=== PATIENT | female | born 1990 | race Caucasian/White ===

== ENCOUNTER 2020-08-21 16:15 | Outpatient (REF) | payer OTHER, SELFPAY ==
[2020-08-21 16:42] LABS: COVID-19 Test Negative (Negative)
== END 2020-08-21 16:16 | disposition home or self-care (01) ==
LOC: HO.LAB 16:15
PROVIDERS: Visit Provider Internal Medicine
DX: Z20.828 Contact with and (suspected) exposure to other viral communicable diseases (principal)
CPT/HCPCS: 87635

== ENCOUNTER 2020-08-24 12:31 | Outpatient (REF) | payer OTHER, SELFPAY ==
[2020-08-24 12:49] LABS: COVID-19 Test Negative (Negative)
== END 2020-08-24 12:32 | disposition home or self-care (01) ==
LOC: HO.LAB 12:31
PROVIDERS: Visit Provider Internal Medicine
DX: Z20.828 Contact with and (suspected) exposure to other viral communicable diseases (principal)
CPT/HCPCS: 87635

== ENCOUNTER 2020-10-02 08:53 | Outpatient (REF) | payer OTHER, SELFPAY ==
[2020-10-02 10:03] LABS: COVID-19 Test Negative (Negative); IDNOW Serial# 55D5AD1C
== END 2020-10-02 08:54 | disposition home or self-care (01) ==
LOC: HO.LAB 08:53
PROVIDERS: Visit Provider Internal Medicine
DX: Z20.828 Contact with and (suspected) exposure to other viral communicable diseases (principal)
CPT/HCPCS: 87635; C9803

== ENCOUNTER 2020-10-17 12:26 | Outpatient (REF) | payer SELFPAY ==
[2020-10-17 13:02] LABS: Cholesterol 224 mg/dL
== END 2020-10-17 12:27 | disposition home or self-care (01) ==
LOC: HO.LNC 12:26
PROVIDERS: Visit Provider Pathology Anatomic Pathology & Clinical Pathology
DX: E78.00 Pure hypercholesterolemia, unspecified (principal)
CPT/HCPCS: 82465

== ENCOUNTER 2020-11-14 09:57 | Outpatient (REF) | payer OTHER, SELFPAY ==
[2020-11-14 10:28] LABS: COVID-19 Test Negative (Negative); IDNOW Serial# 55D5AD1C
== END 2020-11-14 09:58 | disposition home or self-care (01) ==
LOC: HO.EMPCOV 09:57
PROVIDERS: Visit Provider Internal Medicine
DX: Z20.822 Contact with and (suspected) exposure to COVID-19 (principal)
CPT/HCPCS: 36415; 87635; C9803

== ENCOUNTER 2021-06-27 16:33 | Outpatient (REF) | payer OTHER, SELFPAY ==
--- NOTE | ~2021-06-27 | US_ITS ---
EXAMINATION: US THYROID CLINICAL INFORMATION: Goiter. COMPARISON: None TECHNIQUE: Linear transducer grayscale and color Doppler examination with attention to the region of the thyroid. FINDINGS: SIZE: Measurements of the thyroid lobes and nodules are given in sagittal, anteroposterior and transverse dimensions respectively. Right Thyroid Lobe: 6.0 x 1.6 x 2.1 cm, volume 10.5 mL. Parenchyma: The gland echotexture is homogeneous. Thyroid vascularity is normal. Left Thyroid Lobe: 5.4 x 1.3 x 1.6 cm, volume 5.4 mL. Parenchyma: The gland echotexture is homogeneous. Thyroid vascularity is normal. Isthmus: 0.3 cm in maximum AP dimension. Estimated total number of nodules greater than or equal to 1 cm: 0. Machine I Cutter nodules are described as follows: 1. Location: Left inferior. Size: 0.3 x 0.3 x 0.4 cm, volume 0.02 mL. Nodule characteristics: Colloid cyst NODES: No lymphadenopathy is seen in the tissue surrounding the thyroid gland. US/US thyroid IMPRESSION: Normal-appearing thyroid with a single tiny 4 mm colloid cyst. No further follow up is needed. ACR TI-RADS RECOMMENDATION REFERENCE: Ultrasound-guided fine-needle aspiration, followup ultrasound, no further follow up. * TR1 (0 point) and TR 2 (2 points): No FNA or follow up. * TR3 (3 points): FNA if more than or equal to 2.5 cm in maximum dimension, followup ultrasound in 1, 3 and 5 years if 1.5 to 2.4 cm in maximum dimension. * TR4 (4-6 points): FNA if more than or equal to 1.5 cm in maximum dimension, followup ultrasound in 1, 2, 3 and 5 years if 1 to 1.4 cm in maximum dimension. * TR5 (more than or equal to 7 points): FNA if more than or equal to 1 cm in maximum dimension, followup ultrasound every year for 5 years if 0.5 to 0.9 cm in maximum dimension. * TR3, TR4 or TR5 nodules that are below the size threshold for follow up receive no follow up.
== END 2021-06-27 16:34 | disposition home or self-care (01) ==
LOC: HO.US 16:33
PROVIDERS: PCP Internal Medicine; Visit Provider Internal Medicine
DX: E04.9 Nontoxic goiter, unspecified (principal)
CPT/HCPCS: 76536

== ENCOUNTER 2022-12-03 15:26 | Emergency (ER) | payer OTHER, SELFPAY ==
--- NOTE | ~2022-12-03 | CT_ITS ---
EXAMINATION: CT ABDOMEN AND PELVIS WITH CONTRAST CLINICAL INFORMATION: Right side pain. COMPARISON: 12/03/22 TECHNIQUE: Multidetector volumetric images were obtained from the superior aspect of the liver through the pubic symphysis following administration 85 mL of Omnipaque 350 intravenous contrast. Sagittal and coronal reformatted images were obtained on the technologist's workstation. Oral contrast: No This CT examination was performed using dose optimization techniques as appropriate, variously including the following: *Automated exposure control *Adjustment of mA and/or kV according to patient size (this includes techniques or standardized protocols for targeted exams where dose is matched to indication/reason for exam; i.e. extremities or head) *Use of iterative reconstruction technique DLP: 509 mGy-cm FINDINGS: LUNG BASES: The visualized lung bases are unremarkable. LIVER, GALLBLADDER, AND BILIARY TREE: The liver is normal in size, shape, and attenuation. No focal hepatic lesion or biliary ductal dilatation is present. The gallbladder is unremarkable with no evidence of radiopaque gallstones, gallbladder wall thickening, or obvious pericholecystic inflammatory changes. PANCREAS: Unremarkable. SPLEEN: Unremarkable. ADRENAL GLANDS: Unremarkable. KIDNEYS AND URETERS: There is a 6 mm left renal stone. No hydronephrosis. Right inferior pole nonobstructing punctate stone. BLADDER: Unremarkable. GASTROINTESTINAL TRACT: The small and large bowel are unremarkable. The appendix is unremarkable. ABDOMINAL WALL: No significant hernia is appreciated. LYMPH NODES: Normal. VASCULAR: Unremarkable. PELVIC VISCERA: Left corpus luteal cyst is noted. OSSEOUS STRUCTURES: Unremarkable. CT/CT abdomen pelvis w IV con IMPRESSION: 1. No acute intra-abdominal abnormality. 2. Bilateral nonobstructing nephrolithiasis. No hydronephrosis. 3. Left corpus luteal cyst.
--- NOTE | ~2022-12-03 | US_ITS ---
EXAMINATION: US ABDOMEN LIMITED CLINICAL INFORMATION: Right upper quadrant tenderness. COMPARISON: None TECHNIQUE: Real-time imaging of the right upper quadrant abdominal viscera. FINDINGS: PANCREAS: Normal. LIVER: Normal. The liver is normal in size. The liver contour is normal. Parenchymal echogenicity is normal. No focal hepatic lesion. There is no intrahepatic biliary duct dilatation seen. GALLBLADDER: Normal. The gallbladder is physiologically distended without evidence of stones, sludge, polyps, wall thickening or pericholecystic fluid. COMMON BILE DUCT: Normal in caliber measuring 0.4 cm in diameter. RIGHT KIDNEY: Normal. No hydronephrosis. No renal calculi or focal parenchymal lesions. The kidney measures 10.9 cm in maximum dimension. FREE FLUID: None. US/US abdomen limited IMPRESSION: No acute sonographic abnormalities to explain the patient's symptoms.
--- NOTE | 2022-12-03 15:29 | ED_ITS ---
HPI - Abdominal Pain General Chief Complaint: Abdominal Pain <NY Goncalves Last Filed: 12/03/22 15:32> Stated Complaint: abdominal pain <NY Goncalves Last Filed: 12/03/22 15:32> Time Seen by Provider: 12/03/22 15:43 <NY Goncalves Last Filed: 12/03/22 15:32> History of Present Illness HPI narrative: patient complains of right-sided abdominal pain which began yesterday night with nausea but no vomiting, it is a burning pain that is mostly in the middle and right upper side, no diarrhea no dysuria no frequency no changes in urination, no fever no chills no runny nose no cough no sore throat no rash no blood in stool no dizziness no weakness Is she woke up this morning and the pain was worse and she tried to go to work but pain was too much and came to the ER <NY Guaman Last Filed: 12/03/22 19:14> Related Data Home Medications: Previous Rx's Medication Instructions Recorded ibuprofen 600 mg tablet 600 mg PO TID PRN fever or pain 12/03/22 #20 tabs nitrofurantoin 100 mg PO Q12H 7 days #14 caps 12/03/22 monohydrate/macrocrystals 100 mg capsule (Macrobid) <NY Goncalves Last Filed: 12/03/22 15:32> Allergies/Adverse Reactions: Allergies Allergy/AdvReac Type Severity Reaction Status Date / Time cephalexin [From Keflex] Allergy Hives Verified 12/03/22 15:30 <NY Goncalves Last Filed: 12/03/22 15:32> [facility] Past Medical History [facility] Narrative: n <NY Guaman Last Filed: 12/03/22 19:14> Source: nursing notes reviewed <NY Guaman Last Filed: 12/03/22 19:14> Social History Social History: Social History Advance Directives: No Advance Directives Information Provided: No <NY Goncalves Last Filed: 12/03/22 15:32> Physical Exam ED Vital Signs: Vital Signs - 24 hr 12/03/22 15:30 12/03/22 17:40 Temperature 98.3 F 98.3 F Pulse Rate 108 H 90 Respiratory Rate 16 16 Blood Pressure 189/139 H 184/83 H Pulse Oximetry 98 100 Oxygen Delivery Method Room Air Room Air BMI result Body Mass Index 26.6 <NY Goncalves - Last Filed: 12/03/22 15:32> Vital Signs - 24 hr 12/03/22 15:30 12/03/22 17:40 Temperature 98.3 F 98.3 F Pulse Rate 108 H 90 Respiratory Rate 16 16 Blood Pressure 189/139 H 184/83 H Pulse Oximetry 98 100 Oxygen Delivery Method Room Air Room Air BMI result Body Mass Index 26.6 <NY Guaman - Last Filed: 12/03/22 19:14> Vital Signs - 24 hr 12/03/22 15:30 12/03/22 17:40 Temperature 98.3 F 98.3 F Pulse Rate 108 H 90 Respiratory Rate 16 16 Blood Pressure 189/139 H 184/83 H Pulse Oximetry 98 100 Oxygen Delivery Method Room Air Room Air BMI result Body Mass Index 26.6 <Diana Leos MD - Last Filed: 12/03/22 21:39> general appearance no acute distress Eyes anicteric no pallor The pharynx is mildly dry no redness no exudate no swelling, voice is normal Neck is supple The chest is clear to auscultation bilateral Heart no murmur The abdomen had both epigastric and right upper quadrant tenderness, no lower abdominal or any other tenderness no rebound no guarding The back no CVA tenderness Extremities no edema Skin no rashes Neuro no focal deficits <NY Guaman - Last Filed: 12/03/22 19:14> Course Course Course Narrative: RME - 32 yo female with history of UTI presents to the ER with nausea, chills and body aches that started last night. Today developed periumbilical abd pain that radiates to her back. Went to PCP today who told her to come to the ER for labs and imaging. BP 180/140s. HR 110s. RUQ tenderness on exam. Labs and RUQ U/S ordered. <NY Goncalves - Last Filed: 12/03/22 15:32> RME - 32 yo female with history of UTI presents to the ER with nausea, chills and body aches that started last night. Today developed periumbilical abd pain that radiates to her back. Went to PCP today who told her to come to the ER for labs and imaging. BP 180/140s. HR 110s. RUQ tenderness on exam. Labs and RUQ U/S ordered. Patient's pain was help mildly with Toradol, but later she did request more pain medication and was given morphine, as well as Pepcid labs CBC was normal with a normal white count bili Ritter was very mildly elevated at 1.1, otherwise chemistry was normal, lipase was normal, other LFTs were all normal Urine did show some white cells, but it also showed 3-5 squamous epithelial, as patient has no urinary tract symptoms no CVA tenderness no dysuria no frequency no burning I did not treat this as an infection COVID testing was negative Ultrasound of the abdomen was normal with no gallstones no sludge no wall thickening no pericholecystic fluid Liver was normal, no biliary duct dilatation seen At 19:00 I repeated an abdominal exam and now there is just mild epigastric tenderness the right upper quadrant tenderness is gone but the patient is still uncomfortable CT results are pending and case was signed out to Dr. Leos to follow CT results, follow influenza rapid results and re-evaluate and dispo patient <NY Guaman - Last Filed: 12/03/22 19:14> Medical Decision Making Medical Decision Making [facility] Narrative: -patient has borderline UTI. However, patient states that whenever she has mild UTI symptoms, they are intermittent, and eventually become worse. I discussed with the patient given her history might as well treated. Patient given the 1st dose of Macrobid in the emergency room. <Diana Leos MD - Last Filed: 12/03/22 21:39> Differential Diagnosis Differential Diagnoses: The differential diagnosis associated with the presentation includes (UTI, ovarian cyst, appendicitis) <Diana Leos MD - Last Filed: 12/03/22 21:39> Lab Data [facility] Lab Attestation statement: I reviewed the patient's lab results. <Diana Leos MD - Last Filed: 12/03/22 21:39> Result Diagrams: 12/03/22 15:55 12/03/22 15:55 <NY Goncalves - Last Filed: 12/03/22 15:32> Labs: Lab Results 12/03/22 12/03/22 12/03/22 Range/Units 15:41 15:41 15:55 WBC 6.6 (4.8-10.8) X10*3/uL RBC 5.03 (4.20-5.50) X10*6/uL Hgb 14.8 (12.0-16.0) g/dl Hct 42.3 (37.0-47.0) % MCV 84.1 (80.0-98.0) fL MCH 29.4 (27.0-33.0) pg MCHC 35.0 (31.0-35.0) g/dl RDW 12.2 (11.0-16.0) % Plt Count 289 (160-400) X10*3/uL MPV 9.5 (9.4-12.3) fL Immature Gran % (Auto) 0.3 (0.0-0.4) % Neut % (Auto) 58.5 (45-73) % Lymph % (Auto) 30.9 (20-40) % [place] % (Auto) 9.1 (2-11) % Eos % (Auto) 0.9 (0-4) % Baso % (Auto) 0.3 (0-2) % Lymph # (Auto) 2.0 (1.2-4.9) X10*3/uL [place] # (Auto) 0.6 (0.1-1.2) X10*3/uL Eos # (Auto) 0.1 (0.0-0.4) X10*3/uL Baso # (Auto) 0.0 (0.0-0.2) X10*3/uL Abs Immat Gran (auto) 0.02 (0.00-0.03) X10*3/uL Absolute Neuts (auto) 3.8 (2.0-8.3) x10*3/uL Absolute Nucleated RBC 0.000 (0.0-0.012) X10*3/uL Nucleated RBC % (auto) 0.0 (0.0-0.2) /100WBC Sodium (135-145) mmol/L Potassium (3.3-5.1) mmol/L Chloride (96-108) mmol/L Carbon Dioxide (22-29) mmol/L Anion Gap (12-20) BUN (9-16) mg/dL Creatinine (0.5-1.4) mg/dL Estim Creat Clear Calc Estimated GFR Random Glucose (60-115) mg/dL Calcium (8.4-10.2) mg/dL Magnesium (1.6-2.6) mg/dL Total Bilirubin (0.0-1.0) mg/dL Direct Bilirubin (0.0-0.5) mg/dL AST (5-31) U/L ALT (0-31) U/L Alkaline Phosphatase (39-117) U/L Total Protein (6.5-8.0) g/dL Albumin (3.5-5.0) g/dL Lipase (8-78) U/L Beta HCG, Quant mIU/mL Urine Color Yellow Urine Appearance Clear Urine pH 5.5 (5.0-9.0) Ur Specific Antoine 1.015 (1.005-1.025) Urine Protein Negative (Neg-Trace) mg/dL Urine Glucose (UA) Negative (Negative) mg/dL Urine Ketones Negative (Negative) mg/dL Urine Blood Small (1+) H (Negative) Urine Nitrite Negative (Negative) Ur Leukocyte Esterase Small (1+) H (Negative) Urine RBC 3-5 H (0-2) /HPF Urine WBC 11-20 H (0-5) /HPF Ur Squamous Epith Cells 3-5 (0-2) /HPF Urine Bacteria 2+ (None Seen) Hyaline Casts 0-2 (0-2) /LPF Urine Test NEGATIVE (NEGATIVE) COVID-19 (KATHY) (Negative) COVID-19 Clin Com Influenza Type A (ALEC) (Negative) Influenza Type B (ALEC) (Negative) Influenza A & B Note 12/03/22 12/03/22 12/03/22 Range/Units 15:55 15:55 15:55 WBC (4.8-10.8) X10*3/uL RBC (4.20-5.50) X10*6/uL Hgb (12.0-16.0) g/dl Hct (37.0-47.0) % MCV (80.0-98.0) fL MCH (27.0-33.0) pg MCHC (31.0-35.0) g/dl RDW (11.0-16.0) % Plt Count (160-400) X10*3/uL MPV (9.4-12.3) fL Immature Gran % (Auto) (0.0-0.4) % Neut % (Auto) (45-73) % Lymph % (Auto) (20-40) % [place] % (Auto) (2-11) % Eos % (Auto) (0-4) % Baso % (Auto) (0-2) % Lymph # (Auto) (1.2-4.9) X10*3/uL [place] # (Auto) (0.1-1.2) X10*3/uL Eos # (Auto) (0.0-0.4) X10*3/uL Baso # (Auto) (0.0-0.2) X10*3/uL Abs Immat Gran (auto) (0.00-0.03) X10*3/uL Absolute Neuts (auto) (2.0-8.3) x10*3/uL Absolute Nucleated RBC (0.0-0.012) X10*3/uL Nucleated RBC % (auto) (0.0-0.2) /100WBC Sodium 136 (135-145) mmol/L Potassium 3.9 (3.3-5.1) mmol/L Chloride 107 (96-108) mmol/L Carbon Dioxide 23 (22-29) mmol/L Anion Gap 10 L (12-20) BUN 12 (9-16) mg/dL Creatinine 0.75 (0.5-1.4) mg/dL Estim Creat Clear Calc 113.1 Estimated GFR > 60 Random Glucose 103 (60-115) mg/dL Calcium 9.0 (8.4-10.2) mg/dL Magnesium 2.2 (1.6-2.6) mg/dL Total Bilirubin 1.1 H (0.0-1.0) mg/dL Direct Bilirubin 0.2 (0.0-0.5) mg/dL AST 25 (5-31) U/L ALT 31 (0-31) U/L Alkaline Phosphatase 70 (39-117) U/L Total Protein 7.2 (6.5-8.0) g/dL Albumin 4.5 (3.5-5.0) g/dL Lipase 26 (8-78) U/L Beta HCG, Quant < 2 mIU/mL Urine Color Urine Appearance Urine pH (5.0-9.0) Ur Specific Antoine (1.005-1.025) Urine Protein (Neg-Trace) mg/dL Urine Glucose (UA) (Negative) mg/dL Urine Ketones (Negative) mg/dL Urine Blood (Negative) Urine Nitrite (Negative) Ur Leukocyte Esterase (Negative) Urine RBC (0-2) /HPF Urine WBC (0-5) /HPF Ur Squamous Epith Cells (0-2) /HPF Urine Bacteria (None Seen) Hyaline Casts (0-2) /LPF Urine Test (NEGATIVE) COVID-19 (KATHY) Negative (Negative) COVID-19 Clin Com See Note Influenza Type A (ALEC) (Negative) Influenza Type B (ALEC) (Negative) Influenza A & B Note 12/03/22 Range/Units 19:13 WBC (4.8-10.8) X10*3/uL RBC (4.20-5.50) X10*6/uL Hgb (12.0-16.0) g/dl Hct (37.0-47.0) % MCV (80.0-98.0) fL MCH (27.0-33.0) pg MCHC (31.0-35.0) g/dl RDW (11.0-16.0) % Plt Count (160-400) X10*3/uL MPV (9.4-12.3) fL Immature Gran % (Auto) (0.0-0.4) % Neut % (Auto) (45-73) % Lymph % (Auto) (20-40) % [place] % (Auto) (2-11) % Eos % (Auto) (0-4) % Baso % (Auto) (0-2) % Lymph # (Auto) (1.2-4.9) X10*3/uL [place] # (Auto) (0.1-1.2) X10*3/uL Eos # (Auto) (0.0-0.4) X10*3/uL Baso # (Auto) (0.0-0.2) X10*3/uL Abs Immat Gran (auto) (0.00-0.03) X10*3/uL Absolute Neuts (auto) (2.0-8.3) x10*3/uL Absolute Nucleated RBC (0.0-0.012) X10*3/uL Nucleated RBC % (auto) (0.0-0.2) /100WBC Sodium (135-145) mmol/L Potassium (3.3-5.1) mmol/L Chloride (96-108) mmol/L Carbon Dioxide (22-29) mmol/L Anion Gap (12-20) BUN (9-16) mg/dL Creatinine (0.5-1.4) mg/dL Estim Creat Clear Calc Estimated GFR Random Glucose (60-115) mg/dL Calcium (8.4-10.2) mg/dL Magnesium (1.6-2.6) mg/dL Total Bilirubin (0.0-1.0) mg/dL Direct Bilirubin (0.0-0.5) mg/dL AST (5-31) U/L ALT (0-31) U/L Alkaline Phosphatase (39-117) U/L Total Protein (6.5-8.0) g/dL Albumin (3.5-5.0) g/dL Lipase (8-78) U/L Beta HCG, Quant mIU/mL Urine Color Urine Appearance Urine pH (5.0-9.0) Ur Specific Antoine (1.005-1.025) Urine Protein (Neg-Trace) mg/dL Urine Glucose (UA) (Negative) mg/dL Urine Ketones (Negative) mg/dL Urine Blood (Negative) Urine Nitrite (Negative) Ur Leukocyte Esterase (Negative) Urine RBC (0-2) /HPF Urine WBC (0-5) /HPF Ur Squamous Epith Cells (0-2) /HPF Urine Bacteria (None Seen) Hyaline Casts (0-2) /LPF Urine Test (NEGATIVE) COVID-19 (KATHY) (Negative) COVID-19 Clin Com Influenza Type A (ALEC) Negative (Negative) Influenza Type B (ALEC) Negative (Negative) Influenza A & B Note See Note <NY Goncalves - Last Filed: 12/03/22 15:32> Lab Results 12/03/22 12/03/22 12/03/22 Range/Units 15:41 15:41 15:55 WBC 6.6 (4.8-10.8) X10*3/uL RBC 5.03 (4.20-5.50) X10*6/uL Hgb 14.8 (12.0-16.0) g/dl Hct 42.3 (37.0-47.0) % MCV 84.1 (80.0-98.0) fL MCH 29.4 (27.0-33.0) pg MCHC 35.0 (31.0-35.0) g/dl RDW 12.2 (11.0-16.0) % Plt Count 289 (160-400) X10*3/uL MPV 9.5 (9.4-12.3) fL Immature Gran % (Auto) 0.3 (0.0-0.4) % Neut % (Auto) 58.5 (45-73) % Lymph % (Auto) 30.9 (20-40) % [place] % (Auto) 9.1 (2-11) % Eos % (Auto) 0.9 (0-4) % Baso % (Auto) 0.3 (0-2) % Lymph # (Auto) 2.0 (1.2-4.9) X10*3/uL [place] # (Auto) 0.6 (0.1-1.2) X10*3/uL Eos # (Auto) 0.1 (0.0-0.4) X10*3/uL Baso # (Auto) 0.0 (0.0-0.2) X10*3/uL Abs Immat Gran (auto) 0.02 (0.00-0.03) X10*3/uL Absolute Neuts (auto) 3.8 (2.0-8.3) x10*3/uL Absolute Nucleated RBC 0.000 (0.0-0.012) X10*3/uL Nucleated RBC % (auto) 0.0 (0.0-0.2) /100WBC Sodium (135-145) mmol/L Potassium (3.3-5.1) mmol/L Chloride (96-108) mmol/L Carbon Dioxide (22-29) mmol/L Anion Gap (12-20) BUN (9-16) mg/dL Creatinine (0.5-1.4) mg/dL Estim Creat Clear Calc Estimated GFR Random Glucose (60-115) mg/dL Calcium (8.4-10.2) mg/dL Magnesium (1.6-2.6) mg/dL Total Bilirubin (0.0-1.0) mg/dL Direct Bilirubin (0.0-0.5) mg/dL AST (5-31) U/L ALT (0-31) U/L Alkaline Phosphatase (39-117) U/L Total Protein (6.5-8.0) g/dL Albumin (3.5-5.0) g/dL Lipase (8-78) U/L Beta HCG, Quant mIU/mL Urine Color Yellow Urine Appearance Clear Urine pH 5.5 (5.0-9.0) Ur Specific Antoine 1.015 (1.005-1.025) Urine Protein Negative (Neg-Trace) mg/dL Urine Glucose (UA) Negative (Negative) mg/dL Urine Ketones Negative (Negative) mg/dL Urine Blood Small (1+) H (Negative) Urine Nitrite Negative (Negative) Ur Leukocyte Esterase Small (1+) H (Negative) Urine RBC 3-5 H (0-2) /HPF Urine WBC 11-20 H (0-5) /HPF Ur Squamous Epith Cells 3-5 (0-2) /HPF Urine Bacteria 2+ (None Seen) Hyaline Casts 0-2 (0-2) /LPF Urine Test NEGATIVE (NEGATIVE) COVID-19 (KATHY) (Negative) COVID-19 Clin Com Influenza Type A (ALEC) (Negative) Influenza Type B (ALEC) (Negative) Influenza A & B Note 12/03/22 12/03/22 12/03/22 Range/Units 15:55 15:55 15:55 WBC (4.8-10.8) X10*3/uL RBC (4.20-5.50) X10*6/uL Hgb (12.0-16.0) g/dl Hct (37.0-47.0) % MCV (80.0-98.0) fL MCH (27.0-33.0) pg MCHC (31.0-35.0) g/dl RDW (11.0-16.0) % Plt Count (160-400) X10*3/uL MPV (9.4-12.3) fL Immature Gran % (Auto) (0.0-0.4) % Neut % (Auto) (45-73) % Lymph % (Auto) (20-40) % [place] % (Auto) (2-11) % Eos % (Auto) (0-4) % Baso % (Auto) (0-2) % Lymph # (Auto) (1.2-4.9) X10*3/uL [place] # (Auto) (0.1-1.2) X10*3/uL Eos # (Auto) (0.0-0.4) X10*3/uL Baso # (Auto) (0.0-0.2) X10*3/uL Abs Immat Gran (auto) (0.00-0.03) X10*3/uL Absolute Neuts (auto) (2.0-8.3) x10*3/uL Absolute Nucleated RBC (0.0-0.012) X10*3/uL Nucleated RBC % (auto) (0.0-0.2) /100WBC Sodium 136 (135-145) mmol/L Potassium 3.9 (3.3-5.1) mmol/L Chloride 107 (96-108) mmol/L Carbon Dioxide 23 (22-29) mmol/L Anion Gap 10 L (12-20) BUN 12 (9-16) mg/dL Creatinine 0.75 (0.5-1.4) mg/dL Estim Creat Clear Calc 113.1 Estimated GFR > 60 Random Glucose 103 (60-115) mg/dL Calcium 9.0 (8.4-10.2) mg/dL Magnesium 2.2 (1.6-2.6) mg/dL Total Bilirubin 1.1 H (0.0-1.0) mg/dL Direct Bilirubin 0.2 (0.0-0.5) mg/dL AST 25 (5-31) U/L ALT 31 (0-31) U/L Alkaline Phosphatase 70 (39-117) U/L Total Protein 7.2 (6.5-8.0) g/dL Albumin 4.5 (3.5-5.0) g/dL Lipase 26 (8-78) U/L Beta HCG, Quant < 2 mIU/mL Urine Color Urine Appearance Urine pH (5.0-9.0) Ur Specific Antoine (1.005-1.025) Urine Protein (Neg-Trace) mg/dL Urine Glucose (UA) (Negative) mg/dL Urine Ketones (Negative) mg/dL Urine Blood (Negative) Urine Nitrite (Negative) Ur Leukocyte Esterase (Negative) Urine RBC (0-2) /HPF Urine WBC (0-5) /HPF Ur Squamous Epith Cells (0-2) /HPF Urine Bacteria (None Seen) Hyaline Casts (0-2) /LPF Urine Test (NEGATIVE) COVID-19 (KATHY) Negative (Negative) COVID-19 Clin Com See Note Influenza Type A (AL[facility]) (Negative) Influenza Type B (ALEC) (Negative) Influenza A & B Note 12/03/22 Range/Units 19:13 WBC (4.8-10.8) X10*3/uL RBC (4.20-5.50) X10*6/uL Hgb (12.0-16.0) g/dl Hct (37.0-47.0) % MCV (80.0-98.0) fL MCH (27.0-33.0) pg MCHC (31.0-35.0) g/dl RDW (11.0-16.0) % Plt Count (160-400) X10*3/uL MPV (9.4-12.3) fL Immature Gran % (Auto) (0.0-0.4) % Neut % (Auto) (45-73) % Lymph % (Auto) (20-40) % [place] % (Auto) (2-11) % Eos % (Auto) (0-4) % Baso % (Auto) (0-2) % Lymph # (Auto) (1.2-4.9) X10*3/uL [place] # (Auto) (0.1-1.2) X10*3/uL Eos # (Auto) (0.0-0.4) X10*3/uL Baso # (Auto) (0.0-0.2) X10*3/uL Abs Immat Gran (auto) (0.00-0.03) X10*3/uL Absolute Neuts (auto) (2.0-8.3) x10*3/uL Absolute Nucleated RBC (0.0-0.012) X10*3/uL Nucleated RBC % (auto) (0.0-0.2) /100WBC Sodium (135-145) mmol/L Potassium (3.3-5.1) mmol/L Chloride (96-108) mmol/L Carbon Dioxide (22-29) mmol/L Anion Gap (12-20) BUN (9-16) mg/dL Creatinine (0.5-1.4) mg/dL Estim Creat Clear Calc Estimated GFR Random Glucose (60-115) mg/dL Calcium (8.4-10.2) mg/dL Magnesium (1.6-2.6) mg/dL Total Bilirubin (0.0-1.0) mg/dL Direct Bilirubin (0.0-0.5) mg/dL AST (5-31) U/L ALT (0-31) U/L Alkaline Phosphatase (39-117) U/L Total Protein (6.5-8.0) g/dL Albumin (3.5-5.0) g/dL Lipase (8-78) U/L Beta HCG, Quant mIU/mL Urine Color Urine Appearance Urine pH (5.0-9.0) Ur Specific Antoine (1.005-1.025) Urine Protein (Neg-Trace) mg/dL Urine Glucose (UA) (Negative) mg/dL Urine Ketones (Negative) mg/dL Urine Blood (Negative) Urine Nitrite (Negative) Ur Leukocyte Esterase (Negative) Urine RBC (0-2) /HPF Urine WBC (0-5) /HPF Ur Squamous Epith Cells (0-2) /HPF Urine Bacteria (None Seen) Hyaline Casts (0-2) /LPF Urine Test (NEGATIVE) COVID-19 (KATHY) (Negative) COVID-19 Clin Com Influenza Type A (ALEC) Negative (Negative) Influenza Type B (ALEC) Negative (Negative) Influenza A & B Note See Note <NY Guaman - Last Filed: 12/03/22 19:14> Lab Results 12/03/22 12/03/22 12/03/22 Range/Units 15:41 15:41 15:55 WBC 6.6 (4.8-10.8) X10*3/uL RBC 5.03 (4.20-5.50) X10*6/uL Hgb 14.8 (12.0-16.0) g/dl Hct 42.3 (37.0-47.0) % MCV 84.1 (80.0-98.0) fL MCH 29.4 (27.0-33.0) pg MCHC 35.0 (31.0-35.0) g/dl RDW 12.2 (11.0-16.0) % Plt Count 289 (160-400) X10*3/uL MPV 9.5 (9.4-12.3) fL Immature Gran % (Auto) 0.3 (0.0-0.4) % Neut % (Auto) 58.5 (45-73) % Lymph % (Auto) 30.9 (20-40) % [place] % (Auto) 9.1 (2-11) % Eos % (Auto) 0.9 (0-4) % Baso % (Auto) 0.3 (0-2) % Lymph # (Auto) 2.0 (1.2-4.9) X10*3/uL [place] # (Auto) 0.6 (0.1-1.2) X10*3/uL Eos # (Auto) 0.1 (0.0-0.4) X10*3/uL Baso # (Auto) 0.0 (0.0-0.2) X10*3/uL Abs Immat Gran (auto) 0.02 (0.00-0.03) X10*3/uL Absolute Neuts (auto) 3.8 (2.0-8.3) x10*3/uL Absolute Nucleated RBC 0.000 (0.0-0.012) X10*3/uL Nucleated RBC % (auto) 0.0 (0.0-0.2) /100WBC Sodium (135-145) mmol/L Potassium (3.3-5.1) mmol/L Chloride (96-108) mmol/L Carbon Dioxide (22-29) mmol/L Anion Gap (12-20) BUN (9-16) mg/dL Creatinine (0.5-1.4) mg/dL Estim Creat Clear Calc Estimated GFR Random Glucose (60-115) mg/dL Calcium (8.4-10.2) mg/dL Magnesium (1.6-2.6) mg/dL Total Bilirubin (0.0-1.0) mg/dL Direct Bilirubin (0.0-0.5) mg/dL AST (5-31) U/L ALT (0-31) U/L Alkaline Phosphatase (39-117) U/L Total Protein (6.5-8.0) g/dL Albumin (3.5-5.0) g/dL Lipase (8-78) U/L Beta HCG, Quant mIU/mL Urine Color Yellow Urine Appearance Clear Urine pH 5.5 (5.0-9.0) Ur Specific Antoine 1.015 (1.005-1.025) Urine Protein Negative (Neg-Trace) mg/dL Urine Glucose (UA) Negative (Negative) mg/dL Urine Ketones Negative (Negative) mg/dL Urine Blood Small (1+) H (Negative) Urine Nitrite Negative (Negative) Ur Leukocyte Esterase Small (1+) H (Negative) Urine RBC 3-5 H (0-2) /HPF Urine WBC 11-20 H (0-5) /HPF Ur Squamous Epith Cells 3-5 (0-2) /HPF Urine Bacteria 2+ (None Seen) Hyaline Casts 0-2 (0-2) /LPF Urine Test NEGATIVE (NEGATIVE) COVID-19 (KATHY) (Negative) COVID-19 Clin Com Influenza Type A (ALEC) (Negative) Influenza Type B (ALEC) (Negative) Influenza A & B Note 12/03/22 12/03/22 12/03/22 Range/Units 15:55 15:55 15:55 WBC (4.8-10.8) X10*3/uL RBC (4.20-5.50) X10*6/uL Hgb (12.0-16.0) g/dl Hct (37.0-47.0) % MCV (80.0-98.0) fL MCH (27.0-33.0) pg MCHC (31.0-35.0) g/dl RDW (11.0-16.0) % Plt Count (160-400) X10*3/uL MPV (9.4-12.3) fL Immature Gran % (Auto) (0.0-0.4) % Neut % (Auto) (45-73) % Lymph % (Auto) (20-40) % [place] % (Auto) (2-11) % Eos % (Auto) (0-4) % Baso % (Auto) (0-2) % Lymph # (Auto) (1.2-4.9) X10*3/uL [place] # (Auto) (0.1-1.2) X10*3/uL Eos # (Auto) (0.0-0.4) X10*3/uL Baso # (Auto) (0.0-0.2) X10*3/uL Abs Immat Gran (auto) (0.00-0.03) X10*3/uL Absolute Neuts (auto) (2.0-8.3) x10*3/uL Absolute Nucleated RBC (0.0-0.012) X10*3/uL Nucleated RBC % (auto) (0.0-0.2) /100WBC Sodium 136 (135-145) mmol/L Potassium 3.9 (3.3-5.1) mmol/L Chloride 107 (96-108) mmol/L Carbon Dioxide 23 (22-29) mmol/L Anion Gap 10 L (12-20) BUN 12 (9-16) mg/dL Creatinine 0.75 (0.5-1.4) mg/dL Estim Creat Clear Calc 113.1 Estimated GFR > 60 Random Glucose 103 (60-115) mg/dL Calcium 9.0 (8.4-10.2) mg/dL Magnesium 2.2 (1.6-2.6) mg/dL Total Bilirubin 1.1 H (0.0-1.0) mg/dL Direct Bilirubin 0.2 (0.0-0.5) mg/dL AST 25 (5-31) U/L ALT 31 (0-31) U/L Alkaline Phosphatase 70 (39-117) U/L Total Protein 7.2 (6.5-8.0) g/dL Albumin 4.5 (3.5-5.0) g/dL Lipase 26 (8-78) U/L Beta HCG, Quant < 2 mIU/mL Urine Color Urine Appearance Urine pH (5.0-9.0) Ur Specific Antoine (1.005-1.025) Urine Protein (Neg-Trace) mg/dL Urine Glucose (UA) (Negative) mg/dL Urine Ketones (Negative) mg/dL Urine Blood (Negative) Urine Nitrite (Negative) Ur Leukocyte Esterase (Negative) Urine RBC (0-2) /HPF Urine WBC (0-5) /HPF Ur Squamous Epith Cells (0-2) /HPF Urine Bacteria (None Seen) Hyaline Casts (0-2) /LPF Urine Test (NEGATIVE) COVID-19 ([facility]) Negative (Negative) COVID-19 Clin Com See Note Influenza Type A ([facility]) (Negative) Influenza Type B ([facility]) (Negative) Influenza A & B Note 12/03/22 Range/Units 19:13 WBC (4.8-10.8) X10*3/uL RBC (4.20-5.50) X10*6/uL Hgb (12.0-16.0) g/dl Hct (37.0-47.0) % MCV (80.0-98.0) fL MCH (27.0-33.0) pg MCHC (31.0-35.0) g/dl RDW (11.0-16.0) % Plt Count (160-400) X10*3/uL MPV (9.4-12.3) fL Immature Gran % (Auto) (0.0-0.4) % Neut % (Auto) (45-73) % Lymph % (Auto) (20-40) % [place] % (Auto) (2-11) % Eos % (Auto) (0-4) % Baso % (Auto) (0-2) % Lymph # (Auto) (1.2-4.9) X10*3/uL [place] # (Auto) (0.1-1.2) X10*3/uL Eos # (Auto) (0.0-0.4) X10*3/uL Baso # (Auto) (0.0-0.2) X10*3/uL Abs Immat Gran (auto) (0.00-0.03) X10*3/uL Absolute Neuts (auto) (2.0-8.3) x10*3/uL Absolute Nucleated RBC (0.0-0.012) X10*3/uL Nucleated RBC % (auto) (0.0-0.2) /100WBC Sodium (135-145) mmol/L Potassium (3.3-5.1) mmol/L Chloride (96-108) mmol/L Carbon Dioxide (22-29) mmol/L Anion Gap (12-20) BUN (9-16) mg/dL Creatinine (0.5-1.4) mg/dL Estim Creat Clear Calc Estimated GFR Random Glucose (60-115) mg/dL Calcium (8.4-10.2) mg/dL Magnesium (1.6-2.6) mg/dL Total Bilirubin (0.0-1.0) mg/dL Direct Bilirubin (0.0-0.5) mg/dL AST (5-31) U/L ALT (0-31) U/L Alkaline Phosphatase (39-117) U/L Total Protein (6.5-8.0) g/dL Albumin (3.5-5.0) g/dL Lipase (8-78) U/L Beta HCG, Quant mIU/mL Urine Color Urine Appearance Urine pH (5.0-9.0) Ur Specific Antoine (1.005-1.025) Urine Protein (Neg-Trace) mg/dL Urine Glucose (UA) (Negative) mg/dL Urine Ketones (Negative) mg/dL Urine Blood (Negative) Urine Nitrite (Negative) Ur Leukocyte Esterase (Negative) Urine RBC (0-2) /HPF Urine WBC (0-5) /HPF Ur Squamous Epith Cells (0-2) /HPF Urine Bacteria (None Seen) Hyaline Casts (0-2) /LPF Urine Test (NEGATIVE) COVID-19 ([facility]) (Negative) COVID-19 Clin Com Influenza Type A ([facility]) Negative (Negative) Influenza Type B ([facility]) Negative (Negative) Influenza A & B Note See Note <Diana Leos MD - Last Filed: 12/03/22 21:39> Radiology Impression Discussion of test interpretation with radiology: I have reviewed the radiologist's reading. <Diana Leos MD - Last Filed: 12/03/22 21:39> Radiologist Impression: FINDINGS: LUNG BASES: The visualized lung bases are unremarkable.? LIVER, GALLBLADDER, AND BILIARY TREE: The liver is normal in size, shape, and attenuation. No focal hepatic lesion or biliary ductal dilatation is present. The gallbladder is unremarkable with no evidence of radiopaque gallstones, gallbladder wall thickening, or obvious pericholecystic inflammatory changes.? PANCREAS: Unremarkable.? SPLEEN: Unremarkable.? ADRENAL GLANDS: Unremarkable.? KIDNEYS AND URETERS: There is a 6 mm left renal stone. No hydronephrosis. Right inferior pole nonobstructing punctate stone.? BLADDER: Unremarkable.? GASTROINTESTINAL TRACT: The small and large bowel are unremarkable. The appendix is unremarkable.? ABDOMINAL WALL: No significant hernia is appreciated.? LYMPH NODES: Normal. VASCULAR: Unremarkable. PELVIC VISCERA: Left corpus luteal cyst is noted.? OSSEOUS STRUCTURES: Unremarkable.? CT/CT abdomen pelvis w IV con IMPRESSION: 1.? No acute intra-abdominal abnormality. 2.? Bilateral nonobstructing nephrolithiasis. No hydronephrosis. 3.? Left corpus luteal cyst. ? ? <Diana Leos MD - Last Filed: 12/03/22 21:39> Medications Administered Discontinued Medications Generic Name Dose Route Start Last Admin Trade Name Freq PRN Reason Stop Dose Admin Famotidine 20 mg 12/03/22 18:52 12/03/22 19:16 Famotidine 20 Mg Tablet PO 12/03/22 18:53 20 mg ONCE ONE Administration Sodium Chloride 1,000 mls @ 999 mls/hr 12/03/22 16:00 12/03/22 19:07 Ns IVCONT 12/03/22 17:00 Infused .Q1H1M NICKOLAS Infusion Iohexol 100 ml 12/03/22 18:47 12/03/22 18:47 Iohexol 350 Mg/Ml 100 Ml Infus..Btl IV 12/03/22 18:48 85 ml ONCE ONE Administration Ketorolac Tromethamine 15 mg 12/03/22 16:01 12/03/22 16:12 Ketorolac Tromethamine 15 Mg/Ml Vial IVPUSH 12/03/22 16:02 15 mg ONCE ONE Administration Morphine Sulfate 4 mg 12/03/22 15:41 12/03/22 19:06 Morphine Sulfate 4 Mg/Ml Cartridge IVPUSH 12/03/22 15:42 Not Given ONCE ONE Protocol Ondansetron HCl 4 mg 12/03/22 15:41 12/03/22 16:17 Ondansetron Hcl 4 Mg/2 Ml Vial IVPUSH 12/03/22 15:42 4 mg ONCE ONE Administration <NY Goncalves - Last Filed: 12/03/22 15:32> Medications Administered Discontinued Medications Generic Name Dose Route Start Last Admin Trade Name Freq PRN Reason Stop Dose Admin Famotidine 20 mg 12/03/22 18:52 12/03/22 19:16 Famotidine 20 Mg Tablet PO 12/03/22 18:53 20 mg ONCE ONE Administration Sodium Chloride 1,000 mls @ 999 mls/hr 12/03/22 16:00 12/03/22 19:07 Ns IVCONT 12/03/22 17:00 Infused .Q1H1M NICKOLAS Infusion Iohexol 100 ml 12/03/22 18:47 12/03/22 18:47 Iohexol 350 Mg/Ml 100 Ml Infus..Btl IV 12/03/22 18:48 85 ml ONCE ONE Administration Ketorolac Tromethamine 15 mg 12/03/22 16:01 12/03/22 16:12 Ketorolac Tromethamine 15 Mg/Ml Vial IVPUSH 12/03/22 16:02 15 mg ONCE ONE Administration Morphine Sulfate 4 mg 12/03/22 15:41 12/03/22 19:06 Morphine Sulfate 4 Mg/Ml Cartridge IVPUSH 12/03/22 15:42 Not Given ONCE ONE Protocol Ondansetron HCl 4 mg 12/03/22 15:41 12/03/22 16:17 Ondansetron Hcl 4 Mg/2 Ml Vial IVPUSH 12/03/22 15:42 4 mg ONCE ONE Administration <NY Guaman - Last Filed: 12/03/22 19:14> Medications Administered Discontinued Medications Generic Name Dose Route Start Last Admin Trade Name Freq PRN Reason Stop Dose Admin Famotidine 20 mg 12/03/22 18:52 12/03/22 19:16 Famotidine 20 Mg Tablet PO 12/03/22 18:53 20 mg ONCE ONE Administration Sodium Chloride 1,000 mls @ 999 mls/hr 12/03/22 16:00 12/03/22 19:07 Ns IVCONT 12/03/22 17:00 Infused .Q1H1M NICKOLAS Infusion Iohexol 100 ml 12/03/22 18:47 12/03/22 18:47 Iohexol 350 Mg/Ml 100 Ml Infus..Btl IV 12/03/22 18:48 85 ml ONCE ONE Administration Ketorolac Tromethamine 15 mg 12/03/22 16:01 12/03/22 16:12 Ketorolac Tromethamine 15 Mg/Ml Vial IVPUSH 12/03/22 16:02 15 mg ONCE ONE Administration Morphine Sulfate 4 mg 12/03/22 15:41 12/03/22 19:06 Morphine Sulfate 4 Mg/Ml Cartridge IVPUSH 12/03/22 15:42 Not Given ONCE ONE Protocol Ondansetron HCl 4 mg 12/03/22 15:41 12/03/22 16:17 Ondansetron Hcl 4 Mg/2 Ml Vial IVPUSH 12/03/22 15:42 4 mg ONCE ONE Administration <Diana Leos MD - Last Filed: 12/03/22 21:39> Discharge Plan Discharge Clinical Impression: Abdominal pain, UTI (urinary tract infection) <NY Goncalves - Last Filed: 12/03/22 15:32> Patient Disposition: Home, Self-Care <NY Goncalves - Last Filed: 12/03/22 15:32> Instructions: Urinary Tract Infection in Women (ED) <NY Goncalves - Last Filed: 12/03/22 15:32> Additional Instructions: Please follow-up with your primary care physician tomorrow. If you have any worsening or new symptoms, please return to the emergency room or call 911 <NY Goncalves - Last Filed: 12/03/22 15:32> Prescriptions: New nitrofurantoin monohyd/m-cryst [Macrobid] 100 mg capsule 100 mg PO Q12H 7 Days Qty: 14 0RF Rx Instructions: must administer with a meal/food ibuprofen 600 mg tablet 600 mg PO TID PRN (Reason: fever or pain) Qty: 20 0RF <NY Goncalves - Last Filed: 12/03/22 15:32>
[2022-12-03 15:30] VITALS: BP 189/139; PULSE 108; RESP 16; TEMP 36.8; O2SAT 98; BMI 26.6
[2022-12-03 15:59] LABS: MANUAL DIFF FLAG NO
[2022-12-03 16:01] LABS: Basophils Percent Auto 0.3 % (0-2); Eosinophils Absolute Auto 0.1 X10*3/uL (0.0-0.4); Eosinophils Percent Auto 0.9 % (0-4); Hematocrit 42.3 % (37.0-47.0); Hemoglobin 14.8 g/dl (12.0-16.0); Imm Gran Abs Auto 0.02 X10*3/uL (0.00-0.03); Imm Gran Pct Auto 0.3 % (0.0-0.4); Lymphocytes Percent Auto 30.9 % (20-40); Mean Corpuscular Hemoglobin 29.4 pg (27.0-33.0); Mean Corpuscular Volume 84.1 fL (80.0-98.0); Mean Platelet Volume 9.5 fL (9.4-12.3); Monocytes Absolute Auto 0.6 X10*3/uL (0.1-1.2); Monocytes Percent Auto 9.1 % (2-11); Neutrophils Absolute Auto 3.8 x10*3/uL (2.0-8.3); Neutrophils Percent Auto 58.5 % (45-73); Platelet Count 289 X10*3/uL (160-400); Red Blood Count 5.03 X10*6/uL (4.20-5.50); Red Cell Distribution Width 12.2 % (11.0-16.0); White Blood Count 6.6 X10*3/uL (4.8-10.8)
[2022-12-03 16:03] LABS: Appearance Urine Clear; Color Urine Yellow; Glucose Urine UA Negative (Negative); Leukocyte Esterase Urine Small (1+) (Negative); Nitrite Urine Negative (Negative); PH 5.5 (5.0-9.0); Specific Gravity - Urine 1.015 (1.005-1.025); UMIC TRIGGER UACC YES; Urine Blood Small (1+) (Negative); Urine Ketones Negative (Negative); Urine Protein Negative (Neg-Trace)
[2022-12-03 16:05] LABS: UPreg QC Valid YES; Urine Pregnancy NEGATIVE (NEGATIVE)
[2022-12-03] MEDS: Ketorolac Tromethamine 15 MG/ML VIAL IVPUSH (16:12)
[2022-12-03] MEDS: ondansetron HCL 4 MG/2 ML VIAL IVPUSH (16:17)
[2022-12-03 16:20] LABS: Alanine Aminotransferase 31 U/L (0-31); Albumin Level 4.5 g/dL (3.5-5.0); Alkaline Phosphatase 70 U/L (39-117); Anion Gap 10 (12-20); Aspartate Amino Transferase 25 U/L (5-31); Bilirubin Direct 0.2 mg/dL (0.0-0.5); Bilirubin Total 1.1 mg/dL (0.0-1.0); Blood Urea Nitrogen 12 mg/dL (9-16); Carbon Dioxide 23 mmol/L (22-29); Chloride 107 mmol/L (96-108); Creatinine Clr Calc Pharmacy 113.1; Estimated Glomerular Filt Rate > 60; Glucose Random 103 mg/dL (60-115); Lipase 26 U/L (8-78); Magnesium 2.2 mg/dL (1.6-2.6); Potassium 3.9 mmol/L (3.3-5.1); Sodium 136 mmol/L (135-145); Total Protein 7.2 g/dL (6.5-8.0)
[2022-12-03] MEDS: 0.9 % Sodium Chloride 1,000 ML 999 ML IVCONT (16:20)
[2022-12-03 16:23] LABS: Bacteria Urine 2+ (None Seen); Hyaline Casts Urine 0-2 /LPF (0-2); UACC Culture Trigger YES
[2022-12-03 16:27] LABS: HCG Quantitative < 2 mIU/mL
[2022-12-03 17:03] LABS: COVID-19 Test Negative (Negative); IDNOW Serial# 6674DD1D
[2022-12-03 17:40] VITALS: BP 184/83; PULSE 90; RESP 16; TEMP 36.8; O2SAT 100
[2022-12-03] MEDS: iohexoL 350 MG/ML 100 ML INFUS..BTL IV (18:47)
[2022-12-03] MEDS: Famotidine 20 MG TABLET PO (19:16)
--- NOTE | 2022-12-03 19:21 | PC.NURSE ---
pt requesting to hold off on morphine pending CT results.
[2022-12-03 19:36] LABS: IDNOW Serial# 6674DD1D; Influenza A Negative (Negative); Influenza B2 Negative (Negative)
[2022-12-03] MEDS: Nitrofurantoin Monohyd/M-Cryst 100 MG CAPSULE PO (21:44)
== END 2022-12-03 21:49 | disposition home or self-care (01) ==
PROVIDERS: Physician Assistant; Physician Assistant Medical; Emergency Provider Emergency Medicine; PCP Internal Medicine
DX: N39.0 Urinary tract infection, site not specified (principal); R10.9 Unspecified abdominal pain; R11.0 Nausea; Z87.440 Personal history of urinary (tract) infections
CPT/HCPCS: 36415; 74177; 76705; 80048; 80076; 81001; 81003; 81025; 83690; 83735; 84702; 85025; 87086; 87502; 87635; 96361; 96374; 96375; 99284; J1885; J2405; Q9967

== ENCOUNTER → 2023-01-08 15:24 | Outpatient (BNVA) | payer OTHER, SELFPAY | PROVIDERS: PCP Internal Medicine; Visit Provider Nurse Practitioner Family | DX: Z13.89 Encounter for screening for other disorder (principal) ==

== ENCOUNTER 2023-05-14 15:30 | Outpatient (REF) | payer OTHER, SELFPAY ==
--- NOTE | ~2023-05-14 | US_ITS ---
EXAMINATION: US VENOUS ULTRASOUND WITH DOPPLER LOWER EXTREMITY, RIGHT CLINICAL INFORMATION: Pain COMPARISON: None available. TECHNIQUE: Ultrasound of the deep veins is performed from the hip to the calf with compression sonography and color and pulse Doppler assessment. Spectral analysis with color-flow imaging is performed. FINDINGS: There is normal venous compression and respiratory variation and augmented flow. The visualized common femoral vein, superficial femoral vein, profunda femoral vein, popliteal vein, and the trifurcation region shows no evidence of deep venous thrombosis. Right popliteal vein appears duplicated. There is no significant popliteal fossa cyst. If the patient's symptoms persist, followup ultrasound in 5 days 7 days might be of value to exclude proximal propagation from a non-visualized calf vein. US/US venous duplex LE RT IMPRESSION: No DVT demonstrated in the right lower extremity.
== END 2023-05-14 15:31 | disposition home or self-care (01) ==
LOC: HO.US 15:30
PROVIDERS: PCP Internal Medicine; Visit Provider Obstetrics & Gynecology
DX: M79.661 Pain in right lower leg (principal)
CPT/HCPCS: 93971

== ENCOUNTER 2023-07-30 07:01 | Outpatient (REF) | payer OTHER, SELFPAY ==
[2023-07-30 07:47] LABS: Estimated Average Glucose 85 mg/dL; Hemoglobin A1c % 4.6 % (<6.0)
[2023-07-30 07:54] LABS: Glucose Random 88 mg/dL (60-115)
== END 2023-07-30 07:02 | disposition home or self-care (01) ==
LOC: HO.LAB 07:01
PROVIDERS: PCP Internal Medicine; Visit Provider Obstetrics & Gynecology
DX: Z34.83 Encounter for supervision of other normal pregnancy, third trimester (principal)
CPT/HCPCS: 36415; 82947; 83036

== ENCOUNTER 2023-09-15 10:21 | Outpatient (AMB) | payer OTHER, SELFPAY ==
--- NOTE | 2023-09-15 10:44 | MHC.OFFVIS ---
Intake Intake Visit Reasons: follow up Intake Note: Patient present for follow up nephrolithiasis Urology Medications: none Blood Thinner: none Audit Manager Required: No Accompanied by: Self / Same As Patient Allergies cephalexin [From Keflex] Allergy (Verified 09/15/23 11:22) Hives Medication List - Last Reconciled 09/15/23 by HEMANT Neff ibuprofen 600 mg PO TID PRN HPI HPI Comments History of Present Illness Details Leticia Medina is a pleasant 33 year old female patient of Dr. Lowry. She presents to the office today for follow-up of her nephrolithiasis. In discussion with the patient today she reports to be doing and feeling well. She reports having had a baby boy approximately 2 weeks ago. Patient was last approximately 9 months ago at which time recommendations were made for surgical intervention of nephrolithiasis however patient was and not experiencing any issues at that time. She reports having passed a stone early in her at [facility] [place]. She currently denies any bothersome urinary issues or concerns at this time. Previous renal ultrasound from 06/10/23 showing 1.4 cm stone in the lower pole of the right kidney. There is a 0.4 cm stone in the mid left kidney. No hydronephrosis noted bilaterally. She denies any bothersome urinary issues or concerns at this time. Discussed obtaining KUB for further assessment evaluation and risks and benefits of surgical intervention versus surveillance monitoring. This was discussed at length. She denies urinary urgency, urinary frequency, incontinence, nocturia, hematuria, dysuria, foul smelling urine, changes to urinary stream, flank pain, fever, and or chills. In office urinalysis with microscopic hematuria otherwise within normal limits. She otherwise offers no other issues or concerns at this time. Review of Systems Const All systems reviewed & are unremarkable except as noted in HPI and below Reports no additional complaints Eyes Reports no additional complaints ENT Reports no additional complaints Card Reports no additional complaints Resp Reports no additional complaints GI Reports no additional complaints Reports as per HPI Musc Reports no additional complaints Neuro Reports no additional complaints Psych Reports no additional complaints Endo Reports no additional complaints Meir/Lymph Reports no additional complaints Aller/Immun Reports no additional complaints Physical Exam Const General: cooperative, healthy appearing, comfortable, no acute distress, well developed, alert and awake Nutritional Appearance: average body habitus Orientation/consciousness: patient oriented x3 Limitations: no limitations HEENT Head: Yes normal to inspection, Yes normocephalic and Yes atraumatic Ears: hearing grossly normal bilaterally Eyes General: appearance normal, both eyes and all related structures Neck Neck: Yes normal visual inspection and Yes trachea midline Chest Chest palpation & inspection: normal inspection of the chest Resp Effort & Inspection: normal respiratory effort and able to speak in complete sentences Cardio Rate: regular rate GI Inspection: Yes normal to inspection General: Yes no CVA tenderness Back/Spine/Pelvis Back: no CVA tenderness Skin General skin exam: no rashes or lesions noted Neuro General: patient oriented x3 Extrem General: Yes normal to inspection Psych Appearance: grossly normal and well kempt Mental Status: mental status grossly normal Speech and movement: Normal speech and movement present and Clear speech present Affect: normal affect Attitude: cooperative Thought process: Normal thought process present Thought content: Normal thought content present Insight: Good insight present (Psych) Judgement: Good judgement present (Psych) Results AMB Urinalysis, Automated UA Leukoctes 0 Pamela/uL Last Edit by [employer] on 09/15/23 11:04 UA Nitrite Negative Last Edit by [employer] on 09/15/23 11:04 UA Urobilinogen 0.2 mg/dL Last Edit by [employer] on 09/15/23 11:04 UA Protein 0 mg/dL Last Edit by [employer] on 09/15/23 11:04 UA pH 6.0 Last Edit by [employer] on 09/15/23 11:04 UA Blood 10 Harshal/uL Last Edit by [employer] on 09/15/23 11:04 UA Specific [place] 1.025 Last Edit by [employer] on 09/15/23 11:04 UA Ketone Negative Last Edit by [employer] on 09/15/23 11:04 UA Bilirubin 0 mg/dL Last Edit by [employer] on 09/15/23 11:04 UA Glucose 0 mg/dL Last Edit by [employer] on 09/15/23 11:04 Results Reviewed Results Reviewed: Laboratory Last Values Urine pH (Auto) 6.0 09/15/23 10:57 Specific [place] (Auto) 1.025 09/15/23 10:57 Urine Protein (Auto) 0 mg/dL 09/15/23 10:57 Glucose (UA)(Auto) 0 mg/dL 09/15/23 10:57 Urine Ketones (Auto) Negative 09/15/23 10:57 Urine Blood (Auto) 10 Harshal/uL 09/15/23 10:57 Urine Nitrite (Auto) Negative 09/15/23 10:57 Urine Bilirubin (Auto) 0 mg/dL 09/15/23 10:57 Urine Urobilinogen (Auto) 0.2 mg/dL 09/15/23 10:57 Leukocyte Esterase (Auto) 0 Pamela/uL 09/15/23 10:57 Assessment & Plan Assessment & Plan (1) Nephrolithiasis: Code(s): N20.0 - Calculus of kidney Plan: Plan Extracorporeal Shock Wave Lithotripsy We discussed the nature of the decision and reasonable alternatives for performing the above surgery. Interventions include chemical dissolution, ESWL, ureteroscopy with laser lithotripsy and stent placement, PCNL. ? Options such as medical therapy were discussed. The relative uncertainties and benefits related to each alternate procedure were adequately discussed. General surgical risks including, but not limited to, pain, bleeding, infection, myocardial infarction, pulmonary embolus, deep vein thrombosis and cerebrovascular accident which may result in further hospitalization were discussed.? Full disclosure of the procedure as well as all major risks, benefits and complications were discussed including but not limited to risks of bleeding, injury to the kidney with hematoma or lisa-hematoma, failure to fragments stone, potential for ureteric obstruction from stone passage and need for secondary procedures.? There is a small long-term risk of hypertension and a question marcos of diabetes.? Success rate of fragmentation and passage is approximately 70- 75%.? This is compared to the risks and benefits for ureteroscopy which has a higher success rate but is a more invasive procedure. The success rate of the procedure was discussed. Success of the procedure in the short-term does not necessarily guarantee that long-term success will be maintained. Suitable follow up will need to be maintained. The patient showed understanding of the discussion as well as the typical recovery time, and the outpatient nature of this procedure. Opportunity was given for questions. Repeat-back protocol used to confirm understanding. They wish to proceed with Right ESWL Plan In office urinalysis results reviewed with the patient today. Recent renal imaging results reviewed with the patient today; as noted above. Will obtain KUB for further assessment evaluation. Discussed at length surveillance monitoring verses surgical intervention; this was discussed at length; discussed risks and benefits of surveillance monitoring versus surgical intervention. Discussed, educated, encouraged on the importance of drinking plenty of water daily. Will schedule for right-sided ESWL as discussed Discussed near future metabolic workup with labs and 24 hour urine Follow-up status post right-sided ESWL per Dr. Lopez's orders; or sooner with any issues, concerns, and or questions. Orders: Orders AMB Urinalysis Automated Today Z13.9 - Encounter for screening, unspecified XR KUB Today N20.0 - Calculus of kidney Patient Instructions: The patient had an opportunity to ask questions regarding the treatment plan. All questions were answered. Physical exam, labs, and imaging were discussed and reviewed in detail. As well as risks, benefits, and discussion of treatment choices. No major barriers to understanding were identified. The patient expressed understanding and agreement with the above treatment plan. The patient was made aware they should contact our office by phone for worsening of their current condition, the appearance of new symptoms, or with any questions or concerns. Compliance is encouraged with any medications and follow up testing that is ordered. It is a privilege to be allowed the opportunity to participate in? your urological care.? Again, if you have any questions or concerns If you have any questions or concerns please do not hesitate to contact me. The office is [phone]. This note is constructed using voice recognition software. While every effort has been made to ensure accuracy sports internship errors may have been included. Yours sincerely, HEMANT Neff Coding Level of Care Code Est Pt Level 4 (21707) Diagnoses Nephrolithiasis N20.0
== END 2023-09-15 11:19 | disposition home or self-care (01) ==
PROVIDERS: PCP Internal Medicine; Visit Provider Nurse Practitioner Family
DX: N20.0 Calculus of kidney (principal)
CPT/HCPCS: 99214

== ENCOUNTER → 2023-09-15 10:21 | Outpatient (BNVA) | payer OTHER, SELFPAY | PROVIDERS: PCP Internal Medicine; Visit Provider Nurse Practitioner Family | DX: N20.0 Calculus of kidney (principal) | CPT/HCPCS: 81003 ==

== ENCOUNTER 2023-09-16 10:12 | Outpatient (REF) | payer OTHER, SELFPAY ==
--- NOTE | ~2023-09-16 | XR_ITS ---
EXAMINATION: XR ABDOMEN KUB CLINICAL INDICATION: Renal calculus. COMPARISON: CT abdomen and pelvis and abdominal ultrasound dated 12/03/2022. TECHNIQUE: 2 AP views of the abdomen and pelvis are submitted. FINDINGS: The bowel gas pattern is normal with no evidence of ileus or obstruction. At the lower pole the right kidney, adjacent 4 mm and 4 mm calculi and a 7 mm ovoid calculus are seen. At the lower pole of the left kidney, a 7 mm calculus is seen. No ureteric or bladder calculus is seen. The bones are unremarkable. XR/XR KUB IMPRESSION: There are bilateral renal lower pole calculi again noted, as detailed.
== END 2023-09-16 10:13 | disposition home or self-care (01) ==
LOC: HO.XRAY 10:12
PROVIDERS: Visit Provider Nurse Practitioner Family
DX: N20.0 Calculus of kidney (principal)
CPT/HCPCS: 74018

== ENCOUNTER 2023-12-06 10:14 | Outpatient (REF) | payer OTHER, SELFPAY ==
--- NOTE | ~2023-12-06 | XR_ITS ---
EXAMINATION: XR ABDOMEN KUB CLINICAL INDICATION: Calculus of kidney COMPARISON: Abdominal x-ray on 09/16/2023 TECHNIQUE: AP view of the abdomen. FINDINGS: AP supine x-rays of the abdomen show nonspecific bowel gas pattern. No abnormal bowel dilatation is seen. Persistent 0.7 cm right lower pole renal calculus and adjacent smaller calculi are seen. Persistent 0.7 cm left lower pole renal calculus is seen. T-shaped intrauterine contraceptive device is seen in midline pelvis. XR/XR KUB IMPRESSION: 1. Unchanged Bilateral renal calculi, as described above. 2. Interval placement of T-shaped intrauterine contraceptive device.
== END 2023-12-06 10:15 | disposition home or self-care (01) ==
LOC: HO.XRAY 10:14
PROVIDERS: Visit Provider Nurse Practitioner Family
DX: N20.0 Calculus of kidney (principal)
CPT/HCPCS: 74018

== ENCOUNTER 2023-12-17 15:31 | Outpatient (AMB) | payer OTHER, SELFPAY ==
--- NOTE | 2023-12-17 15:36 | A.OFFVIS_ITS ---
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 Lowry she is accompanied with her son at todays office visit. She presents to the office today for follow-up of her nephrolithiasis. In discussion with the patient today she reports to be doing and feeling well. She reports since her last office visit she has been experiencing more bilateral flank pain. Recent KUB results reviewed with the patient today. Persistent 7 mm right lower pole renal calculus and adjacent smaller calculi are seen. Persistent 7 mm left lower pole renal calculus is seen. She otherwise denies any bothersome urinary issues or concerns. She denies urinary urgency, urinary frequency, incontinence, nocturia, hematuria, dysuria, foul smelling urine, changes to urinary stream, fever, and or chills. In office urinalysis results reviewed with the patient today. She otherwise offers no other issues or concerns at this time. Review of Systems Const All systems reviewed & are unremarkable except as noted in HPI and below Reports no additional complaints Eyes Reports no additional complaints ENT Reports no additional complaints Card Reports no additional complaints Resp Reports no additional complaints GI Reports no additional complaints Reports as per HPI Musc Reports no additional complaints Neuro Reports no additional complaints Psych Reports no additional complaints Endo Reports no additional complaints Meir/Lymph Reports no additional complaints Aller/Immun Reports no additional complaints Physical Exam Const General: cooperative, healthy appearing, comfortable, no acute distress, well developed, alert and awake Nutritional Appearance: average body habitus Orientation/consciousness: patient oriented x3 Limitations: no limitations HEENT Head: Yes normal to inspection, Yes normocephalic and Yes atraumatic Ears: hearing grossly normal bilaterally Eyes General: appearance normal, both eyes and all related structures Neck Neck: Yes normal visual inspection and Yes trachea midline Chest Chest palpation & inspection: normal inspection of the chest Resp Effort & Inspection: normal respiratory effort and able to speak in complete sen tences Cardio Rate: regular rate GI Inspection: Yes normal to inspection General: Yes no CVA tenderness Back/Spine/Pelvis Back: no CVA tenderness Skin General skin exam: no rashes or lesions noted Neuro General: patient oriented x3 Extrem General: Yes normal to inspection Psych Appearance: grossly normal and well kempt Mental Status: mental status grossly normal Speech and movement: Normal speech and movement present and Clear speech present Affect: normal affect Attitude: cooperative Thought process: Normal thought process present Thought content: Normal thought content present Insight: Good insight present (Psych) Judgement: Good judgement present (Psych) Results AMB Urinalysis, Automated UA Leukoctes 0 Pamela/uL [facility] on 12/17/23 15 :43 UA Nitrite Negative Last Edit by [facility] on 12/17/23 15: 43 UA Urobilinogen 0.2 mg/dL Last Edit [facility], [facility] on 4 15:43 UA Protein 15 mg/dL [facility] on 12/17/23 15:4 3 UA pH 6.0 Last Edit [facility] on 12/17/23 15:43 UA Blood 25 Harshal/uL [facility] on 12/17/23 15:43 UA Specific [place] 1.025 [facility] on 15:43 UA Ketone Negative Last Edit [facility] on 12/17/23 15:4 3 UA Bilirubin 0 mg/dL Last Edit [facility] on 12/17/23 15: 43 UA Glucose 0 mg/dL Last Edit [facility] on 12/17/23 15:43 Results Reviewed Results Reviewed: Laboratory Last Values Urine pH (Auto) 6.0 12/17/23 15:37 Specific [place] (Auto) 1.025 12/17/23 15:37 Urine Protein (Auto) 15 mg/dL 12/17/23 15:37 Glucose (UA)(Auto) 0 mg/dL 12/17/23 15:37 Urine Ketones (Auto) Negative 12/17/23 15:37 Urine Blood (Auto) 25 Harshal/uL 12/17/23 15:37 Urine Nitrite (Auto) Negative 12/17/23 15:37 Urine Bilirubin (Auto) 0 mg/dL 12/17/23 15:37 Urine Urobilinogen (Auto) 0.2 mg/dL 12/17/23 15:37 Leukocyte Esterase (Auto) 0 Pamela/uL 12/17/23 15:37 Date of Service: 12/06/23 EXAMINATION: XR ABDOMEN KUB FINDINGS: AP supine x-rays of the abdomen show nonspecific bowel gas pattern. No abnormal bowel dilatation is seen. Persistent 0.7 cm right lower pole renal calculus and adjacent smaller calculi are seen. Persistent 0.7 cm left lower pole renal calculus is seen. T-shaped intrauterine contraceptive device is seen in midline pelvis. IMPRESSION: 1. Unchanged Bilateral renal calculi, as described above. 2. Interval placement of T-shaped intrauterine contraceptive device. Assessment & Plan Assessment & Plan (1) Nephrolithiasis: Code(s): N20.0 - Calculus of kidney (2) Bilateral flank pain: Code(s): R10.9 - Unspecified abdominal pain Plan In office urinalysis results reviewed with the patient today; as noted above. Recent KUB results reviewed with the patient today; as noted above. Will obtain CT KUB for further assessment evaluation. Discussed at length potential causes of nephrolithiasis. Discussed further treatment options including surgical intervention Discussed, educated, and encouraged to continue drinking plenty of water daily. Continue adding 1 oz of lemon juice to water daily. Continue OTC Motrin as needed for pain. Follow-up in 2-4 weeks with imaging to be completed prior; or sooner with any issues, concerns, and or questions. Orders: Orders CT kidney stone Today N20.0 - Calculus of kidney, R10.9 - Unspecified abdominal pain AMB Urinalysis Automated Today R33.9 - Retention of urine, unspecified Patient Instructions: The patient had an opportunity to ask questions regarding the treatment plan. All questions were answered. Physical exam, labs, and imaging were discussed and reviewed in detail. As well as risks, benefits, and discussion of treatment choices. No major barriers to understanding were identified. The patient expressed understanding and agreement with the above treatment plan. The patient was made aware they should contact our office by phone for worsening of their current condition, the appearance of new symptoms, or with any questions or concerns. Compliance is encouraged with any medications and follow up testing that is ordered. It is a privilege to be allowed the opportunity to participate in? your urological care.? Again, if you have any questions or concerns If you have any questions or concerns please do not hesitate to contact me. The office is [phone]. This note is constructed using voice recognition software. While every effort has been made to ensure accuracy generator rebuilder errors may have been included. Yours sincerely, HEMANT Neff Coding Level of Care Code Est Pt Level 3 (59074) Diagnoses Nephrolithiasis N20.0 Bilateral flank pain R10.9
== END 2023-12-17 16:47 | disposition home or self-care (01) ==
PROVIDERS: PCP Internal Medicine; Visit Provider Nurse Practitioner Family
DX: N20.0 Calculus of kidney (principal); R10.9 Unspecified abdominal pain; R33.9 Retention of urine, unspecified
CPT/HCPCS: 99213

== ENCOUNTER → 2023-12-17 15:31 | Outpatient (BNVA) | payer OTHER, SELFPAY | PROVIDERS: PCP Internal Medicine; Visit Provider Nurse Practitioner Family | DX: N20.0 Calculus of kidney (principal); R10.9 Unspecified abdominal pain; R33.9 Retention of urine, unspecified | CPT/HCPCS: 81003 ==

== ENCOUNTER 2024-01-13 07:38 | Outpatient (REF) | payer OTHER, SELFPAY ==
--- NOTE | ~2024-01-13 | CT_ITS ---
STUDY PERFORMED: CT ABDOMEN AND PELVIS WITHOUT CONTRAST HISTORY: Kidney stone. DESCRIPTION: Routine abdomen and pelvis CT protocol without contrast was performed. Coronal and sagittal reformatted images. DOSE LOWERING TECHNIQUES: This CT examination was performed using dose optimization techniques as appropriate, variously including the following: - Automated exposure control - Adjustment of mA and/or kV according to patient size (this includes techniques or standardized protocols for targeted exams where dose is matched to indication/reason for exam; i.e. extremities or head) - Use of iterative reconstruction technique DOSE LENGTH PRODUCT: 379 mGycm COMPARISON: CT abdomen and pelvis to. FINDINGS: Lung Bases: The visualized lung bases are unremarkable. Liver, Gallbladder and Biliary Tree: The liver is normal in size, shape, and attenuation. No focal hepatic lesion or biliary ductal dilatation is present. The gallbladder is unremarkable with no evidence of radiopaque gallstones, gallbladder wall thickening, or obvious pericholecystic inflammatory changes. Pancreas: No discrete mass or ductal dilatation. Spleen: Normal size. No discrete lesion. Adrenal Glands: No adrenal mass. Kidneys and Ureters: 7 mm nonobstructing calculus in the lower pole of the left kidney measuring 11.7 cm from the posterolateral skin surface. 8 mm 1200 HU nonobstructing calculus in the lower pole of the right kidney measuring 11.8 cm from the posterolateral skin surface. Two additional 4 mm and 2 mm nonobstructing calculi lower pole right kidney. No hydroureteronephrosis. No visible renal mass. The previous CT scan was performed with intravenous contrast. The stone burden in the right lower pole appears mildly increased in size compared to prior and the stone burden in the left lower pole appears stable in size compared to prior. Bladder: Unremarkable. Gastrointestinal Tract: The small and large bowel are unremarkable. The appendix is unremarkable. Abdominal Wall: Diastases recti without discrete hernia. Lymph Nodes: Normal. Vascular: No aortic aneurysm Pelvic Viscera: IUD appears appropriately positioned. Osseous Structures: Mild degenerative disc disease at L5-S1. CT/CT kidney stone IMPRESSION: Nonobstructing bilateral renal stones with slight increase on the right compared to prior CT from 12/03/2022.
== END 2024-01-13 07:39 | disposition home or self-care (01) ==
LOC: HO.CT 07:38
PROVIDERS: PCP Internal Medicine; Visit Provider Nurse Practitioner Family
DX: N20.0 Calculus of kidney (principal); R10.9 Unspecified abdominal pain
CPT/HCPCS: 74176

== ENCOUNTER 2024-01-25 12:04 | Outpatient (AMB) | payer OTHER, SELFPAY ==
--- NOTE | 2024-01-25 12:05 | MHC.OFFVIS ---
Intake Intake Visit Reasons: 5 weeks follow up/CT(set) Intake Note: Patient presents today for a telehealth follow up on CT scan. 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 Lowry. She is being follow-up on today via telehealth for her ongoing nephrolithiasis. Of note, patient was seen approximately 6 weeks ago at which time a CT KUB was ordered for further assessment evaluation as patient had been reporting bilateral flank pain right-sided greater than left. These results were reviewed with the patient today. 7 mm nonobstructing calculus in the lower pole of the left kidney. 8 mm, 4 mm, and 2 mm nonobstructing calculi in the lower pole of the right kidney. No hydroureteronephrosis noted. Bladder is unremarkable. She continues to report bilateral flank pain right-sided greater than left. Discussed at length surveillance monitoring verses further surgical intervention. She otherwise denies any bothersome urinary issues or concerns. She denies urinary urgency, urinary frequency, incontinence, nocturia, hematuria, dysuria, foul smelling urine, changes to urinary stream, fever, and or chills. She otherwise offers no other issues or concerns at this time. Review of Systems Const All systems reviewed & are unremarkable except as noted in HPI and below Reports no additional complaints Eyes Reports no additional complaints ENT Reports no additional complaints Card Reports no additional complaints Resp Reports no additional complaints GI Reports no additional complaints Reports as per HPI Musc Reports no additional complaints Neuro Reports no additional complaints Psych Reports no additional complaints Endo Reports no additional complaints Meir/Lymph Reports no additional complaints Aller/Immun Reports no additional complaints Physical Exam Const General: cooperative Orientation/consciousness: patient oriented x3 Resp Effort & Inspection: able to speak in complete sentences Neuro General: patient oriented x3 Psych Speech and movement: Clear speech present Attitude: cooperative Thought process: Normal thought process present Thought content: Normal thought content present Insight: Fair insight present (Psych) Judgement: Fair judgement present (Psych) Results Reviewed Results Reviewed: Date of Service: 01/13/24 STUDY PERFORMED: CT ABDOMEN AND PELVIS WITHOUT CONTRAST FINDINGS: Lung Bases: The visualized lung bases are unremarkable. Liver, Gallbladder and Biliary Tree: The liver is normal in size, shape, and attenuation. No focal hepatic lesion or biliary ductal dilatation is present. The gallbladder is unremarkable with no evidence of radiopaque gallstones, gallbladder wall thickening, or obvious pericholecystic inflammatory changes. Pancreas: No discrete mass or ductal dilatation. Spleen: Normal size. No discrete lesion. Adrenal Glands: No adrenal mass. Kidneys and Ureters: 7 mm nonobstructing calculus in the lower pole of the left kidney measuring 11.7 cm from the posterolateral skin surface. 8 mm 1200 HU nonobstructing calculus in the lower pole of the right kidney measuring 11.8 cm from the posterolateral skin surface. Two additional 4 mm and 2 mm nonobstructing calculi lower pole right kidney. No hydroureteronephrosis. No visible renal mass. The previous CT scan was performed with intravenous contrast. The stone burden in the right lower pole appears mildly increased in size compared to prior and the stone burden in the left lower pole appears stable in size compared to prior. Bladder: Unremarkable. Gastrointestinal Tract: The small and large bowel are unremarkable. The appendix is unremarkable. Abdominal Wall: Diastases recti without discrete hernia. Lymph Nodes: Normal. Vascular: No aortic aneurysm Pelvic Viscera: IUD appears appropriately positioned. Osseous Structures: Mild degenerative disc disease at L5-S1. IMPRESSION: Nonobstructing bilateral renal stones with slight increase on the right compared to prior CT from 12/03/2022. Assessment & Plan Assessment & Plan (1) Bilateral flank pain: Code(s): R10.9 - Unspecified abdominal pain (2) Nephrolithiasis: Code(s): N20.0 - Calculus of kidney Plan: Ureteroscopy We discussed the nature of the decision and reasonable alternatives for performing ureteroscopy. Options such as medical therapy were discussed. Interventions include chemical dissolution, ESWL, ureteroscopy with laser lithotripsy and stent placement, PCNL. The relative uncertainties and benefits related to each alternate procedure were adequately discussed. General surgical risks including, but not limited to - pain, bleeding, infection, myocardial infarction, pulmonary embolus, deep vein thrombosis and cerebrovascular accident which may result in further hospitalization were discussed.? Full disclosure of the procedure as well as all major risks, benefits and complications were discussed including but not limited to damage to the urethra, bladder and kidney infection, damage to the ureter, stent migration or malposition, scarring to the renal pelvis, remnant stone fragments, subsequent stone passage with need for secondary procedures. The overall secondary procedure rate is approximately 10-15%.? The overall clearance rate is approximately 90-95%. Success of the procedure in the short-term does not necessarily guarantee that long-term success will be maintained. Suitable follow up will need to be maintained. The patient showed understanding of discussion and wishes to proceed with - cystoscopy, retrograde, ureteroscopy, possible lithotripsy/stone basketing and stent on the right side Plan Recent CT KUB results reviewed with the patient today; as noted above. Discussed surveillance monitoring versus surgical intervention; discussed risks and benefits of this intervention at length. Discussed stone burden bilaterally. Discussed, educated, and stressed the importance of drinking plenty of water daily. Discussed near future metabolic workup with 24 hour urine collection and labs. Will schedule for right-sided ureteroscopy as discussed followed by potential left-sided ESWL. Follow-up postprocedure per doctor's orders; or sooner with any issues, concerns, and or questions. Patient Instructions: The patient had an opportunity to ask questions regarding the treatment plan. All questions were answered. Physical exam, labs, and imaging were discussed and reviewed in detail. As well as risks, benefits, and discussion of treatment choices. No major barriers to understanding were identified. The patient expressed understanding and agreement with the above treatment plan. The patient was made aware they should contact our office by phone for worsening of their current condition, the appearance of new symptoms, or with any questions or concerns. Compliance is encouraged with any medications and follow up testing that is ordered. It is a privilege to be allowed the opportunity to participate in? your urological care.? Again, if you have any questions or concerns If you have any questions or concerns please do not hesitate to contact me. The office is [phone]. This note is constructed using voice recognition software. While every effort has been made to ensure accuracy hospital medicine director errors may have been included. Yours sincerely, HEMANT Neff Telehealth Telehealth Location of provider rendering services: practice address Location of patient: address on file Patient Identification confirmed using: Name, : Yes Telehealth method: video Patient verbally consented to treatment: Yes Patient verbally consented to billing insurance company: Yes Patient informed of any privacy concerns related to visit: Yes Minutes spent on Phone/Video with Pt.: 20 Coding Level of Care Code Tele Est Pt Level 4 (55583) Diagnoses Bilateral flank pain R10.9 Nephrolithiasis N20.0
== END 2024-01-25 12:55 | disposition home or self-care (01) ==
LOC: HO.HUSH 12:04
PROVIDERS: PCP Internal Medicine; Visit Provider Nurse Practitioner Family
DX: R10.9 Unspecified abdominal pain (principal); N20.0 Calculus of kidney
CPT/HCPCS: 99214

== ENCOUNTER → 2024-01-25 12:04 | Outpatient (BNVA) | payer OTHER, SELFPAY | PROVIDERS: PCP Internal Medicine; Visit Provider Nurse Practitioner Family ==

== ENCOUNTER 2024-02-08 09:48 | Day surgery (SDC) | payer OTHER, SELFPAY ==
[2024-02-08] VITALS (10 sets, daily range): BP systolic 138–172; BP diastolic 91–112; PULSE 71–97; RESP 15–16; TEMP 36.1–36.4; O2SAT 98–100; BMI 27.2
--- NOTE | ~2024-02-08 | FL_ITS ---
EXAMINATION: XR FLUOROSCOPY WITH IMAGES CLINICAL INFORMATION: Cystoscopy, ureteroscopy and retrograde urography. COMPARISON: CT kidney stone dated 01/13/2024. TECHNIQUE: Fluoroscopy Supervised By: Dr. Ballard. Fluoroscopy Time: 38.4 seconds. Cumulative Dose: 6.67 mGy. Images: 6. FINDINGS: The submitted images show contrast opacification of the distal right ureter, without filling defect or stricture noted. A balloon catheter is noted within the distal right ureter. A double pigtail right ureteric stent is noted. There is an intrauterine device. FL/FL guidance in OR IMPRESSION: Intraoperative fluoroscopy is provided during right urologic procedure. Please see the patient's Operative Report for full procedural details.
--- NOTE | ~2024-02-08 | XR_ITS ---
EXAMINATION: XR ABDOMEN KUB CLINICAL INDICATION: Prelithotripsy COMPARISON: Previous KUB December [address] of the abdomen and pelvis December 2023 TECHNIQUE: AP view of the abdomen. FINDINGS: There are bilateral renal stones. There are a cluster of stones projecting over the lower pole of the right kidney. Largest right renal stone measures approximately 3 x 8 mm in the lower pole. There is a single left renal stone that measures approximately 5 x 8 mm in the left lobe lower pole. No calcifications along the expected course of the ureters or bladder. IUD in the pelvis. Normal bowel gas pattern. Normal bony structures.. XR/XR KUB IMPRESSION: Bilateral renal stones.
[2024-02-08 10:21] LABS: UPreg QC Valid YES; Urine Pregnancy NEGATIVE (NEGATIVE)
[2024-02-08] MEDS: Lactated Ringers 1,000 ML 100 ML IVCONT (11:08)
--- NOTE | 2024-02-08 12:50 | HO.ANESPROP2 ---
Documented by User: Marylou London NP 02/07/24 09:53 HPI - Anesthesia Eval Consult details Narrative: 34yo F for Right Cystoscopy, Ureteroroscopy, Retro, Laser,with possible stent placement PMFSH Active Problems Active Problems: All Active Problems Bilateral flank pain (Acute) Left flank pain (Acute) Nephrolithiasis (Acute) Past Medical History Medical History (Updated 02/08/24 @ 10:09 by Sandhya Jiménez RN) History of kidney stones Elevated cholesterol HTN (hypertension) Surgical History Surgical History (Updated 02/08/24 @ 10:10 by Sandhya Jiménez RN) Hx of eye surgery Social History Social History Patient Tobacco Use Status: Never used Tobacco Use of substances other than those prescribed or required for medical reasons: No Are you DNR?: No Advance Directives: No Advance Directives Information Provided: Yes Meds Allergies Allergy/AdvReac Type Severity Reaction Status Date / Time cephalexin [From Keflex] Allergy Hives Verified 02/08/24 10:10 Assessment and Plan Assessment Anesthesia Assessment: Chart Reviewed Documented by User: Sandhya Hagen DO 02/08/24 12:54 PMFSH Past Medical History Medical History (Updated 02/08/24 @ 10:09 by Sandhya Jiménez RN) History of kidney stones Elevated cholesterol HTN (hypertension) Family History Family history of problems with anesthesia: No Surgical History Surgical History (Updated 02/08/24 @ 10:10 by Sandhya Jiménez RN) Hx of eye surgery History of Problems with Anesthesia: No Social History Social History Patient Tobacco Use Status: Never used Tobacco Use of substances other than those prescribed or required for medical reasons: No Are you DNR?: No Advance Directives: No Advance Directives Information Provided: Yes Meds Allergies Allergy/AdvReac Type Severity Reaction Status Date / Time cephalexin [From Keflex] Allergy Hives Verified 02/08/24 10:10 Exam Exam Date and Time: February 08, 2024 1252 Height,Weight and Vital Signs: Height 5 ft 3 in Weight 69.763 kg Vital Signs Temperature 97.5 F 02/08/24 11:01 Pulse Rate 76 02/08/24 11:01 Respiratory Rate 15 02/08/24 11:01 Blood Pressure 142/91 H 02/08/24 11:01 Pulse Oximetry 99 02/08/24 11:01 Oxygen Delivery Method Room Air 02/08/24 11:01 Temperature 97.5 F 02/08/24 11:01 Pulse Rate 76 02/08/24 11:01 Respiratory Rate 15 02/08/24 11:01 Blood Pressure 142/91 H 02/08/24 11:01 Pulse Oximetry 99 02/08/24 11:01 Oxygen Delivery Method Room Air 02/08/24 11:01 Airway Mallampati Class: I TM Dist: >3cm Neck ROM: Full Loose/Missing/Broken Teeth: No (patient denies any loose or broken teeth) Heart: S1S2 Lungs: CTAB Assessment and Plan Assessment Anesthesia Assessment: Anesthesia Plan Discussed and Chart Reviewed Final Anesthetic Review Family History of Problems with Anesthesia: No History of Problems with Anesthesia: No NPO: Yes ASA Class: II Final Preanesthetic Review: No Changes in Pt Med Stat, Meds/Allgs Chart Reviewed, Consent Obtained/Reviewed and Anes Risks/Benef Reviewed Patient Risk: Low Procedure Risk: Low Anesthetic Plan Anesthetic Plan: GA and Agree w/ Assess. and Plan Disposition: Standard PACU
--- NOTE | 2024-02-08 13:21 | MHC.SHP ---
Pre-Procedural Eval Section A - 24 Hr Update-Section A only Date of Service: 02/08/24 The patient is an INPATIENT: No The patient has been examined within 24 hours of the surgical procedure. The History & Physical has been completed within 30 days and I have reviewed it.: Yes Section B - Complete if H&P > 30 days Chief Complaint: Calculus of kidney Allergies: Allergies Allergy/AdvReac Type Severity Reaction Status Date / Time cephalexin [From Keflex] Allergy Hives Verified 02/08/24 10:10 Plan Diagnosis/Plan: Unchanged I have reviewed the history and physical and performed a pertinent physical examination on my patient. No changes have occurred unless specified. Plan for Cystoscopy, Right ureteroscopy, possible laser lithotripsy, possible ureteral stent. Risks discussed included but not limited to, possible need to repeat procedure if stone is not completely fragmented, Irritative voiding symptoms, bladder spasms, urgency, blood in urine. Time Spent With Patient Time: Total time managing care of this patient today ____ minutes.
--- NOTE | 2024-02-08 15:22 | P.OP_ITS ---
Operative Note Operative Note Date of Service: 02/08/24 Narrative: PreOperative Diagnosis:?? Right renal stones x3 Post Operative Diagnosis:?? Right renal stones x3 Modifier for multiple stones Procedure: - cystoscopy, right retrograde, right ureteroscopy laser lithotripsy stent insertion, 7 [place] by 24 cm Surgeon:?Dr Shannan Ballard Anesthesia:? General Indications for procedure: Leticia is a 34-year-old female with bilateral renal stones. CT imaging noted 3 stones in the right kidney lower pole 7 mm, 4 mm and 2 mm and left lower pole kidney stone 8 mm. KUB x-ray today noted stones still present. Procedure: After informed consent was verified the patient was brought to the operating placed on the OR table in supine position.? General Anesthesia was administered per protocol.? The patient was placed in lithotomy position, prepped and draped in the usual sterile fashion.? Safety pause time-out and side of surgery confirmed.? Antibiotics confirmed. 2% lidocaine jelly 10 mL was passed transurethrally. A 22 [place] cystoscope was inserted transurethrally, the bladder was visualized.? Both ureteric orifices were in normal position. An open-ended ureteral catheter was passed into the right ureteral orifice and a retrograde examination was performed. Contrast filled the kidney. A guidewire was passed through the ureteral catheter into the kidney. The balloon dilator size 12 fr by 4 cm was passed over the guide -wire the balloon was inflated to 10 mmHg and the intramural ureter was dilated for 45 seconds. The balloon was deflated and removed. After removing the balloon dilator the semi-rigid ureteroscope was passed over the guidewire into the ureter there were no strictured areas in the ureter up to the renal pelvis. The 12 [place] by 36 cm access sheath was then passed over the guidewire. The disposable flexible ureteroscope was then passed over the guidewire through the access sheath, once in the kidney the guidewire was removed. The stones were visualized in the lower pole of the right kidney. Laser lithotripsy of the stone was done using the 272 fiber on the dusting settings of 0.5 joules by 20 hertz. There was good fragmentation of the stones. The 0 degree basket was passed through the ureteroscope, 2 fragments were removed to send for analysis. The guidewire was replaced and the access sheath was removed. The cystoscope was passed over the safety guidewire. A? 7 [place] by 24 cm stent was placed into the ureter and renal pelvis under a combination of fluoroscopy and direct visualization. The bladder was emptied.? The rigid cystoscope was removed. ? The patient tolerated the procedure well and was brought to the recovery room in stable condition. Complications: None Drains: Ureteral stent as dictated above
[2024-02-08] MEDS: Phenazopyridine HCL 200 MG TABLET PO (15:47)
[2024-02-08] MEDS: hydrOXYzine HCL 10 MG TABLET PO (15:54)
[2024-02-08] MEDS: oxyCODONE HCl Immed Release 5 MG TABLET PO (16:07)
[2024-02-20 23:35] LABS: Stone Source RIGHT RENAL STONE
== END 2024-02-08 17:15 | disposition home or self-care (01) ==
PROVIDERS: Nurse Practitioner; PCP Internal Medicine; Visit Provider Urology
PROC: (CPT 52356; principal; 2024-02-08 11:40)
DX: N20.0 Calculus of kidney (principal); M62.08 Separation of muscle (nontraumatic), other site; I10 Essential (primary) hypertension; E78.00 Pure hypercholesterolemia, unspecified; Z79.1 Long term (current) use of non-steroidal anti-inflammatories (NSAID); Z88.1 Allergy status to other antibiotic agents; Z87.442 Personal history of urinary calculi
CPT/HCPCS: 52356; 74018; 81025; 82365; 88300; C1726; C1758; C1769; C2617; J0131; J0690; J1100; J1885; J1956; J2405; J2704; J3010; Q9967

== ENCOUNTER → 2024-02-08 09:48 | Outpatient (BNV) | payer OTHER, SELFPAY | PROVIDERS: PCP Internal Medicine; Visit Provider Urology | DX: N20.0 Calculus of kidney (principal) | CPT/HCPCS: 52356; 74420 ==

== ENCOUNTER 2024-02-22 08:33 | Outpatient (REF) | payer OTHER, SELFPAY ==
--- NOTE | ~2024-02-22 | XR_ITS ---
EXAMINATION: XR ABDOMEN KUB CLINICAL INDICATION: Calculus of kidney. COMPARISON: 02/08/2024 x-ray abdomen, 01/13/2024 CT kidneys. TECHNIQUE: 2 AP views of the abdomen. FINDINGS: Moderate amount of stool in the right colon. Nonobstructive bowel gas pattern. IUD in the pelvis. Slight leftward curvature of the lumbar spine. Right ureteral stent in place with the proximal end overlying right renal pelvis and distal portion overlying bladder. Previously noted right renal lower pole calculi measuring up to 8 mm or possibly still present; however, evaluation is limited due to overlying bowel and this is difficult to confirm. Redemonstration of 8 mm left renal dti-xt-[id number] pole calculus. XR/XR KUB IMPRESSION: Right ureteral stent in place. Previously identified right renal calculi measuring up to 8 mm are difficult to confirm as visualization is limited due to overlying bowel. Redemonstration of 8 mm left renal wvv-bl-gjqcc pole calculus.
== END 2024-02-22 08:34 | disposition home or self-care (01) ==
LOC: HO.XRAY 08:33
PROVIDERS: PCP Internal Medicine; Visit Provider Nurse Practitioner Family
DX: N20.0 Calculus of kidney (principal); Z96.0 Presence of urogenital implants
CPT/HCPCS: 74018

== ENCOUNTER 2024-03-02 07:50 | Outpatient (AMB) | payer OTHER, SELFPAY ==
--- NOTE | 2024-03-02 07:06 | MHC.OFFVIS ---
Intake Visit Reasons: Stent Removal/KUB Results Intake Note: Patient presents today for a CYSTOSCOPY Procedure: Meds: Pyridium Allergies to Antibiotic: Keflex Blood Thinner: None Urinalysis test clear for Cysto? YES Disposable Uro-G HD Cystoscope Cannula: Lot: [id number] Exp: 09/23/2026 Meat Processor Required: No Accompanied by: Self / Same As Patient Allergies cephalexin [From Keflex] Allergy (Verified 03/02/24 08:15) Hives HPI Comments Details: 03/01/2024--Charisma is here for cystoscopy stent removal. The patient had CT imaging which noted noted 3 stones in the right kidney lower pole 7 mm, 4 mm and 2 mm and left lower pole kidney stone 8 mm. The patient had procedure -right ureteroscopy laser lithotripsy of right renal stones. Follow-up KUB 02/22/2024 right ureteral stent present no renal calculi visualized in the right renal fossa however there is bowel gas that may obscure small fragments. Left lower pole kidney stone 8 mm redemonstrated. Cystoscopy right ureteral stent removed without difficulty. I have reviewed stone analysis Carbonate Apatite (Dahllite) 90%Calcium Oxalate Dihydrate (Weddellite) 10%. Plan left ESWL. Will mail diet sheet regarding recommendations to decrease kidney stones. Review of chart: 01/25/2024-- Leticia Medina is a pleasant 33 year old female patient of Dr. Lowry. She is being follow-up on today via telehealth for her ongoing nephrolithiasis. Of note, patient was seen approximately 6 weeks ago at which time a CT KUB was ordered for further assessment evaluation as patient had been reporting bilateral flank pain right-sided greater than left. These results were reviewed with the patient today. 7 mm nonobstructing calculus in the lower pole of the left kidney. 8 mm, 4 mm, and 2 mm nonobstructing calculi in the lower pole of the right kidney. No hydroureteronephrosis noted. Bladder is unremarkable. She continues to report bilateral flank pain right-sided greater than left. Discussed at length surveillance monitoring verses further surgical intervention. She otherwise denies any bothersome urinary issues or concerns. She denies urinary urgency, urinary frequency, incontinence, nocturia, hematuria, dysuria, foul smelling urine, changes to urinary stream, fever, and or chills. She otherwise offers no other issues or concerns at this time. 03/02/2024--plan left ESWL, metabolic workup 24 hr urine. [facility] Medical History History of kidney stones Elevated cholesterol HTN (hypertension) Surgical History Hx of eye surgery Social History Patient Tobacco Use Status: Never used Tobacco Review of Systems Const All systems reviewed & are unremarkable except as noted in HPI and below Reports no additional complaints Eyes Reports no additional complaints ENT Reports no additional complaints Card Reports no additional complaints Resp Reports no additional complaints GI Reports no additional complaints Reports as per HPI Musc Reports no additional complaints Skin/Breast Reports system reviewed and no additional complaints, except as documented Neuro Reports no additional complaints Psych Reports no additional complaints Endo Reports no additional complaints Meir/Lymph Reports no additional complaints Aller/Immun Reports no additional complaints Office Procedures Cystoscopy Consent Discussed risk and benefit or proposed procedure with the patient. Information consent for procedure given to the patient. Discussed technical aspects, risks, benefits and alternatives in full. Addressed all of the patient's questions and concerns regarding the procedure. The patient demonstrated knowledge and understanding. They wish to proceed with this procedure. Preparation The patient was prepped in the usual manner. A electrician station assistant was present and in the room. Genitalia was prepped with betadine solution in a sterile manner. Lidocaine Jelly 2% was placed into the urethra and 16Fr flexible Olympus cystoscope was inserted into the meatus after adequate lubrication. Procedure Time out per protocol performed. Bladder Inspection Cystoscopy findings: mild edema ureteral orifice which is expected, distal end of ureteral stent visualized. The grasping forceps were used and the stent was removed without difficulty. [id number] with stent removal DISPOSABLE SCOPE URO-G FLEXIBLE SCOPE Procedure code (CPT) selection complete Office Meds lidocaine HCl 2 % mucosal jelly in applicator Performing Provider: Shannan Ballard MD Performing Location[facility] Administered by: Matt Padilla LPN on 03/02/24 08:09 Dose Route Admin Location Dispensed Lot Number Expiration Date NDC Mexican Food Machine Tender 10 mL intra-urethral 20 mL naproxen 500 mg tablet Performing Provider: Shannan Ballard MD Performing Location: [facility] Urology [facility] Administered by: Matt Padilla LPN on 03/02/24 08:09 Dose Route Admin Location Dispensed Lot Number Expiration Date NDC Mexican [employer] Machine Tender 500 mg PO 1 tab ciprofloxacin HCl 500 mg tablet Performing Provider: Shannan Ballard MD Performing Location: [facility] Urology [facility] Administered by: Matt Padilla LPN on 03/02/24 08:09 Dose Route Admin Location Dispensed Lot Number Expiration Date NDC Mexican Food Machine Tender 500 mg PO 1 tab Results AMB Urinalysis, Automated UA Leukoctes 15 Pamela/uL Last Edit by NOELLE Christensen on 03/02/24 08:13 UA Nitrite Negative Last Edit by NOELLE Christensen on 03/02/24 08:13 UA Urobilinogen 0.2 mg/dL Last Edit by NOELLE Christensen on 03/02/24 08:13 UA Protein 30 mg/dL Last Edit by NOELLE Christensen on 03/02/24 08:13 1+ Madison Nicole 03/02/24 08:13 UA pH 6.0 Last Edit by NOELLE Christensen on 03/02/24 08:13 UA Blood 200 Harshal/uL Last Edit by NOELLE Christensen on 03/02/24 08:13 3+ Madison Nicole 03/02/24 08:13 UA Specific [place] 1.020 Last Edit by NOELLE Christensen on 03/02/24 08:13 UA Ketone Negative Last Edit by NOELLE Christensen on 03/02/24 08:13 UA Bilirubin 0 mg/dL Last Edit by NOELLE Christensen on 03/02/24 08:13 UA Glucose 0 mg/dL Last Edit by NOELLE Christensen on 03/02/24 08:13 Results Reviewed Results Reviewed: Laboratory Last Values Urine pH (Auto) 6.0 03/02/24 08:05 Specific [place] (Auto) 1.020 03/02/24 08:05 Urine Protein (Auto) 30 mg/dL 03/02/24 08:05 Glucose (UA)(Auto) 0 mg/dL 03/02/24 08:05 Urine Ketones (Auto) Negative 03/02/24 08:05 Urine Blood (Auto) 200 Harshal/uL 03/02/24 08:05 Urine Nitrite (Auto) Negative 03/02/24 08:05 Urine Bilirubin (Auto) 0 mg/dL 03/02/24 08:05 Urine Urobilinogen (Auto) 0.2 mg/dL 03/02/24 08:05 Leukocyte Esterase (Auto) 15 Pamela/uL 03/02/24 08:05 Date of Service: 02/22/24 XR ABDOMEN KUB CLINICAL INDICATION: Calculus of kidney. COMPARISON: 02/08/2024 x-ray abdomen, 01/13/2024 CT kidneys. TECHNIQUE: 2 AP views of the abdomen. FINDINGS: Moderate amount of stool in the right colon. Nonobstructive bowel gas pattern. IUD in the pelvis. Slight leftward curvature of the lumbar spine. Right ureteral stent in place with the proximal end overlying right renal pelvis and distal portion overlying bladder. Previously noted right renal lower pole calculi measuring up to 8 mm or possibly still present; however, evaluation is limited due to overlying bowel and this is difficult to confirm. Redemonstration of 8 mm left renal ivz-gw-pzjcn pole calculus. IMPRESSION: Right ureteral stent in place. Previously identified right renal calculi measuring up to 8 mm are difficult to confirm as visualization is limited due to overlying bowel. Redemonstration of 8 mm left renal otw-fk-rgbsn pole calculus. Date of Service: 01/13/24 STUDY PERFORMED: CT ABDOMEN AND PELVIS WITHOUT CONTRAST FINDINGS: Lung Bases: The visualized lung bases are unremarkable. Liver, Gallbladder and Biliary Tree: The liver is normal in size, shape, and attenuation. No focal hepatic lesion or biliary ductal dilatation is present. The gallbladder is unremarkable with no evidence of radiopaque gallstones, gallbladder wall thickening, or obvious pericholecystic inflammatory changes. Pancreas: No discrete mass or ductal dilatation. Spleen: Normal size. No discrete lesion. Adrenal Glands: No adrenal mass. Kidneys and Ureters: 7 mm nonobstructing calculus in the lower pole of the left kidney measuring 11.7 cm from the posterolateral skin surface. 8 mm 1200 HU nonobstructing calculus in the lower pole of the right kidney measuring 11.8 cm from the posterolateral skin surface. Two additional 4 mm and 2 mm nonobstructing calculi lower pole right kidney. No hydroureteronephrosis. No visible renal mass. The previous CT scan was performed with intravenous contrast. The stone burden in the right lower pole appears mildly increased in size compared to prior and the stone burden in the left lower pole appears stable in size compared to prior. Bladder: Unremarkable. Gastrointestinal Tract: The small and large bowel are unremarkable. The appendix is unremarkable. Abdominal Wall: Diastases recti without discrete hernia. Lymph Nodes: Normal. Vascular: No aortic aneurysm Pelvic Viscera: IUD appears appropriately positioned. Osseous Structures: Mild degenerative disc disease at L5-S1. IMPRESSION: Nonobstructing bilateral renal stones with slight increase on the right compared to prior CT from 12/03/2022. Assessment & Plan Assessment & Plan (1) Bilateral flank pain: Code(s): R10.9 - Unspecified abdominal pain Category: Medical (2) Nephrolithiasis: Code(s): N20.0 - Calculus of kidney Category: Medical Plan Plan left ESWL. Metabolic workup -24 hr urine. Orders: Orders AMB Cystoscopy Today Z96.0 - Presence of urogenital implants AMB Urinalysis Automated Today Z13.9 - Encounter for screening, unspecified Patient Instructions: The patient had an opportunity to ask questions regarding treatment plan. The patient expressed understanding and agreement with the above treatment plan. The patient is aware they should contact our office by phone for worsening of their current condition or the appearance of new symptoms. Compliance is encouraged with any medications and followup testing that is ordered. It is a privilege to be allowed the opportunity to participate in the urologic care of your patient. If you have any questions or concerns regarding treatment for the above conditions please do not hesitate to contact me. The office telephone contact is [phone]. This note is constructed in part using voice recognition software. While every effort has been made to ensure accuracy mayonnaise mixer errors may have been included. Yours sincerely, Shannan Ballard MD Coding Level of Care Code Est Pt Level 3 (42296) Diagnoses Bilateral flank pain R10.9 Nephrolithiasis N20.0 CPT Codes Cystoscopy - CPT: 08009-Arhhiozjdq with stent removal ([id number])
== END 2024-03-02 08:43 | disposition home or self-care (01) ==
PROVIDERS: PCP Internal Medicine; Visit Provider Urology
DX: R10.9 Unspecified abdominal pain (principal); N20.0 Calculus of kidney; Z13.9 Encounter for screening, unspecified; Z96.0 Presence of urogenital implants
CPT/HCPCS: 52310; 99213

== ENCOUNTER → 2024-03-02 07:50 | Outpatient (BNVA) | payer OTHER, SELFPAY | PROVIDERS: PCP Internal Medicine; Visit Provider Urology | DX: Z48.816 Encounter for surgical aftercare following surgery on the genitourinary system (principal) | CPT/HCPCS: 52310; 81003 ==

== ENCOUNTER 2024-04-19 06:06 | Day surgery (SDC) | payer OTHER, SELFPAY ==
--- NOTE | 2024-04-17 13:26 | HO.ANESPROP2 ---
HPI - Anesthesia Eval Consult details Narrative: 34yo F for Left ESWL s/p cysto, etc 01/2024 with GETA 7 PMFSH Active Problems Active Problems: All Active Problems (Updated 02/08/24 @ 15:44 by Shannan Ballard MD) Ureteral stent present (Acute) Bilateral flank pain (Acute) Left flank pain (Acute) Nephrolithiasis (Acute) Past Medical History Medical History History of kidney stones Elevated cholesterol HTN (hypertension) Family History Family history of problems with anesthesia: No Surgical History Surgical History Hx of eye surgery History of Problems with Anesthesia: No Social History Social History Patient Tobacco Use Status: Never used Tobacco Meds Allergies Allergy/AdvReac Type Severity Reaction Status Date / Time cephalexin [From Keflex] Allergy Hives Verified 03/02/24 08:15 Assessment and Plan Assessment Anesthesia Assessment: Chart Reviewed Final Anesthetic Review Family History of Problems with Anesthesia: No History of Problems with Anesthesia: No
--- NOTE | ~2024-04-19 | XR_ITS ---
EXAMINATION: XR ABDOMEN KUB CLINICAL INDICATION: Left extracorporal shockwave lithotripsy COMPARISON: KUB on 02/22/2024 TECHNIQUE: AP view of the abdomen. FINDINGS: AP supine x-rays of the abdomen show nonspecific bowel gas pattern. There is diffuse fecal retention in the colon without abnormal dilatation. There is normal visualization of rectosigmoid bowel gas. A 6.7 mm calcification is seen in lower left kidney. No abnormal calcification could be seen in the right kidney. T-shaped intrauterine contraceptive device is seen in central pelvis. XR/XR KUB IMPRESSION: 1. Unchanged 6.7 mm calcification in lower left kidney. 2. Interval increase in fecal retention in the colon. 3. Interval removal of the right double pigtail ureteric stent. 4. No interval change in position of T-shaped intrauterine contraceptive device.
[2024-04-19 06:45] VITALS: BMI 27.3
[2024-04-19 06:53] LABS: UPreg QC Valid YES; Urine Pregnancy NEGATIVE (NEGATIVE)
[2024-04-19 06:56] VITALS: BP 134/89; PULSE 77; RESP 16; TEMP 37.1; O2SAT 97
[2024-04-19] MEDS: Lactated Ringers 1,000 ML 100 ML IVCONT (07:12)
--- NOTE | 2024-04-19 07:25 | MHC.SHP ---
Pre-Procedural Eval Section A - 24 Hr Update-Section A only Date of Service: 04/19/24 The patient is an INPATIENT: No Changes since office visit: No Cold of Flu in the past 2 weeks, No New Medical Problems, No Changes in Medication and No Patient answered all questions The patient has been examined within 24 hours of the surgical procedure. The History & Physical has been completed within 30 days and I have reviewed it.: Yes Section B - Complete if H&P > 30 days Chief Complaint: Calculus of kidney Details of Present Illness: left renal stone 8mm Allergies: Allergies Allergy/AdvReac Type Severity Reaction Status Date / Time cephalexin [From Keflex] Allergy Hives Verified 03/02/24 08:15 Review of Systems Sugical H&P ROS: Negative: Constitution, Cardiovascular, Respiratory, Neurological, Psychiatric, Hem-Onc, Allergic/Immunologic, Gastrointestinal, Genitourinary, Musculoskeletal, Integumentary, Endocrine and Eyes/Ears/Nose/Throat Exam Surgical H&P Exam: Normal: HEENT, Normal: Heart, Normal: Lungs, Normal: Extremities, Normal: Abdomen, Normal: Skin and Normal: Neurological Plan Diagnosis/Plan: Unchanged I have reviewed the history and physical and performed a pertinent physical examination on my patient. No changes have occurred unless specified. Time Spent With Patient Time: Total time managing care of this patient today ____ minutes.
--- NOTE | 2024-04-19 08:22 | HO.ANESPROP2 ---
PENDING SALE TO [facility] Active Problems Active Problems: All Active Problems Ureteral stent present (Acute) Bilateral flank pain (Acute) Left flank pain (Acute) Nephrolithiasis (Acute) Past Medical History Medical History History of kidney stones Elevated cholesterol HTN (hypertension) Family History Family history of problems with anesthesia: No Surgical History Surgical History Hx of eye surgery History of Problems with Anesthesia: No Social History Social History Patient Tobacco Use Status: Never used Tobacco Use of substances other than those prescribed or required for medical reasons: No Are you DNR?: No Advance Directives: No Advance Directives Information Provided: Yes Meds Allergies Allergy/AdvReac Type Severity Reaction Status Date / Time cephalexin [From Keflex] Allergy Hives Verified 03/02/24 08:15 Active Medications: Current Medications Lactated Ringer's (Lr) 1,000 mls @ 100 mls/hr IVCONT .Q10H [facility] Last Admin: 04/19/24 07:12 Dose: 100 mls/hr Lactated Ringer's (Lr) 1,000 mls @ 999 mls/hr IV .Q1H1M NICKOLAS Stop: 04/19/24 08:30 Exam Height,Weight and Vital Signs: Height 5 ft 3 in Weight 69.853 kg Last Vital Signs Temp 98.7 F 04/19/24 06:56 Pulse 77 04/19/24 06:56 Resp 16 04/19/24 06:56 BP 134/89 04/19/24 06:56 Pulse Ox 97 04/19/24 06:56 O2 Del Method Room Air 04/19/24 06:56 Pertinent Lab Results Pertinent Lab Results: Laboratory Tests 04/19/24 06:36 Urine Test NEGATIVE Airway Mallampati Class: II TM Dist: >3cm Neck ROM: Full Heart: RRR Lungs: CTA Assessment and Plan Assessment Anesthesia Assessment: Anesthesia Plan Discussed Final Anesthetic Review Family History of Problems with Anesthesia: No History of Problems with Anesthesia: No NPO: Yes ASA Class: II Final Preanesthetic Review: Meds/Allgs Chart Reviewed, Consent Obtained/Reviewed and Anes Risks/Benef Reviewed Patient Risk: Low Procedure Risk: Low Anesthetic Plan Anesthetic Plan: MAC: Disposition: Standard PACU
--- NOTE | 2024-04-19 08:34 | W.PM.OPN ---
Operative Note Operative Note Date of Service: 04/19/24 Narrative: PreOperative Diagnosis: Left Renal stones Post Operative Diagnosis: Left Renal stones Procedure: Left ESWL Surgeon: Dr Elmer Lopez Anesthesia: mac/sedation Indications for procedure: The patient understands ESWL may be a staged procedure and subsequent intervention may be required based on imaging after ESWL. Quoted stone clearance rates for a solitary procedure are in the 70-80% range based primarily on stone location. They also understand there is a risk of bleeding to the kidney, infection, damage to adjacent organs, and stone migration following the procedure. - Imaging CT scan left lower pole 7 mm stone Procedure optimization has been performed with IV acetaminophen given in the holding area and 1 L of lactated Ringer's to be given in order to optimize the fluid-stone interface. 20 mg of IV Lasix will be given in the last 5 minutes of the procedure to optimize stone clearance. Procedure: After informed consent was verified the patient was brought to the operating room and placed in a supine position. Anesthesia was performed per protocol. Safety pause time-out was performed. Imaging was displayed in the room and laterality confirmed. ESWL was performed. The 1st 500 shocks were performed at 60 hertz. These were performed with increasing power. Once maximum power was reached the rate was increased to 180 hertz. A total of 2500 shocks were given. Targeted imaging with ultrasound/fluoroscopy showed stone smudging suggestive of disintegration. The patient tolerated the procedure well and was transferred to the recovery area upon completion. Post procedure imaging will be organized. There was no evidence for flank discoloration.
[2024-04-19 09:10] VITALS: BP 117/84; PULSE 83; RESP 16; TEMP 36.2; O2SAT 99
[2024-04-19 09:15] VITALS: BP 131/79; PULSE 78; RESP 16; O2SAT 99
[2024-04-19 09:20] VITALS: BP 131/83; PULSE 68; RESP 16; O2SAT 100
[2024-04-19 09:25] VITALS: BP 141/89; PULSE 74; RESP 16; O2SAT 100
[2024-04-19] MEDS: Phenazopyridine HCL 100 MG TABLET PO (09:36)
[2024-04-19] MEDS: Ketorolac Tromethamine 15 MG/ML VIAL IVPUSH (09:37)
[2024-04-19 09:40] VITALS: BP 146/92; PULSE 69; RESP 16; TEMP 36.1; O2SAT 99
--- NOTE | 2024-04-19 12:13 | HO.POSTANES ---
Post Anesthesia Evaluation Post Anesthesia Evaluation Date of Service: 04/19/24 Vital Signs: Vital Signs Temp Pulse Resp BP Pulse Ox O2 Del Method 04/19/24 09:40 97 F 69 16 146/92 H 99 Room Air 04/19/24 09:25 74 16 141/89 H 100 Room Air 04/19/24 09:20 68 16 131/83 100 Room Air 04/19/24 09:15 78 16 131/79 99 Room Air 04/19/24 09:10 97.1 F 83 16 117/84 99 Room Air 04/19/24 06:56 98.7 F 77 16 134/89 97 Room Air Anesthesia: Monitored Mental Status: Awake Pain Control: Satisfactory Nausea/Vomiting: None Hydration: Adequate Anesthesia-Related Issues: No Anes. Related Issues
== END 2024-04-19 10:13 | disposition home or self-care (01) ==
PROVIDERS: Nurse Practitioner; PCP Internal Medicine; Visit Provider Urology
PROC: (CPT 50590; principal; 2024-04-19 08:10)
DX: N20.0 Calculus of kidney (principal); Z87.442 Personal history of urinary calculi; R10.9 Unspecified abdominal pain; I10 Essential (primary) hypertension; E78.00 Pure hypercholesterolemia, unspecified; Z79.899 Other long term (current) drug therapy; Z88.1 Allergy status to other antibiotic agents
CPT/HCPCS: 50590; 74018; 81025; J0131; J1100; J1885; J1940; J2250; J2405; J2704; J3010

== ENCOUNTER → 2024-04-19 06:06 | Outpatient (BNV) | payer OTHER, SELFPAY | PROVIDERS: PCP Internal Medicine; Visit Provider Urology | DX: N20.0 Calculus of kidney (principal) | CPT/HCPCS: 50590 ==

== ENCOUNTER 2024-05-01 08:29 | Outpatient (REF) | payer OTHER, SELFPAY ==
--- NOTE | ~2024-05-01 | US_ITS ---
EXAMINATION: US RETROPERITONEAL LIMITED (RENAL ONLY) CLINICAL INFORMATION: Presence of urogenital implants. COMPARISON: X-ray KUB 04/19/2024 and 02/22/2024. CT kidney stone 01/13/2024. Ultrasound abdomen 12/03/2022. TECHNIQUE: Real-time imaging of the kidneys. FINDINGS: RIGHT KIDNEY: 12.5 x 4.4 x 6.6 cm (SAG x AP x TRV). The kidney is normal in size, contour, and echogenicity. Renal cortical thickness is normal. No calculi or focal parenchymal lesions. No hydronephrosis. LEFT KIDNEY: 10.8 x 5.1 x 4.4 cm (SAG x AP x TRV). The kidney is normal in size, contour, and echogenicity. Renal cortical thickness is normal. No focal parenchymal lesions. 0.3 x 0.3 cm and 0.2 x 0.2 cm calculi are seen in the lower pole calyx. There is mild hydronephrosis. US/US renal BI IMPRESSION: 1. Normal appearance of the right kidney. 2. 2 small calculi in the lower pole calyx of the left kidney. 3. Mild left hydronephrosis.
== END 2024-05-01 08:30 | disposition home or self-care (01) ==
LOC: HO.US 08:29
PROVIDERS: PCP Internal Medicine; Visit Provider Urology
DX: N20.0 Calculus of kidney (principal); Z96.0 Presence of urogenital implants
CPT/HCPCS: 76775

== ENCOUNTER 2024-05-15 15:31 | Outpatient (AMB) | payer OTHER, SELFPAY ==
--- NOTE | 2024-05-15 15:51 | A.OFFVIS_ITS ---
Intake Visit Reasons: ESWL- follow up/US Intake Note: Patient presents today for follow up visit on: Nephrolithiasis and Ultrasound Results Imaging Completed: 05/01/24 Urology Medications: None Allergies to Antibiotic: Cephalexin Inspector Filters Required: No Allergies cephalexin [From Keflex] Allergy (Verified 05/15/24 16:15) Hives Medication List - Last Reconciled 05/15/24 by HEMANT Neff ibuprofen 600 mg PO TID PRN naproxen 500 mg PO BID PRN 7 days tamsulosin 0.4 mg PO BEDTIME 14 days HPI Comments Details: Leticia is a very pleasant 34-year-old female patient of Dr. Lowry. She has a past medical history of hyperlipidemia and hypertension. She presents to the office today for follow-up of her nephrolithiasis. Of note, during last office visit 03/24 patient underwent an office cystoscopy with left-sided stent removal with Dr. Abelino Bridges. She is status post left-sided ESWL with Dr. Lopez 04/24 and presents today for follow-up of her recent renal imaging. These results were reviewed with the patient today. He right kidney with no calculi, lesions, and or hydronephrosis. Left kidney with 0.3 and 0.2 cm calculi in the lower pole calyx. There is mild hydronephrosis. She currently denies any bothersome urinary issues or concerns. She reports to be drinking plenty of water daily. Recent 24 urine collection results reviewed with the patient today hypercalcemia noted. She does report increased consumption in Tums as she had been experiencing GERD. Discussed correlation of hypercalciuria and Tums. Stone analysis Carbonate Apatite (Dahllite) 90%Calcium Oxalate Dihydrate (Weddellite) 10%. She otherwise denies any bothersome urinary issues or concerns. She denies urinary urgency, urinary frequency, incontinence, nocturia, hematuria, dysuria, foul smelling urine, changes to urinary stream, fever, and or chills. She otherwise offers no other issues or concerns at this time. [facility] Medical History History of kidney stones Elevated cholesterol HTN (hypertension) Surgical History Hx of eye surgery Social History Patient Tobacco Use Status: Never used Tobacco Review of Systems Const All systems reviewed & are unremarkable except as noted in HPI and below Reports no additional complaints Eyes Reports no additional complaints ENT Reports no additional complaints Card Reports no additional complaints Resp Reports no additional complaints GI Reports no additional complaints Reports as per HPI Musc Reports no additional complaints Neuro Reports no additional complaints Psych Reports no additional complaints Endo Reports no additional complaints Meir/Lymph Reports no additional complaints Aller/Immun Reports no additional complaints Physical Exam Const General: cooperative, healthy appearing, comfortable, no acute distress, well developed, alert and awake Nutritional Appearance: average body habitus Orientation/consciousness: patient oriented x3 Limitations: no limitations HEENT Head: Yes normal to inspection, Yes normocephalic and Yes atraumatic Ears: hearing grossly normal bilaterally Eyes General: appearance normal, both eyes and all related structures Neck Neck: Yes normal visual inspection and Yes trachea midline Chest Chest palpation & inspection: normal inspection of the chest Resp Effort & Inspection: normal respiratory effort and able to speak in complete sentences Cardio Rate: regular rate GI Inspection: Yes normal to inspection General: Yes no CVA tenderness Back/Spine/Pelvis Back: no CVA tenderness Skin General skin exam: no rashes or lesions noted Neuro General: patient oriented x3 Extrem General: Yes normal to inspection Psych Appearance: grossly normal and well kempt Mental Status: mental status grossly normal Speech and movement: Normal speech and movement present and Clear speech present Affect: normal affect Attitude: cooperative Thought process: Normal thought process present Thought content: Normal thought content present Insight: Fair insight present (Psych) Judgement: Fair judgement present (Psych) Results AMB Urinalysis, Automated UA Leukoctes 0 Pamela/uL Last Edit by Fotoshkola on 05/15/24 16:26 UA Nitrite Negative Last Edit by Fotoshkola on 05/15/24 16:26 UA Urobilinogen 0.2 mg/dL Last Edit by Fotoshkola on 05/15/24 16:26 UA Protein 0 mg/dL Last Edit by Fotoshkola on 05/15/24 16:26 UA pH 6.0 Last Edit by Fotoshkola on 05/15/24 16:26 UA Blood 25 Harshal/uL Last Edit by River Saha on 05/15/24 16:26 UA Specific [place] 1.015 Last Edit by River Saha on 05/15/24 16:26 UA Ketone Negative Last Edit by River Saha on 05/15/24 16:26 UA Bilirubin 0 mg/dL Last Edit by River Saha on 05/15/24 16:26 UA Glucose 0 mg/dL Last Edit by River Saha on 05/15/24 16:26 Results Reviewed Results Reviewed: Laboratory Last Values Urine pH (Auto) 6.0 05/15/24 16:23 Specific [place] (Auto) 1.015 05/15/24 16:23 Urine Protein (Auto) 0 mg/dL 05/15/24 16:23 Glucose (UA)(Auto) 0 mg/dL 05/15/24 16:23 Urine Ketones (Auto) Negative 05/15/24 16:23 Urine Blood (Auto) 25 Harshal/uL 05/15/24 16:23 Urine Nitrite (Auto) Negative 05/15/24 16:23 Urine Bilirubin (Auto) 0 mg/dL 05/15/24 16:23 Urine Urobilinogen (Auto) 0.2 mg/dL 05/15/24 16:23 Leukocyte Esterase (Auto) 0 Pamela/uL 05/15/24 16:23 Date of Service: 05/01/24 EXAMINATION: US RETROPERITONEAL LIMITED (RENAL ONLY) FINDINGS: RIGHT KIDNEY: 12.5 x 4.4 x 6.6 cm (SAG x AP x TRV). The kidney is normal in size, contour, and echogenicity. Renal cortical thickness is normal. No calculi or focal parenchymal lesions. No hydronephrosis. LEFT KIDNEY: 10.8 x 5.1 x 4.4 cm (SAG x AP x TRV). The kidney is normal in size, contour, and echogenicity. Renal cortical thickness is normal. No focal parenchymal lesions. 0.3 x 0.3 cm and 0.2 x 0.2 cm calculi are seen in the lower pole calyx. There is mild hydronephrosis. IMPRESSION: 1. Normal appearance of the right kidney. 2. 2 small calculi in the lower pole calyx of the left kidney. 3. Mild left hydronephrosis. Assessment & Plan Assessment & Plan (1) Nephrolithiasis: Code(s): N20.0 - Calculus of kidney Category: Medical Plan In office urinalysis results reviewed with the patient today; as noted above. Recent renal imaging results reviewed with the patient today; as noted above. Continue drinking plenty of water daily as discussed. Recent 24 hour urine collection results reviewed with the patient today; as noted above. Discussed lifestyle modifications to assist with hypercalciuria as well as nephrolithiasis. All questions were answered. Will obtain BUN and creatinine. Will obtain renal ultrasound in 6 months. Will obtain 24 urine collection with lifestyle modifications as discussed. Follow-up in 6 months with imaging and 24 hour urine collection; or sooner with any issues, concerns, and or questions. Orders: Orders US renal BI 6 Months N20.0 - Calculus of kidney URORISK 05/15/24 N20.0 - Calculus of kidney AMB Urinalysis Automated 05/15/24 Z13.9 - Encounter for screening, unspecified Medications: Refilled tamsulosin 0.4 mg PO BEDTIME 14 caps 0RF 14 days Patient Instructions: The patient had an opportunity to ask questions regarding the treatment plan. All questions were answered. Physical exam, labs, and imaging were discussed and reviewed in detail. As well as risks, benefits, and discussion of treatment choices. No major barriers to understanding were identified. The patient expressed understanding and agreement with the above treatment plan. The patient was made aware they should contact our office by phone for worsening of their current condition, the appearance of new symptoms, or with any questions or concerns. Compliance is encouraged with any medications and follow up testing that is ordered. It is a privilege to be allowed the opportunity to participate in? your urological care.? Again, if you have any questions or concerns If you have any questions or concerns please do not hesitate to contact me. The office is [phone]. This note is constructed using voice recognition software. While every effort has been made to ensure accuracy transitional care liaison errors may have been included. Yours sincerely, HEMANT Neff Coding Level of Care Code Est Pt Level 3 (54588) Diagnoses Nephrolithiasis N20.0
== END 2024-05-15 16:18 | disposition home or self-care (01) ==
PROVIDERS: PCP Internal Medicine; Visit Provider Nurse Practitioner Family
DX: N20.0 Calculus of kidney (principal)
CPT/HCPCS: 99024

== ENCOUNTER → 2024-05-15 15:31 | Outpatient (BNVA) | payer OTHER, SELFPAY | PROVIDERS: PCP Internal Medicine; Visit Provider Nurse Practitioner Family | DX: N20.0 Calculus of kidney (principal) | CPT/HCPCS: 81003 ==

== ENCOUNTER 2024-11-02 08:27 | Outpatient (REF) | payer OTHER, SELFPAY ==
--- NOTE | ~2024-11-02 | US_ITS ---
CLINICAL HISTORY: N20.0 - Calculus of kidney US Renal Comparison: None Findings: Right kidney normal size and echotexture, 12.0 cm length. Left kidney normal size and echotexture, 11.2 cm length. There are bilateral renal parenchymal calculi, 0.3 x 0.2 x 0.2 cm on the right and 0.6 x 0.4 x 0.3 cm on the left. No hydronephrosis of either kidney. Normal color Doppler IMPRESSION: 1. Bilateral renal parenchymal calculi. No acute findings. This document has been electronically signed by: Dago Cole MD on 11/03/2024 21:36:33
--- OUTSIDE RECORDS SUMMARY | 2024-11-02 08:30 | XMS_ITS ---
Author Name [facility] Organization Unknown Results Test Name/Text Value Interpretation Date Range Source RBC NO. BLD AUTO 3.86M/uL Below low normal [id number] 4.2 - 5.4 [facility] RBC QN AUTO 30.5pg Normal [id number] 25 - 33 C [facility] RBC AUTO MCNC 33.6g/dL Normal [id number] 32 - 36 [facility] HGB BLD [facility] 11.8g/dL Below low normal [id number] 12.5 - 16 [facility] WBC NO. BLD AUTO 11K/uL Above high normal [id number] 4 - 10.5 [facility] HCT VFR BLD AUTO 35% Below low normal [id number] 37 - 47 [facility] RBC AUTO 90.6fL Normal [id number] 78 - 100 [facility] RDW RBC AUTO RTO 13.9% Normal [id number] 12.1 - 16. 2 [facility] PLATELET NO. BLD AUTO 218K/uL Normal [id number] 150 - 450 [facility] PMV BLD AUTO 8.5fL Normal [id number] 7.4 - 11.4 CTT [facility] BLOOD BANK CMNT PATIENT-IMP Normal [id number] [facility] CELL SCN BLD QL MARKOS Normal [id number] [facility] CALCIUM SERPL MCNC 6.2mg/dL Below low normal [id number] 8 .4 - 10.2 [facility] CREAT SERPL MCNC 0.6mg/dL Normal [id number] 0.5 - 1 [facility] BILIRUB SERPL MCNC 0.8mg/dL Normal [id number] 0.3 - 1 [facility] AST SERPL [facility]NC 13U/L Normal [id number] 5 - 40 [facility] Glomerular filtration rate/1.73 sq M. predicted 120 Normal [id number] 60 - [facility] HCO3 SER SCNC 21mmol/L Below low normal [id number] 24 - 3 2 [facility] POTASSIUM SERPL SCNC 3.8mmol/L Normal [id number] 3.5 - 5.1 [facility] ANION GAP SERPL SCNC 9mmol/L Normal [id number] 5 - 14 [facility] PROT SERPL [facility] 5.4g/dL Below low normal [id number] 6.4 - 8.5 [facility] ALP SERPL-CCNC 77U/L Normal [id number] 34 - 104 [facility] SODIUM SERPL SCNC 131mmol/L Below low normal [id number] 5 - 145 [facility] GLUCOSE P FAST SERPL MCNC 117mg/dL Above high normal [id number] 70 - 99 [facility] ALBUMIN SERPL BCG MCNC 2.9g/dL Below low normal [id number] 3.5 - 5 [facility] CHLORIDE SERPL SCNC 101mmol/L Normal [id number] 98 - 10 7 [facility] ALT SERPL [facility] 11U/L Normal [id number] 7 - 52 [facility] BUN SERPL [facility]NC 6mg/dL Below low normal [id number] 7 - 1 7 [facility] RBC NO. BLD AUTO 4.1M/uL Below low normal [id number] 4.2 - 5.4 [facility] RBC QN AUTO 30.6pg Normal [id number] 25 - 33 C [facility] MCHC RBC AUTO MCNC 34.5g/dL Normal [id number] 32 - 36 [facility] HGB BLD MCNC 12.5g/dL Normal [id number] 12.5 - 16 [facility] WBC NO. BLD AUTO 13.4K/uL Above high normal [id number] 4 - 10.5 [facility] HCT VFR BLD AUTO 36.3% Below low normal [id number] 37 - 47 [facility] MCV RBC AUTO 88.5fL Normal [id number] 78 - 100 [facility] RDW RBC AUTO RTO 13.9% Normal [id number] 12.1 - 16. 2 [facility] PLATELET NO. BLD AUTO 242K/uL Normal [id number] 150 - 450 [facility] PMV BLD AUTO 8.7fL Normal [id number] 7.4 - 11.4 [facility] DU AG RBC QL Normal [id number] [facility] BLOOD BANK CMNT PATIENT-IMP Normal [facility] ABO+RH GP BLD Normal [facility]TT [facility] BLD GP AB SCN SERPL QL Normal [facility] Prot/Creat Ur 0.17 Normal [id number] [facility] PROT UR MCNC 6.4mg/dL Normal [id number] - 14 [facility] CREAT UR MCNC 37.3mg/dL Normal [id number] [facility] ALP SERPL-CCNC 96U/L Normal 34 - 104 [facility] AST SERPL [facility] 17U/L Normal 5 - 40 [facility] LDH SERPL L TO P CCNC 145U/L Normal 125 - 220 [facility] ALT SERPL CC[facility] 12U/L Normal 7 - 52 [facility] URATE SERPL MCNC 4.7mg/dL Normal 2.5 - 7 [facility] CREAT SERPL MCNC 0.6mg/dL Normal 0.5 - 1 [facility] SODIUM SERPL SCNC 137mmol/L Normal [id number] 135 - 145 [facility] GLUCOSE SERPL MCNC 75mg/dL Normal [id number] 70 - 199 [facility] Glomerular filtration rate/1.73 sq M. predicted 120 Normal [id number] 60 - [facility] CHLORIDE SERPL SCNC 103mmol/L Normal [id number] 98 - 10 7 [facility] HCO3 SER SCNC 22mmol/L Below low normal [id number] 24 - 3 2 [facility] POTASSIUM SERPL SCNC 3.8mmol/L Normal [id number] 3.5 - 5.1 [facility] ANION GAP SERPL SCNC 12mmol/L Normal [id number] 5 - 14 [facility] BUN SERPL MCNC 8mg/dL Normal [id number] 7 - 17 [facility] CALCIUM SERPL MCNC 9.3mg/dL Normal [id number] 8.4 - 10 .2 [facility] RBC NO. BLD AUTO 4.36M/uL Normal [id number] 4.2 - 5.4 [facility] RBC QN AUTO 31pg Normal [id number] 25 - 33 C [facility] M[facility]C RBC AUTO MCNC 35.1g/dL Normal [id number] 32 - 36 [facility] HGB BLD MCNC 13.5g/dL Normal [id number] 12.5 - 16 [facility] WBC NO. BLD AUTO 10.8K/uL Above high normal [id number] 4 - 10.5 [facility] HCT VFR BLD AUTO 38.5% Normal [id number] 37 - 47 [facility] MCV RBC AUTO 88.3fL Normal [id number] 78 - 100 [facility] RDW RBC AUTO RTO 13.6% Normal [id number] 12.1 - 16. 2 [facility] PLATELET NO. BLD AUTO 232K/uL Normal [id number] 150 - 450 [facility] PMV BLD AUTO 9fL Normal [id number] 7.4 - 11.4 [facility] History of Medication Use Medication Directions Dispensed Refills Start Date End Date Stat aspirin 81 mg chewable tablet Chew 1 tablet every day by oral route. 07/20/2024 completed Liletta 20.4 mcg/24 hrs (8 yrs) 52 mg intrauterine device 07/20/2024 active azithromycin 250 mg tablet TAKE 2 TABLETS (500 MG) BY ORAL ROUTE ONCE DAILY FOR 1 DAY THEN 1 TABLET (250 MG) BY ORAL ROUTE ONCE DAILY FOR 4 DAYS 07/20/2024 completed labetalol 200 mg tablet TAKE 1 TABLET BY MOUTH TWICE A DAY 07/20/2024 active methyldopa 250 mg tablet TAKE 1 TABLET BY MOUTH TWICE A DAY 07/20/2024 completed Kyleena 17.5 mcg/24 hrs (5yrs) 19.5mg intrauterine device Take by intrauterine route. 07/20/2024 completed butalbital-acetamino phen-caffeine 50 mg-300 mg-40 mg capsule 07/20/2024 completed Rhophylac 1,500 unit (300 mcg)/2 mL injection syringe Take 2 mL by injection route. 07/20/2024 completed aspirin 81 mg tablet,delayed release TAKE 1 TABLET BY MOUTH EVERY DAY 07/20/2024 active Liletta 20.4 mcg/24 hrs (8 yrs) 52 mg intrauterine device Take 1 device by intrauterine route. 07/20/2024 active cephalexin 250 mg capsule 07/20/2024 completed nifedipine ER 60 mg tablet,extended release TAKE 1 TABLET BY MOUTH EVERY DAY 07/20/2024 completed tamsulosin 0.4 mg capsule 07/20/2024 completed RhoGAM Ultra-Filtered PLUS 1,500 unit (300 mcg) intramuscular syringe Inject 300 micrograms by intramuscular route. 07/20/2024 active ibuprofen 600 mg tablet TAKE 1 TABLET BY MOUTH EVERY 6 HOURS NEEDED 07/20/2024 active docusate sodium 100 mg capsule TAKE 1 CAPSULE BY MOUTH TWICE A DAY NEEDED 07/20/2024 active labetalol 100 mg tablet TAKE 1 TABLET BY MOUTH TWICE A DAY 07/20/2024 completed fluticasone propionate 50 mcg/actuation nasal spray,suspension USE ONE SPRAY IN EACH NOSTRIL TWO TIMES A DAY 07/20/2024 completed Mirena 21 mcg/24 hours (8 yrs) 52 mg intrauterine device Take by intrauterine route. 07/20/2024 completed oxycodone-acetaminop hen 5 mg-325 mg tablet Take 1 tablet every 3-4 hours by oral route as needed. 07/20/2024 completed OneTouch Delica Lancets 33 gauge 07/20/2024 complete d nitrofurantoin monohydrate/macrocry stals 100 mg capsule TAKE 1 CAPSULE BY MOUTH EVERY 12 HOURS FOR 7 DAYS WITH FOOD 07/20/2024 completed None recorded. (No additional sig information) 02/11/2023 completed fluticasone propionate 50 mcg/actuation nasal spray,suspension USE ONE SPRAY IN EACH NOSTRIL TWO TIMES A DAY USE ONE SPRAY IN EACH NOSTRIL TWO TIMES A DAY 02/11/2023 completed nitrofurantoin monohydrate/macrocry stals 100 mg capsule TAKE 1 CAPSULE BY MOUTH EVERY 12 HOURS FOR 7 DAYS WITH FOOD TAKE 1 CAPSULE BY MOUTH EVERY 12 HOURS FOR 7 DAYS WITH FOOD 02/11/2023 completed methyldopa 250 mg tablet TAKE 1 TABLET BY MOUTH BID TAKE 1 TABLET BY MOUTH BID 03/05/2023 completed aspirin EC 81 MG tablet Take 1 tablet (81 mg total) by mouth daily. 08/23/2023 active labetalol (NORMODYNE) 100 MG tablet Take 1 tablet (100 mg total) by mouth 2 (two) times a day. 08/23/2023 active Roberto Low Dose Aspirin 81 mg tablet,delayed release Take 1 tablet every day by oral route. Take 1 tablet every day by oral route. 02/25/2023 completed ibuprofen 600 mg tablet TAKE 1 TABLET BY MOUTH THREE TIMES A DAY NEEDED FOR PAIN OR FEVER TAKE 1 TABLET BY MOUTH THREE TIMES A DAY NEEDED FOR PAIN OR FEVER 02/11/2023 completed aspirin 81 mg tablet,delayed release TAKE 1 TABLET BY MOUTH EVERY DAY TAKE 1 TABLET BY MOUTH EVERY DAY 03/05/2023 completed labetalol 100 mg tablet TAKE 1 TABLET BY MOUTH TWICE A DAY TAKE 1 TABLET BY MOUTH TWICE A DAY 04/04/2023 completed azithromycin (ZITHROMAX) 250 MG tablet Take 2 tabs PO on day one and one tabs on days 2-5 #6 02/24/2023 active Vit-Fe Fumarate-FA ( PLUS) 27-1 MG TABS tablet Take 1 tablet by mouth every morning after breakfast. 08/23/2023 active Allergies Allergen Reaction Severity Comment Documented Date Source Statu s SUBSTANCE WITH SULFONAMIDE STRUCTURE AND ANTIBACTERIAL MECHANISM OF ACTION (SUBSTANCE) hives [facility] active KEFLEX Itching [facility] Problems Problem Status Onset Date Problem Type Date of Resolution Source Anxiety disorder active 2023-10-15 ProblemAct [facility] Supervision of elderly multigravida, second trimester active EncounterDiagnosisAct [facility] Back pain active 2020-01-09 ProblemAct [facility] Hyperlipidemia active 2017-08-04 ProblemAct [facility] Encounter for other screening follow-up active EncounterDiagnosisAct [facility] Nephrolithiasis active 2023-06-[address] [facility] Chronic hypertension complicating or reason for care during , third trimester active ProblemAct [facility] Pre-existing essential hypertension complicating , second trimester active EncounterDiagnosisAct [facility] Headache active 2023-07-15 ProblemAct [facility] 35 weeks gestation of active EncounterDiagnosisAct [facility] Chronic hypertension affecting active 2020-02-25 ProblemAct [facility] Gestational diabetes [facility] Immun[facility] Vaccine Date Source Lot Number Status Rho(D) -IG IM 09/01/2023 [facility] [id number] completed Tdap 08/30/2017 [facility] [id number] completed Tdap 07/22/2023 [facility] [id number] completed influenza, injectable, quadr ivalent, preservative free 08/12/2017 [facility] [id number] completed Tdap 01/19/2020 [facility] [id number] completed COVID-19, mRNA, LNP-S, PF, 3 0 mcg/0.3 mL dose 08/13/2021 [facility] [id number] completed influenza, injectable, quadr ivalent, preservative free 08/03/2019 [facility] [id number] completed RHO (D) Immune Globulin 02/26/2020 [facility] [id number] c ompleted RHO (D) Immune Globulin 10/04/2017 [facility] [id number] c ompleted
== END 2024-11-02 08:28 | disposition home or self-care (01) ==
LOC: HO.US 08:27
PROVIDERS: PCP Internal Medicine; Visit Provider Nurse Practitioner Family
DX: N20.0 Calculus of kidney (principal)
CPT/HCPCS: 76775

== ENCOUNTER → 2024-11-02 08:28 | Outpatient (BNV) | payer OTHER, SELFPAY | PROVIDERS: PCP Internal Medicine; Visit Provider Specialist | DX: N20.0 Calculus of kidney (principal) | CPT/HCPCS: 76775 ==

== ENCOUNTER 2024-11-13 15:39 | Outpatient (AMB) | payer OTHER, SELFPAY ==
--- NOTE | 2024-11-13 15:46 | A.OFFVIS_ITS ---
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 Lowry. She has a past medical history of hyperlipidemia and hypertension. She presents to the office today for follow-up of her nephrolithiasis. Recent renal imaging results reviewed with the patient today 11/25 bilateral kidneys with no hydronephrosis or renal masses. Right kidney with 3mm, 2mm, 2mm nonobstructing renal calculi. Left kidney with 3 mm, 4 mm, in 6 mm nonobstructing renal calculi. When asked she does report intermittent infrequent episodes of bilateral flank pain. She does have a previous history of ESWL with Dr. Lopez 04/24. Patient with previous stone analysis that noted Carbonate Apatite (Dahlli te) 90%Calcium Oxalate Dihydrate (Weddellite) 10%. Previous Litholink 03/24 noted hypercalcemia however patient had reported increased consumption and Tums as she had been experiencing GERD at which time discussion regarding correlation of hypercalciuria and Tums was discussed. Plan was to limit Tums and reassess Litholink in 3 months however this was never completed. In discussion with the patient today she reports she knows she is not drinking enough water. In office urinalysis results reviewed with the patient today. We discussed at length increase in stone burden. We discussed importance of adequate hydration. Discussed obtaining Litholink as planned. She denies urinary urgency, urinary frequency, incontinence, nocturia, hematuria, dysuria, foul smelling urine, changes to urinary stream, fever, and or chills. She otherwise offers no other issues or concerns at this time. [facility] Medical History History of kidney stones Elevated cholesterol HTN (hypertension) Surgical History Hx of eye surgery Social History Patient Tobacco Use Status: Never used Tobacco Review of Systems Const All systems reviewed & are unremarkable except as noted in HPI and below Reports no additional complaints Eyes Reports no additional complaints ENT Reports no additional complaints Card Reports no additional complaints Resp Reports no additional complaints GI Reports no additional complaints Reports as per HPI Musc Reports no additional complaints Neuro Reports no additional complaints Psych Reports no additional complaints Endo Reports no additional complaints Meir/Lymph Reports no additional complaints Aller/Immun Reports no additional complaints Physical Exam Const General: cooperative, healthy appearing, comfortable, no acute distress, well developed, alert and awake Nutritional Appearance: average body habitus Orientation/consciousness: patient oriented x3 Limitations: no limitations HEENT Head: Yes normal to inspection, Yes normocephalic and Yes atraumatic Ears: hearing grossly normal bilaterally Eyes General: appearance normal, both eyes and all related structures Neck Neck: Yes normal visual inspection and Yes trachea midline Chest Chest palpation & inspection: normal inspection of the chest Resp Effort & Inspection: normal respiratory effort and able to speak in complete sentences Cardio Rate: regular rate GI Inspection: Yes normal to inspection General: Yes no CVA tenderness Back/Spine/Pelvis Back: no CVA tenderness Skin General skin exam: no rashes or lesions noted Neuro General: patient oriented x3 Extrem General: Yes normal to inspection Psych Appearance: grossly normal and well kempt Mental Status: mental status grossly normal Speech and movement: Normal speech and movement present and Clear speech present Affect: normal affect Attitude: cooperative Thought process: Normal thought process present Thought content: Normal thought content present Insight: Fair insight present (Psych) Judgement: Fair judgement present (Psych) Results AMB Urinalysis, Automated UA Leukoctes 15 Pamela/uL Last Edit by SHERMAN Welsh on 11/13/24 15:55 UA Nitrite Negative Last Edit by SHERMAN Welsh on 11/13/24 15:55 UA Urobilinogen 0.2 mg/dL Last Edit by SHERMAN Welsh on 11/13/24 15:5 5 UA Protein 15 mg/dL Last Edit by SHERMAN Welsh on 11/13/24 15:55 UA pH 6.0 Last Edit by SHERMAN Welsh on 11/13/24 15:55 UA Blood 80 Harshal/uL Last Edit by SHERMAN Welsh on 11/13/24 15:55 UA Specific [place] 1.025 Last Edit by SHERMAN Welsh on 11/13/24 15: 55 UA Ketone Negative Last Edit by SHERMAN Welsh on 11/13/24 15:55 UA Bilirubin 0 mg/dL Last Edit by SHERMAN Welsh on 11/13/24 15:55 UA Glucose 0 mg/dL Last Edit by SHERMAN Welsh on 11/13/24 15:55 Results Reviewed Results Reviewed: Laboratory Last Values Urine pH (Auto) 6.0 11/13/24 15:54 Specific [place] (Auto) 1.025 11/13/24 15:54 Urine Protein (Auto) 15 mg/dL 11/13/24 15:54 Glucose (UA)(Auto) 0 mg/dL 11/13/24 15:54 Urine Ketones (Auto) Negative 11/13/24 15:54 Urine Blood (Auto) 80 Harshal/uL 11/13/24 15:54 Urine Nitrite (Auto) Negative 11/13/24 15:54 Urine Bilirubin (Auto) 0 mg/dL 11/13/24 15:54 Urine Urobilinogen (Auto) 0.2 mg/dL 11/13/24 15:54 Leukocyte Esterase (Auto) 15 Pamela/uL 11/13/24 15:54 Date of Service: 11/02/24 Procedure(s): US renal BI US Renal Comparison: None Findings: Right kidney normal size and echotexture, 12.0 cm length. Left kidney normal size and echotexture, 11.2 cm length. There are bilateral renal parenchymal calculi, 0.3 x 0.2 x 0.2 cm on the right and 0.6 x 0.4 x 0.3 cm on the left. No hydronephrosis of either kidney. Normal color Doppler IMPRESSION: 1. Bilateral renal parenchymal calculi. No acute findings. Assessment & Plan Assessment & Plan (1) Bilateral flank pain: Code(s): R10.9 - Unspecified abdominal pain Category: Medical (2) Nephrolithiasis: Code(s): N20.0 - Calculus of kidney Category: Medical Plan In office urinalysis results reviewed the patient today; as noted above. Recent renal imaging results reviewed with the patient today; as noted above. We discussed increase in stone burden over the last 6 months. Discussed obtaining Litholink for further assessment evaluation. Discussed, educated, and stressed the importance of adequate hydration relation to nephrolithiasis as well as overall health and well-being. Start vitamin B6. Discussed adding 1 oz of lemon juice to water daily. Will obtain renal ultrasound in 3 months Follow-up in 3 months with imaging and Litholink to be completed prior; or sooner with any issues, concerns, and or questions. Orders: Orders US renal BI 3 Months N20.0 - Calculus of kidney URORISK Today N20.0 - Calculus of kidney AMB Urinalysis Automated Today Z13.9 - Encounter for screening, unspecified Medications: New pyridoxine (vitamin B6) 100 mg PO DAILY 90 days 90 tabs 1RF Patient Instructions: The patient had an opportunity to ask questions regarding the treatment plan. All questions were answered. Physical exam, labs, and imaging were discussed and reviewed in detail. As well as risks, benefits, and discussion of treatment choices. No major barriers to understanding were identified. The patient expressed understanding and agreement with the above treatment plan. The patient was made aware they should contact our office by phone for worsening of their current condition, the appearance of new symptoms, or with any questions or concerns. Compliance is encouraged with any medications and follow up testing that is ordered. It is a privilege to be allowed the opportunity to participate in? your urological care.? Again, if you have any questions or concerns If you have any questions or concerns please do not hesitate to contact me. The office is [phone]. This note is constructed using voice recognition software. While every effort has been made to ensure accuracy oil deliverer errors may have been included. Yours sincerely, HEMANT Neff Coding Level of Care Code Est Pt Level 4 (75837) Diagnoses Bilateral flank pain R10.9 Nephrolithiasis N20.0
--- OUTSIDE RECORDS SUMMARY | 2024-11-13 19:38 | XMS_ITS ---
Author Organization Unknown Problems Problem Status Start date Recorded date Supervision of high-risk 02-15 Other specified status 2023-03-04 H/O: previous delivery by vacuum extraction 2023-08-26 Pain in calf 2023-05-14 Supervision of high-risk 02-15 Calculus of urinary tract 2023-02-15 Personal/family history of disease 2022-11 0-12 Other specified and unspecif ied hematologic conditions 2023-02-15 Patient Care team information Name Category Status Period Participants - - Proposed period not known -
--- OUTSIDE RECORDS SUMMARY | 2024-11-13 19:38 | XMS_ITS | Data Portability ---
Author Organization [place] - [facility], [facility] Address [id number] [place] [address] Care Team Providers Care Housing Case Manager Name Role Phone [place] Primary Care Provider Assessment No assessment recorded. Plan of Treatment Reminders Order Date Submit Date Provider Last Modified By Organization Details Last Modified Time Details Appointments None recorded. Lab bacterial vaginosis + vaginitis panel, vaginal 2022 023 [facility], [address] [place] [address], [id number] 3 12:27:26 streptococc us group B DNA 2022 023 [facility], [address] [place] [address], [id number] 3 12:27:21 CT + NG DNA, PCR, unspecified specimen 2022 023 [facility], [address] [place] [address], [id number] 3 22:19:51 test, urine 2023 024 [email or web address] In-Office Order, Internal Use Only DO Not Attach Compendium DO Not Attach Compendium, Do Not Delete/merge, [id number] 4 15:21:15 Referral None recorded. Procedures None recorded. Surgeries None recorded. Imaging None recorded. Medication Orders Liletta 20.4 mcg/24 hr (up to 8 years) 52 mg intrauterin e device 2023 024 [email or web address] Not available 4 16:45:20 Patient TargetsNo targets recorded. Patient Instructions Encounter Date Encounter Id Patient Instructions Last Modified By Organization Details Last Modified Time 08/19/2023 [id number] Behavioral healt h screening completed and reviewed with patient. Negative findings. [email or web address] Not available 08/19/2023 18:08:51 10/15/2023 [id number] anxiety disorder : care instructions Not available 10/15/2023 12:15:27 learning about anxiety disorders Not available 10/15/2023 12:15:27 Behavioral healt h screening completed and reviewed with patient. Negative findings. Has known Anxiety. Not available 10/15/2023 12:19:34 11/10/2023 [id number] intrauterine device (IUD) insertion: care instructions [email or web address] Not available 11/10/2023 15:21:15 Reason for Referral None Reported. Results Created Date Observation Date Name Description Value Unit Range Abnormal Flag Note LastModifiedBy Organization Detail LastModifiedTime 07/22/2007/23/2023 URINA LYSIS , COMPL ETE color YELLOW yellow normal Not Available [facility] [address], [address], 07/23/2023 05:47:06 07/22/20 23 07/23/2023 URINA LYSIS , COMPL ETE appearance CLOUDY clear abnormal Not Available [facility] [address], [address], 07/23/2023 05:47:06 07/22/20 23 07/23/2023 URINA LYSIS , COMPL ETE specific gravity 1.020 1.001- 1.035 normal Not Available [facility] [address], [address], 07/23/2023 05:47:06 07/22/20 23 07/23/2023 URINA LYSIS , COMPL ETE pH 6.5 5.0-8. 0 normal Not Available [facility] [address], [address], 07/23/2023 05:47:06 07/22/20 23 07/23/2023 URINA LYSIS , COMPL ETE glucose NEGATI VE negati ve normal Not Available [facility] [place] [facility] [address], [place], [address], 07/23/2023 05:47:06 07/22/20 23 07/23/2023 URINA LYSIS , COMPL ETE bilirubin NEGATI VE negati ve normal Not Available [facility] [place] [facility] [address], [place], [address], 07/23/2023 05:47:06 07/22/20 23 07/23/2023 URINA LYSIS , COMPL ETE ketones 1+ negati ve abnormal Not Available [facility] [place] [facility] [address], [place], [address], 07/23/2023 05:47:06 07/22/20 23 07/23/2023 URINA LYSIS , COMPL ETE occult blood 3+ negati ve abnormal Not Available [facility] [place] [facility] [address], [place], [address], 07/23/2023 05:47:06 07/22/20 23 07/23/2023 URINA LYSIS , COMPL ETE protein 1+ negati ve abnormal Not Available [facility] [place] [facility] [address], [place], [address], 07/23/2023 05:47:06 07/22/20 23 07/23/2023 URINA LYSIS , COMPL ETE nitrite NEGATI VE negati ve normal Not Available [facility] [place] [facility] [address], [place], [address], 07/23/2023 05:47:06 07/22/20 23 07/23/2023 URINA LYSIS , COMPL ETE leukocyte esterase 2+ negati ve abnormal Not Available [facility] [place] [facility] [address], [place], [address], 07/23/2023 05:47:06 07/22/20 23 07/23/2023 URINA LYSIS , COMPL ETE WBC 20-40 /hpf < or = 5 abnormal Not Available [facility] [place] [facility] [address], [place], [address], 07/23/2023 05:47:06 07/22/20 23 07/23/2023 URINA LYSIS , COMPL ETE RBC 0-2 /hpf < or = 2 normal Not Available [facility] [place] [facility] [address], [place], [address], 07/23/2023 05:47:06 07/22/20 23 07/23/2023 URINA LYSIS , COMPL ETE squamous epithelial cells 10-20 /hpf < or = 5 abnormal Not Available [facility] [place] [facility] [address], [place], [address], 07/23/2023 05:47:06 07/22/20 23 07/23/2023 URINA LYSIS , COMPL ETE bacteria MANY /hpf none seen abnormal Not Available [facility] [place] [facility] [address], [place], [address], 07/23/2023 05:47:06 07/22/20 23 07/23/2023 URINA LYSIS , COMPL ETE hyaline cast 0-1 /lpf none seen abnormal Not Available [facility] [place] [facility] [address], [place], [address], 07/23/2023 05:47:06 07/22/20 23 07/22/2023 URINE CULTU RE urine source URINE, RANDOM Not Available [facility] [address] [place], [address] 07/24/2023 08:31:21 07/22/20 07/22/2023 URINE CULTU RE micro culture result Steril e or <1,000 col/mL . NOTE: For urine cultu re speci mens not submi tted in rios top tubes , due to suppl y chain limit s, the labor atory is tempo raril y perfo rming urine cultu res from FDA appro allyssa prese rvati ve tubes that have not been valid ated, as well as from refri gerat ed steri le urine colle ction cups that do not conta in a prese rvati ve. Cultu re of unpre serve d urine may produ ce false ly eleva sonja bacte rial count s. Not Available [facility] [address] [facility], [place], [address] 07/24/2023 08:31:21 07/29/2007/30/2023 URINA LYSIS , COMPL ETE color YELLOW yellow normal Not Available [facility] [address], [address], 07/30/2023 01:52:31 07/29/2007/30/2023 URINA LYSIS , COMPL ETE appearance CLEAR clear normal Not Available [facility] [address], [place], [address], 07/30/2023 01:52:31 07/29/2007/30/2023 URINA LYSIS , COMPL ETE specific gravity 1.016 1.001- 1.035 normal Not Available [facility] [address], [place], [address], 07/30/2023 01:52:31 07/29/2007/30/2023 URINA LYSIS , COMPL ETE pH 7.0 5.0-8. 0 normal Not Available [facility] [address], [address], 07/30/2023 01:52:31 07/29/2007/30/2023 URINA LYSIS , COMPL ETE glucose 2+ negati ve abnormal Not Available [facility] [place] [facility] [address], [place], [address], 07/30/2023 01:52:31 07/29/20 23 07/30/2023 URINA LYSIS , COMPL ETE bilirubin NEGATI VE negati ve normal Not Available [facility] [place] [facility] [address], [place], [address], 07/30/2023 01:52:31 07/29/20 23 07/30/2023 URINA LYSIS , COMPL ETE ketones NEGATI VE negati ve normal Not Available [facility] [place] [facility] [address], [place], [address], 07/30/2023 01:52:31 07/29/20 23 07/30/2023 URINA LYSIS , COMPL ETE occult blood 2+ negati ve abnormal Not Available [facility] [place] [facility] [address], [place], [address], 07/30/2023 01:52:31 07/29/20 23 07/30/2023 URINA LYSIS , COMPL ETE protein NEGATI VE negati ve normal Not Available [facility] [place] [facility] [address], [place], [address], 07/30/2023 01:52:31 07/29/20 23 07/30/2023 URINA LYSIS , COMPL ETE nitrite NEGATI VE negati ve normal Not Available [facility] [place] [facility] [address], [place], [address], 07/30/2023 01:52:31 07/29/2007/30/2023 URINA LYSIS , COMPL ETE leukocyte esterase 1+ negati ve abnormal Not Available [facility] [place] [facility] [address], [place], [address], 07/30/2023 01:52:31 07/29/20 23 07/30/2023 URINA LYSIS , COMPL ETE WBC 0-5 /hpf < or = 5 normal Not Available [facility] [place] [facility] [address], [place], [address], 07/30/2023 01:52:31 07/29/20 23 07/30/2023 URINA LYSIS , COMPL ETE RBC 3-10 /hpf < or = 2 abnormal Not Available [facility] [place] [facility] [address], [place], [address], 07/30/2023 01:52:31 07/29/20 23 07/30/2023 URINA LYSIS , COMPL ETE squamous epithelial cells 0-5 /hpf < or = 5 Not Available [facility] [place] [facility] [address], [place], [address], 07/30/2023 01:52:31 07/29/20 23 07/30/2023 URINA LYSIS , COMPL ETE bacteria NONE SEEN /hpf none seen normal Not Available [facility] [place] [facility] [address], [place], [address], 07/30/2023 01:52:31 07/29/20 23 07/30/2023 URINA LYSIS , COMPL ETE hyaline cast NONE SEEN /lpf none seen normal Not Available [facility] [place] [facility] [address], [place], [address], 07/30/2023 01:52:31 07/29/20 23 07/29/2023 URINE CULTU RE urine source URINE, CLEAN CATCH Not Available [facility] [address] [place], [address] 07/31/2023 11:23:35 07/29/20 23 07/29/2023 URINE CULTU RE micro culture result Steril e or <1,000 col/mL . NOTE: For urine cultu re speci mens not submi tted in rios top tubes , due to suppl y chain limit s, the labor atory is tempo raril y perfo rming urine cultu res from FDA appro allyssa prese rvati ve tubes that have not been valid ated, as well as from refri gerat ed steri le urine colle ction cups that do not conta in a prese rvati ve. Cultu re of unpre serve d urine may produ ce false ly eleva sonja bacte rial count s. Not Available [facility] [address] [place] [address], [address] 07/31/2023 11:23:35 08/19/2008/19/2023 GROUP B STREP DNA PCR group B strep DNA PCR Positi ve negati ve abnormal Not Available [facility] [address] [place] [address], [address] 08/23/2023 12:27:21 08/19/2008/19/2023 GROUP B STREP DNA PCR group B strep source Vagina l/Rect al Not Available [facility] [address] [place] [address], [address] 08/23/2023 12:27:21 08/19/2008/19/2023 ADVAN HÉCTOR BACTE RIAL VAGIN OSIS (BV), TMA adv bacterial vaginosis (bv), tma Negati ve negati ve Not Available [facility] [address] [place] [address], [address] 08/23/2023 12:27:25 08/19/2008/19/2023 ADVAN HÉCTOR MARIO DA VAGIN ITIS (CV)/ TRICH OMONA S VAGIN JUSTIN (TV), TMA ramakrishna species Negati ve negati ve Not Available [facility] [address] [place] [address], [address] 08/23/2023 12:27:26 08/19/2008/19/2023 ADVAN HÉCTOR MARIO DA VAGIN ITIS (CV)/ TRICH OMONA S VAGIN JUSTIN (TV), TMA ramakrishna glabrata Negati ve negati ve Not Available [facility] [address] [place] [address], [address] 08/23/2023 12:27:26 08/19/2008/19/2023 ADVAN HÉCTOR MARIO DA VAGIN ITIS (CV)/ TRICH OMONA S VAGIN JUSTIN (TV), TMA trichomonas vaginalis (TV), tma Negati ve negati ve Not Available [facility] [address] [place], [address] 08/23/2023 12:27:26 08/20/20 23 08/20/2023 [facility] GLUCO SE GESTA ANNETTE L SCREE N, 135 CUTOF F [facility] glucose gestational screen 135 134 mg/dL <136 Not Available [facility] [address] [place], [address] 08/23/2023 12:00:33 10/15/20 23 10/15/2023 CHLAM YDIA/ GONOR RHOEA E RNA, TMA neisseria gonorrhoeae RNA, tma Negati ve negati ve The perfo rmanc e of endoc ervic al, vagin al, and male ureth ral swab speci mens, male and femal e urine speci mens, and Prese rvCyt Solut ion liqui d Pap speci mens has not been evalu ated in adole scent s less than 16 years of age. Not Available [facility] [address] [place] [address], [address] 10/18/2023 22:19:51 10/15/20 23 10/15/2023 CHLAM YDIA/ GONOR RHOEA E RNA, TMA chlamydia trachomatis RNA, tma Negati ve negati ve The perfo rmanc e of endoc ervic al, vagin al, and male ureth ral swab speci mens, male and femal e urine speci mens, and Prese rvCyt Solut ion liqui d Pap speci mens has not been evalu ated in adole scent s less than 16 years of age. Not Available [facility] [address] [place], [address] 10/18/2023 22:19:51 11/10/19 24 11/10/2023 pregn roland test, urine Result negati ve Not Available In-Office Order Internal Use Only DO Not Attach Compendium DO Not Attach Compendium, Do Not Delete/merge, [id number] 11/09/2023 12:58:11 07/22/20 23 07/22/2023 non-s tress test No observ ation record ed. Not Available 2022 15:33:57 07/26/2007/26/2023 non-s tress test No observ ation record ed. [email or web address] Not Available 07/26 12:57:00 07/29/20 non-s tress test No observ ation record ed. Not Available 2022 11:07:02 08/02/2008/02/2023 non-s tress test No observ ation record ed. [email or web address] [address], [address], 08/02/2023 22:44:16 08/09/2008/09/2023 non-s tress test No observ ation record ed. [address], [address], 08/09/2023 23:36:57 08/16/2008/16/2023 US, obste tric, mater nal evalu ation + anato my No observ ation record ed. [email or web address] Not Available 08/16 17:27:01 08/16/2008/16/2023 non-s tress test No observ ation record ed. [email or web address], [address], 08/16/2023 17:28:08 08/23/2008/23/2023 US, obste tric, bioph ysica l profi le + non-s tress test No observ ation record ed. [email or web address], [address], 08/25/2023 14:04:40 08/30/2008/30/2023 non-s tress test No observ ation record ed. [email or web address] [address], [address], 08/30/2023 12:54:52 12/21/19 24 12/21/2023 US, trans vagin al RAD [facility] [address], [place], [address], 12/28/2023 12:19:39 Result Notes None recorded. Problems Name Problem SNOMED Code Status Onset Date Resolution Date Notes Provider Name and Address Organization Details Recorded Time Pregnanc y 29761099 Completed 201610/13/2017 Tiara Monaco [facility], [facility] 0 08:56:57 Blood group A Rh(D) negative 568329581 Completed 03/22/20 17: Rh Negative - RhoGAM candidat e. PAU Pastora hercules, [facility] 7 12:01:24 Hyperten sive disorder [id number] Completed 2016 History of cHTN for the last 2-3 years, original ly on lisinopr il but switched to methyldo pa 250mg BID. BP currentl y well controll ed. plan for baseline PIH labs, 24 hour urine with next labs (16 weeks), level II USN, serial growth USNs. SCP 05/06/17 24 hr urine for protein 117 CH 05/23/17 Level 2 US: post placenta , no previa/E FW 12 oz, S=D/CL 4.4cm/AF I WNL/vani everton WNL/resc an 6 weeks for growth 07/06/17 MFM US for growth: post placenta , grade 1/EFW 1-15 (48% ile)/BRANDEE 4.5 (WNL)/f- up 4 weeks Pastora Yanez diomedes, [facility] 7 12:01:24 Impaired glucose toleranc e 1170050 Completed 201607/08/2017 : Elevated 1Hr Glucose (172) - NEEDS 3HR Test. PIA TREVIZO , [address] [facility], [address], [place], [address], [place] - [facility] 7 08:25:44 Gestatio nal diabetes mellitus 51059642 Completed 201607/08/2017 : Elevated 1Hr Glucose (172) - NEEDS 3HR Test. KTB 7: 3 out of 4 levels were elevated on her 3Hr Test. NEEDS OEF. KTB 7: OB USN @ 30.4wks: VTX, Posterio r Placenta - Grade II, EFW 51%tile, BRANDEE: 13.8 (wnl). REPEAT USN in 4 weeks. ktb 08/17/20 17: OEF: GDMA1 ktb 08/31/20 17: OB USN @ 34.3wks: VTX, Posterio r Placenta - Grade I, EFW 2322gms (5lbs 2oz)(35% tile), BRANDEE: 18.4cm. Rpt USN in 4 weeks. Continue Methyldo pa 250mg PO BID. NSTs q/week. Follow FS with Layla Alvarado. ktb 7: OB USN @ 38.3wks: VTX, Posterio r Placenta - Grade II, EFW: 6lbs 12oz (30%tile ), BRANDEE: 12.6. On Methyldo pa 250mg PO BID. Getting weekly NSTs. ktb Pastora hercules, [place] - [facility] 7 12:01:24 Hyperten sive disorder [id number] Active Pt w/ h/o idiopath ic HTN, tx'd w/ meds from 18's through pregnanc y. Pt's 1st pregnanc y complica sonja by GHTN/pre -E, no tx w/ MgSO4 but tx'd w/ antihype rtensive s pp. Pt was off meds thereaft er & through 2nd pregnanc y; pt had sig elevatio n of BP requirin g tx w/ Aldomet & Nifedipi ne pp after 2nd pregnanc y. Pt w/ mildly elevated BP at IOB visit; pt to keep diary of BP's taken at work, RTO ~ 2 wks for re-eval. Will check baseline pre-E labs & P:C ratio at IOB visit. Pt advised regardin g use of low dose ASA to prevent onset of pre-E, agreeabl e to begin tx. Plan NST's in 3rd tri, ?possibl e IOL for chronic HTN in 3rd tri. CSD Nl baseline pre-E labs (Cr=0.68 , uric acid=4.1 , nl transami nasmike). P:C ratio too small to calculat e. CSD 03/04/23: Patient has a Hx of CHTN - was on Methyldo pa in the past but has not been on any meds this pregnanc y. BPs 138/90 at first visit and 140/80 today. Reviewed that her Baseline H labs were normal. Reviewed her elevated BPS and discusse d restarti ng her on antihype rtensive s. The patient states that she would like to restart. Reviewed options. Patient states that she has used Methyldo pa and did well with it and would prefer to start that agent. Risks/be nefits reviewdd . Script for 250mg PO BID sent. She has a BP Cuff at home and she will mo nitor her BPs and call with any issues. ktb 03/19/23: Methyldo pa NOT availabl e - disconti nued. Will switch to Labetalo l 100mg PO BID and titrate as needed. SEE PATIENT CASE 03/19/23. ktb 04/28: 24 hr urine 130. edl 07/16/23 : patient left AMA from [facility] after admitted for persiste nt RANKIN and severe range in office. Plan for twice weekly NSTs- one in office, one at [facility] with fluid check. reviewed with Dr. Lambert. edl 07/19/23 : 24 hr urine 210 08/20/23 : patient discusse d with MFM, given well controll ed CHTN will schedule IOL at 39 weeks. Can change to earlier date if issues with uncontro lled BPs or other concerns . scp Tiara hercules, [place] - [facility] 3 13:05:02 Pregnanc y [id number] Completed 201803/27/2020 Tiara hercules, [place] - [facility] 0 08:56:57 Past pregnanc y history of gestatio nal diabetes mellitus [id number] Completed Pt w/ Class A1 GDM in 1st pregnanc y--will check fasting BS & HbA1C w/ IOB labs, as pt never complete d pp F/U testing for residual DM. If WNL, plan screenin g later in pregnanc y per routine. Fasting BS=75, DtO1L=5. 4 CSD Normal glucola this preg Tiara hercules, [place] - [facility] 0 08:56:46 RhD negative [id number] Completed Rhogam candidat e. Rhogam given at 28 wga. TBF Tiara hercules, [place] - [facility] 0 08:56:46 History of hyperten patricio 124089383 Completed Tiara hercules, [place] - [facility] 0 08:56:46 Chronic hyperten patricio in obstetri c context 4790921 Completed Pt reports h/o idiopath ic HTN prior to pregnanc ies, tx'd in past w/ lisinopr il & w/ aldomet. Pt's 1st pregnanc y complica sonja by ?GHTN/pr e-E, tx'd w/ antihype rtensive s pp per pt. Pt did not require tx w/ MgSO4. Pt states since 1st pregnanc y, she has not required use of antihype rtensive meds. Advised pt to have baseline pre-E labs & urine Pr:Cr ratio w/ IOB labs. Pt also counsele d regardin g use of qd baby ASA beginnin g at <16 wks thru 36 wks, pt agreeabl e to do. Baseline 24-hr urine t-prot=1 20, WNL. Nl Baseline pre-E labs. 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 States pain comes and goes but remains a 7/10. No fevers, no n/v, no OB complain ts (ctx, lof, vb). Good FM. Patient advised to proceed to L&D for evaluati on and r/o possible pyelo vs kidney stone vs other. L&D evaluati on with VSS, afebrile , WBC 12 (was 11 with labs 3 weeks prior). Patient underwen t negative renal USN other than R hydronep hrosis. Was given one dose IV ceftriax one and discharg ed home with Keflex 500mg QID x 10 days. Will need to follow up urine culture. [facility] Tiara Monaco null, [place] - [facility] 0 08:56:46 Kidney stone [id number] Completed 1st pregnanc y complica sonja by renal calculi. Pt w/ known 6 mm nonobstr ucting L renal stone at IOB visit, followed w/ Urology in [place]; pt was to have tx w/ lithotri psy, but had + pregnanc y dx'd. CSD 06/11/23: [facility] (left sided) due to renal stone. Found to have bilatera l non-obst ructing stones with renal USN. Thought to have passed stone on left overnigh t, discharg ed home with dilaudid prn as well as flomax. [facility] Tiara Dumont null, [place] - [facility] 3 13:05:02 High risk pregnanc y 92294914 Completed Tiara hercules, [facility] 3 13:05:02 Hyperten sive disorder 06040630 Completed Pt w/ h/o idiopath ic HTN, tx'd w/ meds from 18's through pregnanc y. Pt's 1st pregnanc y complica sonja by GHTN/pre -E, no tx w/ MgSO4 but tx'd w/ antihype rtensive s pp. Pt was off meds thereaft er & through 2nd pregnanc y; pt had sig elevatio n of BP requirin g tx w/ Aldomet & Nifedipi ne pp after 2nd pregnanc y. Pt w/ mildly elevated BP at IOB visit; pt to keep diary of BP's taken at work, RTO ~ 2 wks for re-eval. Will check baseline pre-E labs & P:C ratio at IOB visit. Pt advised regardin g use of low dose ASA to prevent onset of pre-E, agreeabl e to begin tx. Plan NST's in 3rd tri, ?possibl e IOL for chronic HTN in 3rd tri. CSD Nl baseline pre-E labs (Cr=0.68 , uric acid=4.1 , nl transami nases). P:C ratio too small to calculat e. CSD 03/04/23: Patient has a Hx of CHTN - was on Methyldo pa in the past but has not been on any meds this pregnanc y. BPs 138/90 at first visit and 140/80 today. Reviewed that her Baseline PIH labs were normal. Reviewed her elevated BPS and discusse d restarti ng her on antihype rtensive s. The patient states that she would like to restart. Reviewed options. Patient states that she has used Methyldo pa and did well with it and would prefer to start that agent. Risks/be nefits reviewdd . Script for 250mg PO BID sent. She has a BP Cuff at home and she will mo nitor her BPs and call with any issues. ktb 03/19/23: Methyldo pa NOT availabl e - disconti nued. Will switch to Labetalo l 100mg PO BID and titrate as needed. SEE PATIENT CASE 03/19/23. ktb 04/28: 24 hr urine 130. edl 07/16/23 : patient left AMA from [facility] after admitted for persiste nt RANKIN and severe range in office. Plan for twice weekly NSTs- one in office, one at [facility] with fluid check. reviewed with Dr. Lambert. edl 07/19/23 : 24 hr urine 210 08/20/23 : patient discusse d with MFM, given well controll ed CHTN will schedule IOL at 39 weeks. Can change to earlier date if issues with uncontro lled BPs or other concerns . scp Tiara Dumont null, [place] - [facility] 3 13:05:02 Advanced maternal age [id number] Completed Pt wishes to have cfDNA testing, NT & Level II USN's--w ill arrange. CSD 03/23, 12 + wk NT USN. REport describe s nl findings : viable IUP w/ S=D; nl-appea ring anterior placenta w/ nl PCI; nl AFV; nl-appea ring R ovary; L ovary not visualiz ed, no L adenxal masses; nl limited early anatomy, includin g visualiz ation of nasal bone; NT<95th% . CSD Tiara hercules, [place] - [facility] 3 13:05:02 RhD negative [id number] Completed 03/04/23: Bld Type: A NEGATIVE - RhoGAM Candidat e. paub 07/09/23: RhoGAM given. ktb Tiara hercules, [place] - [facility] 3 13:05:02 Pain in calf [id number] Completed 05/14/23 : pt with right calf pain x 1 day. BLE 1+. Right calf does appear larger than left and tender to touch. No erythema . RLE dopplers ordered to be complete d today. No SOB/CP. edl Tiara hercules, [facility] 3 13:05:02 Past pregnanc y history of previous delivery by vacuum extracti on [id number] Completed 6 lb 8 oz. 38w3d. for NRFHT Tiara hercules, [facility] 3 13:05:02 Past pregnanc y history of gestatio nal diabetes mellitus [id number] Completed previous ly pregnanc y. 08/12/23 : UA + glucose at 32 and 34 weeks. Will repeat 1 hr GTT. 08/23/23 : repeat 1 hr GTT 134, WNL. edl Tiara hercules, [facility] 3 13:05:02 Group B Streptoc occus carrier [id number] 03 Completed GBS+ Tiara hercules, [facility] 3 13:05:02 Anxiety disorder 009338272 Active 2022 YEYO TREVIZO DO [address] [facility], 3rd Floor, [place], [address] , [facility] - [facility] 3 12:24:21 Problem Notes None recorded. Procedures Surgical History Date Name Laterality Status Provider Name and Address Organization Details Recorded Time 11/10/19 24 IUD Insert completed YEYO TREVIZO DO [address], [address] [place] [address], [phone], [facility] 11/10/2023 16:50:26 08/19/20 23 Non-Stress Test completed MATTHEW CELIS DO [address] [facility], [address] [place] [address], [phone], [facility] 08/19/2023 18:09:20 08/05/20 23 Non-Stress Test completed LALA PATRICK MD [address], [address] [place] [address], [phone], [facility] 08/05/2023 08:54:34 07/29/20 23 Non-Stress Test completed LALA PATRICK MD [address] [facility], [address] [place] [address], [phone], [facility] 07/29/2023 09:16:59 07/22/20 23 Non-Stress Test completed MATTHEW CELIS DO [address] [facility], [address] [place] [address], [phone], [facility] 07/22/2023 13:04:28 11/18/19 22 IUD Removal completed SONYA MENDEZ DO [address] [facility], [address] [place] [address], [phone], [facility] 11/18/2021 13:55:40 11/18/19 22 O7C-FYP completed Mary Castillo [facility] 11/18/2021 13:42:37 04/30/20 20 IUD Insert completed WILLIAM LAGUNAS APRN [address], [address] [place] [address], [phone], [facility] 04/30/2020 13:25:20 04/15/20 20 C7A-FKXJ (0503F) completed WILLIAM LAGUNAS APRN [address], [address] [place] [address], [phone], [facility] - [facility] 04/14/2020 12:49:46 04/15/20 20 V6P-DLIMAUDO completed WILLIAM LAGUNAS APRN [address] [facility], [address] [place] [address], [phone], [facility] 04/14/2020 12:49:54 04/15/20 20 L9P-HTMIU completed WILLIAM LAGUNAS APRN [address] [facility], [address] [place] [address], [phone], [facility] - [facility] 04/14/2020 12:49:50 04/15/20 20 Telemedicine Visit completed WILLIAM LAGUNAS APRN [address] [facility], [address] [place] [address], [phone], [facility] 04/15/2020 13:07:45 03/13/20 20 Telemedicine Visit completed MOISES TERRELL MD [address] [facility], [address] [place] [address], [phone], [facility] 03/13/2020 09:11:03 03/06/20 20 Telemedicine Visit completed YEYO TREVIZO DO [address] [facility], [address] [place] [address], [phone], [facility] 03/06/2020 10:13:08 02/19/20 20 K4H-WNG completed Mary Castillo [facility] 02/19/2020 09:30:28 02/12/20 20 E7J-OFV completed Mary Castillo [facility] 02/12/2020 09:32:00 11/08/19 18 G1P-NJMI (0503F) completed Mary Castillo [facility] 11/08/2017 09:47:55 11/08/19 18 D6U-IRAXXKHO completed Mary Castillo [facility] 11/08/2017 09:47:56 11/08/19 18 X9Q-CKYPYBBU (0503F,LATE (57 - 90 days)) completed Mary Castillo [facility] 11/08/2017 09:47:56 09/29/20 17 Non-Stress Test completed WILLIAM LAGUNAS APRN [address], [address] [place] [address], [facility] 09/29/2017 09:50:56 09/21/20 17 Non-Stress Test completed WILLIAM LAGUNAS APRN [address], [address] [place] [address], [facility] 09/21/2017 10:13:31 09/13/20 17 Non-Stress Test completed MOISES TERRELL MD [address], [address] [place] [address], [facility] 09/13/2017 16:06:00 08/30/20 17 Non-Stress Test completed YEYO TREVIZO DO [address], [address] [place] [address], [facility] 08/30/2017 13:47:55 08/23/20 17 Non-Stress Test completed MOISES TERRELL MD [address], [address] [place] [address], [facility] 08/23/2017 08:17:46 08/16/20 17 Non-Stress Test completed MOISES TERRELL MD [address], [address] [place] [address], [facility] 08/16/2017 13:41:10 01/12/20 17 Date of Last Pap Smear completed Mary Castillo [facility] 03/05/2017 10:19:26 Other completed Mary Castillo [facility] 03/05/2017 10:20:27 Imaging Results Imaging Date Name Status LastModified by Organization Details LastModified Time 07/22/2023 non-stress test completed Informati on not available 07/22/2023 15:33:57 07/26/2023 non-stress test completed Informati on not available 07/26/2023 12:57:00 07/29/2023 non-stress test completed Informati on not available 07/29/2023 11:07:02 08/02/2023 non-stress test completed [email or web address] [address], [address], 08/02/2023 22:44:16 08/09/2023 non-stress test completed [email or web address] [address], [address], 08/09/2023 23:36:57 08/16/2023 US, obstetric, maternal evaluation + anatomy completed Information not available 08/16/2023 17:27:01 08/16/2023 non-stress test completed [email or web address] [address], [address], 08/16/2023 17:28:08 08/23/2023 US, obstetric, biophysical profile + non-stress test completed [email or web address] [address], [address], 08/25/2023 14:04:40 08/30/2023 non-stress test completed [email or web address] [address], [address], 08/30/2023 12:54:52 12/21/2023 US, transvaginal completed [facility] [address], [place], [address], 12/28/2023 12:19:39 Procedure Notes None recorded. Medical Equipment None Reported. Allergies Allergen ID Allergen Name Allergen Category Reaction Reaction Severity Criticality Documentation Date Start Date Code Code System Note Provider Name and Address Organization Details Recorded Time [id number] Keflex medicatio n itching Not available Not available 02/19/2020 7 RxNorm Mary Castillo [facility] [place] - [facility] 0 09:29:21 [id number] Substance with sulfonami de structure and antibacte rial mechanism of action (substanc e) medicatio n hives Not available Not available 03/05/2017 00833 8003 SNOMED Mary Castillo [facility], [facility] 7 07:16:03 Medications Name Sig Start Date Stop Date Status Note LastModified by Organization Details LastModified Time Mirena 21 mcg/24 hr (up to 8 years) 52 mg intrauter ine device Take by intraute rine route. 04/30 completed inserted 04-30-20 20NDC: 70191-70 12-30LOT: [id number] XP: 04-01-20 22 Not Available Not Available Not Available labetalol 200 mg tablet TAKE 1 TABLET BY MOUTH TWICE A DAY 2022 active Not Available Not Available Not Avai lable azithromy tiffanie 250 mg tablet TAKE 2 TABLETS (500 MG) BY ORAL ROUTE ONCE DAILY FOR 1 DAY THEN 1 TABLET (250 MG) BY ORAL ROUTE ONCE DAILY FOR 4 DAYS 09/09 completed Not Available Not Available Not Available cephalexi n 250 mg capsule 02/11 completed Not Available Not Available Not Available methyldop a 250 mg tablet TAKE 1 TABLET BY MOUTH TWICE A DAY 03/19 completed Not Available Not Available Not Available aspirin 81 mg tablet,de layed release TAKE 1 TABLET BY MOUTH EVERY DAY active Not Available Not Available No t Available oxycodone -acetamin ophen 5 mg-325 mg tablet Take 1 tablet every 3-4 hours by oral route as needed. 02/11 completed Not Available Not Available Not Available tamsulosi n 0.4 mg capsule 09/09 completed Not Available Not Available Not Available docusate sodium 100 mg capsule TAKE 1 CAPSULE BY MOUTH TWICE A DAY NEEDED active Not Available Not Available No t Available aspirin 81 mg chewable tablet Chew 1 tablet every day by oral route. 04/30 completed Not Available Not Available Not Available ibuprofen 600 mg tablet TAKE 1 TABLET BY MOUTH EVERY 6 HOURS NEEDED active Not Available Not Available No t Available methylpre dnisolone 4 mg tablets in a dose pack TAKE 6 TABLETS ON DAY 1 DIRECTED ON PACKAGE AND DECREASE BY 1 TAB EACH DAY FOR A TOTAL OF 6 DAYS 04/12 completed Not Available Not Available Not Available labetalol 100 mg tablet TAKE 1 TABLET BY MOUTH TWICE A DAY 09/09 completed Not Available Not Available Not Available nifedipin e ER 60 mg tablet,ex tended release TAKE 1 TABLET BY MOUTH EVERY DAY 04/30 completed Not Available Not Available Not Available fluticaso ne propionat e 50 mcg/actua tion nasal spray,faby pension USE ONE SPRAY IN EACH NOSTRIL TWO TIMES A DAY 04/01 completed Not Available Not Available Not Available Rhophylac 1,500 unit (300 mcg)/2 mL injection syringe Take 2 mL by injectio n route. 04/30 completed Not Available Not Available Not Available nitrofura ntoin monohydra te/macroc rystals 100 mg capsule TAKE 1 CAPSULE BY MOUTH EVERY 12 HOURS FOR 7 DAYS WITH FOOD 04/12 completed Not Available Not Available Not Available B Complex 04/01 completed Not Available Not Available Not Available Vitamin D3 04/01 completed Not Available Not Available Not Available Vitamin active Not Available Not Available Not Available RhoGAM Ultra-Blade tered PLUS 1,500 unit (300 mcg) intramusc ular syringe Inject 300 microgra ms by intramus cular route. 2022 active Not Available Not Available Not Avai lable OneTouch Delica Lancets 33 gauge 11/08 completed Not Available Not Available Not Available butalbita l-acetami nophen-ca ffeine 50 mg-300 mg-40 mg capsule 04/30 completed Not Available Not Available Not Available OneTouch Verio test strips 11/08 completed Not Available Not Available Not Available Liletta 20.4 mcg/24 hr (up to 8 years) 52 mg intrauter ine device Take 1 device by intraute rine route. 2023 active placed 11/10/23; lot [id number] ; Exp 12/2025 Not Available Not Available Not Available Kyleena 17.5 mcg/24 hr (up to 5 years) 19.5 mg intrauter ine device Take by intraute rine route. 11/18 completed inserted 04-30-20 20ND: 93173-75 01-30LOT: [id number] XP: 12/02/19 22 Not Available Not Available Not Available Vitals Date Recorded Body weight Systolic blood pressure Diastolic blood pressure Provider Name and Address Organization Details Last Updated DateTime 08/19/2023 42283.2952 7 g 120 mm[Hg] 80 mm[Hg] Not Available [facility] Record 08/19/2023 07:41:06 Date Recorded Body weight Systolic blood pressure Diastolic blood pressure Provider Name and Address Organization Details Last Updated DateTime 08/26/2023 18216.5181 6 g 140 mm[Hg] 90 mm[Hg] Not Available [facility] Record 08/26/2023 07:40:26 Date Recorded Body height Body mass index (BMI) Body weight Systolic blood pressure Diastolic blood pressure Provider Name and Address Organization Details Last Updated DateTime 09/10/2023 161.29 cm 26.3 kg/m2 90476.45 g 130 mm[Hg] 90 mm[Hg] Pastora Brewer [facility] 3 11:53:15 Date Recorded Body height Body mass index (BMI) Body weight Systolic blood pressure Diastolic blood pressure Provider Name and Address Organization Details Last Updated DateTime 10/15/2023 161.29 cm 25.3 kg/m2 23893.89 g 120 mm[Hg] 80 mm[Hg] Pastora Brewer [facility] 3 11:49:46 Date Recorded Body height Body mass index (BMI) Body weight Systolic blood pressure Diastolic blood pressure Provider Name and Address Organization Details Last Updated DateTime 11/10/2023 161.29 cm 26 kg/m2 90509.26 g 138 mm[Hg] 82 mm[Hg] Claribel Guevara [facility] 4 14:28:41 Social History Question Answer Notes LastModified by Organizat ion Details LastModified Time Tobacco Smoking Status [facility] 11:49:59 What Is Your Level Of Alcohol Consumption? None Information not available 09/10/2023 Are You Currently Employed? Yes Information not available 09/10/2023 Do You Reside In Or Have You Traveled To An Area Where Ebola Virus Transmission Is Active? No Information not available 09/10/2023 Do You Or Have You Ever Used E-cigarettes Or Vape? Never Used Electronic Cigarettes Information not available 09/10/2023 Education 4 Year College Informatio n not available 09/10/2023 Do You Have Any Children? No Information not available 03/05/2017 Does Your Partner Physically Hurt You Or Threaten To Hurt You? No Information not available 03/05/2017 Has Your Partner Forced You To Have Sex Or Perform Sex Acts When You Did Not Want To? No Information not available 03/05/2017 Does Your Partner Insult, Scream At Or Talk Down To You? No Information not available 03/05/2017 Does Your Partner Control You Or Any Part Of Your Life? No Information not available 03/05/2017 Are You Afraid Of Your Partner? No Information not available 03/05/2017 Drug Use? No Information no t available 03/05/2017 Do You Feel Safe At Home? Yes Information not available 03/05/2017 What Was The Date Of Your Most Recent Tobacco Screening? 04/30/2020 Information not available 09/10/2023 How Many Children Do You Have? 2 Information not available 09/10/2023 Do You Use Protection During Sex? No Information not available 09/10/2023 Are You Sexually Active? Yes Information not available 09/10/2023 Do You Or Have You Ever Used Smokeless Tobacco? Never Used Smokeless Tobacco Information not available 09/10/2023 How Much Tobacco Do You Smoke? No Information not available 09/10/2023 General Stress Level Medium Information not available 09/10/2023 Have You Recently Traveled Abroad? No Information not available 02/19/2020 Do You Have Symptoms Associated With Zika Virus (fever, Rash, Joint Pain, Or Conjunctivitis)? No Information not available 09/10/2023 Have You Recently (within The Last 12 Weeks, Or During A Current ) Traveled To Or Lived In A Zika-affected Area? No Information not available 09/10/2023 Sex: Unknown Functional Status Question Answer Note LastModified by Organizat ion Details LastModified Time What is your exercise level? Occasional Information not available 09/10/2023 Mental Status None recorded. Family History Relationship Description Onset Age of this Age Resolved Age Notes LastModified by Organization Details LastModified Time Paternal Grandfather Malignant tumor of lung cbinette Not available 2016 07:16:18 Mother Family history of Mother alive and well cbinette Not available 2016 07:16:18 Father Malignant melanoma cbinette Not available 2016 07:16:18 Father Hyperlipidem ia cbinette Not available 2016 07:16:18 Father Gout cbinette Not available 0 03/05/2017 07:16:18 Father Malignant tumor of prostate 48 cbinette Not available 2016 07:16:18 Father Family history of Father alive and well cbinette Not available 2016 07:16:18 Maternal Grandfather Malignant neoplastic disease cbinette Not available 2016 07:16:18 Maternal Grandfather Malignant melanoma cbinette Not available 2016 07:16:18 Paternal Grandmother Heart disease 90 cbinette Not available 2016 07:16:18 Medical History Condition Response Other N *No Diseases or Conditions N Breast Cancer N Blood clots N Colon cancer N Benign breast disease N Depression N Lung Disease N Defects or Inherited Disease N Anesthesia Complications N Headaches/Migraines N Neurological Disorder N Have you ever been on isolation N Anxiety Disorder Y Arthritis N HSV N Infertility N Abnormal pap N Interstitial Cystitis N Acid Reflux (GERD) N Cancer N Stroke N Endometriosis N Fibromyalgia N Spina Bifida N HIV N Heart Problems N Sexual Dysfunction N Autoimmune disorder N Thyroid Problems N Kidney or Bladder Problems Y GI Problems N Eating Disorder N Anemia N Multiple Sclerosis N Psychiatric Illness N Ovarian Cancer N Diabetes N Blood Transfusions N Bladder disease N History of MRSA N Abnormal Uterine Bleeding N Hyperlipidemia Y BrCa positive N Diverticulitis N Abuse/Domestic Violence N Asthma N Hepatitis N Hypertension Y Osteoporosis N Thrombophilias N Gynecological History Statement/Question Response BrCa Positive N Infertility N Date of LMP IPV Screen Done 06/11/2023 Sexual Orientation heterosexual HPV Vaccine N Endometriosis N Current Control Method None Fibroids N Cervical Cancer N Uterine Cancer N Current Control Method IUD-Liletta Ovarian Cancer N Breast Cancer N Sexually Active? Y Sexual Problems? N Date of Last Pap Smear 01/11/2017 Obstetrics History GPAL:G 3 P 3 0 0 3 Type Value Full Term 3 Living 3 Total 3 Immunizations Vaccine Type Date Status Note Provider Nam e and Address Organization Details Recorded Time Rho(D) -IG IM 09/01/2023 completed Pastora Brewer null, [place] - [facility] 10/15/2023 11:50:16 Tdap 07/22/2023 completed Anabel Suh null, [place] - [facility] 07/22/2023 16:25:15 COVID-19, mRNA, LNP-S, PF, 30 mcg/0.3 mL dose 08/13/2021 completed Not Available [facility] 3 08:50:41 Influenza, split virus, quadrivalent, PF 08/12/2017 completed Not Available [facility] 0 02:19:05 Tdap 08/30/2017 completed Not Available [facility] 11/18/2019 02:19:06 Influenza, split virus, quadrivalent, PF 08/03/2019 completed Not Available [facility] 0 02:19:42 Tdap 01/19/2020 completed Zuleika Berger null, [place] - [facility] 01/19/2020 14:22:05 Past Encounters Encounter ID Performer Location Encounter Start Date Encounter Closed Date Diagnosis/Indication Diagnosis SNOMED-CT Code Diagnosis ICD10 Code Diagnosis Note [id number] YEYO TREVIZO DO [facility] [address] [place] [address] 03/05/2017 09:49:01 03/08/2017 10:37:17 Routine care 659932188 Z34.90 Z34.91 Z34.92 Z34.93 Z34.00 Z34.80 Z34.01 Z34.02 Z34.03 Z34.81 Z34.82 Z34.83 [id number] MATTHEW CELIS DO [facility] [address] [place] [address] 04/02/2017 11:08:49 04/05/2017 10:40:32 Routine care 085396941 Z34.01 Doing well, no complaints . Reviewed all testing to date including negative Zika Virus RNA and Zika IgM. Patient opted NOT to have carrier screening or NT USN. Unable to hear FH with doppler, + FH documented with USN. [id number] WILLIAM Neftali LAGUNAS, BANKING SPECIALIST [facility] [address] [place] [address] 04/29/2017 13:26:59 04/30/2017 11:19:55 Routine care 365312674 Z34.92 Headaches: Occ Nausea: Occ Vomiting: No movement: n/a Contractio ns: no Pt aware needs to go for AFP lab work due now also given PIH with 24 hour urine. Pt has anatomy scan here--will change to have level 2 at [facility] since pt w/chronic HTN & on methyldopa bid. Pt w/some round ligament pain/discu ssed. F/up 4weeks? No signs and symptoms of Zika virus disease onset of fever, rash, arthralgia , conjunctiv itis), travel history, and risk of sexual exposure from a partner with a travel history - induced hypertension 34992610 O13.9 [id number] MATTHEW CELIS, DO [facility] [place] [address] 05/25/2017 09:38:33 05/26/2017 08:19:58 High risk 38491232 O09.92 Doing well, no complaints . +FM. Reviewed normal baseline 24 hour urine, PIH labs as well as negative MSAFP results. s/p normal level II USN at [facility], patient has USN for growth scheduled in 6 weeks. 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 Given and cHTN it would be reasonable to limit her to 12 hour shifts. 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 Denies h/a, n/v. Rhogam given in right glut without incident Pt reports + GFM & infrequent tightenin g through day. Pt denies other c/o. REviewed PSOL, adequate hydration. Pt aware of upcoming USN eval, aware will likely follow w/ NST's & serial USN's. Pt is awaiting OEF appt, states she has already tried to alter diet to replace carbs w/ more whole grains, other changes? RTO 3 wks [id number] SONYA MENDEZ DO [facility] [address] [place] [address] 08/12/2017 16:22:22 08/17/2017 08:15:11 Administration of influenza vaccine 51302564 Z23 Essential hypertension 52632880 I10 No s/s of Pre-E. Pressures reviewed and within acceptable range. Continue with methyldopa 250 mg BID. 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 Fasting sugars ~ 70 and 2 hour PP 120-140. Reports to Layla Alvarado. No meds at this time. Has follow up USN in 4 weeks for growth. Routine an tenatal care 404293013 Z34.03 Routine visit today. Size consistent with dates. Reassuring FHR. No recent travel, sick contacts, or Zika exposures. PTL and movement precaution s reviewed. RhD negative 665286382 Z 01.83 S/p Rhogam. FS after delivery. [id number] MOISES TERRELL MD [facility] [place] [address] 08/16/2017 12:37:52 08/17/2017 09:39:51 Essential hypertension 32716728 I10 Gestationa l diabetes mellitus 06123742 O24.408 [id number] MOISES TERRELL MD [facility] [address] [place] [address] 08/23/2017 07:35:37 08/24/2017 08:41:00 [id number] YEYO TREVIZO, DO [facility] [address] [place] [address] 08/30/2017 12:37:58 09/01/2017 12:45:30 Routine care 493653461 Z34.93 Gestationa l diabetes mellitus 60575915 O24.727 [id number] LALA PATRICK MD [facility] [address] [place] [address] 09/02/2017 16:23:11 09/03/2017 12:59:49 Routine care 089036622 Z34.93 +fm, + quincy castellon. Denies h/a, n/v, edema, visual disturbanc es, ruq/epigas tric pain. BP elevated, she states that she has been a little stressed. Monitors b/p while at home and at work. Pt notes +GFM & denies c/o. Pt notes occas ctxns, infrequent . Pt denies pre-E sx's. Pt describes good BS control. RTO for NST's q wk. [id number] SONYA MENDEZ , [facility] [address] [place] [address] 09/06/2017 08:33:52 09/07/2017 09:15:47 Routine care 624786254 Z34.03 Routine visit today. Size consistent with dates. Reassuring FHR. No recent travel, sick contacts, or Zika exposures. PTL and movement precaution s reviewed. Essential hypertension 97994449 I10 No s/s of Pre-E. Pressures reviewed and within acceptable range. Continue with methyldopa 250 mg BID. RhD negative 943800496 Z 01.83 S/p Rhogam. FS after delivery. Gestationa l diabetes mellitus 68083658 O24.410 Diet controlled . [id number] MOISES TERRELL MD [facility] [place] [address] 09/13/2017 12:38:32 09/14/2017 13:59:41 Normal 82667655 Z34.93 [id number] WILLIAM LAGUNAS APRN [facility] [place] [address] 09/21/2017 08:35:28 09/22/2017 09:12:57 Routine care 162036566 Z34.93 Headaches: No Nausea: No Vomiting: No movement: Yes Contractio ns: Yes Pt feels well-meenakshi castellon ctx. Reviewed GBS positive. Initial BP elevated upon arriving (worked last night & was rushing around)--f /up BP WNL. Pt denies h/a, visual disturbanc es, epigastric pain. Doing well w/250mg Aldomet BID. BS WNL. NST reactive today. Cervix closed, posterior. F/up 1 week for NST No signs and symptoms of Zika virus disease onset of fever, rash, arthralgia , conjunctiv itis), travel history, and risk of sexual exposure from a partner with a travel history [id number] WILLIAM LAGUNAS APRN [facility] [address] [place] [address] 09/29/2017 08:37:23 09/30/2017 13:12:14 Routine care [id number] Z34.93 no n/v no h/a no edema no vb/fluids increased discharge pt has pos fm contractio ns off/on reports bs to layla alvarado trace of leuk in urine, pt denies any uti symptoms Pt feels well. US 09/28 reveals EFW 6-12 (30%ile)/n ormal BRANDEE. NST reactive today. Cervix 1+/80. Reviewed labor precaution s. F/up 1 week for NST/appt No signs and symptoms of Zika virus disease onset of fever, rash, arthralgia , conjunctiv itis), travel history, and risk of sexual exposure from a partner with a travel history [id number] WILLIAM LAGUNAS APRN [facility] [address] [place] [address] 10/13/2017 11:46:44 10/15/2017 13:48:46 Essential hypertension 37411120 I10 Pt w/hx elevated BP--has been on Aldomet 250 BID during BP elevated today Will increase Aldomet to TID Return 10/18 for BP check Reviewed s/s to report [id number] YEYO TREVIZO DO [facility]5 [address] [place] [address] 10/18/2017 13:04:42 10/19/2017 09:12:21 Increased blood pressure 73938283 R03.0 Here for Post-Partu m BP Check. Feels well. Denies RANKIN, RUQ Pain, Visual Changes, N/V. BP 126/90 on current meds. Will continue and recheck in a few days. [id number] YEYO TREVIZO DO [facility]5 [address] [address] 10/22/2017 12:13:06 10/27/2017 11:33:54 Increased blood pressure 37880774 R03.0 Here for rpt BP Check. BP 124/90. Asymptomat ic: denies RANKIN,VisualC hanges, RUQ Pain, N/V. Taking meds (Methyldop a250mg PO TID) as directed. Will continue present care and recheck at upcoming Post-Partu m Check on 11/08/2017. Precaution s reviewed. [id number] MOISES TERRELL MD [facility]5 [address] [place] [address] 11/08/2017 09:44:09 11/10/2017 08:29:04 care [id number] Z39.2 [id number] LALA PATRICK MD G5 [address] [place] [address] 08/03/2019 10:20:50 08/04/2019 10:22:45 Routine care 448325531 Z34.80 Z34.82 Has some nausea and vomiting, relieved with bland snack, no c/o VB or sxs, has had occasional HAs. Plans carrier screen/NIP S/NT/AFP. Pap wnl 01/15. Flu vaccine administer ed today.[employer]ENT 29 yo presents for IOB visit. Pt had 1st tri USN demonstrat ing S Pt having some sx's of N/V, but feels it has not decreased regular dietary intake. Reviewed sx relief measures, pt declines meds at present. Reviewed office policy. Reviewed routine antepartum testing. Reviewed antepartum screening w/ genetic carrier screen, cfDNA testing, NT USN--pt elects to do all. Pt denies any recent travel or plans for travel during for she & FOB. REviewed risks of Zika virus exposure & transmissi on in . RTO 4 wks Administra tion of influenza vaccine 39314433 Z23 Gestation period, 9 weeks 781280 Z3A.09 Depression screening 171 061992 Z13.31 Completed, results negative [id number] SONYA MENDEZ , [facility]5 [address] [place] [address] 08/31/2019 08:51:29 09/01/2019 12:55:59 Routine care 947300829 Z34.81 Routine OB visit. Size = date. FHR reassuring . Denies headache, fever, chills, cp, sob. No regular cramping or contractio ns. Sun, bug, Zika, travel precaution s all reviewed. Reviewed cHTN. BP well controlled today. Labs and urine protein collection WNL. Rh neg, no bleeding. 07/25 USN WNL. Has NT USN upcoming. NO travel plans. AFP at next visit. NO emotional concerns. Early precaution s reviewed. RTO in 4 weeks for OB visit. TBF Gestation period, 13 weeks 99539458 Z3A.13 [id number] WILLIAM LAGUNAS APRN G5 [address] [place] [address] 09/26/2019 13:28:22 10/06/2019 15:27:42 Routine care 808319479 Z34.93 Patient denies nausea, vomiting, headache, doing well at this time. Pt feels well, no c/o. Had normal NT & NIPT. Anatomy scan scheduled. Pt starting to feel flutters. AFP req given. F/up 4 weeks No signs and symptoms of Zika virus disease onset of fever, rash, arthralgia , conjunctiv itis), travel history, and risk of sexual exposure from a partner with a travel history Gestation period, 16 weeks 08068977 Z3A.16 Depression screening 171 142135 Z13.32 neg [id number] YEYO TREVIZO DO G[address] [place] [address] 10/19/2019 09:57:34 10/23/2019 10:18:48 Routine care 493804371 Z34.82 Gestation period, 20 weeks 89879741 Z3A.20 [id number] MOISES TERRELL MD [facility]5 [address] [place] [address] 11/15/2019 08:31:15 11/20/2019 10:35:46 Routine care 568141657 Z34.82 Gestation period, 23 weeks 21315242 Z3A.23 [id number] SONYA Marita ABEBEMENDEZ DO G5 [address] [place] [address] 12/13/2019 09:15:03 12/15/2019 14:45:28 Gestation period, 28 weeks 72197924 Z3A.28 Routine an tenatal care 632897307 Z34.81 Routine OB visit. Size = date. FHR reassuring . Denies headache, fever, chills, cp, sob. No regular cramping or contractio ns. Sun, bug, Zika, travel precaution s all reviewed. Rhogam given today. Rh negative. Normal labs and GCT discussed. 11/06 USN reviewed and normal. Growth USN ordered in office for 34-36 wga. Reviewed PTL and FM precaution s. Discsussed occasional RANKIN and close pre-E precaution s discussed. NO travel plans. BP well controlled . RTO in 3 weeks for OB visit. TBF Gestation period, 27 weeks 37826807 Z3A.27 Administra tion of RhD immune globulin 0255184 Z29.13 [id number] LALA PATRICK MD [facility] [place] [address] 01/01/2020 11:07:44 01/04/2020 11:09:55 Routine care 055861445 Z34.83 Nausea: No Vomiting: No Headaches: Yes almost everyday FM+ Pt notes + GFM & denies ctxns or other c/o. Pt has no urinary c/o, states R flank pain is improving. Pt is taking Keflex. Reviewed results to date. Reviewed signs/sx's of worsening pyelo, PTL, when to call for eval. RTO 2 wks Gestation period, 30 weeks 79067727 Z3A.30 [id number] WILLIAM LAGUNAS, [employer] G5 [address] [place] [address] 01/19/2020 13:42:28 01/24/2020 09:00:41 Routine care 517218854 Z34.83 Nausea: No Vomiting: No Headaches: Occasional FM+ Contractio ns/ Cramping: Patient states yes some contractio ns that come and go. Pt feels ok--still w/intermit tent back pain--? hydro v. nephrolith iasis. Accepts Tdap today. F/up 2 weeks No signs and symptoms of Zika virus disease onset of fever, rash, arthralgia , conjunctiv itis), travel history, and risk of sexual exposure from a partner with a travel history Gestation period, 33 weeks 34903685 Z3A.33 Active or passive immunization 149015806 Z23 [id number] SONYA MENDEZ DO G2 [address] [facility] [place] [address] 01/29/2020 11:38:49 02/02/2020 07:36:21 Routine care 493606073 Z34.83 Routine OB visit. Size = date. FHR reassuring . Denies headache, fever, chills, cp, sob. No regular cramping or contractio ns. Sun, bug, Zika, travel precaution s all reviewed. BP well controlled . No s/s or pre-eclamp emily as reviewed today. RH negative. Bleeding precaution s. Had growth USN today - normal growth and placentati on. Follow up USN PRN. GBS culture at next visit. Coronaviru s and close precaution s reviewed in detail. PTL and FM and BP precaution s reviewed. RTO in 2 weeks for OB visit. TBF Gestation period, 34 weeks 20094886 Z3A.34 [id number] MOISES TERRELL MD G5 [address] [place] [address] 02/12/2020 09:25:27 02/13/2020 12:00:23 Routine care 929312697 Z34.82 Gestation period, 36 weeks 24972194 Z3A.36 Depression screening 171 231657 Z13.32 Behavioral health screening completed and reviewed with patient. Negative findings. [id number] MATTHEW CELIS DO G5 [address] [place] [address] 02/19/2020 09:25:28 02/20/2020 13:01:47 Routine care 686998786 Z34.01 Doing well, no complaints . Good FM. Reviewed negative GBS results. Still taking daily baby aspirin, advised to stop at this time. Patient with hx of CHTN, no medication previously . 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 Denies preeclamps ia symptoms, notes mild intermitte nt HAs but these are normal for her. Will schedule IOL for CHTN at 39+ weeks, paperwork completed today in [place] office. Patient will continue to monitor BP at home and call if any severe range elevations or if any symptoms of preeclamps ia. Will begin weekly NSTs until delivery. Patient planning to stop work at this time. Advised to call if any concerns prior to next visit. [id number] YEYO TREVIZO DO TEL_02_ [facility] [address] [place] [address] 03/06/2020 08:41:53 03/07/2020 11:00:40 Increased blood pressure 15048844 R03.0 Patient has been informed about the treatment methods and limitation s of treating a person through telehealth . Patient gives verbal consent to telemedici ne visit via the [employer]. Patient is s/p with [facility] on 02/25/2020. She has CHTN. She is taking methyldopa 250 mg tablet BID and NIFEdipine ER 60 mg tablet,ext ended release QD. She states that her BPs range from 100s-130s/ 80s with occasional 90. She denies RANKIN, RUQ Pain, Visual Changes, N/V. She will continue current course and we will do a repeat Telemedici ne Visit in 1 week. All questions were answered to the patient's satisfacti on. Time spent with patient (Video Call via [employer]): 4 minutes 31 seconds Total visit time: 10 minutes [id number] MOISES TERRELL MD TEL__ [facility] [address] [place] [address] 03/13/2020 08:51:13 03/18/2020 10:34:16 Hypertensive disorder 79145376 I10 [id number] WILLIAM LAGUNAS APRN TEL_02_WH [facility] [address] [place] [address] 04/15/2020 08:41:03 04/22/2020 09:20:58 care 662339141 Z39.2 Reviewed limitation s of treatment with telemed visit/pt consents to [facility] video call today for pp f/up Normal pp visit BP WNL (120/80) w/Aldomet 250mg--vera ns to f/up with PCP for management Breastfeed ing Voiding/st ooling without difficulty No resumption of intercours e/menses Planning Kyleena IUD for contracept ion--will call office to schedule insertion Good support at home EPDS 4 Time: 8:02s Annual due 3 months Depression screening 171 598262 Z13.32 EPDS 4 [id number] WILLIAM LAGUNAS APRN G5 [address] [address] 04/30/2020 12:57:10 04/30/2020 15:06:34 Insertion of intrauterine contraceptive device 56074530 Z30.430 Pt would like Kyleena for contracept ionRev risk/benef its; consent signedPreg test negCulture s done todayKylee na placed without difficulty (see procedure note)Rev s/s to report: fever/rafael re pain/expul patricio F/up 6 weeks for IUD check [id number] SONYA MENDEZ DO WHG5 [address] [place] [address] 11/18/2021 13:35:07 11/24/2021 14:07:06 Removal of intrauterine device 78529174 Z30.432 Kyleena IUD removed without any difficulty or complicati on. Patient tolerated the procedure well. IUD was intact and shown to patient. Pain / cramping precaution s reviewed. María castro another - not interested in alternativ e contracept ion at this time. [id number] MOISES TERRELL MD G5 [address] [place] [address] 02/09/2023 13:18:41 02/09/2023 14:13:37 Amenorrhea 89757987 N91.2 [id number] LALA PATRICK MD WHG5 [address] [place] [address] 02/15/2023 14:49:48 02/16/2023 09:00:24 Routine care 186448330 Z34.83 Pre-eclampsia 979477463 O14.94 High risk 4720 0007 O09.91 nausea/vom iting: yes /a littlehead aches : occasional lycramping ; No33 yo presents for IOB visit. Pt had 1st tri USN w/ nl findings, confirming EDC based on LMP. Pt denies VB or pelvic pain, denies current /UTI sx's.Pt describes + nausea, occas vomiting, but sx's improving- -pt declines tx w/ meds.Revie wed office policy. 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 Gestation period, 9 weeks 321380 Z3A.09 Depression screening 171 608382 Z13.31 Completed, results negative [id number] YEYO TREVIZO DO [facility]5 [address] [place] [address] 03/04/2023 09:34:02 03/04/2023 11:02:28 Routine care 184511954 Z34.82 Gestation period, 11 weeks 31778080 Z3A.11 Repeat NIPT ordered at today's visit and given to patient to have drawn (03/04/2023) . Chronic hy pertension in obstetric context 7795495 O16.9 Patient has a Hx of CHTN - was on Methyldopa in the past but has not been on any meds this . BPs 138/90 at first visit and 140/80 today. Reviewed that her Baseline PIH labs were normal. Reviewed her elevated BPS and discussed restarting her on antihypert ensives. The patient states that she would like to restart. Reviewed options. Patient states that she has used Methyldopa and did well with it and would prefer to start that agent. Risks/bene fits reviewdd. Script for 250mg PO BID sent. She has a BP Cuff at home and she will mo nitor her BPs and call with any issues. High risk 4720 0007 O09.91 [id number] SAMMI NOBLE MD [facility] [place] [address] 03/15/2023 15:29:34 03/15/2023 16:19:28 Routine care 012943211 Z34.91 Gestation period, 13 weeks 46328079 Z3A.13 Hypertensive disorder 38 119747 I10 [id number] MOISES TERRELL MD [facility] [place] [address] 04/02/2023 09:33:38 04/02/2023 10:15:14 Past history of gestational hypertension 822160322 Z87.59 [id number] SONYA MENDEZ DO [facility] [place] [address] 04/12/2023 15:34:03 04/12/2023 16:01:59 Routine care 394580113 Z34.83 Routine OB visit. Size = date. FHR reassuring . Denies headache, fever, chills, cp, sob. No regular cramping or contractio ns. Sun, bug, Zika, travel precaution s all reviewed. COVID, PTL, and FM precaution s all discussed. No CVA ttp. No rankin or visual changes. BP mild range. Continues on labetalol 100 mg bid. Reviewed possible need to titrate up pending ongoing BPs. Reports mostly controlled BPs. Continue to monitor. Still needs to go for 24 hr urine protein and AFP. Level 2 anatomy USN scheduled. RTO in 4 weeks. TBF Gestation period, 17 weeks 43692708 Z3A.17 High risk 4720 0007 O09.92 [id number] [facility]5 [address] [place] [address] 05/14/2023 14:07:16 05/14/2023 14:52:05 Routine care 695588694 Z34.91 Gestation period, 22 weeks 08683020 Z3A.22 Pain of right calf 67873 11842 742778 M79.661 [id number] LALA PATRICK MD G5 [address] [place] [address] 06/11/2023 14:38:28 06/11/2023 16:43:09 Routine care 480551147 Z34.83 Nausea/Vom iting: No Headaches: No Contractio n/Cramping : No FM: + Edema: legs & calf pain Pt seen at [facility] overnight 06/09-08/23 for tx of renal calculus. Pt states sx's improved markedly once some sediment was noted to pass. Pt is using Flomax, has contacted her urologist to update them of her status. Reviewed upcoming 3rd tri labs. RTO 4 wks or prn Gestation period, 26 weeks 28047286 Z3A.26 Depression screening 171 472558 Z13.32 Completed, results negative [id number] YEYO TREVIZO DO G5 [address] [place] [address] 07/09/2023 15:14:47 07/09/2023 16:26:34 Routine care 082072512 Z34.82 Gestation period, 30 weeks 81427437 Z3A.30 RhD negative 032886457 Z 01.83 RhoGAM given today High risk 4720 0007 O09.93 [id number] G5 [address] [place] [address] 07/22/2023 12:36:39 07/22/2023 15:44:39 Routine care 547118215 Z34.01 Doing well, no complaints . + FM. Was seen at [facility] last week on 07/15 - 07/16/23 for evaluation of RANKIN and elevated BP. Patient left AMA from [facility] after admitted. No concerns today, no RANKIN, visual disturbanc es. BP today 122/82, reports that at home no higher than 140/90. Completed 24 hour urine collection 07/16/23 with normal results (210mg). USN completed last week (07/19/23) at [facility]: EFW 69%, normal BRANDEE, vertex. Next USN scheduled in 4 weeks for CHTN. Reactive NST today, will need to continue 2x weekly, next to be scheduled at [facility] on Wednesday. Urine dip today + blood and ketones. No UTI symptoms. Will send UAC&S. Would like both TDAP and flu vaccine, given at visit today. Gestation period, 32 weeks 5086335 Z3A.32 Administra tion of diphtheria, pertussis, and tetanus vaccine 429736443 Z23 Administra tion of influenza vaccine 41001191 Z23 [id number] LALA PATRICK MD [facility] [address] [place] [address] 07/29/2023 07:55:36 07/30/2023 11:10:19 Routine care 158953305 Z34.83 Nausea/Vom iting: No Headaches: Occ Contractio n/Cramping : BH FM: + Edema: legs Pt reports + GFM & occas ctxns. Pt denies VB. Pt is having some sx's of UTI, will check UA/UCx today. Pt reports she & children are ill, COVID testing negative. Pt c/o sx's of sinus infxn w/ green thick mucous drainage & extreme sinus pressure on R. Will ERx Z-pack, sx relief measures reviewed-- to see PCP if no relief of sx's. Pt noted to have 4+ glucosuria today--?ar tifact, but will check fasting BS & hbA1C. RTO weekly Gestation period, 32 weeks 7369723 Z3A.32 [id number] LALA PATRICK MD G5 [address] [place] [address] 08/05/2023 08:04:39 08/05/2023 10:30:26 Routine care 689206645 Z34.83 Nausea/Vom iting: yes/No Headaches: occ Contractio n/Cramping : BH; some cramping FM: + Edema: legs Pt notes frequent B-H ctxns which resolve w/ rest. Pt notes + GFM. Pt produces list of BP's at home, largely 130-140's/ 80-90's, seemingly well-contr olled on Labetalol 100 mg po tid. NST NR today, will have further monitoring on L&D. Pt produces results of fasting BS & HbA1C on her phone, done at her job, both WN--will attempt to get results in Jessica. RTO weekly Gestation period, 33 weeks 40576792 Z3A.33 [id number] SAMMI NOBLE MD [facility] [address] [place] [address] 08/12/2023 07:28:21 08/12/2023 14:22:49 Gestation period, 34 weeks 69645978 Z3A.34 Routine an tenatal care 442077056 Z34.91 Past pregn roland history of gestational diabetes mellitus 488683937 Z86.32 [id number] MATTHEW Shahnaz MASTERSON, DO [facility]5 [address] [place] [address] 08/19/2023 07:34:35 08/20/2023 14:49:16 Gestation period, 35 weeks 23901646 Z3A.35 Vaginal discharge 708821 006 N89.8 Routine an tenatal care 579679282 Z34.01 Doing well, no complaints . + FM. s/p TDAP and flu vaccine. Reactive NST, continue twice weekly. No glucose in urine today. Was advised to repeat one hour GCT due to persistent glucose in urine at previous visits, ordered today. BP 120/80. GBS collected today along with SureSwab. Patient notes increased discharge a couple of days ago with some blood mixed in, ? mucous plug, along with light spotting. None currently - this has since resolved. Urine dip today + blood and wbcs. No UTI symptoms. Will send UAC&S. Would like both TDAP and flu vaccine, given at visit today. No plan for delivery (no [facility] recommenda tions to date), will contact [facility] to discuss. Negative PHQ-2 today. Depression screening 171 881494 Z13.32 Negative PHQ-2 today. [id number] SAMMI NOBLE MD [facility] [address] [place] [address] 08/26/2023 07:31:49 08/26/2023 13:32:36 Routine care 548112838 Z34.91 Gestation period, 36 weeks 47930671 Z3A.36 [id number] SONYA MENDEZ , [facility] [address] [place] [address] 09/10/2023 11:49:49 09/10/2023 12:45:35 Increased blood pressure 25588831 R03.0 33 yo F in office for BP check in period.Med , surg, and OBGYN hx all reviewedPr e-E with SF reviewedDC home with labetalol 200 mg BID - has been using as RxdBP toady 130/90. No headaches, visual changes, LE edemaPt doing well and feeling well.Will continue to take BP at home, has cuff - parameters of when to call reviewedPP Pre-E and general precaution s reviewedNO CP or SOB.Baby in office and doing well. Pt is well appearingA ll questions answered.P t comfortabl e with this plan.RTO for final 6 week PPV, sooner as clinically indicated. Total Time on date of the encounter: 35 minutesObt ain a patient history and/or review a separately obtained history: 5 minutesRev iewing patient? s lab/radiol ogy/test results: 5 minutesExa mining the patient: 5 minutesDis cussing Treatment options with patient/fa remi/careg iver: 10 minutesCou nseling and education of the patient/fa remi/careg iver: 5 minutesUpd ating/docu menting clinical informatio n in the patient? s medical record: 5 minutes [id number] YEYO TREVIZO DO [facility]5 [address] [place] [address] 10/15/2023 11:44:59 10/15/2023 12:46:08 care 237794048 Z39.2 Check: Doing well after delivery. Reviewed , delivery and course to date. Post-Partu m Depression screen reviewed: no s/s of PPD (SEE FORM). Breastfeed ing reviewed. BC options reviewed. All questions were answered to the patient's satisfacti on. RTO in 2-3 months for Routine Annual Exam. Maternal p ostpartum depression screening 6108487200 82309 Z13.32 EPDS 8 of 30: borderline . Patient has known Anxiety. 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 Hypertensive disorder 38 754866 I10 Patient has known Chronic HTN. was complicate d by Severe Pre-Eclamp emily. Started on Labetalol 200mg BID at visit on 09/28/2023 . BP 120/80 today. Will follow with PCP. Anxiety disorder 4408829 06 F41.9 Patient has known Anxiety. 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 Contraception care 63887 5005 Z30.40 Patient interested in getting an IUD: reviewed all options at length. Patient is currently breastfeed ing. Patient opts for LILETTA - risks/bene fits/proce dure and bleeding profile reviewed at length. Patient informed that it should not affect milk supply but that in some individual s there can be a decrease. Patient states she understand s. All questions answered. Will schedule placement SALMA. GC/CH Cx sent (urine). She will abstain from intercours e until placement as we will not wait until menses since breastfeed ing may inhibit menstrual cycles. Will do a URINE TEST at the time of placement. [id number] YEYO TREVIZO, DO [facility]5 [address] [place] [address] 11/10/2023 14:15:34 11/10/2023 16:56:05 Insertion of intrauterine contraceptive device 74554519 Z30.430 Liletta placed after risk/benef its and procedure reviewed at length with patient which include but are not limited to pain/disco mfort, device failure, expulsion, migration, uterine perforatio n and possible need for laparoscop ic removal and/or other surgical procedures . Consent signed. No obvious issues with placement. String cut to 3cm. RTO for String Check in 5 weeks per protocol. Health Concerns Section Related Observation LastModified by Organization Detai ls LastModified Time None Recorded Concern Status LastModified by Organization Details LastModified Time None Recorded Advance Directives Directive None Recorded Payers Encounter Date Sequence Insurance Name Policy Number Policy Garcia Covered Member ID Garcia Member ID Guarantor Name 08/19/2023 1 [place] [id number] Kalianne T Motson [id number] Kalianne Motson 08/26/2023 1 [place] [id number] Kalianne T Motson [id number] Kalianne Motson 09/10/2023 1 [place] [id number] Kalianne T Motson [id number] Jrianne Motson 10/15/2023 1 [place] [id number] Amolne Kanu Motson [id number] Jrianne Motson 11/10/2023 1 [place] [id number] Amolne T Motson [id number] Amolne Shivason Notes Date Note Type Note Provider Name and Address Organization Details Recorded Time 09/10/2023 text/html [facility] Post-OpRepor sonja bypatient.Associate d Symptoms:incision healing well; no fatigue; normal appetite; normal bowel function; no constipation; no nausea; no emesis; pain improving; no pain; no fever; no bleeding; no lower extremity edema/pain; no dysuria/urinary symptoms SONYA MENDEZ DO [address] 09/10/2023 12:40:51 10/15/2023 text/html [facility] VisitReported bypatient.Onset/Дмитрий ing:date of delivery:; 08/31/2023 Delivery Type: Context:complicatio ns of : pre-eclampsia; complications: none; feeding choice: breast milk; good support from partner/family Associated Symptoms:no abnormal bleeding; no pelvic pain; no constipation; no fecal incontinence; no dysuria; no urinary incontinence; no fever; no problems; no mastitis DO Amanda RANDOLPH [address], [address] [place] [address] 10/15/2023 12:24:53 11/10/2023 text/html Pt here for Latisha tta IUD insertion. /CT 10/15/23: neg. YEYO TREVIZO DO [address] 11/10/2023 16:52:31 OBGyn Episode Ob Episode Information Episode Created Date Number of Fetuses Patient Bloodtype Patient rh Status Prepregnancy Weight lbs Domestic Partner Domestic Partner Phone Father Name Realtime Captioner Status 03/05/20 17 1 A Negative CLOSED Fetus Data First Name Last Name Admitted to NICU Weight (g) Sex Living Outcome Pediatric Complications Fetus ID Race Codes Race Delivery Type chuckie [id number] 63 [id number] Vaginal Delivery Problems Problem Notes Caffeine occ/No cats03/22/17 Zika testing neg MAMTASN 08/04: 51%ile, BRANDEE 13, Posterior dwgjolvv69/31: OB USN @ 34.3wks: VTX, Posterior Placenta - Grade I, EFW 2322gms (5lbs 2oz)(35%tile), BRANDEE: 18.4cm. Rpt USN in 4 weeks. Continue Methyldopa 250mg PO BID. NSTs q/week. Follow FS with Layla Alvarado. Problem Name Start Date End Date Resolution Snomed Code Not e Blood group A Rh(D) negative 845122925 03/22/2017: Rh Negative - RhoGAM candidate. KTB Gestational diabetes mellitus 07/19/2017 [id number] 07/08/2017: [place] sonja 1Hr Glucose (172) - NEEDS 3HR Test. KTB07/19/2017: 3 out of 4 levels were elevated on her 3Hr Test. NEEDS OEF. KTB1: OB USN @ 30.4wks: VTX, Posterior Placenta - Grade II, EFW 51%tile, BRANDEE: 13.8 (wnl). REPEAT USN in 4 weeks. ktb1: OEF: GDMA1 ktb1: OB USN @ 34.3wks: VTX, Posterior Placenta - Grade I, EFW 2322gms (5lbs 2oz)(35%tile), BRANDEE: 18.4cm. Rpt USN in 4 weeks. Continue Methyldopa 250mg PO BID. NSTs q/week. Follow FS with Layla Alvarado. ktb112/02/2016: OB USN @ 38.3wks: VTX, Posterior Placenta - Grade II, EFW: 6lbs 12oz (30%tile), BRANDEE: 12.6. On Methyldopa 250mg PO BID. Getting weekly NSTs. ktb Hypertensive disorder 04/02/2017 [id number] 3 History of cHTN for the last 2-3 years, originally on lisinopril but switched to methyldopa 250mg BID. BP currently well controlled. plan for baseline PIH labs, 24 hour urine with next labs (16 weeks), level II USN, serial growth USNs. SCP 05/06/17 24 hr urine for protein 117 CH05/23/17 Level 2 US: post placenta, no previa/EFW 12 oz, S=D/CL 4.4cm/BRANDEE WNL/anatomy WNL/rescan 6 weeks for growth CH 07/06/17 MFM US for growth: post placenta, grade 1/EFW 1-15 (48% ile)/BRANEDE 4.5 (WNL)/f-up 4 weeks CH Brock Calculation Initial Brock Date Initial Exam Date Initial Exam Provider Initial Ultrasound Date Last Menstrual Period Date Ultra Sound Weeks Gestation 10/09/2017 03/05/2017 KTB 02/25/2017 01/02/2017 7 Eighteen To Twenty Week Brock Update Ultra Sound Date Fundal Height At Umbil Quickening Date Ultra Sound Latest Weeks Gestation Final Brock Confirmed By Final Brock Confirmed Date Final Brock Date Ultra Sound Latest Days Gestation 0 cbinette 03/05/2017 10/09/20 17 0 Pre-stephanie Flowsheet Flowsheet Date 03/05/2017 Rodgers Score Blood Edema Fundus Height Fundus Units Glucose Ketones Leukocytes Nitrite Labor Signs Protein Cervic Dilation Cervic Effacement Cervic Station none 9 wks none negative neg Type Weight in lbs Pre/Post Dialysis Refused 137.054950389155 BP Diastolic BP Location Tested BP Systolic BP Type 76 116 Fetus Heart Rate Present A 130 Present Fetus Movement Comments Headaches: NoNausea: OccVomi ting: NoFetal movement: N/AContractions (cramping or bleeding): NoPt aware that she needs to go to [place] for initial bld work...she also has agreed to do CF/NPTI/Afp which will be done at [place]. Pt has done zika testing 03/02/2017 waiting results pt was in [place] she is aware needs to use condoms for intercourse.Pt has agreed to do the 1st trimester testing at [facility]. Flowsheet Date 04/02/2017 Rodgers Score Blood Edema Fundus Height Fundus Units Glucose Ketones Leukocytes Nitrite Labor Signs Protein Cervic Dilation Cervic Effacement Cervic Station none 12 wks none negative none neg Type Weight in lbs Pre/Post Dialysis Refused 139.339989399548 BP Diastolic BP Location Tested BP Systolic BP Type 72 118 Fetus Heart Rate Present A Present Fetus Movement Comments Headaches: NoNausea: NoVomit ing: NoFetal movement: N/APt will do AFP next visit.Doing well, no complaints. Reviewed all testing to date including negative Zika Virus RNA and Zika IgM. Patient opted NOT to have carrier screening or NT USN. Unable to hear FH with doppler, + FH documented with USN. Flowsheet Date 04/29/2017 Rodgers Score Blood Edema Fundus Height Fundus Units Glucose Ketones Leukocytes Nitrite Labor Signs Protein Cervic Dilation Cervic Effacement Cervic Station none Type Weight in lbs Pre/Post Dialysis Refused 140.241943479940 BP Diastolic BP Location Tested BP Systolic BP Type 70 110 Fetus Heart Rate Present A 144 Present Fetus Movement A No Comments Headaches: OccNausea: OccVom iting: NoFetal movement: n/aContractions: noPt aware needs to go for AFP lab work due now also given PIH with 24 hour urine. Pt has anatomy scan here--will change to have level 2 at [facility] since pt w/chronic HTN & on methyldopa bid. Pt w/some round ligament pain/discussed. F/up 4weeks Flowsheet Date 05/25/2017 Rodgers Score Blood Edema Fundus Height Fundus Units Glucose Ketones Leukocytes Nitrite Labor Signs Protein Cervic Dilation Cervic Effacement Cervic Station none 20 wks none negative none neg Type Weight in lbs Pre/Post Dialysis Refused 147.947605460824 BP Diastolic BP Location Tested BP Systolic BP Type 68 126 Fetus Heart Rate Present A 147 Present Fetus Movement A Yes Comments Headaches: 1x weekNausea: No Vomiting: NoFetal movement: N/AContractions: NoAnatomy scan doen at [facility] on 05/19/2017 due history hypertension.Doing well, no complaints. +FM. Reviewed normal baseline 24 hour urine, PIH labs as well as negative MSAFP results. s/p normal level II USN at [facility], patient has USN for growth scheduled in 6 weeks. 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 Given and cHTN it would be reasonable to limit her to 12 hour shifts. Flowsheet Date 06/23/2017 Rodgers Score Blood Edema Fundus Height Fundus Units Glucose Ketones Leukocytes Nitrite Labor Signs Protein Cervic Dilation Cervic Effacement Cervic Station none 24 cm none negative neg Type Weight in lbs Pre/Post Dialysis Refused 149.594622520593 BP Diastolic BP Location Tested BP Systolic BP Type 82 122 Fetus Heart Rate Present A 140 Present Fetus Movement A Yes Comments +fm, + edema in [place] area du e to work. Is wearing compression stockings. Occ nausea. Denies h/a, vomiting or cramping. Discussed 28 wk labs, Tdap and Cord Blood Banking. Pt verbalized understanding. Paperwork and requisition given.Work has been asking her to work [employer] which has put strain on her so we will limit her work to 12 hrs or less per day - note given. 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 Denies h/a, n/v. Rhogam given in right glut without incidentPt reports + GFM & infrequent tightening through day. Pt denies other c/o. REviewed PSOL, adequate hydration.Pt aware of upcoming USN eval, aware will likely follow w/ NST's & serial USN's. Pt is awaiting OEF appt, states she has already tried to alter diet to replace carbs w/ more whole grains, other changes?RTO 3 wks Flowsheet Date 08/12/2017 Rodgers Score Blood Edema Fundus Height Fundus Units Glucose Ketones Leukocytes Nitrite Labor Signs Protein Cervic Dilation Cervic Effacement Cervic Station none 31 none negative none 1+ Type Weight in lbs Pre/Post Dialysis Refused 149.303570503380 BP Diastolic BP Location Tested BP Systolic BP Type 80 130 Fetus Heart Rate Present A 140 Fetus Movement A Yes Comments +fm, c/o diarrhea x 2 days w ith nausea yesterday. Denies vomiting, h/a, edema or cramping. Flu vaccination given in left deltoid without incident. Reviewed BPs. No s/s of pre-E. No significant swelling, new headaches, or localized RUQ pain. Compliant with methyldopa 250 mg BID. Refill given today. Has follow up growth USN in the beginning of . Also, GDMA - sugars have been well controlled without medication. Rh neg, s/p Rhogam. RTO in 2 weeks for OB apt. TBF Flowsheet Date 08/16/2017 Rodgers Score Blood Edema Fundus Height Fundus Units Glucose Ketones Leukocytes Nitrite Labor Signs Protein Cervic Dilation Cervic Effacement Cervic Station none 33 cm none negative Other (see comments ) neg Type Weight in lbs Pre/Post Dialysis Refused 148.431624715638 BP Diastolic BP Location Tested BP Systolic BP Type 90 120 Fetus Heart Rate Present A 130 Present Fetus Movement A Yes Comments no ctxs, cramping, bleeding or ROMGood FMPML and FACs reviewedsun, bug, Zika, sex and travel precautions reviewedNo recent Viral illness, rash or arthralgiasLabs and U/S reviewed: EFW 50%, has repeat end OctNST for GDMA1 and HTN. +fm. Denies cramping, edema, h/a or n/v.NST reactive for gest ageHas BP cuff at home, BS and BP doing well: methyldopa sent via EMR Flowsheet Date 08/23/2017 Rodgers Score Blood Edema Fundus Height Fundus Units Glucose Ketones Leukocytes Nitrite Labor Signs Protein Cervic Dilation Cervic Effacement Cervic Station none 33 cm none negative Other (see comments ) neg Type Weight in lbs Pre/Post Dialysis Refused 150.271567130095 BP Diastolic BP Location Tested BP Systolic BP Type 82 118 Fetus Heart Rate Present A 132 Present Fetus Movement A Yes Comments Headaches: NoNausea: NoVomit ing: NoFetal movement: YesContractions: Nono ctxs, occ cramping, no bleeding or ROMGood FMPML and FACs reviewedsun, bug, Zika, sex and travel precautions reviewedNo recent Viral illness, rash or arthralgiasLabs and U/S reviewed: good BS control, BPs at home 110s/ 70sNST reactive Flowsheet Date 08/30/2017 Rodgers Score Blood Edema Fundus Height Fundus Units Glucose Ketones Leukocytes Nitrite Labor Signs Protein Cervic Dilation Cervic Effacement Cervic Station none 34 cm none negative neg Type Weight in lbs Pre/Post Dialysis Refused 152.611237843016 BP Diastolic BP Location Tested BP Systolic BP Type 76 110 Fetus Heart Rate Present A 140 Present Fetus Movement A Yes Comments no n/vno h/ano edemano vb/fl uidspt c/o quincy castellon pt given tdap todayNST reactive Flowsheet Date 09/02/2017 Rodgers Score Blood Edema Fundus Height Fundus Units Glucose Ketones Leukocytes Nitrite Labor Signs Protein Cervic Dilation Cervic Effacement Cervic Station none 34 cm none negative none trace Type Weight in lbs Pre/Post Dialysis Refused 151.312435604614 BP Diastolic BP Location Tested BP Systolic BP Type 90 120 84 118 Fetus Heart Rate Present A 135 Present Fetus Movement A Yes Comments +fm, + quincy castellon. Denies h/a, n/v, edema, visual disturbances, ruq/epigastric pain. BP elevated, she states that she has been a little stressed. Monitors b/p while at home and at work.Pt notes +GFM & denies c/o. Pt notes occas ctxns, infrequent. Pt denies pre-E sx's. Pt describes good BS control.RTO for NST's q wk. Flowsheet Date 09/06/2017 Rodgers Score Blood Edema Fundus Height Fundus Units Glucose Ketones Leukocytes Nitrite Labor Signs Protein Cervic Dilation Cervic Effacement Cervic Station trace 35 cm 1+ negative neg Type Weight in lbs Pre/Post Dialysis Refused 152.735207691490 BP Diastolic BP Location Tested BP Systolic BP Type 78 126 Fetus Heart Rate Present Fetus Movement A Yes Comments NST for GDMA 1 and Chronic H TN. +fm, occ quincy castellon ctxs and + trace edema in lower extremities. Denies h/a, n/v, ruq/epigastric pain, or visual disturbances. Continues with methyldopa 250 mg BID. Sugars have been well controlled. Still reporting to Layla Alvarado. Reactive NST in the [place] office today. No s/s of pre-E. Pressures controlled. Discussed IOL vs. expectant management pending on how glucose and sugars are controlled as patient would prefer natural labor. IOL not scheduled today. Pre-E and PTL symptoms reviewed. Continue with weekly NST. Growth USN upcoming. Review at next OB visit. No recent travel, viral arthralgias, or sick contacts. Rh negative. FS post . TBF Flowsheet Date 09/13/2017 Rodgers Score Blood Edema Fundus Height Fundus Units Glucose Ketones Leukocytes Nitrite Labor Signs Protein Cervic Dilation Cervic Effacement Cervic Station none 36 cm none negative Other (see comments ) neg 0cm 70% -1 Type Weight in lbs Pre/Post Dialysis Refused 153.042724871979 BP Diastolic BP Location Tested BP Systolic BP Type 84 112 Fetus Heart Rate Present A 135 Present Fetus Movement A Yes Comments Headaches: NoNausea: Yesterd ay/None todayVomiting: NoFetal movement: YesContractions: Occ [place] HicksBeta strep done today.no ctxs, cramping, bleeding or ROMGood FMSOL and FACs reviewedsun, bug, Zika, sex and travel precautions reviewedNo recent Viral illness, rash or arthralgiasLabs and U/S reviewed: EFW 35%: rescan 4 weeks Flowsheet Date 09/21/2017 Rodgers Score Blood Edema Fundus Height Fundus Units Glucose Ketones Leukocytes Nitrite Labor Signs Protein Cervic Dilation Cervic Effacement Cervic Station none none negative Quincy Castellon neg 0cm 70% -2 Type Weight in lbs Pre/Post Dialysis Refused 155.14445403585 BP Diastolic BP Location Tested BP Systolic BP Type 98 138 84 120 Fetus Heart Rate Present A 134 Present Fetus Movement A Yes Comments Headaches: NoNausea: NoVomit ing: NoFetal movement: YesContractions: YesPt feels well-having quincy castellon ctx. Reviewed GBS positive. Initial BP elevated upon arriving (worked last night & was rushing around)--f/up BP WNL. Pt denies h/a, visual disturbances, epigastric pain. Doing well w/250mg Aldomet BID. BS WNL. NST reactive today. Cervix closed, posterior. F/up 1 week for NST Flowsheet Date 09/29/2017 Rodgers Score Blood Edema Fundus Height Fundus Units Glucose Ketones Leukocytes Nitrite Labor Signs Protein Cervic Dilation Cervic Effacement Cervic Station none none negative [place] Castellon neg 1cm 80% -2 Type Weight in lbs Pre/Post Dialysis Refused 154.084188064662 BP Diastolic BP Location Tested BP Systolic BP Type 72 128 Fetus Heart Rate Present A 135 Present Fetus Movement A Yes Comments no n/vno h/ano edemano vb/fl uids increased dischargept has pos fmcontractions off/onreports bs to layla nelsontrace of leuk in urine, pt denies any uti symptomsPt feels well. US 09/28 reveals EFW 6-12 (30%ile)/normal BRANDEE. NST reactive today. Cervix 1+/80. Reviewed labor precautions. F/up 1 week for NST/appt Flowsheet Date 10/13/2017 Rodgers Score Blood Edema Fundus Height Fundus Units Glucose Ketones Leukocytes Nitrite Labor Signs Protein Cervic Dilation Cervic Effacement Cervic Station Type Weight in lbs Pre/Post Dialysis Refused 140.499948717896 BP Diastolic BP Location Tested BP Systolic BP Type 98 138 Fetus Heart Rate Present Fetus Movement Comments Menstrual History Last Menstrual Date Menses Monthly On Bcp Conception Prior Menses Frequency Hcg Plus Date Menarche Onset Age 0301/02/2017 Genetic Screening And Infection History Question Response Note Patient's Age Will Be 35 Yea rs Or Older At Estimated Date of Delivery false Thalassemia ([place] Islander, Israeli, Mediterranean, Or Background): MCV < 80 false Neural Tube Defect (Meningom yelocele, Spina Bifida, Or Anencephaly) false Congenital Heart Defect false Down Syndrome false Donald-Sachs (eg, Restorationist, Cajun, Uzbek-Armenian) f alse Troy Disease false Sickle Cell Disease Or Trait () false Hemophilia Or Other Blood Disorders false Muscular Dystrophy false Cystic Fibrosis false Lenapah's Chorea false Mental Retardation/Autism false If Yes, Was Person Tested For Fragile X? false Other Inherited Genetic Or Chromosomal Disorder false Maternal Metabolic Disorder (eg, Type 1 Diabetes, PKU) false Patient Or Baby's Father Had A Child With Defects Not Listed Above false Recurrent Loss, Or A Stillbirth false Medications (including Suppl ements, Vitamins, Herbs, OTC Drugs), Illicit/Recreational Drugs, Alcohol true Methylodpa/ vitamins If Yes, Agent(s) And Strength/Dosage false Any Other Genetic History false Live With Someone With TB Or Exposed To TB false Patient Or Partner Has Histo ry Of Genital Herpes false Rash Or Viral Illness Since Last Menstrual Period false History Of STD, Gonorrhea, C hlamydia, HPV, Syphilis false Other Infection History true Chicken pox Familial Dysautonomia (Ashkenazi Restorationist) false Spinal Muscular Atrophy false Parkinson Disease false History of HIV false History of Hepatitis false Prior GBS-infected child false Plans and Education First Trimester Discussed Date Discussion Item Discussion Note Discuss ed By 03/05/2017 Anticipated course of care kborkowski03/05/2017 Alcohol kborkowski03/05/2017 Intimate partner violence kb vinhwski03/05/2017 Environmental/work hazards sanya trevizo03/05/2017 Screening for aneuploidy kbo rkowski03/05/2017 Nutrition counseling ; special diet; dietary precautions (mercury, listeriosis) kborkowski03/05/2017 Childbirth classes/hospital facilities kborkowski03/05/2017 HIV and other routine tests kborkowski03/05/2017 Risk factors identif ied by history kborkowski03/05/2017 Weight gain counseling kbork [email or web address] 03/05/2017 Exercise kborkowski03/05/2017 Teratogens kborkowski03/05/2017 Use of any medicatio ns (including supplements, vitamins, herbs, or OTC drugs) kborkowski03/05/2017 kborkowski03/05/2017 Sexual activity kborkowski03/05/2017 Tobacco/smoking cess ation counseling (ask, advise, assess, assist, and arrange) kborkowski03/05/2017 Illicit/recreational drugs sanya trevizo03/05/2017 Dental care kborkowski03/05/2017 Travel kborkowski03/05/2017 Seat belt use kborkowski03/05/2017 Indications for ultrasonography kborkowski03/05/2017 Avoidance of saunas or hot tubs kborkowski03/05/2017 Toxoplasmosis precautions (cats/raw meat) Second Trimester Discussed Date Discussion Item Discussion Note Discuss ed By 06/23/2017 Selecting a care provider 06/23/2017 Abnormal lab values [email or web address] 06/23/2017 Signs and symptoms of labor [email or web address] 06/23/2017 Intimate partner violence karlee nunez 06/23/2017 Provided information about childbirth education classes Third Trimester Discussed Date Discussion Item Discussion Note Discuss ed By 08/30/2017 Intimate partner violence karlee [email or web address] 08/30/2017 Anesthesia plans 08/30/2017 movement monitoring karlee [email or web address] 08/30/2017 08/30/2017 Labor signs 08/30/2017 Family medical leave or disability forms 08/30/2017 Tobacco/smoking cess ation counseling (ask, advise, assess, assist, and arrange) [email or web address] 08/30/2017 Signs and symptoms of preeclampsia 08/30/2017 Discussed and offered TDAP sanya isaias Delivery Information Delivery Date Delivery Type Labor Anesthesia Weeks Gestation Incision Type Labor Labor Length Hrs Delivered By Post Complications Tubal Sterilization Discharge Date Comments 7 Regional- idural 39.2 joseline Discharge Information Feeding Method Contraceptive Method Maternal HG B and HCT Levels Breast Ob Episode Information Episode Created Date Number of Fetuses Patient Bloodtype Patient rh Status Prepregnancy Weight lbs Domestic Partner Domestic Partner Phone Father Name Realtime Captioner Status 07/25/20 19 1 A Negative 150 Paresh Motson Leslie CLOSED Fetus Data First Name Last Name Admitted to NICU Weight (g) Sex Living Outcome Pediatric Complications Fetus ID Race Codes Race Delivery Type 2939.86 [id number] F true Full Term [id number] Vaginal Delivery Vacuum Problems Problem Notes chicken pox age 1, 120mg caf feine/day, no cats in homepast hx 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 CSD10/19/19: Anatomy USN: VTX, Anterior Placenta, CL 4.42cm. EFW 50%tile. Normal anatomy in images seen, however, NOT ALL CARDIAC VIEWS COULD BE SEEN (SUBOPTIMAL) - will need repeat ANATOMY USN at [facility]. Reviewed at apt today. ktb Additional views normal; tj01/10/20: patient evaluated in L&D with severe right flank pain, + blood in urine. Admitted overnight for obs, pain control. Resolution of pain by AM with sediment noted after straining urine, c/w likely renal stone (although renal USN did not confirm). Patient discharged home with flomax. SCP Problem Name Start Date End Date Resolution Snomed Code Not e History of hypertension 272240061 RhD negative [id number] Rhogam candidate. Rhogam given at 26 wga. TBF Chronic hypertension in obstetric context [id number] Pt repo rts h/o idiopathic HTN prior to pregnancies, tx'd in past w/ lisinopril & w/ aldomet. Pt's 1st complicated by ?GHTN/pre-E, tx'd w/ antihypertensives pp per pt. Pt did not require tx w/ MgSO4. Pt states since 1st , she has not required use of antihypertensive meds. Advised pt to have baseline pre-E labs & urine Pr:Cr ratio w/ IOB labs. Pt also counseled regarding use of qd baby ASA beginning at <16 wks thru 36 wks, pt agreeable to do. Baseline 24-hr urine t-pmcd=865, WNL. Nl Baseline pre-E labs. CSD Past history of gestational diabetes mellitus [id number] Pt w/ Class A1 GDM in 1st --will check fasting BS & HbA1C w/ IOB labs, as pt never completed pp F/U testing for residual DM. 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 States pain comes and goes but remains a 7/10. No fevers, no n/v, no OB complaints (ctx, lof, vb). Good FM. Patient advised to proceed to L&D for evaluation and r/o possible pyelo vs kidney stone vs other. L&D evaluation with VSS, afebrile, WBC 12 (was 11 with labs 3 weeks prior). Patient underwent negative renal USN other than R hydronephrosis. Was given one dose IV ceftriaxone and discharged home with Keflex 500mg QID x 10 days. Will need to follow up urine culture. SCP Brock Calculation Initial Brock Date Initial Exam Date Initial Exam Provider Initial Ultrasound Date Last Menstrual Period Date Ultra Sound Weeks Gestation 03/07/2020 07/25/2019 07/25/2019 05/27/2019 7 Eighteen To Twenty Week Brock Update Ultra Sound Date Fundal Height At Umbil Quickening Date Ultra Sound Latest Weeks Gestation Final Brock Confirmed By Final Brock Confirmed Date Final Brock Date Ultra Sound Latest Days Gestation 0 [email or web address] 07/26/2019 03/07/20 20 0 Pre-stephanie Flowsheet Flowsheet Date 08/03/2019 Rodgers Score Blood Edema Fundus Height Fundus Units Glucose Ketones Leukocytes Nitrite Labor Signs Protein Cervic Dilation Cervic Effacement Cervic Station neg none negative none Negative neg Type Weight in lbs Pre/Post Dialysis Refused Weight 150.766791434682 BP Diastolic BP Location Tested BP Systolic BP Type 78 122 Fetus Heart Rate Present Fetus Movement Comments Has some nausea and vomiting , relieved with bland snack, no c/o VB or sxs, has had occasional HAs. Plans carrier screen/NIPS/NT/AFP. Pap wnl 01/15. Flu vaccine administered today.SM LPN29 yo presents for IOB visit. Pt had 1st tri USN demonstrating S<D by 5 d, establishing EDC=03/07/20.Pt having some sx's of N/V, but feels it has not decreased regular dietary intake. Reviewed sx relief measures, pt declines meds at present.Reviewed office policy. Reviewed routine antepartum testing. Reviewed antepartum screening w/ genetic carrier screen, cfDNA testing, NT USN--pt elects to do all.Pt denies any recent travel or plans for travel during for she & FOB. REviewed risks of Zika virus exposure & transmission in .RTO 4 wks Flowsheet Date 08/31/2019 Rodgers Score Blood Edema Fundus Height Fundus Units Glucose Ketones Leukocytes Nitrite Labor Signs Protein Cervic Dilation Cervic Effacement Cervic Station neg trace none negative none Other (see comments ) trace Type Weight in lbs Pre/Post Dialysis Refused Weight 148.053457989361 BP Diastolic BP Location Tested BP Systolic BP Type 78 104 Fetus Heart Rate Present A 145 Fetus Movement A No Comments occ n/vno vb/fluid leakingsl ight edema after prolonged standing+fmRoutine OB visit. Size = date. FHR reassuring. Denies headache, fever, chills, cp, sob. No regular cramping or contractions. Sun, bug, Zika, travel precautions all reviewed. Reviewed cHTN. BP well controlled today. Labs and urine protein collection WNL. Rh neg, no bleeding. 07/25 USN WNL. Has NT USN upcoming. NO travel plans. AFP at next visit. NO emotional concerns. Early precautions reviewed. RTO in 4 weeks for OB visit. TBF Flowsheet Date 09/26/2019 Rodgers Score Blood Edema Fundus Height Fundus Units Glucose Ketones Leukocytes Nitrite Labor Signs Protein Cervic Dilation Cervic Effacement Cervic Station neg none none negative 1+ Negative trace Type Weight in lbs Pre/Post Dialysis Refused Weight 152.745649754501 BP Diastolic BP Location Tested BP Systolic BP Type 76 120 sitting Fetus Heart Rate Present A 142 Fetus Movement A Yes Comments Patient denies nausea, vomit ing, headache, doing well at this time. Pt feels well, no c/o. Had normal NT & NIPT. Anatomy scan scheduled. Pt starting to feel flutters. AFP req given. F/up 4 weeks Flowsheet Date 10/19/2019 Rodgers Score Blood Edema Fundus Height Fundus Units Glucose Ketones Leukocytes Nitrite Labor Signs Protein Cervic Dilation Cervic Effacement Cervic Station neg none 20 wks none negative none Negative trace Type Weight in lbs Pre/Post Dialysis Refused Weight 151.386432992625 BP Diastolic BP Location Tested BP Systolic BP Type 78 118 sitting Fetus Heart Rate Present A 140 Present Fetus Movement A Yes Comments Patient denies nausea vomiti ng, headache, had USN today, doing well. Anatomy USN: VTX, Anterior Placenta, CL 4.42cm. EFW 50%tile. Normal anatomy in images seen, however, NOT ALL CARDIAC VIEWS COULD BE SEEN (SUBOPTIMAL) - will need repeat ANATOMY USN at [facility]. Reviewed at apt today. PLEASE GIVE 28wk Lab Slip AT NEXT OB APT. Flowsheet Date 11/15/2019 Rodgers Score Blood Edema Fundus Height Fundus Units Glucose Ketones Leukocytes Nitrite Labor Signs Protein Cervic Dilation Cervic Effacement Cervic Station trace 24 cm trace negative Other (see comments ) neg Type Weight in lbs Pre/Post Dialysis Refused Weight 155.10561894135 BP Diastolic BP Location Tested BP Systolic BP Type 82 122 sitting Fetus Heart Rate Present A 146 Present Fetus Movement A Yes Comments Pt has no c/o n/v/rankin, +fm/ed sigifredo, does wear compression socks. Gave 28 week blood work with tdap/cord blood info. CC CMAno ctxs, cramping, bleeding or ROMGood FMPML and FA reviewedsun, bug, Zika, sex and travel precautions reviewedNo recent Viral illness, rash or arthralgiasLabs and U/S reviewed: additional views normal, Preecl prec reviewed, diet reviewed: check glucola, Rhogam if indicatedTrace bilat LE edema, no clonus, DTR's + 2 Flowsheet Date 12/13/2019 Rodgers Score Blood Edema Fundus Height Fundus Units Glucose Ketones Leukocytes Nitrite Labor Signs Protein Cervic Dilation Cervic Effacement Cervic Station 1+ 28 Other (see comments ) Type Weight in lbs Pre/Post Dialysis Refused With clothes 157.974608120372 BP Diastolic BP Location Tested BP Systolic BP Type 74 108 sitting Fetus Heart Rate Present A 145 Fetus Movement A Yes Comments headaches: occasionally. res olved with tylenol 2x per week swelling: noting pitting edema in legs if compression stockings aren't worn. been present with entire nausea: yes - comes in waves . not using medication vomiting: x1 last week dizziness: no cramping: no bleeding: no movement: yesRoutine OB visit. Size = date. FHR reassuring. Denies headache, fever, chills, cp, sob. No regular cramping or contractions. Sun, bug, Zika, travel precautions all reviewed. Rhogam given today. Rh negative. Normal labs and GCT discussed. 11/06 USN reviewed and normal. Growth USN ordered in office for 34-36 wga. Reviewed PTL and FM precautions. Discsussed occasional RANKIN and close pre-E precautions discussed. NO travel plans. BP well controlled. RTO in 3 weeks for OB visit. TBF Flowsheet Date 01/01/2020 Rodgers Score Blood Edema Fundus Height Fundus Units Glucose Ketones Leukocytes Nitrite Labor Signs Protein Cervic Dilation Cervic Effacement Cervic Station 1+ none 31 cm none negative trace Negative trace Type Weight in lbs Pre/Post Dialysis Refused Weight 160.732049845233 BP Diastolic BP Location Tested BP Systolic BP Type 78 118 sitting Fetus Heart Rate Present A 150 Fetus Movement A Yes Comments Nausea: NoVomiting: NoHeadac hes: Yes almost everydayFM+Pt notes + GFM & denies ctxns or other c/o. Pt has no urinary c/o, states R flank pain is improving. Pt is taking Keflex.Reviewed results to date. Reviewed signs/sx's of worsening pyelo, PTL, when to call for eval.RTO 2 wks Flowsheet Date 01/19/2020 Rodgers Score Blood Edema Fundus Height Fundus Units Glucose Ketones Leukocytes Nitrite Labor Signs Protein Cervic Dilation Cervic Effacement Cervic Station neg none 33 cm none negative none Negative trace Type Weight in lbs Pre/Post Dialysis Refused Weight 159.021522555738 BP Diastolic BP Location Tested BP Systolic BP Type 72 116 sitting Fetus Heart Rate Present A 152 Fetus Movement A Yes Comments Nausea: NoVomiting: NoHeadac hes: OccasionalFM+Contractions/ Cramping: Patient states yes some contractions that come and go. Pt feels ok--still w/intermittent back pain--? hydro v. nephrolithiasis. Accepts Tdap today. F/up 2 weeks Flowsheet Date 01/29/2020 Rodgers Score Blood Edema Fundus Height Fundus Units Glucose Ketones Leukocytes Nitrite Labor Signs Protein Cervic Dilation Cervic Effacement Cervic Station none 35 none negative Other (see comments ) neg Type Weight in lbs Pre/Post Dialysis Refused Weight 160.122161435910 BP Diastolic BP Location Tested BP Systolic BP Type 82 130 sitting Fetus Heart Rate Present A 150 Fetus Movement A Yes Comments Pt has no c/o n/v/rankin/edema.R outine OB visit. Size = date. FHR reassuring. Denies headache, fever, chills, cp, sob. No regular cramping or contractions. Sun, bug, Zika, travel precautions all reviewed. BP well controlled. No s/s or pre- eclampsia as reviewed today. RH negative. Bleeding precautions. Had growth USN today - normal growth and placentation. Follow up USN PRN. GBS culture at next visit. Coronavirus and close precautions reviewed in detail. PTL and FM and BP precautions reviewed. RTO in 2 weeks for OB visit. TBF Flowsheet Date 02/12/2020 Rodgers Score Blood Edema Fundus Height Fundus Units Glucose Ketones Leukocytes Nitrite Labor Signs Protein Cervic Dilation Cervic Effacement Cervic Station neg none 36 cm none negative none Negative Other (see comments ) neg 0cm 60% -2 Type Weight in lbs Pre/Post Dialysis Refused Weight 162.727380062434 BP Diastolic BP Location Tested BP Systolic BP Type 86 130 Fetus Heart Rate Present A 144 Present Fetus Movement A Yes Comments Headaches: Yes Daily tylenol effectiveNausea: noVomiting: NoFetal movement: YesContractions: [place] HicksBeta strep done in office today.no ctxs, cramping, bleeding or ROMCovid-19 screen NegativeGood FMSOL and FACs reviewedsun, bug, Zika, Covid-19, sex and travel precautions reviewedNo recent Viral illness, rash or arthralgiasHospital, Office and visitor policy reviewedRecent Covid-19 information 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, taking all precautionsLabs and U/S reviewed: check GBS, no edema, DTR's + 2, no clonusDoes BP at home, PreEcl prec given Flowsheet Date 02/19/2020 Rodgers Score Blood Edema Fundus Height Fundus Units Glucose Ketones Leukocytes Nitrite Labor Signs Protein Cervic Dilation Cervic Effacement Cervic Station none 37 cm none 1cm 50% -3 Type Weight in lbs Pre/Post Dialysis Refused Weight 166.879051962988 BP Diastolic BP Location Tested BP Systolic BP Type 82 134 Fetus Heart Rate Present A 142 Present Fetus Movement A Yes Comments Headaches: Daily tylenol eff ectiveNausea: NoVomiting: NoFetal movement: YesContractions: [place] HicksDoing well, no complaints. Good FM. Reviewed negative GBS results. Still taking daily baby aspirin, advised to stop at this time. Patient with hx of CHTN, no medication previously. 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 Denies preeclampsia symptoms, notes mild intermittent HAs but these are normal for her. Will schedule IOL for CHTN at 39+ weeks, paperwork completed today in [place] office. Patient will continue to monitor BP at home and call if any severe range elevations or if any symptoms of preeclampsia. Will begin weekly NSTs until delivery. Patient planning to stop work at this time. Advised to call if any concerns prior to next visit. Flowsheet Date 03/06/2020 Rodgers Score Blood Edema Fundus Height Fundus Units Glucose Ketones Leukocytes Nitrite Labor Signs Protein Cervic Dilation Cervic Effacement Cervic Station Type Weight in lbs Pre/Post Dialysis Refused BP Diastolic BP Location Tested BP Systolic BP Type Fetus Heart Rate Present Fetus Movement Comments Flowsheet Date 03/13/2020 Rodgers Score Blood Edema Fundus Height Fundus Units Glucose Ketones Leukocytes Nitrite Labor Signs Protein Cervic Dilation Cervic Effacement Cervic Station Type Weight in lbs Pre/Post Dialysis Refused BP Diastolic BP Location Tested BP Systolic BP Type Fetus Heart Rate Present Fetus Movement Comments Menstrual History Last Menstrual Date Menses Monthly On Bcp Conception Prior Menses Frequency Hcg Plus Date Menarche Onset Age 0705/27/2019 true false 13 Genetic Screening And Infection History Question Response Note Patient's Age Will Be 35 Years Or Older At Estim ated Date of Delivery false Thalassemia ([place]er, Israeli, Mediterranean, Or Background): MCV < 80 false Neural Tube Defect (Meningomyelocele, Spina Bifi da, Or Anencephaly) false Congenital Heart Defect false Down Syndrome false Donald-Sachs (eg, Restorationist, Cajun, Uzbek-Armenian) f alse [place] Disease false Sickle Cell Disease Or Trait () false Hemophilia Or Other Blood Disorders false Muscular Dystrophy false Cystic Fibrosis false Mina's Chorea false Mental Retardation/Autism false If Yes, Was Person Tested For Fragile X? false Other Inherited Genetic Or Chromosomal Disorder false Maternal Metabolic Disorder (eg, Type 1 Diabetes , PKU) false Patient Or Baby's Father Had A Child With Defects Not Listed Above false Recurrent Loss, Or A Stillbirth false Medications (including Suppl ements, Vitamins, Herbs, OTC Drugs), Illicit/Recreational Drugs, Alcohol false If Yes, Agent(s) And Strength/Dosage false Any Other Genetic History false Live With Someone With TB Or Exposed To TB false Patient Or Partner Has History Of Genital Herpes false Rash Or Viral Illness Since Last Menstrual Perio d false History Of STD, Gonorrhea, Chlamydia, HPV, Syphi lis false Other Infection History false Familial Dysautonomia (Ashkenazi Restorationist) false Spinal Muscular Atrophy false Parkinson Disease false History of HIV false History of Hepatitis false Prior GBS-infected child false Plans and Education First Trimester Discussed Date Discussion Item Discussion Note Discuss ed By 08/03/2019 Anticipated course of care [email or web address] 08/03/2019 Alcohol [email or web address] 08/03/2019 Environmental/work hazards c [email or web address] 08/03/2019 Nutrition counseling ; special diet; dietary precautions (mercury, listeriosis) [email or web address] 08/03/2019 Childbirth classes/hospital facilities [email or web address] 08/03/2019 HIV and other routine tests [email or web address] 08/03/2019 Risk factors identif ied by history [email or web address] 08/03/2019 Exercise [email or web address] 08/03/2019 Teratogens [email or web address] 08/03/2019 Use of any medicatio ns (including supplements, vitamins, herbs, or OTC drugs) [email or web address] 08/03/2019 [email or web address] 08/03/2019 Sexual activity [email or web address] 08/03/2019 Tobacco/smoking cess ation counseling (ask, advise, assess, assist, and arrange) [email or web address] 08/03/2019 Illicit/recreational drugs c [email or web address] 08/03/2019 Travel [email or web address] 08/03/2019 Indications for ultrasonography [email or web address] Second Trimester Discussed Date Discussion Item Discussion Note Discuss ed By 08/31/2019 Selecting a care provider [email or web address] 08/31/[address] anning/tubal sterilization [email or web address] 08/31/2019 Depression screening (when indicated) 08/31/2019 Abnormal lab values [email or web address] 08/31/2019 Signs and symptoms of labor [email or web address] 08/31/2019 Intimate partner violence tf [email or web address] 08/31/2019 Tobacco/smoking cess ation counseling (ask, advise, assess, assist, and arrange) 08/31/2019 Provided information about childbirth education classes [email or web address] Third Trimester Discussed Date Discussion Item Discussion Note Discuss ed By 01/29/2020 Intimate partner violence tf 12/14/2019 Anesthesia plans [email or web address] 12/14/2019 education (n ewborn screening, jaundice, SIDS/safe sleeping position, car seat) [email or web address] 12/14/2019 Postterm counseling [email or web address] 12/14/2019 movement monitoring tf [email or web address] 01/29/2020 Labor signs [email or web address] 12/14/2019 Family medical leave or disability forms [email or web address] 12/14/2019 Signs and symptoms of preeclampsia [email or web address] 01/29/2020 Discussed and offered TDAP t [email or web address] Delivery Information Delivery Date Delivery Type Labor Anesthesia Weeks Gestation Incision Type Labor Labor Length Hrs Delivered By Post Complications Tubal Sterilization Discharge Date Comments 0 Induce d 38.3 9.5 Hypertension 02/27/2020 Discharge Information Feeding Method Contraceptive Method Maternal HG B and HCT Levels Ob Episode Information Episode Created Date Number of Fetuses Patient Bloodtype Patient rh Status Prepregnancy Weight lbs Domestic Partner Domestic Partner Phone Father Name Realtime Captioner Status 02/10/20 23 1 A Negative 155 Paresh Castro CLOSED Fetus Data First Name Last Name Admitted to NICU Weight (g) Sex Living Outcome Pediatric Complications Fetus ID Race Codes Race Delivery Type Juan Pemberton n [id number] 85 M true Full Term [id number] Vaginal Delivery Problems Problem Notes pt w/ hx of GDM with 1st pre gnancy (10/2017) & knot in cord with 2nd (01/2020)07/15/23: Pt admitted to [facility] (MFM consulted) for serial BP monitoring and 24 hr urine collection for severe range BP in office and persistent headache. BPs normal to mild range. Pre labs showed Cr 0.8 (baseline 0.6), normal LFTs and platelets. PC ratio 0.12. After several hours, patient signed out AMA to take care of sick daughter at home. Sent with 24 hr urine collected. edl Problem Name Start Date End Date Resolution Snomed Code Not e High risk [id number] Advanced maternal age [id number] Pt wishes to rankin ve cfDNA testing, NT & Level II USN's--will arrange. CSD03/23, 12 + wk NT USN. REport describes nl findings: viable IUP w/ S=D; nl-appearing anterior placenta w/ nl PCI; nl AFV; nl-appearing R ovary; L ovary not visualized, no L adenxal masses; nl limited early anatomy, including visualization of nasal bone; NT<95th%. CSD Past history of gestational diabetes mellitus [id number] previously .08/12/23: UA + glucose at 32 and 34 weeks. Will repeat 1 hr GTT.08/23/23: repeat 1 hr GTT 134, WNL. edl Kidney stone [id number] 1st pre gnancy complicated by renal calculi. Pt w/ known 6 mm nonobstructing L renal stone at IOB visit, followed w/ Urology in [place]; pt was to have tx w/ lithotripsy, but had + dx'd. CSD06/11/23: patient admitted overnight in L&D for pain control (left sided) due to renal stone. Found to have bilateral non-obstructing stones with renal USN. Thought to have passed stone on left overnight, discharged home with dilaudid prn as well as flomax. scp Group B Streptococcus carrier [id number] GBS+ Hypertensive disorder [id number] Pt w/ h/o idiop athic HTN, tx'd w/ meds from 20's through 1st . Pt's 1st complicated by GHTN/pre-E, no tx w/ MgSO4 but tx'd w/ antihypertensives pp. Pt was off meds thereafter & through 2nd ; pt had sig elevation of BP requiring tx w/ Aldomet & Nifedipine pp after 2nd .Pt w/ mildly elevated BP at IOB visit; pt to keep diary of BP's taken at work, RTO ~ 2 wks for re-eval. Will check baseline pre-E labs & P:C ratio at IOB visit.Pt advised regarding use of low dose ASA to prevent onset of pre-E, agreeable to begin tx.Plan NST's in 3rd tri, ?possible IOL for chronic HTN in 3rd tri. CSDNl baseline pre-E labs (Cr=0.68, uric acid=4.1, nl transaminases). P:C ratio too small to calculate. CSD03/04/23: Patient has a Hx of CHTN - was on Methyldopa in the past but has not been on any meds this . BPs 138/90 at first visit and 140/80 today. Reviewed that her Baseline PIH labs were normal. Reviewed her elevated BPS and discussed restarting her on antihypertensives. The patient states that she would like to restart. Reviewed options. Patient states that she has used Methyldopa and did well with it and would prefer to start that agent. Risks/benefits reviewdd. Script for 250mg PO BID sent. She has a BP Cuff at home and she will mo nitor her BPs and call with any issues. kt03/19/23: Methyldopa NOT available - discontinued. Will switch to Labetalol 100mg PO BID and titrate as needed. SEE PATIENT CASE 03/19/23. ktb04/28: 24 hr urine 130. edl07/16/23: patient left AMA from [facility] after admitted for persistent RANKIN and severe range in office. Plan for twice weekly NSTs- one in office, one at [facility] with fluid check. reviewed with Dr. Lambert. edl07/19/23: 24 hr urine : patient discussed with MFM, given well controlled CHTN will schedule IOL at 39 weeks. Can change to earlier date if issues with uncontrolled BPs or other concerns. scp Past history of previous delivery by vacuum extraction [id number] 6 lb 8 oz. 38w3 d. for NRFHT Pain in calf [id number] 3: pt with right calf pain x 1 day. BLE 1+. Right calf does appear larger than left and tender to touch. No erythema. RLE dopplers ordered to be completed today. No SOB/CP. edl RhD negative [id number] 03/04/23: Bld Type: A NEGATIVE - RhoGAM Candidate. ktb07/09/23: RhoGAM given. ktb Brock Calculation Initial Brock Date Initial Exam Date Initial Exam Provider Initial Ultrasound Date Last Menstrual Period Date Ultra Sound Weeks Gestation 09/17/2023 02/09/2023 02/09/2023 12/11/2022 8 Eighteen To Twenty Week Brock Update Ultra Sound Date Fundal Height At Umbil Quickening Date Ultra Sound Latest Weeks Gestation Final Brock Confirmed By Final Brock Confirmed Date Final Brock Date Ultra Sound Latest Days Gestation 0 09/17/20 23 0 Pre- Flowsheet Flowsheet Date 02/15/2023 Rodgers Score Blood Edema Fundus Height Fundus Units Glucose Ketones Leukocytes Nitrite Labor Signs Protein Cervic Dilation Cervic Effacement Cervic Station neg none none neg Type Weight in lbs Pre/Post Dialysis Refused Weight 161.626869471100 BP Diastolic BP Location Tested BP Systolic BP Type 90 138 Fetus Heart Rate Present Fetus Movement Comments nausea/vomiting: yes /a audi leheadaches : occasionallycramping; No33 yo presents for IOB visit. Pt had 1st tri USN w/ nl findings, confirming EDC based on LMP. Pt denies VB or pelvic pain, denies current /UTI sx's.Pt describes + nausea, occas vomiting, but sx's improving--pt declines tx w/ meds.Reviewed office policy. Reviewed antepartum screening w/ [employer] 14 (pt had nl genetic carrier screen x 4 in prior ), cfDNA, NT USN & Level II USN--pt elects to do all, will arrange. 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 RTO 2 wks for re-check of BP. Flowsheet Date 03/04/2023 Rodgers Score Blood Edema Fundus Height Fundus Units Glucose Ketones Leukocytes Nitrite Labor Signs Protein Cervic Dilation Cervic Effacement Cervic Station Type Weight in lbs Pre/Post Dialysis Refused BP Diastolic BP Location Tested BP Systolic BP Type 80 140 Fetus Heart Rate Present Fetus Movement Comments Patient has a Hx of CHTN - w as on Methyldopa in the past but has not been on any meds this . BPs 138/90 at first visit and 140/80 today. Reviewed that her Baseline PIH labs were normal. Reviewed her elevated BPS and discussed restarting her on antihypertensives. The patient states that she would like to restart. Reviewed options. Patient states that she has used Methyldopa and did well with it and would prefer to start that agent. Risks/benefits reviewdd. Script for 250mg PO BID sent. She has a BP Cuff at home and she will mo nitor her BPs and call with any issues. SEE LABS - Repeat NIPT ordered at today's visit and given to patient to have drawn (03/04/2023).Has NT USN scheduled for next week. Flowsheet Date 03/15/2023 Rodgers Score Blood Edema Fundus Height Fundus Units Glucose Ketones Leukocytes Nitrite Labor Signs Protein Cervic Dilation Cervic Effacement Cervic Station neg none none neg Type Weight in lbs Pre/Post Dialysis Refused Weight 155.50496315987 BP Diastolic BP Location Tested BP Systolic BP Type 80 120 Fetus Heart Rate Present A 155 Fetus Movement Comments Pt feeling well. Reviewed no rmal 1st TM labs. BP within normal limits. Given risk for pre-eclampsia and history of labile blood pressures will collect base ilne 24 hr urine. Lab slip for AFP given. Cell free DNA not back yet (first one drawn too early). Will call lab to ensure results are pending. Nausea/Vomiting: Yes/NoHeadaches: NoCramping: Occ - more like stretching then cramping Flowsheet Date 04/02/2023 Rodgers Score Blood Edema Fundus Height Fundus Units Glucose Ketones Leukocytes Nitrite Labor Signs Protein Cervic Dilation Cervic Effacement Cervic Station Type Weight in lbs Pre/Post Dialysis Refused BP Diastolic BP Location Tested BP Systolic BP Type 70 118 Fetus Heart Rate Present Fetus Movement Comments Flowsheet Date 04/12/2023 Rodgers Score Blood Edema Fundus Height Fundus Units Glucose Ketones Leukocytes Nitrite Labor Signs Protein Cervic Dilation Cervic Effacement Cervic Station none Type Weight in lbs Pre/Post Dialysis Refused Weight 158.455507314154 BP Diastolic BP Location Tested BP Systolic BP Type 90 140 Fetus Heart Rate Present A 145 Fetus Movement Comments Nausea/Vomiting: NoHeadaches : OccCramping: No - having a lot of flank painRoutine OB visit. Size = date. FHR reassuring. Denies headache, fever, chills, cp, sob. No regular cramping or contractions. Sun, bug, Zika, travel precautions all reviewed. COVID, PTL, and FM precautions all discussed. No CVA ttp. No rankin or visual changes. BP mild range. Continues on labetalol 100 mg bid. Reviewed possible need to titrate up pending ongoing BPs. Reports mostly controlled BPs. Continue to monitor. Still needs to go for 24 hr urine protein and AFP. Level 2 anatomy USN scheduled. RTO in 4 weeks. TBF Flowsheet Date 05/14/2023 Rodgers Score Blood Edema Fundus Height Fundus Units Glucose Ketones Leukocytes Nitrite Labor Signs Protein Cervic Dilation Cervic Effacement Cervic Station neg 1+ 22 cm none none neg Type Weight in lbs Pre/Post Dialysis Refused Weight 161.497692448689 BP Diastolic BP Location Tested BP Systolic BP Type 80 120 Fetus Heart Rate Present A 135 Fetus Movement Comments Nausea/Vomiting: NoHeadaches : NoContraction/Cramping: NoFM: +Edema: legs & calf pain Flowsheet Date 06/11/2023 Rodgers Score Blood Edema Fundus Height Fundus Units Glucose Ketones Leukocytes Nitrite Labor Signs Protein Cervic Dilation Cervic Effacement Cervic Station neg 26 cm none none neg Type Weight in lbs Pre/Post Dialysis Refused Weight [id number] BP Diastolic BP Location Tested BP Systolic BP Type 80 126 Fetus Heart Rate Present A 160 Fetus Movement A Increased Comments Nausea/Vomiting: NoHeadaches : NoContraction/Cramping: NoFM: +Edema: legs & calf painPt seen at [facility] 06/09-08/23 for tx of renal calculus. Pt states sx's improved markedly once some sediment was noted to pass. Pt is using Flomax, has contacted her urologist to update them of her status.Reviewed upcoming 3rd tri labs.RTO 4 wks or prn Flowsheet Date 07/09/2023 Rodgers Score Blood Edema Fundus Height Fundus Units Glucose Ketones Leukocytes Nitrite Labor Signs Protein Cervic Dilation Cervic Effacement Cervic Station none 30 cm Type Weight in lbs Pre/Post Dialysis Refused Weight 169.434025711690 BP Diastolic BP Location Tested BP Systolic BP Type 78 130 Fetus Heart Rate Present A 134 Fetus Movement A Yes Comments Nausea/Vomiting: NoHeadaches : yesContraction/Cramping: BH/noFM: +Edema: legsTaking Labetalol 100mg PO BID.Reviewed 28wk labs: WNL.RhoGAM given today.Next Growth USN 07/19/23. Flowsheet Date 07/22/2023 Rodgers Score Blood Edema Fundus Height Fundus Units Glucose Ketones Leukocytes Nitrite Labor Signs Protein Cervic Dilation Cervic Effacement Cervic Station 3+ none 32 cm none moderate 1+ neg Type Weight in lbs Pre/Post Dialysis Refused Weight 166.103366813564 BP Diastolic BP Location Tested BP Systolic BP Type 82 122 Fetus Heart Rate Present A 135 Fetus Movement A Yes Comments Nausea/Vomiting: Yes/NoHeada ches: Occ relieved w/ TylenolContraction/Cramping: BHFM: +Edema: legsDoing well, no complaints. + FM. Was seen at [facility] last week on 07/15 - 07/16/23 for evaluation of RANKIN and elevated BP. Patient left AMA from [facility] after admitted. No concerns today, no RANKIN, visual disturbances. BP today 122/82, reports that at home no higher than 140/90. Completed 24 hour urine collection 07/16/23 with normal results (210mg). USN completed last week (07/19/23) at [facility]: EFW 69%, normal BRANDEE, vertex. Next USN scheduled in 4 weeks for CHTN. Reactive NST today, will need to continue 2x weekly, next to be scheduled at [facility] on Wednesday. Urine dip today + blood and ketones. No UTI symptoms. Will send UAC&S. Would like both TDAP and flu vaccine, given at visit today. Flowsheet Date 07/29/2023 Rodgers Score Blood Edema Fundus Height Fundus Units Glucose Ketones Leukocytes Nitrite Labor Signs Protein Cervic Dilation Cervic Effacement Cervic Station 2+ 4+ none neg Type Weight in lbs Pre/Post Dialysis Refused Weight 168.171337814000 BP Diastolic BP Location Tested BP Systolic BP Type 80 120 Fetus Heart Rate Present A 145 Fetus Movement A Yes Comments Nausea/Vomiting: NoHeadaches : OccContraction/Cramping: BHFM: +Edema: legsPt reports + GFM & occas ctxns. Pt denies VB. Pt is having some sx's of UTI, will check UA/UCx today. Pt reports she & children are ill, COVID testing negative. Pt c/o sx's of sinus infxn w/ green thick mucous drainage & extreme sinus pressure on R. Will ERx Z-pack, sx relief measures reviewed--to see PCP if no relief of sx's.Pt noted to have 4+ glucosuria today--?artifact, but will check fasting BS & hbA1C.RTO weekly Flowsheet Date 08/05/2023 Rodgers Score Blood Edema Fundus Height Fundus Units Glucose Ketones Leukocytes Nitrite Labor Signs Protein Cervic Dilation Cervic Effacement Cervic Station neg none none neg Type Weight in lbs Pre/Post Dialysis Refused Weight 168.953255271320 BP Diastolic BP Location Tested BP Systolic BP Type 70 130 Fetus Heart Rate Present A 145 Fetus Movement A Yes Comments Nausea/Vomiting: yes/NoHeada ches: occContraction/Cramping: BH; some crampingFM: +Edema: legsPt notes frequent B-H ctxns which resolve w/ rest. Pt notes + GFM. Pt produces list of BP's at home, largely 130-140's/80-90's, seemingly well- controlled on Labetalol 100 mg po tid. NST NR today, will have further monitoring on L&D.Pt produces results of fasting BS & HbA1C on her phone, done at her job, both WNL--will attempt to get results in Jessica.RTO weekly Flowsheet Date 08/12/2023 Rodgers Score Blood Edema Fundus Height Fundus Units Glucose Ketones Leukocytes Nitrite Labor Signs Protein Cervic Dilation Cervic Effacement Cervic Station neg 35 cm 3+ negative none Negative neg Type Weight in lbs Pre/Post Dialysis Refused With clothes 169.941806762617 BP Diastolic BP Location Tested BP Systolic BP Type 68 112 sitting Fetus Heart Rate Present A 140 Fetus Movement A Yes Comments Pt feeling well. Good FM. Ta eileen her BP at home several times per day and all have been within normal limits. Intermittent RANKIN that is dull, relieved by Tylenol. Next USN on 08-16. Will f/u recommendations regarding timing of delivery. PreE precautions reviewed. UA with +3 glucose. Will order repeat 1 hr GTT given hx diabetes in and +glucose in UA at 32 and 34 weeks. Flowsheet Date 08/19/2023 Rodgers Score Blood Edema Fundus Height Fundus Units Glucose Ketones Leukocytes Nitrite Labor Signs Protein Cervic Dilation Cervic Effacement Cervic Station 3+ none 36 cm none 3+ neg 0cm 30% Type Weight in lbs Pre/Post Dialysis Refused Weight 171.801608053751 BP Diastolic BP Location Tested BP Systolic BP Type 80 120 Fetus Heart Rate Present A 145 Fetus Movement A Yes Comments Nausea/Vomiting: Yes/NoHeada ches: NoContraction/Cramping: BH/yesFM: +Edema: legsDoing well, no complaints. + FM. s/p TDAP and flu vaccine. Reactive NST, continue twice weekly. No glucose in urine today. Was advised to repeat one hour GCT due to persistent glucose in urine at previous visits, ordered today. BP 120/80. GBS collected today along with SureSwab. Patient notes increased discharge a couple of days ago with some blood mixed in, ? mucous plug, along with light spotting. None currently - this has since resolved. Urine dip today + blood and wbcs. No UTI symptoms. Will send UAC&S. Would like both TDAP and flu vaccine, given at visit today. No plan for delivery (no MFM recommendations to date), will contact [facility] to discuss. Negative PHQ-2 today. Flowsheet Date 08/26/2023 Rodgers Score Blood Edema Fundus Height Fundus Units Glucose Ketones Leukocytes Nitrite Labor Signs Protein Cervic Dilation Cervic Effacement Cervic Station neg none none neg 0cm 50% -3 Type Weight in lbs Pre/Post Dialysis Refused Weight 168.172781521538 BP Diastolic BP Location Tested BP Systolic BP Type 90 140 Fetus Heart Rate Present A 145 Fetus Movement Comments Pt feeling well. Good FM. Sh salvador has been monitoring BPs at home and have been mostly WNL. She reports onset of contractions last night that she was able to sleep through, not very painful. No LOF/VB. Cervix nonlaboring. Labor preacautions reviewed. She did have a slip on the stairs this morning and fell on her bottom, did not injure herself or have any impact to abdomen. Reactive NST in office today with no decelerations. [place] irritable. She has a headache this morning but not yesterday. Has not taken anything for it and attributes to rushing to appt. Patient counseled to call office if headache persists. Reviewed GBS positive. Nausea/Vomiting: Yes / NoHeadaches: YesContraction/Cramping: yes FM: +Edema: legs Menstrual History Last Menstrual Date Menses Monthly On Bcp Conception Prior Menses Frequency Hcg Plus Date Menarche Onset Age 0212/11/20[birth year] Plans and Education First Trimester Discussed Date Discussion Item Discussion Note Discuss ed By 02/15/2023 Anticipated course of care [email or web address] 02/15/2023 Alcohol [email or web address] 02/15/2023 Environmental/work hazards c [email or web address] 02/15/2023 Screening for aneuploidy [email or web address] 02/15/2023 Nutrition counseling ; special diet; dietary precautions (mercury, listeriosis) [email or web address] 02/15/2023 Childbirth classes/hospital facilities [email or web address] 02/15/2023 HIV and other routine tests [email or web address] 02/15/2023 Risk factors identif ied by history [email or web address] 02/15/2023 Exercise [email or web address] 02/15/2023 Teratogens [email or web address] 02/15/2023 Use of any medicatio ns (including supplements, vitamins, herbs, or OTC drugs) [email or web address] 02/15/2023 [email or web address] 02/15/2023 Tobacco/smoking cess ation counseling (ask, advise, assess, assist, and arrange) [email or web address] 02/15/2023 Illicit/recreational drugs c [email or web address] 02/15/2023 Travel [email or web address] 02/15/2023 Indications for ultrasonography [email or web address] 02/15/2023 Avoidance of saunas or hot tubs [email or web address] Second Trimester Discussed Date Discussion Item Discussion Note Discuss ed By 07/09/2023 Selecting a care provider 07/09/2023 Depression screening (when indicated) 07/09/2023 Abnormal lab values [email or web address] 07/09/2023 Signs and symptoms of labor kborkowski07/09/2023 Intimate partner violence karlee kristaki07/09/2023 Provided information about childbirth education classes Third Trimester Discussed Date Discussion Item Discussion Note Discuss ed By 07/09/2023 Intimate partner violence kb orluis manuel07/09/2023 Anesthesia plans [email or web address]/09/2023 Oden education (n ewborn screening, jaundice, SIDS/safe sleeping position, car seat) kborkowski07/09/2023 movement monitoring kb orluis manuel07/09/2023 Labor signs kborkowski07/09/2023 Signs and symptoms of preeclampsia Delivery Information Delivery Date Delivery Type Labor Anesthesia Weeks Gestation Incision Type Labor Labor Length Hrs Delivered By Post Complications Tubal Sterilization Discharge Date Comments 3 Induce d Regional-Ep idural 37.4 patricia Matthew Celis DO 09/02/2023 Discharge Information Feeding Method Contraceptive Method Maternal HG B and HCT Levels 11.8 / 35.0
== END 2024-11-13 16:18 | disposition home or self-care (01) ==
PROVIDERS: PCP Internal Medicine; Visit Provider Nurse Practitioner Family
DX: R10.9 Unspecified abdominal pain (principal); N20.0 Calculus of kidney; Z13.9 Encounter for screening, unspecified
CPT/HCPCS: 99214

== ENCOUNTER → 2024-11-13 15:39 | Outpatient (BNVA) | payer OTHER, SELFPAY | PROVIDERS: PCP Internal Medicine; Visit Provider Nurse Practitioner Family | DX: R10.9 Unspecified abdominal pain (principal); N20.0 Calculus of kidney | CPT/HCPCS: 81003 ==

== ENCOUNTER 2025-02-02 08:26 | Outpatient (REF) | payer OTHER, SELFPAY ==
--- NOTE | ~2025-02-02 | US_ITS ---
EXAMINATION: US KIDNEY BILATERAL HISTORY: N20.0 - Calculus of kidney TECHNIQUE: Real-time grayscale ultrasound imaging of the kidneys was performed and images were reviewed. COMPARISON: Comparison is made with the prior examination dated 11/02/2024. FINDINGS: Right kidney: The right kidney measures 11.4 x 4.6 x 4.9 cm. Renal parenchymal echotexture and thickness are normal. There are no masses. Multiple nonobstructing calculi are identified including a 3 x 3 x 5 mm calculus at the lower pole, a 4 x 3 x 4 mm calculus at the lower pole, and a 4 x 3 x 4 mm calculus in the interpolar region. There is no hydronephrosis. Left Kidney: The left kidney measures 12.0 x 5.0 x 6.7 cm. Renal parenchymal echotexture and thickness are normal. There are no masses. There is a 5 x 4 x 4 mm nonobstructing calculus at the lower pole. No hydronephrosis. US/US renal BI IMPRESSION: Bilateral nephrolithiasis as described. Electronically signed by: Chad Mcdowell MD 02/02/2025 09:21 AM EDT
--- OUTSIDE RECORDS SUMMARY | 2025-02-02 08:47 | XMS_ITS | Clinical Summary ---
Author Organization [facility] ity Address [address] [place] [address] Care Team Providers Care Replanting Machine Crewman Name Role Phone Harrison Lowry MD Primary Care Provider [phone] Immunizations Name Administration Dates Next Due Pfizer SARS-CoV-2 COVID-19, mRNA, LNP-S, preservative free 08/13/2021 Surgical History Surgery Date Site/Laterality Comments EYE SURGERY PROCEDURE:EYE SURGERY VACUUM ASSISTED VAGINAL DELIVERY 02/25/2020 PROCEDURE:VACUUM ASSISTED VAGINAL DELIVERY Medical History Medical History Date Comments Gestational diabetes 2017 DX:Gestatio nal diabetes Hypertension DX:Hypertension History of gestational diabetes DX:History of gestational diabetes Kidney stones DX:Kidney stones Family History Medical History Relation Name Comments No Known Problems Brother Cancer Father Hyperlipidemia Father Heart disease Mother Hypertension Mother No Known Problems Sister Relation Name Status Comments Brother Father Mother Sister Social History Tobacco Use Types Packs/Day Years Used Date Smoking Tobacco: Never Smokeless Tobacco: Never Alcohol Use Standard Drinks/Week Comments No 0 (1 standard drink = 0.6 oz pur e alcohol) Comments Unknown Sex and Gender Information Value Date Recorded Sex Assigned at Not on file Legal Sex Female 1:11 AM EST Gender Identity Not on file Sexual Orientation Not on file Obstetrics History Plan of Treatment Health Maintenance Due Date Last Done Comments DTaP,Tdap,and Td Vaccines (1 - Tdap) 02/02/2007 Hepatitis B Vaccines (1 of 3 - 19+ 3-dose series) 02/02/2007 Cervical Cancer Screening: Pap Smear 02/02/2009 Cholesterol Screening (Lipid Panel) 10/04/2022 Depression Screening 10/04/2022 HIV Screening 10/04/2022 Hepatitis C Screening 10/04/2022 Social Influencers of Health Screening 10/04/2022 COVID-19 Vaccine ( season) 2024 08/13/2021 Influenza Vaccine (#1) 2024 Hypertension/CHF/CAD Annual BMP Blood Test 08/31/2024 08/31/2023, 08/30/2023, 07/15/2023, Additional history exists HIB Vaccines Aged Out No longer eligi ble based on patient's age to complete this topic HPV Vaccines Aged Out No longer eligi ble based on patient's age to complete this topic Hepatitis A Vaccines Aged Out No long er eligible based on patient's age to complete this topic IPV Vaccines Aged Out No longer eligi ble based on patient's age to complete this topic MMR Vaccines Aged Out No longer eligi ble based on patient's age to complete this topic Meningococcal ACWY Vaccine Aged Out N o longer eligible based on patient's age to complete this topic Meningococcal B Vacine Aged Out No lo nger eligible based on patient's age to complete this topic Pneumococcal Vaccine: Pediatrics (0 to 5 Years) and At-Risk Patients (6 to 64 Years) Aged Out No longer eligible based on patient's age to complete this topic RSV Immunization Patients Under 20 months Aged Out No longer eligible based on patient's age to complete this topic Varicella Vaccines Aged Out No longer eligible based on patient's age to complete this topic Care Teams Replanting Machine Crewman Relationship Specialty Start Date End Date Harrison Lowry MD [address] [place] [address] [place] [id number] PCP - General Internal Medicine 10/14/21
--- OUTSIDE RECORDS SUMMARY | 2025-02-02 08:47 | XMS_ITS | Encounter Summary ---
Author Organization [facility] Address [address] [place] [address] Care Team Providers Care Mail Distributor Name Role Phone Harrison Lowry MD Primary Care Provider Unava ilable Encounter Details Date Type Department Care Team Description 12/02/2019 Records Encounter Delivery Room [address] [id number] Provider, Not In System Social History Tobacco Use Types Packs/Day Years Used Date Smoking Tobacco: Never Smokeless Tobacco: Never Alcohol Use Standard Drinks/Week Comments No 0 (1 standard drink = 0.6 oz pur e alcohol) Comments Yes Sex and Gender Information Value Date Recorded Sex Assigned at Female 03/21/2019 10:20 AM EDT Gender Identity Female 03/21/2019 10:20 AM EDT Sexual Orientation Not on file Job Start Date Occupation Industry Not on file Not on file Not on file documented as of this encounter Functional Status Functional Status Response Date of Assess ment Pt deaf or have serious difficulty hearing? No 10/03/2017 Pt blind or have difficulty seeing, even with gl asses? No 10/03/2017 Do you have serious difficul ty walking or climbing stairs? (Retired) No 10/03/2017 Pt have difficulty dressing or bathing? (Retired ) No 10/03/2017 Pt have difficulty doing errands alone? (Retired ) No 10/03/2017 Cognitive Status Response Date of Assessm ent Pt have difficulty concentra ting, remembering, making decisions? (Retired) No 10/03/2017 documented as of this encounter Plan of Treatment Not on file documented as of this encounter Visit Diagnoses Not on filedocumented in this encounter Care Teams Mail Distributor Relationship Specialty Start Date End Date Harrison Lowry MD PCP - General Internal Medicine 10/14/21 documented as of this encounter
--- OUTSIDE RECORDS SUMMARY | 2025-02-02 08:48 | XMS_ITS | Encounter Summary ---
Author Organization [facility] Address [address] [place] [address] Care Team Providers Care Continuous Still Operator Name Role Phone Pcp, No Primary Care Provider Unavailabl e Encounter Details Date Type Department Care Team (Late st Contact Info) Description 04/10/2019 Telephone [facility] [address] [place] [address] Kasia George, [address] [place] [address] Social History Tobacco Use Types Packs/Day Years Used Date Smoking Tobacco: Never Smokeless Tobacco: Never Alcohol Use Standard Drinks/Week Comments Yes 0 (1 standard drink = 0.6 oz pur e alcohol) AUDIT-C Answer Date Recorded Frequency of Alcohol Consumption 2-4 times a wed04/07/2019 Average Number of Drinks Not on file 019 Frequency of Binge Drinking Not on file 05/2019 Sex and Gender Information Value Date Recorded Sex Assigned at Not on file Gender Identity Not on file Sexual Orientation Not on file documented as of this encounter Miscellaneous Notes * Telephone Encounter - RT Mc - 04/10/2019 4:00 PM EDT Cc Left message dn documented in this encounter Plan of Treatment Not on file documented as of this encounter Visit Diagnoses Not on filedocumented in this encounter Care Teams Continuous Still Operator Relationship Specialty Start Date End Date Pcp, No PCP - General General Medicine 04/07/19 documented as of this encounter
--- OUTSIDE RECORDS SUMMARY | 2025-02-02 08:48 | XMS_ITS | Data Portability ---
Author Organization [place] - [facility]'s [facility], [facility] Address [id number] [place] [address] Care Team Providers Care Rental Car Porter Name Role Phone [place] Primary Care Provider Assessment No assessment recorded. Plan of Treatment Reminders Order Date Submit Date Provider Last Modified By Organization Details Last Modified Time Details Appointments None recorded. Lab test, urine 2023 024 [email or web address] In-Office Order, Internal Use Only DO Not Attach Compendium DO Not Attach Compendium, Do Not Delete/merge, [id number] 4 15:21:15 CT + NG DNA, PCR, unspecified specimen 2022 023 [facility], [address] [place] [address], [id number] 3 22:19:51 bacterial vaginosis + vaginitis panel, vaginal 2022 023 [facility], [address] [place] [address], [id number] 3 12:27:26 streptococc us group B DNA 2022 023 [facility], [address] [place] [address], [id number] 3 12:27:21 Referral None recorded. Procedures None recorded. Surgeries None recorded. Imaging None recorded. Medication Orders Liletta 20.4 mcg/24 hr (up to 8 years) 52 mg intrauterin e device 2023 024 [email or web address] Not available 4 16:45:20 Patient TargetsNo targets recorded. Patient Instructions Encounter Date Encounter Id Patient Instructions Last Modified By Organization Details Last Modified Time 08/19/2023 [id number] [facility]al [facility]alt [facility] screening completed and reviewed with patient. Negative findings. [email or web address] Not available 08/19/2023 18:08:51 10/15/2023 [id number] anxiety disorder : care instructions Not available 10/15/2023 12:15:27 learning about anxiety disorders Not available 10/15/2023 12:15:27 Behavioral healt h screening completed and reviewed with patient. Negative findings. Has known Anxiety. Not available 10/15/2023 12:19:34 11/10/2023 [id number] intrauterine device (IUD) insertion: care instructions [email or web address] Not available 11/10/2023 15:21:15 Reason for Referral None Reported. Results Created Date Observation Date Name Description Value Unit Range Abnormal Flag Note LastModifiedBy Organization Detail LastModifiedTime 07/22/2007/23/2023 URINA LYSIS , COMPL ETE color YELLOW yellow normal Not Available [facility] [address], [address], 07/23/2023 05:47:06 07/22/20 23 07/23/2023 URINA LYSIS , COMPL ETE appearance CLOUDY clear abnormal Not Available [facility] [address], [address], 07/23/2023 05:47:06 07/22/20 23 07/23/2023 URINA LYSIS , COMPL ETE specific gravity 1.020 1.001- 1.035 normal Not Available [facility] [address], [address], 07/23/2023 05:47:06 07/22/20 23 07/23/2023 URINA LYSIS , COMPL ETE pH 6.5 5.0-8. 0 normal Not Available [facility] [address], [address], 07/23/2023 05:47:06 07/22/20 23 07/23/2023 URINA LYSIS , COMPL ETE glucose NEGATI VE negati ve normal Not Available [facility] [place] [facility] [address], [place], [address], 07/23/2023 05:47:06 07/22/20 23 07/23/2023 URINA LYSIS , COMPL ETE bilirubin NEGATI VE negati ve normal Not Available [facility] [place] [facility] [address], [place], [address], 07/23/2023 05:47:06 07/22/20 23 07/23/2023 URINA LYSIS , COMPL ETE ketones 1+ negati ve abnormal Not Available [facility] [place] [facility] [address], [place], [address], 07/23/2023 05:47:06 07/22/20 23 07/23/2023 URINA LYSIS , COMPL ETE occult blood 3+ negati ve abnormal Not Available [facility] [place] [facility] [address], [place], [address], 07/23/2023 05:47:06 07/22/20 23 07/23/2023 URINA LYSIS , COMPL ETE protein 1+ negati ve abnormal Not Available [facility] [place] [facility] [address], [place], [address], 07/23/2023 05:47:06 07/22/20 23 07/23/2023 URINA LYSIS , COMPL ETE nitrite NEGATI VE negati ve normal Not Available [facility] [place] [facility] [address], [place], [address], 07/23/2023 05:47:06 07/22/20 23 07/23/2023 URINA LYSIS , COMPL ETE leukocyte esterase 2+ negati ve abnormal Not Available [facility] [place] [facility] [address], [place], [address], 07/23/2023 05:47:06 07/22/20 23 07/23/2023 URINA LYSIS , COMPL ETE WBC 20-40 /hpf < or = 5 abnormal Not Available [facility] [place] [facility] [address], [place], [address], 07/23/2023 05:47:06 07/22/20 23 07/23/2023 URINA LYSIS , COMPL ETE RBC 0-2 /hpf < or = 2 normal Not Available [facility] [place] [facility] [address], [place], [address], 07/23/2023 05:47:06 07/22/20 23 07/23/2023 URINA LYSIS , COMPL ETE squamous epithelial cells 10-20 /hpf < or = 5 abnormal Not Available [facility] [place] [facility] [address], [place], [address], 07/23/2023 05:47:06 07/22/20 23 07/23/2023 URINA LYSIS , COMPL ETE bacteria MANY /hpf none seen abnormal Not Available [facility] [place] [facility] [address], [place], [address], 07/23/2023 05:47:06 07/22/20 23 07/23/2023 URINA LYSIS , COMPL ETE hyaline cast 0-1 /lpf none seen abnormal Not Available [facility] [place] [facility] [address], [place], [address], 07/23/2023 05:47:06 07/22/20 23 07/22/2023 URINE CULTU RE urine source URINE, RANDOM Not Available [facility] [address] [place], [address] 07/24/2023 08:31:21 07/22/20 07/22/2023 URINE CULTU RE [...] sonja bacte rial count s. Not Available [facility] [address] [facility], [place], [address] 07/24/2023 08:31:21 07/29/2007/30/2023 URINA LYSIS , COMPL ETE color YELLOW yellow normal Not Available [facility] [address], [address], 07/30/2023 01:52:31 07/29/2007/30/2023 URINA LYSIS , COMPL ETE appearance CLEAR clear normal Not Available [facility] [address], [place], [address], 07/30/2023 01:52:31 07/29/2007/30/2023 URINA LYSIS , COMPL ETE specific gravity 1.016 1.001- 1.035 normal Not Available [facility] [address], [place], [address], 07/30/2023 01:52:31 07/29/2007/30/2023 URINA LYSIS , COMPL ETE pH 7.0 5.0-8. 0 normal Not Available [facility] [address], [address], 07/30/2023 01:52:31 07/29/2007/30/2023 URINA LYSIS , COMPL ETE glucose 2+ negati ve abnormal Not Available [facility] [place] [facility] [address], [place], [address], 07/30/2023 01:52:31 07/29/20 23 07/30/2023 URINA LYSIS , COMPL ETE bilirubin NEGATI VE negati ve normal Not Available [facility] [place] [facility] [address], [place], [address], 07/30/2023 01:52:31 07/29/20 23 07/30/2023 URINA LYSIS , COMPL ETE ketones NEGATI VE negati ve normal Not Available [facility] [place] [facility] [address], [place], [address], 07/30/2023 01:52:31 07/29/20 23 07/30/2023 URINA LYSIS , COMPL ETE occult blood 2+ negati ve abnormal Not Available [facility] [place] [facility] [address], [place], [address], 07/30/2023 01:52:31 07/29/20 23 07/30/2023 URINA LYSIS , COMPL ETE protein NEGATI VE negati ve normal Not Available [facility] [place] [facility] [address], [place], [address], 07/30/2023 01:52:31 07/29/20 23 07/30/2023 URINA LYSIS , COMPL ETE nitrite NEGATI VE negati ve normal Not Available [facility] [place] [facility] [address], [place], [address], 07/30/2023 01:52:31 07/29/2007/30/2023 URINA LYSIS , COMPL ETE leukocyte esterase 1+ negati ve abnormal Not Available [facility] [place] [facility] [address], [place], [address], 07/30/2023 01:52:31 07/29/20 23 07/30/2023 URINA LYSIS , COMPL ETE WBC 0-5 /hpf < or = 5 normal Not Available [facility] [place] [facility] [address], [place], [address], 07/30/2023 01:52:31 07/29/20 23 07/30/2023 URINA LYSIS , COMPL ETE RBC 3-10 /hpf < or = 2 abnormal Not Available [facility] [place] [facility] [address], [place], [address], 07/30/2023 01:52:31 07/29/20 23 07/30/2023 URINA LYSIS , COMPL ETE squamous epithelial cells 0-5 /hpf < or = [address] [facility] [place] [facility] [address], [place], [address], 07/30/2023 01:52:31 07/29/20 23 07/30/2023 URINA LYSIS , COMPL ETE bacteria NONE SEEN /hpf none seen normal Not Available [facility] [place] [facility] [address], [place], [address], 07/30/2023 01:52:31 07/29/20 23 07/30/2023 URINA LYSIS , COMPL ETE hyaline cast NONE SEEN /lpf none seen normal Not Available [facility] [place] [facility] [address], [place], [address], 07/30/2023 01:52:31 07/29/20 23 07/29/2023 URINE CULTU RE urine source URINE, CLEAN CATCH Not Available [facility] [address] [place], [address] 07/31/2023 11:23:35 07/29/20 23 07/29/2023 URINE CULTU [...] sonja bacte rial count s. Not Available [facility] [address] [place] [address], [address] 07/31/2023 11:23:35 08/19/2008/19/2023 GROUP B STREP DNA PCR group B strep DNA PCR Positi ve negati ve abnormal Not Available [facility] [address] [place] [address], [address] 08/23/2023 12:27:21 08/19/2008/19/2023 GROUP B STREP DNA PCR group B strep source Vagina l/Rect al Not Available [facility] [address] [place] [address], [address] 08/23/2023 12:27:21 08/19/2008/19/2023 ADVAN HÉCTOR BACTE RIAL VAGIN OSIS (BV), TMA adv bacterial vaginosis (bv), tma Negati ve negati ve Not Available [facility] [address] [place] [address], [address] 08/23/2023 12:27:25 08/19/2008/19/2023 ADVAN HÉCTOR MARIO DA VAGIN ITIS (CV)/ TRICH OMONA S VAGIN JUSTIN (TV), TMA ramakrishna species Negati ve negati ve Not Available [facility] [address] [place] [address], [address] 08/23/2023 12:27:26 08/19/2008/19/2023 ADVAN HÉCTOR MARIO DA VAGIN ITIS (CV)/ TRICH OMONA S VAGIN JUSTIN (TV), TMA ramakrishna glabrata Negati ve negati ve Not Available [facility] [address] [place] [address], [address] 08/23/2023 12:27:26 08/19/2008/19/2023 ADVAN HÉCTOR MARIO DA VAGIN ITIS (CV)/ TRICH OMONA S VAGIN JUSTIN (TV), TMA trichomonas vaginalis (TV), tma Negati ve negati ve Not Available [facility] [address] [place], [address] 08/23/2023 12:27:26 08/20/20 23 08/20/2023 [facility] GLUCO SE GESTA ANNETTE L SCREE N, 135 CUTOF F [facility] glucose gestational screen 135 134 mg/dL <136 Not Available [facility] [address] [place], [address] 08/23/2023 12:00:33 10/15/20 23 10/15/2023 CHLAM YDIA/ [...] than 16 years of age. Not Available [facility] [address] [place] [address], [address] 10/18/2023 22:19:51 10/15/20 23 10/15/2023 CHLAM YDIA/ [...] than 16 years of age. Not Available [facility] [address] [place], [address] 10/18/2023 22:19:51 11/10/19 24 11/10/2023 pregn roland test, urine Result negati ve Not Available In-Office Order Internal Use Only DO Not Attach Compendium DO Not Attach Compendium, Do Not Delete/merge, [id number] 11/09/2023 12:58:11 07/22/20 23 07/22/2023 non-s tress test No observ ation record ed. Not Available 2022 15:33:57 07/26/2007/26/2023 non-s tress test No observ ation record ed. [email or web address] Not Available 07/26 12:57:00 07/29/20 non-s tress test No observ ation record ed. Not Available 2022 11:07:02 08/02/2008/02/2023 non-s tress test No observ ation record ed. [email or web address] [address], [address], 08/02/2023 22:44:16 08/09/2008/09/2023 non-s tress test No observ ation record ed. [address], [address], 08/09/2023 23:36:57 08/16/2008/16/2023 US, obste tric, mater nal evalu ation + anato my No observ ation record ed. [email or web address] Not Available 08/16 17:27:01 08/16/2008/16/2023 non-s tress test No observ ation record ed. [email or web address], [address], 08/16/2023 17:28:08 08/23/2008/23/2023 US, obste tric, bioph ysica l profi le + non-s tress test No observ ation record ed. [email or web address], [address], 08/25/2023 14:04:40 08/30/2008/30/2023 non-s tress test No observ ation record ed. [email or web address] [address], [address], 08/30/2023 12:54:52 12/21/19 24 12/21/2023 US, trans vagin al RAD [facility] [address], [place], [address], 12/28/2023 12:19:39 Result Notes None recorded. Problems Name Problem SNOMED Code Status Onset Date Resolution Date Notes Provider Name and Address Organization Details Recorded Time Pregnanc y 68513061 Completed 201610/13/2017 Tiara Monaco [facility], [facility] 0 08:56:57 Blood group A Rh(D) negative 917311189 Completed 03/22/20 17: Rh Negative - RhoGAM candidat e. PAU Pastora hercules, [facility] 7 12:01:24 Hyperten sive disorder 21612792 Completed 2016 History of cHTN for the [...] (WNL)/f- up 4 weeks Pastora Yanez diomedes, [facility] 7 12:01:24 Impaired glucose toleranc e 9146402 Completed 201607/08/2017 : Elevated 1Hr Glucose (172) - NEEDS 3HR Test. PIA TREVIZO , [address] [facility], [address], [place], [address], [place] [facility] 7 08:25:44 Gestatio nal diabetes mellitus 29206531 Completed 201607/08/2017 : Elevated 1Hr Glucose (172) [...] ktb Pastora hercules, [place] - [facility] 7 12:01:24 Hyperten sive disorder 76063993 Active Pt w/ h/o idiopath ic HTN, [...] edl 07/16/23 : patient left AMA from [facility] after admitted for persiste nt RANKIN and severe range in office. Plan for twice weekly NSTs- one in office, one at [facility] with fluid check. reviewed with Dr. Lambert. edl 07/19/23 : 24 hr urine 210 08/20/23 : patient discusse d with MFM, given well controll ed CHTN will schedule IOL at 39 weeks. Can change to earlier date if issues with uncontro lled BPs or other concerns . scp Tiara hercules, [place] - [facility] 3 13:05:02 Pregnanc y 96216151 Completed 201803/27/2020 Tiara hercules, [place] - [facility] 0 08:56:57 Past pregnanc y history of gestatio nal diabetes mellitus 518696323 Completed Pt w/ Class A1 GDM in 1st pregnanc y--will check fasting BS & HbA1C w/ IOB labs, as pt never complete d pp F/U testing for residual DM. If WNL, plan screenin g later in pregnanc y per routine. Fasting BS=75, IsD4W=7. 4 CSD Normal glucola this preg Tiara hercules, [place] [facility] 0 08:56:46 RhD negative 427097352 Completed Rhogam candidat e. Rhogam given at 28 wga. TBF Tiara hercules, [place] [facility] 0 08:56:46 History of hyperten patricio 415863037 Completed Tiara hercules, [place] [facility] 0 08:56:46 Chronic hyperten patricio in obstetri c context 3623366 Completed Pt reports h/o idiopath ic HTN [...] Nl Baseline pre-E labs. 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 [facility] Tiara Monaco null, [place] [facility] 0 08:56:46 Kidney stone 20051475 Completed 1st pregnanc y complica sonja by renal calculi. Pt w/ known 6 mm nonobstr ucting L renal stone at IOB visit, followed w/ Urology in [place]; pt was to have tx w/ lithotri psy, but had + pregnanc y dx'd. CSD [facility] sided) due to renal stone. Found to have bilatera l non-obst ructing stones with renal USN. Thought to have passed stone on left overnigh t, discharg ed home with dilaudid prn as well as flomax. [facility] Tiara Dumont null, [place] [facility] 3 13:05:02 High risk pregnanc y 06440259 Completed Tiara hercules, [facility] 3 13:05:02 Hyperten sive disorder 70239881 Completed Pt w/ h/o idiopath ic HTN, [...] edl 07/16/23 : patient left AMA from [facility] after admitted for persiste nt RANKIN and severe range in office. Plan for twice weekly NSTs- one in office, one at [facility] with fluid check. reviewed with Dr. Lambert. edl 07/19/23 : 24 hr urine 210 08/20/23 : patient discusse d with MFM, given well controll ed CHTN will schedule IOL at 39 weeks. Can change to earlier date if issues with uncontro lled BPs or other concerns . scp Tiara Dumont null, [place] - [facility] 3 13:05:02 Advanced maternal age 172430483 Completed Pt wishes to have cfDNA testing, [...] nasal bone; NT<95th% . CSD Tiara hercules, [place] [facility] 3 13:05:02 RhD negative 059150873 Completed 03/04/23: Bld Type: A NEGATIVE - RhoGAM Candidat e. paub 07/09/23: RhoGAM given. ktb Tiara hercules, [place] [facility] 3 13:05:02 Pain in calf 327395100 Completed 05/14/23 : pt with right calf pain x 1 day. BLE 1+. Right calf does appear larger than left and tender to touch. No erythema . RLE dopplers ordered to be complete d today. No SOB/CP. edl Tiara hercules, [facility] 3 13:05:02 Past pregnanc y history of previous delivery by vacuum extracti on 642989661 Completed 6 lb 8 oz. 38w3d. for NRFHT Tiara hercules, [facility] 3 13:05:02 Past pregnanc y history of gestatio nal diabetes mellitus 147571825 Completed previous ly pregnanc y. 08/12/23 : UA + glucose at 32 and 34 weeks. Will repeat 1 hr GTT. 08/23/23 : repeat 1 hr GTT 134, WNL. edl Tiara hercules, [facility] 3 13:05:02 Group B Streptoc occus carrier [id number] 03 Completed GBS+ Tiara hercules, [facility] 3 13:05:02 Anxiety disorder 290448008 Active 2022 YEYO TREVIZO DO [address] [facility], [address], [place], [address] , [facility] - [facility] 3 12:24:21 Problem Notes None recorded. Procedures Surgical History Date Name Laterality Status Provider Name and Address Organization Details Recorded Time 11/10/19 24 IUD Insert completed YEYO TREVIZO DO [address], [address] [place] [address], [phone], [facility] 11/10/2023 16:50:26 08/19/20 23 Non-Stress Test completed MATTHEW CELIS DO [address] [facility], [address] [place] [address], [address], [facility] 08/19/2023 18:09:20 08/05/20 23 Non-Stress Test completed LALA PATRICK MD [address], [address] [place] [address], [address], [facility] 08/05/2023 08:54:34 07/29/20 23 Non-Stress Test completed LALA PATRICK MD [address] [facility], [address] [place] [address], [address], [facility] 07/29/2023 09:16:59 07/22/20 23 Non-Stress Test completed MATTHEW CELIS DO [address] [facility], [address] [place] [address], [phone], [facility] 07/22/2023 13:04:28 11/18/19 22 IUD Removal completed SONYA MENDEZ DO [address] [facility], [address] [place] [address], [phone], [facility] 11/18/2021 13:55:40 11/18/19 22 V2M-LCN completed Mary Castillo [facility] 11/18/2021 13:42:37 04/30/20 20 IUD Insert completed WILLIAM LAGUNAS APRN [address], [address] [place] [address], [phone], [facility] 04/30/2020 13:25:20 04/15/20 20 Z1S-MFHM (0503F) completed WILLIAM LAGUNAS APRN [address], [address] [place] [address], [phone], [facility] - [facility] 04/14/2020 12:49:46 04/15/20 20 [id number] completed WILLIAM LAGUNAS APRN [address] [facility], [address] [place] [address], [phone], [facility] 04/14/2020 12:49:54 04/15/20 20 [id number]-[id number] completed WILLIAM LAGUNAS APRN [address] [facility], [address] [place] [address], [phone], [facility] - [facility] 04/14/2020 12:49:50 04/15/20 20 Telemedicine Visit completed WILLIAM LAGUNAS APRN [address] [facility], [address] [place] [address], [phone], [facility] 04/15/2020 13:07:45 03/13/20 20 Telemedicine Visit completed MOISES TERRELL MD [address] [facility], [address] [place] [address], [phone], [facility] 03/13/2020 09:11:03 03/06/20 20 Telemedicine Visit completed YEYO TREVIZO DO [address] [facility], [address] [place] [address], [phone], [facility] 03/06/2020 10:13:08 02/19/20 20 Y5X-KDJ completed Mary Castillo [facility] 02/19/2020 09:30:28 02/12/20 20 W8P-DPZ completed Mary Castillo [facility] 02/12/2020 09:32:00 11/08/19 18 G9M-IFEK (0503F) completed Mary Castillo [facility] 11/08/2017 09:47:55 11/08/19 18 [id number] completed Mary Castillo [facility] 11/08/2017 09:47:56 11/08/19 18 [id number]-[id number] (0503F,LATE (57 - 90 days)) completed Mary Castillo [facility] 11/08/2017 09:47:56 09/29/20 17 Non-Stress Test completed WILLIAM LAGUNAS APRN [address], [address] [place] [address], [facility] 09/29/2017 09:50:56 09/21/20 17 Non-Stress Test completed WILLIAM LAGUNAS APRN [address], [address] [place] [address], [facility] 09/21/2017 10:13:31 09/13/20 17 Non-Stress Test completed MOISES TERRELL MD [address], [address] [place] [address], [facility] 09/13/2017 16:06:00 08/30/20 17 Non-Stress Test completed YEYO TREVIZO DO [address], [address] [place] [address], [facility] 08/30/2017 13:47:55 08/23/20 17 Non-Stress Test completed MOISES TERRELL MD [address], [address] [place] [address], [facility] 08/23/2017 08:17:46 08/16/20 17 Non-Stress Test completed MOISES TERRELL MD [address], [address] [place] [address], [facility] 08/16/2017 13:41:10 01/12/20 17 Date of Last Pap Smear completed Mary Castillo [facility] 03/05/2017 10:19:26 Other completed Mary Castillo [facility] 03/05/2017 10:20:27 Imaging Results Imaging Date Name Status LastModified by Organization Details LastModified Time 07/22/2023 non-stress test completed Informati on not available 07/22/2023 15:33:57 07/26/2023 non-stress test completed Informati on not available 07/26/2023 12:57:00 07/29/2023 non-stress test completed Informati on not available 07/29/2023 11:07:02 08/02/2023 non-stress test completed [email or web address] [address], [address], 08/02/2023 22:44:16 08/09/2023 non-stress test completed [email or web address] [address], [address], 08/09/2023 23:36:57 08/16/2023 US, obstetric, maternal evaluation + anatomy completed Information not available 08/16/2023 17:27:01 08/16/2023 non-stress test completed [email or web address] [address], [address], 08/16/2023 17:28:08 08/23/2023 US, obstetric, biophysical profile + non-stress test completed [email or web address] [address], [address], 08/25/2023 14:04:40 08/30/2023 non-stress test completed [email or web address] [address], [address], 08/30/2023 12:54:52 12/21/2023 US, transvaginal completed [facility] [address], [place], [address], 12/28/2023 12:19:39 Procedure Notes None recorded. Medical Equipment None Reported. Allergies Allergen ID Allergen Name Allergen Category Reaction Reaction Severity Criticality Documentation Date Start Date Code Code System Note Provider Name and Address Organization Details Recorded Time [id number] Keflex medicatio n itching Not available Not available 02/19/2020 7 RxNorm Mary Castillo [facility] [place] - [facility] 0 09:29:21 289431 Substance with sulfonami de structure and antibacte rial mechanism of action (substanc e) medicatio n hives Not available Not available 03/05/2017 [id number] SNOMED Mary Castillo [facility], [facility] 7 07:16:03 Medications Name Sig Start Date Stop Date Status Note LastModified by Organization Details LastModified Time Mirena 21 mcg/24 hr (up to 8 years) 52 mg intrauter ine device Take by intraute rine route. 04/30 completed inserted 04-30-20 20NDC: 27808-75 12-30LOT: [id number] XP: 04-01-20 22 Not Available Not Available [...] rine route. 2023 active placed 11/10/23; lot [id number] ; Exp 12/2025 Not Available Not Available Not Available Kyleena 17.5 mcg/24 hr (up to 5 years) 19.5 mg intrauter ine device Take by intraute rine route. 11/18 completed inserted 04-30-20 20ND: 68623-62 01-30LOT: [id number] XP: 12/02/19 22 Not Available Not Available Not Available Vitals Date Recorded Body weight Systolic blood pressure Diastolic blood pressure Provider Name and Address Organization Details Last Updated DateTime 08/19/2023 07631.2952 7 g 120 mm[Hg] 80 mm[Hg] Not Available [facility] Record 08/19/2023 07:41:06 Date Recorded Body weight Systolic blood pressure Diastolic blood pressure Provider Name and Address Organization Details Last Updated DateTime 08/26/2023 45563.5181 6 g 140 mm[Hg] 90 mm[Hg] Not Available [facility] Record 08/26/2023 07:40:26 Date Recorded Body height Body mass index (BMI) Body weight Systolic blood pressure Diastolic blood pressure Provider Name and Address Organization Details Last Updated DateTime 09/10/2023 161.29 cm 26.3 kg/m2 62898.45 g 130 mm[Hg] 90 mm[Hg] Pastora Brewer [facility] 3 11:53:15 Date Recorded Body height Body mass index (BMI) Body weight Systolic blood pressure Diastolic blood pressure Provider Name and Address Organization Details Last Updated DateTime 10/15/2023 161.29 cm 25.3 kg/m2 58908.89 g 120 mm[Hg] 80 mm[Hg] Pastora Brewer [facility] 3 11:49:46 Date Recorded Body height Body mass index (BMI) Body weight Systolic blood pressure Diastolic blood pressure Provider Name and Address Organization Details Last Updated DateTime 11/10/2023 161.29 cm 26 kg/m2 75076.26 g 138 mm[Hg] 82 mm[Hg] Claribel Guevara [facility] 4 14:28:41 Social History Question Answer Notes LastModified by Organizat ion Details LastModified Time Tobacco Smoking Status [facility]/10/2023 11:49:59 What Is Your Level Of [...] Other N *No Diseases or Conditions N Blood clots N Breast Cancer N Benign breast disease N Colon cancer N Lung Disease N Depression N Defects or Inherited Disease N Anesthesia Complications N Neurological Disorder N Headaches/Migraines N Have you ever been on isolation N Anxiety Disorder Y Arthritis N HSV N Infertility N Abnormal pap N Interstitial Cystitis N Acid Reflux (GERD) N Cancer N Stroke N Endometriosis N Fibromyalgia N Spina Bifida N HIV N Heart Problems N Sexual Dysfunction N Autoimmune disorder N Kidney or Bladder Problems Y Thyroid Problems N GI Problems N Eating Disorder N Anemia [...] -IG IM 09/01/2023 completed Pastora Brewer [place] - [facility] 10/15/2023 11:50:16 Tdap 07/22/2023 completed Anabel Suh null, [place] - [facility] 07/22/2023 16:25:15 COVID-19, mRNA, LNP-S, PF, 30 mcg/0.3 mL dose 08/13/2021 completed Not Available [facility] 3 08:50:41 Influenza, split virus, quadrivalent, PF 08/12/2017 completed Not Available [facility] 0 02:19:05 Tdap 08/30/2017 completed Not Available [facility] 11/18/2019 02:19:06 Influenza, split virus, quadrivalent, PF 08/03/2019 completed Not Available [facility] 0 02:19:42 Tdap 01/19/2020 completed Zuleika Berger [place] [facility] 01/19/2020 14:22:05 Past Encounters Encounter ID Performer Location Encounter Start Date Encounter Closed Date Diagnosis/Indication Diagnosis SNOMED-CT Code Diagnosis ICD10 Code Diagnosis Note [id number] YEYO TREVIZO DO [facility] [place] [address] 03/05/2017 09:49:01 03/08/2017 10:37:17 Routine care 414516818 Z34.90 Z34.91 Z34.92 Z34.93 Z34.00 Z34.80 Z34.01 Z34.02 Z34.03 Z34.81 Z34.82 Z34.83 [id number] MATTHEW CELIS DO [facility] [place] [address] 04/02/2017 11:08:49 04/05/2017 10:40:32 Routine care 459419750 Z34.01 Doing well, no complaints . Reviewed all testing to date including negative Zika Virus RNA and Zika IgM. Patient opted NOT to have carrier screening or NT USN. Unable to hear FH with doppler, + FH documented with USN. [id number] WILLIAM Neftali LAGUNAS, FISH RO[employer] PROCESSOR [address] [facility] [place] [address] 04/29/2017 13:26:59 04/30/2017 11:19:55 Routine care 501367351 Z34.92 Headaches: Occ Nausea: Occ Vomiting: No movement: n/a Contractio ns: no Pt aware needs to go for AFP lab work due now also given PIH with 24 hour urine. Pt has anatomy scan here--will change to have level [address] [facility] since pt w/chronic HTN & on methyldopa bid. Pt w/some round ligament pain/discu ssed. F/up 4weeks? No signs and symptoms of Zika virus disease onset of fever, rash, arthralgia , conjunctiv itis), travel history, and risk of sexual exposure from a partner with a travel history - induced hypertension 37346234 O13.9 [id number] MATTHEW CELIS, DO [facility] [place] [address] 05/25/2017 09:38:33 05/26/2017 08:19:58 High risk 93234338 O09.92 Doing well, no complaints . +FM. Reviewed normal baseline 24 hour urine, PIH labs as well as negative MSAFP results. s/p normal level II USN at [facility], patient has USN for growth scheduled in 6 weeks. 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 Advised to discuss with her resident care supervisor and let us know exactly what wording would be required for her note. Given and cHTN it would be reasonable to limit her to 12 hour shifts. 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 Denies h/a, n/v. Rhogam given in right [...] whole grains, other changes? RTO 3 wks [id number] SONYA MENDEZ DO G[address] [place] [address] 08/12/2017 16:22:22 08/17/2017 08:15:11 Administration of influenza vaccine 98144564 Z23 Essential hypertension 48382260 I10 No s/s of Pre-E. Pressures reviewed and within acceptable range. Continue with methyldopa 250 mg BID. Gestationa l diabetes mellitus 32425113 O24.410 Reviewed FS. Fasting sugars ~ 70 and 2 hour PP 120-140. Reports to Layla Alvarado. No meds at this time. Has follow up USN in 4 weeks for growth. Routine an tenatal care 326809377 Z34.03 Routine visit today. Size consistent with dates. Reassuring FHR. No recent travel, sick contacts, or Zika exposures. PTL and movement precaution s reviewed. RhD negative 739447442 Z 01.83 S/p Rhogam. FS after delivery. [id number] MOISES TERRELL MD G[address] [place] [address] 08/16/2017 12:37:52 08/17/2017 09:39:51 Essential hypertension 81547516 I10 Gestationa l diabetes mellitus 75572230 O24.748 [id number] MOISES TERRELL MD [facility] [address] [place] [address] 08/23/2017 07:35:37 08/24/2017 08:41:00 [id number] YEYO TREVIZO DO [facility]5 [address] [place] [address] 08/30/2017 12:37:58 09/01/2017 12:45:30 Routine care 406016917 Z34.93 Gestationa l diabetes mellitus 12739566 O24.115 [id number] LALA PATRICK MD [facility] [address] [place] [address] 09/02/2017 16:23:11 09/03/2017 12:59:49 Routine care 068593081 Z34.93 +fm, + quincy castellon. Denies h/a, n/v, edema, visual disturbanc es, ruq/epigas tric pain. BP elevated, she states that she has been a little stressed. Monitors b/p while at home and at work. Pt notes +GFM & denies c/o. Pt notes occas ctxns, infrequent . Pt denies pre-E sx's. Pt describes good BS control. RTO for NST's q wk. [id number] SONYA MENDEZ , [facility] [address] [place] [address] 09/06/2017 08:33:52 09/07/2017 09:15:47 Routine care 440085528 Z34.03 Routine visit today. Size consistent with dates. Reassuring FHR. No recent travel, sick contacts, or Zika exposures. PTL and movement precaution s reviewed. Essential hypertension 71173715 I10 No s/s of Pre-E. Pressures reviewed and within acceptable range. Continue with methyldopa 250 mg BID. RhD negative 480152680 Z 01.83 S/p Rhogam. FS after delivery. Gestationa l diabetes mellitus 09419716 O24.410 Diet controlled . [id number] MOISES TERRELL MD G[address] [place] [address] 09/13/2017 12:38:32 09/14/2017 13:59:41 Normal 22567367 Z34.93 [id number] WILLIAM Neftali LAGUNAS APRN G[address] [place] [address] 09/21/2017 08:35:28 09/22/2017 09:12:57 Routine care 331165876 Z34.93 Headaches: No Nausea: No Vomiting: No [...] from a partner with a travel history [id number] WILLIAM LAGUNAS APRN [facility] [place] [address] 09/29/2017 08:37:23 09/30/2017 13:12:14 Routine care 492022807 Z34.93 no n/v no h/a no edema [...] from a partner with a travel history [id number] WILLIAM LAGUNAS APRN [facility]5 [address] [place] [address] 10/13/2017 11:46:44 10/15/2017 13:48:46 Essential hypertension 26508759 I10 Pt w/hx elevated BP--has been on Aldomet 250 BID during BP elevated today Will increase Aldomet to TID Return 10/18 for BP check Reviewed s/s to report [id number] YEYO TREVIZO DO [facility]5 [address] [address] 10/18/2017 13:04:42 10/19/2017 09:12:21 Increased blood pressure 26617211 R03.0 Here for Post-Partu m BP Check. Feels well. Denies RANKIN, RUQ Pain, Visual Changes, N/V. BP 126/90 on current meds. Will continue and recheck in a few days. [id number] YEYO TREVIZO DO [facility]5 [address] [place] [address] 10/22/2017 12:13:06 10/27/2017 11:33:54 Increased blood pressure 98056128 R03.0 Here for rpt BP Check. BP 124/90. Asymptomat ic: denies RANKIN,VisualC hanges, RUQ Pain, N/V. Taking meds (Methyldop a250mg PO TID) as directed. Will continue present care and recheck at upcoming Post-Partu m Check on 11/08/2017. Precaution s reviewed. [id number] MOISES TERRELL MD [facility] [place] [address] 11/08/2017 09:44:09 11/10/2017 08:29:04 care 714028091 Z39.2 [id number] LALA PATRICK MD G[address] [place] [address] 08/03/2019 10:20:50 08/04/2019 10:22:45 Routine care 402327399 Z34.80 Z34.82 Has some nausea and vomiting, relieved with bland snack, no c/o VB or sxs, has had occasional HAs. Plans carrier screen/NIP S/NT/AFP. Pap wnl 01/15. 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 Pt [...] 4 wks Administra tion of influenza vaccine 38226725 Z23 Gestation period, 9 weeks 353497 Z3A.09 Depression screening 171 535751 Z13.31 Completed, results negative [id number] SONYA MENDEZ , DO [facility] [place] [address] 08/31/2019 08:51:29 09/01/2019 12:55:59 Routine care 473367824 Z34.81 Routine OB visit. Size = date. [...] OB visit. TBF Gestation period, 13 weeks 10509785 Z3A.13 [id number] WILLIAM LAGUNAS, [employer] PROCESSOR [address] [place] [address] 09/26/2019 13:28:22 10/06/2019 15:27:42 Routine care 578520469 Z34.93 Patient denies nausea, vomiting, headache, doing [...] a travel history Gestation period, 16 weeks 04883539 Z3A.16 Depression screening 171 377168 Z13.32 neg [id number] YEYO TREVIZO, DO [address] [place] [address] 10/19/2019 09:57:34 10/23/2019 10:18:48 Routine care 274065029 Z34.82 Gestation period, 20 weeks 78876409 Z3A.20 [id number] MOISES TERRELL MD G[address] [place] [address] 11/15/2019 08:31:15 11/20/2019 10:35:46 Routine care 561370517 Z34.82 Gestation period, 23 weeks 34661629 Z3A.23 [id number] SONYA Marita ABEBEMENDEZ DO G[address] [place] [address] 12/13/2019 09:15:03 12/15/2019 14:45:28 Gestation period, 28 weeks 47827076 Z3A.28 Routine an tenatal care 977553322 Z34.81 Routine OB visit. Size = date. [...] OB visit. TBF Gestation period, 27 weeks 45582774 Z3A.27 Administra tion of RhD immune globulin 7135621 Z29.13 [id number] LALA PATRICK MD [facility] [place] [address] 01/01/2020 11:07:44 01/04/2020 11:09:55 Routine care 303157548 Z34.83 Nausea: No Vomiting: No Headaches: Yes almost everyday FM+ Pt notes + GFM & denies ctxns or other c/o. Pt has no urinary c/o, states R flank pain is improving. Pt is taking Keflex. Reviewed results to date. Reviewed signs/sx's of worsening pyelo, PTL, when to call for eval. RTO 2 wks Gestation period, 30 weeks 94313252 Z3A.30 [id number] WILLIAM LAGUNAS, [employer] PROCESSOR [address] [facility] [address] 01/19/2020 13:42:28 01/24/2020 09:00:41 Routine care 735543159 Z34.83 Nausea: No Vomiting: No Headaches: Occasional [...] a travel history Gestation period, 33 weeks 28078303 Z3A.33 Active or passive immunization 410684357 Z23 [id number] SONYA MENDEZ DO G[address] [place] [address] 01/29/2020 11:38:49 02/02/2020 07:36:21 Routine care 028317962 Z34.83 Routine OB visit. Size = date. [...] OB visit. TBF Gestation period, 34 weeks 27401155 Z3A.34 [id number] MOISSE TERRELL MD G[address] [facility] [address] 02/12/2020 09:25:27 02/13/2020 12:00:23 Routine care 014174372 Z34.82 Gestation period, 36 weeks 51245517 Z3A.36 Depression screening 171 473284 Z13.32 Behavioral health screening completed and reviewed with patient. Negative findings. [id number] MATTHEW CELIS DO G[address] [place] [address] 02/19/2020 09:25:28 02/20/2020 13:01:47 Routine care 137453911 Z34.01 Doing well, no complaints . Good [...] at 39+ weeks, paperwork completed today in [place] office. Patient will continue to monitor BP at home and call if any severe range elevations or if any symptoms of preeclamps ia. Will begin weekly NSTs until delivery. Patient planning to stop work at this time. Advised to call if any concerns prior to next visit. [id number] YEYO TREVIZO DO TEL_02_ GP_TELEHE ALTH [address] [place] [address] 03/06/2020 08:41:53 03/07/2020 11:00:40 Increased blood pressure 72841441 R03.0 Patient has been informed about the treatment methods and limitation s of treating a person through telehealth . Patient gives verbal consent to telemedici ne visit via the [facility]. Patient is s/p with Vacuum Assist [...] Time spent with patient (Video Call via [employer]): 4 minutes 31 seconds Total visit time: 10 minutes [id number] MOISES TERRELL MD TEL__ GP_TELEHE ALTH [address] [place] [address] 03/13/2020 08:51:13 03/18/2020 10:34:16 Hypertensive disorder 86299903 I10 [id number] WILLIAM LAGUNAS APRN TEL_02_WH GP_TELEHE ALTH [address] [address] 04/15/2020 08:41:03 04/22/2020 09:20:58 care 339655796 Z39.2 Reviewed limitation s of treatment with [...] Annual due 3 months Depression screening 171 562103 Z13.32 EPDS 4 [id number] WILLIAM LAGUNAS APRN G[address] [place] [address] 04/30/2020 12:57:10 04/30/2020 15:06:34 Insertion of intrauterine contraceptive device 96373164 Z30.430 Pt would like Kyleena for contracept ionRev risk/benef its; consent signedPreg test negCulture s done todayKylee na placed without difficulty (see procedure note)Rev s/s to report: fever/rafael re pain/expul patricio F/up 6 weeks for IUD check [id number] SONYA MENDEZ DO WHG[address] [place] [address] 11/18/2021 13:35:07 11/24/2021 14:07:06 Removal of intrauterine device 32186830 Z30.432 Kyleena IUD removed without any difficulty or complicati on. Patient tolerated the procedure well. IUD was intact and shown to patient. Pain / cramping precaution s reviewed. María g another - not interested in alternativ e contracept ion at this time. [id number] MOISES TERRELL MD G[address] [place] [address] 02/09/2023 13:18:41 02/09/2023 14:13:37 Amenorrhea 00933693 N91.2 [id number] LALA PATRICK MD WHG[address] [place] [address] 02/15/2023 14:49:48 02/16/2023 09:00:24 Routine care 293843476 Z34.83 Pre-eclampsia 575311312 O14.94 High risk 4720 0007 O09.91 nausea/vom [...] re-check of BP. Gestation period, 9 weeks 050059 Z3A.09 Depression screening 171 103422 Z13.31 Completed, results negative [id number] YEYO TREVIZO DO G[address] [place] [address] 03/04/2023 09:34:02 03/04/2023 11:02:28 Routine care 733131443 Z34.82 Gestation period, 11 weeks 61582420 Z3A.11 Repeat NIPT ordered at today's visit and given to patient to have drawn (03/04/2023) . Chronic hy pertension in obstetric context 1496527 O16.9 Patient has a Hx of CHTN [...] any issues. High risk 4720 0007 O09.91 [id number] SAMMI NOBLE MD G[address] [place] [address] 03/15/2023 15:29:34 03/15/2023 16:19:28 Routine care 929248173 Z34.91 Gestation period, 13 weeks 65467797 Z3A.13 Hypertensive disorder 38 591350 I10 [id number] MOISES TERRELL MD [facility] [place] [address] 04/02/2023 09:33:38 04/02/2023 10:15:14 Past history of gestational hypertension 223673948 Z87.59 [id number] SONYA MENDEZ DO [address] [facility] [place] [address] 04/12/2023 15:34:03 04/12/2023 16:01:59 Routine care 749134190 Z34.83 Routine OB visit. Size = date. [...] 4 weeks. TBF Gestation period, 17 weeks 69540245 Z3A.17 High risk 4720 0007 O09.92 [id number] [facility]5 [address] [place] [address] 05/14/2023 14:07:16 05/14/2023 14:52:05 Routine care 163523340 Z34.91 Gestation period, 22 weeks 23810677 Z3A.22 Pain of right calf 48440 72140 036583 M79.661 [id number] LALA PATRICK MD G[address] [place] [address] 06/11/2023 14:38:28 06/11/2023 16:43:09 Routine care 097868207 Z34.83 Nausea/Vom iting: No Headaches: No Contractio n/Cramping : No FM: + Edema: legs & calf pain Pt seen at [facility] overnight 06/09-08/23 for tx of renal calculus. Pt states sx's improved markedly once some sediment was noted to pass. Pt is using Flomax, has contacted her urologist to update them of her status. Reviewed upcoming 3rd tri labs. RTO 4 wks or prn Gestation period, 26 weeks 06564914 Z3A.26 Depression screening 171 086587 Z13.32 Completed, results negative [id number] YEYO TREVIZO DO G[address] [place] [address] 07/09/2023 15:14:47 07/09/2023 16:26:34 Routine care 565648188 Z34.82 Gestation period, 30 weeks 27077168 Z3A.30 RhD negative 934679879 Z 01.83 RhoGAM given today High risk 4720 0007 O09.93 [id number] G[address] [place] [address] 07/22/2023 12:36:39 07/22/2023 15:44:39 Routine care 472370582 Z34.01 Doing well, no complaints . + FM. Was seen at [facility] last week on 07/15 - 07/16/23 for evaluation of RANKIN and elevated BP. Patient left AMA from [facility] after admitted. No concerns today, no RANKIN, visual disturbanc es. BP today 122/82, reports that at home no higher than 140/90. Completed 24 hour urine collection 07/16/23 with normal results (210mg). USN completed last week (07/19/23) at [facility]: EFW 69%, normal BRANDEE, vertex. Next USN scheduled in 4 weeks for CHTN. Reactive NST today, will need to continue 2x weekly, next to be scheduled at [facility] on Wednesday. Urine dip today + blood and ketones. No UTI symptoms. Will send UAC&S. Would like both TDAP and flu vaccine, given at visit today. Gestation period, 32 weeks 4592467 Z3A.32 Administra tion of diphtheria, pertussis, and tetanus vaccine 647340595 Z23 Administra tion of influenza vaccine 27834133 Z23 [id number] LALA PATRICK MD G[address] [place] [address] 07/29/2023 07:55:36 07/30/2023 11:10:19 Routine care 789281161 Z34.83 Nausea/Vom iting: No Headaches: Occ Contractio [...] hbA1C. RTO weekly Gestation period, 32 weeks 8023018 Z3A.32 [id number] LALA PATRICK MD WHG[address] [place] [address] 08/05/2023 08:04:39 08/05/2023 10:30:26 Routine care 738518035 Z34.83 Nausea/Vom iting: yes/No Headaches: occ Contractio [...] both WN--will attempt to get results in [place]. RTO weekly Gestation period, 33 weeks 92003681 Z3A.33 [id number] SAMMI NOBLE MD G[address] [place] [address] 08/12/2023 07:28:21 08/12/2023 14:22:49 Gestation period, 34 weeks 66160723 Z3A.34 Routine an tenatal care 201571837 Z34.91 Past pregn roland history of gestational diabetes mellitus 857843194 Z86.32 [id number] MATTHEW Shahnaz MASTERSON, DO [facility] [place] [address] 08/19/2023 07:34:35 08/20/2023 14:49:16 Gestation period, 35 weeks 27722506 Z3A.35 Vaginal discharge 359118 006 N89.8 Routine an tenatal care 892194107 Z34.01 Doing well, no complaints . + [...] visit today. No plan for delivery (no [facility] recommenda tions to date), will contact [facility] to discuss. Negative PHQ-2 today. Depression screening 171 045669 Z13.32 Negative PHQ-2 today. [id number] SAMMI NOBLE MD G[address] [place] [address] 08/26/2023 07:31:49 08/26/2023 13:32:36 Routine care 680739970 Z34.91 Gestation period, 36 weeks 36703911 Z3A.36 [id number] SONYA MENDEZ , DO [facility] [address] [place] [address] 09/10/2023 11:49:49 09/10/2023 12:45:35 Increased blood pressure 91235422 R03.0 33 yo F in office for [...] obtained history: 5 minutesRev iewing patient? s lab/radio logy/test results: 5 minutesExa mining the patient: 5 minutesDis cussing Treatment options with patient/fa remi/careg iver: 10 minutesCou nseling and education of the patient/fa remi/careg iver: 5 minutesUpd ating/docu menting clinical informatio n in the patient? s medical record: 5 minutes [id number] YEYO TREVIZO DO WHG[address] [place] [address] 10/15/2023 11:44:59 10/15/2023 12:46:08 care 325373885 Z39.2 Check: Doing well after delivery. Reviewed , delivery and course to date. Post-Partu m Depression screen reviewed: no s/s of PPD (SEE FORM). Breastfeed ing reviewed. BC options reviewed. All questions were answered to the patient's satisfacti on. RTO in 2-3 months for Routine Annual Exam. Maternal p ostpartum depression screening 9204950860 57815 Z13.32 EPDS 8 of 30: borderline . Patient has known Anxiety. 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 Hypertensive disorder 38 382120 I10 Patient has known Chronic HTN. was complicate d by Severe Pre-Eclamp emily. Started on Labetalol 200mg BID at visit on 09/28/2023 . BP 120/80 today. Will follow with PCP. Anxiety disorder 0360219 06 F41.9 Patient has known Anxiety. 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 Contraception care 24033 5005 Z30.40 Patient interested in getting an [...] URINE TEST at the time of placement. [id number] YEYO TREVIZO, WHG[address] [place] [address] 11/10/2023 14:15:34 11/10/2023 16:56:05 Insertion of intrauterine contraceptive device 22138186 Z30.430 Liletta placed after risk/benef its and [...] Name 08/19/2023 1 [place] [id number] Leticia Castro [id number] 69 Amolne Motson 08/26/2023 1 [place] [id number] Leticia Shannonson [id number] 69 Amolne Motson 09/10/2023 1 [place] [id number] Kalianne T Motson [id number] 69 Kalianne Motson 10/15/2023 1 [place] [id number] Kalianne T Motson [id number] 69 Kalianne Motson 11/10/2023 1 [place] [id number] Kalianne T Motson [id number] 69 Jrianne Motson Notes Date Note Type Note Provider Name and Address Organization Details Recorded Time 09/10/2023 text/html [facility] Post-OpRepor sonja bypatient.Associate d Symptoms:incision healing well; no fatigue; normal appetite; normal bowel function; no constipation; no nausea; no emesis; pain improving; no pain; no fever; no bleeding; no lower extremity edema/pain; no dysuria/urinary symptoms SONYA MENDEZ DO [address] [place] [address] 09/10/2023 12:40:51 10/15/2023 text/html [facility] VisitReported bypatient.Onset/Дмитрий ing:date of delivery:; 08/31/2023 Delivery Type: Context:complicatio ns of : pre-eclampsia; complications: none; feeding choice: breast milk; good support from partner/family Associated Symptoms:no abnormal bleeding; no pelvic pain; no constipation; no fecal incontinence; no dysuria; no urinary incontinence; no fever; no problems; no mastitis YEYO TREVIZO DO [address], [address] [place] [address] 10/15/2023 12:24:53 11/10/2023 text/html Pt here for Latisha tta IUD insertion. /CT 10/15/23: neg. YEYO TREVIZO DO [address] [place] [address], [facility] 11/10/2023 16:52:31 OBGyn Episode Ob Episode Information Episode Created Date Number of Fetuses Patient Bloodtype Patient rh Status Prepregnancy Weight lbs Domestic Partner Domestic Partner Phone Father Name Frame Feeder Status 03/05/20 17 1 A Negative CLOSED Fetus Data First Name Last Name Admitted to NICU Weight (g) Sex Living Outcome Pediatric Complications Fetus ID Race Codes Race Delivery Type chuckie 3033.39 63 F [id number] Vaginal Delivery Problems Problem Notes Caffeine occ/No cats03/22/17 Zika testing neg CHUSN 08/04: 51%ile, BRANDEE 13, Posterior lyzxvpne84/31: OB USN @ 34.3wks: VTX, Posterior Placenta - Grade I, EFW 2322gms (5lbs 2oz)(35%tile), BRANDEE: 18.4cm. Rpt USN in 4 weeks. Continue Methyldopa 250mg PO BID. NSTs q/week. Follow FS with Layla Alvarado. Problem Name Start Date End Date Resolution Snomed Code Not e Blood group A Rh(D) negative 255122449 03/22/2017: Rh Negative - RhoGAM candidate. KTB Gestational diabetes mellitus 07/19/2017 [id number] 07/08/2017: [place] sonja 1Hr Glucose (172) - NEEDS 3HR [...] Getting weekly NSTs. ktb Hypertensive disorder 04/02/2017 [id number] 3 History of cHTN for the last [...] growth: post placenta, grade 1/EFW 1-15 (48% ile)/BRANDEE 4.5 (WNL)/f-up 4 weeks [facility] Brock Calculation [...] Type Weight in lbs Pre/Post Dialysis Refused 137.785525331410 BP Diastolic BP Location Tested BP Systolic BP Type 76 116 Fetus Heart Rate Present A 130 Present Fetus Movement Comments Headaches: NoNausea: OccVomi ting: NoFetal movement: N/AContractions (cramping or bleeding): NoPt aware that she needs to go to [facility] for initial bld work...she also has agreed to do CF/NPTI/Afp which will be done at [facility]. Pt has done zika testing 03/02/2017 waiting results pt was in [place] she is aware needs to use condoms for intercourse.Pt has agreed to do the 1st trimester testing at [facility]. Flowsheet Date 04/02/2017 Rodgers Score Blood Edema Fundus Height Fundus Units Glucose Ketones Leukocytes Nitrite Labor Signs Protein Cervic Dilation Cervic Effacement Cervic Station none 12 wks none negative none neg Type Weight in lbs Pre/Post Dialysis Refused 139.018263166714 BP Diastolic BP Location Tested BP Systolic [...] Type Weight in lbs Pre/Post Dialysis Refused 140.997770018291 BP Diastolic BP Location Tested BP Systolic BP Type 70 110 Fetus Heart Rate Present A 144 Present Fetus Movement A No Comments Headaches: OccNausea: OccVom iting: NoFetal movement: n/aContractions: noPt aware needs to go for AFP lab work due now also given PIH with 24 hour urine. Pt has anatomy scan here--will change to have level [address] [facility] since pt w/chronic HTN & on methyldopa bid. Pt w/some round ligament pain/discussed. F/up 4weeks Flowsheet Date 05/25/2017 Rodgers Score Blood Edema Fundus Height Fundus Units Glucose Ketones Leukocytes Nitrite Labor Signs Protein Cervic Dilation Cervic Effacement Cervic Station none 20 wks none negative none neg Type Weight in lbs Pre/Post Dialysis Refused 147.502756322598 BP Diastolic BP Location Tested BP Systolic BP Type 68 126 Fetus Heart Rate Present A 147 Present Fetus Movement A Yes Comments Headaches: 1x weekNausea: No Vomiting: NoFetal movement: N/AContractions: NoAnatomy scan doen at [facility] on 05/19/2017 due history hypertension.Doing well, no complaints. +FM. Reviewed normal baseline 24 hour urine, PIH labs as well as negative MSAFP results. s/p normal level II USN at [facility], patient has USN for growth scheduled in 6 weeks. 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 Denies h/a, n/v. Rhogam given in right [...] Type Weight in lbs Pre/Post Dialysis Refused 149.524035003222 BP Diastolic BP Location Tested BP Systolic [...] Type Weight in lbs Pre/Post Dialysis Refused 148.605243299298 BP Diastolic BP Location Tested BP Systolic [...] Type Weight in lbs Pre/Post Dialysis Refused 150.342699467763 BP Diastolic BP Location Tested BP Systolic [...] Type Weight in lbs Pre/Post Dialysis Refused 152.467370156901 BP Diastolic BP Location Tested BP Systolic [...] Type Weight in lbs Pre/Post Dialysis Refused 151.086436900832 BP Diastolic BP Location Tested BP Systolic [...] Type Weight in lbs Pre/Post Dialysis Refused 152.401162465307 BP Diastolic BP Location Tested BP Systolic [...] to Layla Alvarado. Reactive NST in the [place] office today. No s/s of pre-E. Pressures [...] Type Weight in lbs Pre/Post Dialysis Refused 153.289308399608 BP Diastolic BP Location Tested BP Systolic BP Type 84 112 Fetus Heart Rate Present A 135 Present Fetus Movement A Yes Comments Headaches: NoNausea: Yesterd ay/None todayVomiting: NoFetal movement: YesContractions: Occ [place] HicksBeta strep done today.no ctxs, cramping, bleeding [...] Type Weight in lbs Pre/Post Dialysis Refused 155.46286599480 BP Diastolic BP Location Tested BP Systolic [...] Station none none negative Quincy Castellon neg 1cm 80% -2 Type Weight in lbs Pre/Post Dialysis Refused 154.331714764084 BP Diastolic BP Location Tested BP Systolic [...] Type Weight in lbs Pre/Post Dialysis Refused 140.100367048632 BP Diastolic BP Location Tested BP Systolic BP Type 98 138 Fetus Heart Rate Present Fetus Movement Comments Menstrual History Last Menstrual Date Menses Monthly On Bcp Conception Prior Menses Frequency Hcg Plus Date Menarche Onset Age 0301/02/2017 Genetic Screening And Infection History Question Response Note Patient's Age Will Be 35 Yea rs Or Older At Estimated Date of Delivery false Thalassemia (Moldovan, Ghanaian, Mediterranean, Or Background): MCV < 80 false Neural Tube Defect (Meningom yelocele, Spina Bifida, Or Anencephaly) false Congenital Heart Defect false Down Syndrome false Donald-Sachs (eg, Congregational, Cajun, Congolese-[place]) f alse Troy Disease false Sickle Cell Disease Or Trait () false Hemophilia Or Other Blood Disorders false Muscular Dystrophy false Cystic Fibrosis false [place]'s Chorea false Mental Retardation/Autism false If Yes, [...] History true Chicken pox Familial Dysautonomia (Ashkenazi Congregational) false Spinal Muscular Atrophy false Parkinson Disease false History of HIV false History of Hepatitis false Prior GBS-infected child false Plans and Education First Trimester Discussed Date Discussion Item Discussion Note Discuss ed By 03/05/2017 Anticipated course of care kborkowski03/05/2017 Alcohol kborkowski03/05/2017 Intimate partner violence kb jesus03/05/2017 Environmental/work hazards sanya trevizo03/05/2017 Screening for aneuploidy [...] ed By 06/23/2017 Selecting a care provider kborkowski06/23/2017 Abnormal lab values kborkows ki1 06/23/2017 Signs and symptoms of labor [email or web address] 06/23/2017 Intimate partner violence karlee jackieamaya 06/23/2017 Provided information about childbirth education classes Third Trimester Discussed Date Discussion Item Discussion Note Discuss ed By 08/30/2017 Intimate partner violence karlee jesusZoraida 08/30/2017 Anesthesia plans 08/30/2017 movement monitoring karlee [email or web address] 08/30/2017 08/30/2017 Labor signs 08/30/2017 Family medical leave or disability forms 08/30/2017 Tobacco/smoking cess ation counseling (ask, advise, assess, assist, and arrange) 08/30/2017 Signs and symptoms of preeclampsia 08/30/2017 [...] Domestic Partner Domestic Partner Phone Father Name Frame Feeder Status 07/25/20 19 1 A Negative 150 Paresh Motson Leslie CLOSED Fetus Data First Name Last Name Admitted to NICU Weight (g) Sex Living Outcome Pediatric Complications Fetus ID Race Codes Race Delivery Type 2939.86 [id number] F true Full Term [id number] Vaginal Delivery Vacuum Problems Problem Notes chicken pox age 1, 120mg caf feine/day, no cats in homepast hx 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 CSD10/19/19: Anatomy USN: VTX, Anterior Placenta, CL 4.42cm. EFW 50%tile. Normal anatomy in images seen, however, NOT ALL CARDIAC VIEWS COULD BE SEEN (SUBOPTIMAL) - will need repeat ANATOMY USN at [facility]. Reviewed at apt today. ktb Additional views [...] Snomed Code Not e History of hypertension [id number] RhD negative [id number] Rhogam candidate. Rhogam given at 28 wga. TBF Chronic hypertension in obstetric context 4050653 Pt repo rts h/o idiopathic HTN prior [...] pt agreeable to do. Baseline 24-hr urine t-lnrr=301, WNL. Nl Baseline pre-E labs. CSD Past history of gestational diabetes mellitus 172470857 Pt w/ Class A1 GDM in 1st --will check fasting BS & HbA1C w/ IOB labs, as pt never completed pp F/U testing for residual DM. 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 c/o persistent flank pain despite [...] Gestation 0 [email or web address] 07/26/2019 03/07/20 20 0 Pre- Flowsheet Flowsheet Date 08/03/2019 Rodgers Score Blood Edema Fundus Height Fundus Units Glucose Ketones Leukocytes Nitrite Labor Signs Protein Cervic Dilation Cervic Effacement Cervic Station neg none negative none Negative neg Type Weight in lbs Pre/Post Dialysis Refused Weight 150.046742005615 BP Diastolic BP Location Tested BP Systolic [...] Weight in lbs Pre/Post Dialysis Refused Weight 148.289730795502 BP Diastolic BP Location Tested BP Systolic [...] Weight in lbs Pre/Post Dialysis Refused Weight 152.579025899542 BP Diastolic BP Location Tested BP Systolic [...] Weight in lbs Pre/Post Dialysis Refused Weight 151.298495310203 BP Diastolic BP Location Tested BP Systolic [...] - will need repeat ANATOMY USN at [facility]. Reviewed at apt today. PLEASE GIVE 28wk Lab Slip AT NEXT OB APT. Flowsheet Date 11/15/2019 Rodgers Score Blood Edema Fundus Height Fundus Units Glucose Ketones Leukocytes Nitrite Labor Signs Protein Cervic Dilation Cervic Effacement Cervic Station trace 24 cm trace negative Other (see comments ) neg Type Weight in lbs Pre/Post Dialysis Refused Weight 155.57575610825 BP Diastolic BP Location Tested BP Systolic [...] in lbs Pre/Post Dialysis Refused With clothes 157.118431702489 BP Diastolic BP Location Tested BP Systolic [...] Weight in lbs Pre/Post Dialysis Refused Weight 160.022250255855 BP Diastolic BP Location Tested BP Systolic [...] Weight in lbs Pre/Post Dialysis Refused Weight 159.653401132160 BP Diastolic BP Location Tested BP Systolic [...] Weight in lbs Pre/Post Dialysis Refused Weight 160.244676871037 BP Diastolic BP Location Tested BP Systolic [...] Weight in lbs Pre/Post Dialysis Refused Weight 162.370888252038 BP Diastolic BP Location Tested BP Systolic BP Type 86 130 Fetus Heart Rate Present A 144 Present Fetus Movement A Yes Comments Headaches: Yes Daily tylenol effectiveNausea: noVomiting: NoFetal movement: YesContractions: Quincy HicksBeta strep done in office today.no ctxs, [...] Weight in lbs Pre/Post Dialysis Refused Weight 166.837009486849 BP Diastolic BP Location Tested BP Systolic BP Type 82 134 Fetus Heart Rate Present A 142 Present Fetus Movement A Yes Comments Headaches: Daily tylenol eff ectiveNausea: NoVomiting: NoFetal movement: YesContractions: [place] HicksDoing well, no complaints. Good FM. Reviewed [...] at 39+ weeks, paperwork completed today in [place] office. Patient will continue to monitor BP [...] Estim ated Date of Delivery false Thalassemia (Moldovan, Ghanaian, Mediterranean, Or Background): MCV < 80 false Neural Tube Defect (Meningomyelocele, Spina Bifi da, Or Anencephaly) false Congenital Heart Defect false Down Syndrome false Donald-Sachs (eg, Congregational, Cajun, Congolese-[place]) f alse Troy Disease false Sickle Cell Disease Or Trait () false Hemophilia Or Other Blood Disorders false Muscular Dystrophy false Cystic Fibrosis false [place]'s Chorea false Mental Retardation/Autism false If Yes, [...] Other Infection History false Familial Dysautonomia (Ashkenazi Congregational) false Spinal Muscular Atrophy false Parkinson Disease [...] ed By 08/31/2019 Selecting a care provider [email or web address] 08/31/[address] anning/tubal sterilization [email or web address] 08/31/2019 Depression screening (when indicated) [email or web address] 08/31/2019 Abnormal lab values tfitzger ald14 08/31/2019 Signs and symptoms of labor [email or web address] 08/31/2019 Intimate partner violence tf [email or web address] 08/31/2019 Tobacco/smoking cess ation counseling (ask, advise, assess, assist, and arrange) [email or web address] 08/31/2019 Provided information about childbirth education classes [email or web address] Third Trimester Discussed Date Discussion Item Discussion Note Discuss ed By 01/29/2020 Intimate partner violence tf [email or web address] 12/14/2019 Anesthesia plans [email or web address] 12/14/2019 [place] education (n ewborn screening, jaundice, SIDS/safe sleeping position, car seat) [email or web address] 12/14/2019 Postterm counseling tfitzger ald14 12/14/2019 movement monitoring tf [email or web address] 01/29/2020 Labor signs [email or web address] 12/14/2019 Family medical leave or disability forms [email or web address] 12/14/2019 Signs and symptoms of preeclampsia [email or web address] 01/29/2020 Discussed and offered TDAP t [email or web address] Delivery Information Delivery Date Delivery Type Labor [...] Domestic Partner Domestic Partner Phone Father Name Frame Feeder Status 02/10/20 23 1 A Negative 155 Paresh Castro CLOSED Fetus Data First Name Last Name Admitted to NICU Weight (g) Sex Living Outcome Pediatric Complications Fetus ID Race Codes Race Delivery Type Juan Pemberton n 2919.99 85 M true Full Term [id number] Vaginal Delivery Problems Problem Notes pt w/ hx of GDM with 1st pre gnancy (10/2017) & knot in cord with 2nd (01/2020)07/15/23: Pt admitted to [facility] (MFM consulted) for serial BP monitoring and [...] Resolution Snomed Code Not e High risk [id number] Advanced maternal age 308840085 Pt wishes to [place] cfDNA testing, NT & Level II USN's--will arrange. CSD03/23, 12 + wk NT USN. REport describes nl findings: viable IUP w/ S=D; nl-appearing anterior placenta w/ nl PCI; nl AFV; nl-appearing R ovary; L ovary not visualized, no L adenxal masses; nl limited early anatomy, including visualization of nasal bone; NT<95th%. CSD Past history of gestational diabetes mellitus 476586691 previously .08/12/23: UA + glucose at 32 and 34 weeks. Will repeat 1 hr GTT.08/23/23: repeat 1 hr GTT 134, WNL. edl Kidney stone 27875944 1st pre gnancy complicated by renal calculi. Pt w/ known 6 mm nonobstructing L renal stone at IOB visit, followed w/ Urology in [place]; pt was to have tx w/ lithotripsy, but had + dx'd. CSD06/11/23: patient admitted overnight in L&D for pain control (left sided) due to renal stone. Found to have bilateral non-obstructing stones with renal USN. Thought to have passed stone on left overnight, discharged home with dilaudid prn as well as flomax. scp Group B Streptococcus carrier [id number] GBS+ Hypertensive disorder 18646992 Pt w/ h/o idiop athic HTN, tx'd [...] urine 130. edl07/16/23: patient left AMA from [facility] after admitted for persistent RANKIN and severe range in office. Plan for twice weekly NSTs- one in office, one at [facility] with fluid check. reviewed with Dr. Lambert. edl07/19/23: 24 hr urine : patient discussed with MFM, given well controlled CHTN will schedule IOL at 39 weeks. Can change to earlier date if issues with uncontrolled BPs or other concerns. scp Past history of previous delivery by vacuum extraction [id number] 6 lb 8 oz. 38w3 d. for NRFHT Pain in calf 372980486 3: pt with right calf pain x 1 day. BLE 1+. Right calf does appear larger than left and tender to touch. No erythema. RLE dopplers ordered to be completed today. No SOB/CP. edl RhD negative [id number] 03/04/23: Bld Type: A NEGATIVE - RhoGAM [...] Weight in lbs Pre/Post Dialysis Refused Weight 161.740260942200 BP Diastolic BP Location Tested BP Systolic [...] Weight in lbs Pre/Post Dialysis Refused Weight 155.39241113326 BP Diastolic BP Location Tested BP Systolic [...] Weight in lbs Pre/Post Dialysis Refused Weight 158.047837856199 BP Diastolic BP Location Tested BP Systolic [...] Weight in lbs Pre/Post Dialysis Refused Weight 161.922390060642 BP Diastolic BP Location Tested BP Systolic [...] Weight in lbs Pre/Post Dialysis Refused Weight 167.702744300192 BP Diastolic BP Location Tested BP Systolic BP Type 80 126 Fetus Heart Rate Present A 160 Fetus Movement A Increased Comments Nausea/Vomiting: NoHeadaches : NoContraction/Cramping: NoFM: +Edema: legs & calf painPt seen at [facility] overnight 06/09-08/23 for tx of renal calculus. [...] Weight in lbs Pre/Post Dialysis Refused Weight 169.215205805829 BP Diastolic BP Location Tested BP Systolic [...] Weight in lbs Pre/Post Dialysis Refused Weight 166.220705297290 BP Diastolic BP Location Tested BP Systolic BP Type 82 122 Fetus Heart Rate Present A 135 Fetus Movement A Yes Comments Nausea/Vomiting: Yes/NoHeada ches: Occ relieved w/ TylenolContraction/Cramping: BHFM: +Edema: legsDoing well, no complaints. + FM. Was seen at [facility] last week on 07/15 - 07/16/23 for evaluation of RANKIN and elevated BP. Patient left AMA from [facility] after admitted. No concerns today, no ARNKIN, visual disturbances. BP today 122/82, reports that at home no higher than 140/90. Completed 24 hour urine collection 07/16/23 with normal results (210mg). USN completed last week (07/19/23) at [facility]: EFW 69%, normal BRANDEE, vertex. Next USN scheduled in 4 weeks for CHTN. Reactive NST today, will need to continue 2x weekly, next to be scheduled at [facility] on Wednesday. Urine dip today + blood and ketones. No UTI symptoms. Will send UAC&S. Would like both TDAP and flu vaccine, given at visit today. Flowsheet Date 07/29/2023 Rodgers Score Blood Edema Fundus Height Fundus Units Glucose Ketones Leukocytes Nitrite Labor Signs Protein Cervic Dilation Cervic Effacement Cervic Station 2+ 4+ none neg Type Weight in lbs Pre/Post Dialysis Refused Weight 168.409421840376 BP Diastolic BP Location Tested BP Systolic [...] Weight in lbs Pre/Post Dialysis Refused Weight 168.674142727964 BP Diastolic BP Location Tested BP Systolic [...] both WNL--will attempt to get results in [place].RTO weekly Flowsheet Date 08/12/2023 Rodgers Score Blood Edema Fundus Height Fundus Units Glucose Ketones Leukocytes Nitrite Labor Signs Protein Cervic Dilation Cervic Effacement Cervic Station neg 35 cm 3+ negative none Negative neg Type Weight in lbs Pre/Post Dialysis Refused With clothes 169.096077235099 BP Diastolic BP Location Tested BP Systolic [...] Weight in lbs Pre/Post Dialysis Refused Weight 171.137331302334 BP Diastolic BP Location Tested BP Systolic [...] (no MFM recommendations to date), will contact M to discuss. Negative PHQ-2 today. Flowsheet Date 08/26/2023 Rodgers Score Blood Edema Fundus Height Fundus Units Glucose Ketones Leukocytes Nitrite Labor Signs Protein Cervic Dilation Cervic Effacement Cervic Station neg none none neg 0cm 50% -3 Type Weight in lbs Pre/Post Dialysis Refused Weight 168.620921587391 BP Diastolic BP Location Tested BP Systolic BP Type 90 140 Fetus Heart Rate Present A 145 Fetus Movement Comments Pt feeling well. Good FM. Sh e has been monitoring BPs at home and [...] NST in office today with no decelerations. [place] irritable. She has a headache this morning [...] (when indicated) 07/09/2023 Abnormal lab values kborkows ki1 07/09/2023 Signs and symptoms of labor 07/09/2023 Intimate partner violence karlee lee07/09/2023 Provided information about childbirth education classes Third Trimester Discussed Date Discussion Item Discussion Note Discuss ed By 07/09/2023 Intimate partner violence kb jeuss07/09/2023 Anesthesia plans 07/09/2023 education (n ewborn screening, jaundice, SIDS/safe sleeping position, car seat) [email or web address]/09/2023 movement monitoring kb orluis manuel07/09/2023 Labor signs 07/09/2023 Signs and symptoms of preeclampsia Delivery Information Delivery Date Delivery Type Labor Anesthesia Weeks Gestation Incision Type Labor Labor Length Hrs Delivered By Post Complications Tubal Sterilization Discharge Date Comments 3 Induce d Regional-Ep idural 37.4 patriica Matthew Celis DO 09/02/2023 Discharge Information Feeding Method Contraceptive Method Maternal HG B and HCT Levels 11.8 / 35.0
--- OUTSIDE RECORDS SUMMARY | 2025-02-02 08:48 | XMS_ITS | Clinical Summary ---
Author Organization [facility] Address [address] [place] [address] Care Team Providers Care V Belt Skiver Name Role Phone Pcp, No Primary Care Provider Unavailabl e Allergies Active Allergy Reactions Criticality Noted Date Comments Sulfa Antibiotics Hives Medium 04/07/2019 Medications Medication Sig Dispensed Refills Start Date End Date Status azithromycin (ZITHROMAX) 250 MG tabletIndications:Otiti s media with effusion, left Take 2 tabs PO on day one and one tabs on days 2-5 #6 6 tablet 04/07/2019 Active Active Problems No known active problems Family History Medical History Relation Name Comments Prostate cancer Father No Known Problems Mother Relation Name Status Comments Father Alive Mother Alive Social History Tobacco Use Types Packs/Day Years [...] on file Sexual Orientation Not on file Last Filed Vital Signs Vital Sign Reading Time Taken Comments Blood Pressure 143/98 04/07/2019 1:48 PM EDT Pulse 96 04/07/2019 1:48 PM EDT Temperature 37 ??C (98.6 ??F) 04/07/2019 1:48 PM EDT Respiratory Rate - - Oxygen Saturation 99% 04/07/2019 1:48 PM EDT Inhaled Oxygen Concentration - - Weight 70.3 kg (155 lb) 04/07/2019 1:48 PM EDT Height 160 cm (5' 3 ) 04/07/2019 1:48 PM EDT Body Mass Index 27.46 04/07/2019 1:48 PM EDT Plan of Treatment Health Maintenance Due Date Last Done Comments DTaP/Tdap/Td Vaccines (1 - Tdap) 02/02/2007 Hepatitis B Vaccines (1 of 3 - 19+ 3-dose series) 02/02/2007 Influenza Vaccine 06/01/2024 COVID-19 Vaccine (1 - 2023-2 5 season) 2024 Pap Smear (Ages 21-65) 02/15/2026 02/15/2023 Hepatitis C Virus Screening Completed 02/16/2023 HIV Screening Completed 06/29/2023, 02/16/2023 HPV Vaccines Aged Out No longer eligi ble based on patient's age to complete this topic Pneumococcal Vaccine: Pediatric (0-5 Years) and At-Risk Patients (6 to 49 Years) Aged Out No longer eligible b ased on patient's age to complete this topic Procedures Procedure Name Priority Date/Time Associated Diagnosis Comments HIV 1/2 AG/AB CMIA REFLEX TO CONFIRMATION Routine 06/29/2023 9:56 AM EDT HEPATITIS C VIRUS (HCV) ANTIBODY Routine 02/16/2023 8:24 AM EDT THINPREP PAP(RECYCLING TECHNICIAN) HPV SCR RFX HPV 16,18/45 Routine 02/15/2023 3:35 PM EDT from Last 3 Months or Most Recently Relevant to Health Maintenance Results * HIV 1/2 Ag/Ab CMIA Reflex to Confirmation (06/29/2023 9:56 AM EDT) HIV Ag/Ab, 4th Gen Non-Reacti ve Non-Reacti ve [facility] Comment: Results show no evidence of infection by HIV 1/2. If clinically indicated, repeat CMIA or test by nucleic acid amplification. 06/29/2023 9:56 AM EDT 06/30/2023 12:47 AM EDT Gayatri Penn MD LAB BLOOD ORDERABLES [facility] [address], [place] * HEPATITIS C VIRUS (HCV) ANTIBODY (02/16/2023 8:24 AM EDT) Hepatitis C Antibody 0.12 Non-Reacti ve Non-Reacti ve S/CO [facility] Other 02/16/2023 8:24 AM EDT 02/16/2023 10:18 PM EDT Narrative [facility] - 02/17/2023 10:15 AM EDT FASTING:YES Gayatri Penn MD LAB BLOOD ORDERABLES [facility] [address], [place] * ThinPrep Pap(Windows Support Engineer) HPV Scr Rfx HPV 16,18/45 (02/15/2023 3:35 PM EDT) Report Report [facility] Comment: Final Gynecological Cytology Report ThinPrep Pap Test, HPV Screen, Reflex HPV Genotype SPECIMEN ADEQUACY: SATISFACTORY FOR EVALUATION; ENDOCERVICAL/TRANSFORMATION ZONE COMPONENT PRESENT. INTERPRETATION: NEGATIVE FOR INTRAEPITHELIAL LESION OR MALIGNANCY. Electronically Signed: ??Dago Moore, [place](ASCP) CLINICAL INFORMATION: LMP: NG Biopsy Date: ??NG Specimen Source: ??Cervix, Endocervix Previous Pap Date: ??NG HPV RESULTS: HPV mRNA E6/E7 ?? [id number] ?? Approved: 02/17/23 Negative ? REF RANGE: Negative CPT Codes: 22070 ICD Codes: Z34.83 Other 02/15/2023 3:35 PM EDT 02/17/2023 1:01 AM EDT Gayatri Penn MD LAB AMB PATH/CYTO OR DERABLES [facility] [address], [place] from Last 3 Months or Most Recently Relevant to Health Maintenance Care Teams V Belt Skiver Relationship Specialty Start Date End Date Pcp, No PCP - General General Medicine 04/07/19
--- OUTSIDE RECORDS SUMMARY | 2025-02-02 08:48 | XMS_ITS | Encounter Summary ---
Author Organization [facility] Address [address] [place] [address] Care Team Providers Care Data Management Engineer Name Role Phone Harrison Lowry MD Primary Care Provider Unava ilable Encounter Details Date Type Department Care Team Description 07/19/2017 Records Encounter Delivery Room [address] [place] [address] Provider, Not In System Social History Tobacco Use Types Packs/Day Years Used Date Smoking Tobacco: Never Assessed Sex and Gender Information Value Date Recorded Sex Assigned at Female 03/21/2019 10:20 AM EDT Gender Identity Female 03/21/2019 10:20 AM EDT Sexual Orientation Not on file Job Start Date Occupation Industry Not on file Not on file Not on file documented as of this encounter Plan of Treatment Not on file documented as of this encounter Visit Diagnoses Not on filedocumented in this encounter Care Teams Data Management Engineer Relationship Specialty Start Date End Date Harrison Lowry MD PCP - General Internal Medicine 10/14/21 documented as of this encounter
--- OUTSIDE RECORDS SUMMARY | 2025-02-02 08:48 | XMS_ITS | Clinical Summary ---
Author Organization [facility] Address [address] [place] [address] Care Team Providers Care Burn Out Scarfing Operator Name Role Phone Harrison Lowry MD Primary Care Provider Unava ilable Allergies Active Allergy Reactions Criticality Noted Date Comments Cephalexin Rash Low 02/25/2020 Sulfa Antibiotics 10/03/2017 Pt reports her dad has the allergy and she has never taken sulfa drugs Medications Medication Sig Dispensed Refills Start Date End Date Status labetalol (NORMODYNE) 200 MG tablet Take 1 tablet (200 mg total) by mouth every 12 (twelve) hours. 60 tablet 0 09/02/2023 Active docusate sodium 100 MG CAPS Take 100 mg by mouth daily. 10 capsule 0 09/03/2023 Active ibuprofen 600 MG tablet Take 1 tablet (600 mg total) by mouth every 6 (six) hours as needed (mild to moderate pain (1-6) - Administer 1st for pain). 30 tablet 0 09/02/2023 Active Active Problems Problem Noted Date Diagnosed Date Vaginal delivery 08/31/2023 Preeclampsia, severe, third trimester 08/30/2023 Headache 07/15/2023 Nephrolithiasis 06/10/2023 Chronic hypertension affecting 020 Back pain 01/09/2020 Hyperlipidemia 08/04/2017 Chronic hypertension complic ating or reason for care during , third trimester Gestational diabetes Gestational diabetes Resolved Problems Problem Noted Date Diagnosed Date Resolved Date Third trimester 02/25/2020 Full-term premature rupture of membranes with onset of labor within 24 hours of rupture 02/25/2020 02/26/2020 Vaginal delivery 02/25/2020 02/26/2020 Normal labor 01/09/2020 02/26/2020 Vaginal delivery 10/04/2017 02/26/2020 Gestational diabetes mellitu s (GDM) in third trimester 08/04/2017 02/26/2020 Hypertension affecting pregn roland in third trimester 08/04/2017 02/26/2020 30 weeks gestation of 02/26/2020 Immunizations Name Administration Dates Next Due RHO (D) Immune Globulin 09/01/2023,02/26/2020, Family History Medical History Relation Name Comments No Sig Med Hx Brother Cancer Father Hyperlipidemia Father Heart disease Mother Hypertension Mother No Sig Med Hx Sister Relation Name Status Comments Brother Father Mother Sister Social History Tobacco Use Types Packs/Day Years Used Date Smoking Tobacco: Never Smokeless Tobacco: Never Tobacco Cessation:Counseling Given: Not Answered Alcohol Use Standard Drinks/Week Comments No 0 (1 standard drink = 0.6 oz pur e alcohol) Sex and Gender Information Value Date Recorded Sex Assigned at Female 03/21/2019 10:20 AM EDT Gender Identity Female 03/21/2019 10:20 AM EDT Sexual Orientation Not on file Job Start Date Occupation Industry Not on file Not on file Not on file Last Filed Vital Signs Vital Sign Reading Time Taken Comments Blood Pressure 122/71 09/02/2023 8:01 AM EDT Pulse 70 09/02/2023 8:01 AM EDT Temperature 36.4 ??C (97.5 ??F) 09/02/2023 8:01 AM ED T Respiratory Rate 18 09/02/2023 8:01 AM EDT Oxygen Saturation 97% 09/02/2023 8:01 AM EDT Inhaled Oxygen Concentration - - Weight 76.2 kg (168 lb) 08/30/2023 9:49 AM EDT Height 160 cm (5' 3 ) 08/30/2023 9:49 AM EDT Body Mass Index 29.76 08/30/2023 9:49 AM EDT Plan of Treatment Health Maintenance Due Date Last Done Comments Hepatitis B Vaccines (1 of 3 - 3-dose series) 1988 Hepatitis C Screening 1988 Depression Screening 2000 BMI Counseling 02/02/2006 Preventative Health Evaluation 02/02/2006 Cervical Cancer Screening (Pap Smear) 02/02/2009 COVID-19 Vaccine (2 2023-2 5 season) 2024 08/13/2021 Influenza Vaccine (#1) 2024 9, 08/12/2017 DTap / Tdap / Td (4 - Td or Tdap) 07/22/2033 07/22/2023, 01/19/2020, 08/30/2017 Pneumococcal Vaccine Aged Out No long er eligible based on patient's age to complete this topic RSV Ped < 20 months Aged Out No longe r eligible based on patient's age to complete this topic Advance Directives For more information, please contact: [phone] Documents on File Type Date Recorded Patient Elevator Supervisor Expl anation Advance Directive and Living Will 08/31/2017 7:52 AM Latest Code Status on File Code Status Date Activated Date Inactivated Comments Full Code 08/30/2023 10:13 AM 09/02/2023 7:00 PM Thi s code status was ascertained in the following way: discussion with patient . Code Status History Code Status Date Activated Date Inactivated Comments Full Code 02/25/2020 3:16 AM 02/27/2020 6:23 PM This code status was ascertained in the following way: discussion with patient . Full Code 10/03/2017 6:08 PM 10/06/2017 5:20 PM This code status was ascertained in the following way: discussion with patient . Full Code 08/04/2017 8:33 AM 08/07/2017 9:22 AM This code status was ascertained in the following way: discussion with patient . Care Teams Burn Out Scarfing Operator Relationship Specialty Start Date End Date Harrison Lowry MD PCP - General Internal Medicine 10/14/21
== END 2025-02-02 08:27 | disposition home or self-care (01) ==
LOC: HO.US 08:26
PROVIDERS: PCP Internal Medicine; Visit Provider Nurse Practitioner Family
DX: N20.0 Calculus of kidney (principal)
CPT/HCPCS: 76775

== ENCOUNTER → 2025-02-02 08:30 | Outpatient (BNV) | payer OTHER, SELFPAY | PROVIDERS: PCP Internal Medicine; Visit Provider Radiology Diagnostic Radiology | DX: N20.0 Calculus of kidney (principal) | CPT/HCPCS: 76775 ==

== ENCOUNTER 2025-02-13 15:57 | Outpatient (AMB) | payer OTHER, SELFPAY ==
--- NOTE | 2025-02-13 15:58 | A.OFFVIS_ITS ---
Intake Visit Reasons: US/Litho Followup(set) Intake Note: Patient is present for 6M/US/LITHOLINK Urology Medication:NONE Antibiotic Allergy:CEPHALEXIN Blood Thinner:NONE Human Resources Professional Required: No Accompanied by: Self / Same As Patient Allergies cephalexin [From Keflex] Allergy (Verified 02/13/25 16:31) Hives Medication List - Last Reconciled 02/13/25 by HEMANT Neff ibuprofen 600 mg PO TID PRN pantoprazole 40 mg PO DAILY pyridoxine (vitamin B6) 100 mg PO DAILY 90 days HPI Comments Details: Leticia is a very pleasant 35-year-old female patient of Dr. Lowry. She has a past medical history of hyperlipidemia and hypertension. She presents to the office today for follow-up of her nephrolithiasis. Recent renal imaging results reviewed with the patient today 02/23 bilateral kidneys are normal in thickness and echotexture. Right kidney with multiple nonobstructing calculi measuring 4 mm, 5 mm, and 4 mm. Left kidney with 5 mm nonobstructing calculus. No hydronephrosis noted bilaterally. Recent 24 hour urine collection results were reviewed 01/23 we discussed low urine volume of 1.3 L when compared to previous urine output of 2.1. In discussion with the patient today she reports noting a decrease in her water intake however has been attempting on improving. She also does note intermittent episodes of right-sided flank pain. However, describes these episodes as intermittent in manageable. She does report co mpliance with vitamin B6 as prescribed. She otherwise denies any bothersome urinary issues. She does have a previous history of ESWL with Dr. Lopez 04/24. Patient with previous stone analysis that noted Carbonate Apatite (Dahllite) 90%Calcium Oxalate Dihydrate (Weddellite) 10%. In office urinalysis results reviewed with the patient today. We discussed importance of adequate hydration. Discussed obtaining Litholink in 3 months for reassessment. She denies urinary urgency, urinary frequency, incontinence, nocturia, hematuria, dysuria, foul smelling urine, changes to urinary stream, fever, and or chills. She otherwise offers no other issues or concerns at this time. [facility] Medical History History of kidney stones Elevated cholesterol HTN (hypertension) Surgical History Hx of eye surgery Social History Patient Tobacco Use Status: Never used Tobacco Review of Systems Const All systems reviewed & are unremarkable except as noted in HPI and below Physical Exam Const General: cooperative, healthy appearing, comfortable, no acute distress, well developed, alert and awake Orientation/consciousness: patient oriented x3 Limitations: no limitations HEENT Head: Yes normal to inspection, Yes normocephalic and Yes atraumatic Ears: hearing grossly normal bilaterally Eyes General: appearance normal, both eyes and all related structures Neck Neck: Yes normal visual inspection and Yes trachea midline Chest Chest palpation & inspection: normal inspection of the chest Resp Effort & Inspection: normal respiratory effort and able to speak in complete sentences Cardio Rate: regular rate GI Inspection: Yes normal to inspection General: Yes no CVA tenderness Back/Spine/Pelvis Back: no CVA tenderness Skin General skin exam: no rashes or lesions noted Neuro General: patient oriented x3 Extrem General: Yes normal to inspection Psych Appearance: grossly normal and well kempt Mental Status: mental status grossly normal Speech and movement: Normal speech and movement present and Clear speech present Affect: normal affect Attitude: cooperative Thought process: Normal thought process present Thought content: Normal thought content present Insight: Fair insight present (Psych) Judgement: Fair judgement present (Psych) Results AMB Urinalysis, Automated UA Leukoctes 15 Pamela/uL Last Edit by KidNimble Maria A on 02/13/25 16:10 UA Nitrite Last Edit by River Saha on 02/13/25 16:10 UA Urobilinogen 0.2 mg/dL Last Edit by KidNimble Maria A on 02/13/25 16:10 UA Protein 15 mg/dL Last Edit by KidNimble Maria A on 02/13/25 16:10 UA pH 6.5 Last Edit by TellmeGennatasha Saha on 02/13/25 16:10 UA Blood 25 Harshal/uL Last Edit by TellmeGennatasha Saha on 02/13/25 16:10 UA Specific [place] 1.015 Last Edit by KidNimble Maria A on 02/13/25 16:10 UA Ketone Last Edit by KidNimble Maria A on 02/13/25 16:10 UA Bilirubin 0 mg/dL Last Edit by River Saha on 02/13/25 16:10 UA Glucose 0 mg/dL Last Edit by River Saha on 02/13/25 16:10 Results Reviewed Results Reviewed: Laboratory Last Values Urine pH (Auto) 6.5 02/13/25 16:09 Specific [place] (Auto) 1.015 02/13/25 16:09 Urine Protein (Auto) 15 mg/dL 02/13/25 16:09 Glucose (UA)(Auto) 0 mg/dL 02/13/25 16:09 Urine Blood (Auto) 25 Harshal/uL 02/13/25 16:09 Urine Bilirubin (Auto) 0 mg/dL 02/13/25 16:09 Urine Urobilinogen (Auto) 0.2 mg/dL 02/13/25 16:09 Leukocyte Esterase (Auto) 15 Pamela/uL 02/13/25 16:09 Date of Service: 02/02/25 Procedure(s): US renal BI FINDINGS: Right kidney: The right kidney measures 11.4 x 4.6 x 4.9 cm. Renal parenchymal echotexture and thickness are normal. There are no masses. Multiple nonobstructing calculi are identified including a 3 x 3 x 5 mm calculus at the lower pole, a 4 x 3 x 4 mm calculus at the lower pole, and a 4 x 3 x 4 mm calculus in the interpolar region. There is no hydronephrosis. Left Kidney: The left kidney measures 12.0 x 5.0 x 6.7 cm. Renal parenchymal echotexture and thickness are normal. There are no masses. There is a 5 x 4 x 4 mm nonobstructing calculus at the lower pole. No hydronephrosis. IMPRESSION: Bilateral nephrolithiasis as described. Assessment & Plan Assessment & Plan (1) Nephrolithiasis: Code(s): N20.0 - Calculus of kidney Category: Medical (2) Flank pain: Code(s): R10.9 - Unspecified abdominal pain Category: Medical Plan In office urinalysis results reviewed with the patient today; as noted above. Recent renal imaging results reviewed with the patient today; as noted above. Recent Litholink results reviewed with the patient today; as noted above. We discussed at length the importance of adequate hydration relation to nephrolithiasis as well as overall health and well-being. Continue vitamin B6. Continue adding 1 oz of lemon juice to water daily. Will continue with surveillance monitoring at this time. She currently denies any bothersome urinary issues. She reports be happy with current voiding parameters. Follow-up in 3 months with repeat Litholink; or sooner with any issues, concerns, and or questions. Orders: Orders AMB Urinalysis Automated Today Z13.9 - Encounter for screening, unspecified URORISK Today N20.0 - Calculus of kidney Patient Instructions: The patient had an opportunity to ask questions regarding the treatment plan. All questions were answered. Physical exam, labs, and imaging were discussed and reviewed in detail. As well as risks, benefits, and discussion of treatment choices. No major barriers to understanding were identified. The patient expre ssed understanding and agreement with the above treatment plan. The patient was made aware they should contact our office by phone for worsening of their current condition, the appearance of new symptoms, or with any questions or concerns. Compliance is encouraged with any medications and follow up testing that is ordered. It is a privilege to be allowed the opportunity to participate in? your urological care.? Again, if you have any questions or concerns If you have any questions or concerns please do not hesitate to contact me. The office is [phone]. This note is constructed using voice recognition software. While every effort has been made to ensure accuracy window and door installer errors may have been included. Yours sincerely, HEMANT Neff Coding Level of Care Code Est Pt Level 3 (42462) Diagnoses Nephrolithiasis N20.0 Flank pain R10.9
--- OUTSIDE RECORDS SUMMARY | 2025-02-13 18:51 | XMS_ITS | Clinical Summary ---
Author Organization [facility] ity Address [address] [place] [address] Care Team Providers Care Vaccine Key Customer Leader Name Role Phone Harrison Lowry MD Primary Care Provider [phone] Immunizations Name Administration Dates Next Due Pfizer [...] 10/04/2022 COVID-19 Vaccine ( season) 2024 08/13/2021 Hypertension/CHF/CAD Annual BMP Blood Test 08/31/2024 08/31/2023, 08/30/2023, 07/15/2023, Additional history exists Influenza Vaccine (Season Ended) 2025 HIB Vaccines Aged Out No longer eligi [...] age to complete this topic Meningococcal B Vaccine Aged Out No l onger eligible based on patient's age to complete [...] age to complete this topic Care Teams Vaccine Key Customer Leader Relationship Specialty Start Date End Date Harrison Lowry MD [address] [place] [address] [place] [id number] PCP - General Internal Medicine 10/14/21
--- OUTSIDE RECORDS SUMMARY | 2025-02-13 18:51 | XMS_ITS | Encounter Summary ---
Author Organization [facility] Address [address] [place] [address] Care Team Providers Care Refinery Process Engineer Name Role Phone Harrison Lowry MD Primary Care Provider Unava ilable Encounter Details Date Type Department Care Team Description 12/02/2019 Records Encounter Delivery Room [address] [place] [id number] Provider, Not In System Social History Tobacco [...] on filedocumented in this encounter Care Teams Refinery Process Engineer Relationship Specialty Start Date End Date Harrison Lowry MD PCP - General Internal Medicine 10/14/21 documented as of this encounter
--- OUTSIDE RECORDS SUMMARY | 2025-02-13 18:52 | XMS_ITS | Clinical Summary ---
Author Organization [facility] Address [address] [place] [address] Care Team Providers Care Cafe Site Attendant Name Role Phone Harrison Lowry MD Primary [...] Advance Directives For more information, please contact: [phone] Documents on File Type Date Recorded Patient Dumper Operator Expl anation Advance Directive and Living Will [...] way: discussion with patient . Care Teams Cafe Site Attendant Relationship Specialty Start Date End Date Harrison Lowry MD PCP - General Internal Medicine 10/14/21
--- OUTSIDE RECORDS SUMMARY | 2025-02-13 18:52 | XMS_ITS | Clinical Summary ---
Author Organization [facility] Address [address] [place] [address] Care Team Providers Care Wax Pumper Name Role Phone Pcp, No Primary Care [...] ANTIBODY Routine 02/16/2023 8:24 AM EDT THINPREP PAP(WELLNESS NURSE RN) HPV SCR RFX HPV 16,18/45 Routine 02/15/2023 3:35 PM EDT from Last 3 Months or Most Recently Relevant to Health Maintenance Results * HIV 1/2 Ag/Ab CMIA Reflex to Confirmation (06/29/2023 9:56 AM EDT) HIV Ag/Ab, 4th Gen Non-Reacti ve Non-Reacti ve [facility] Comment: Results show no evidence of infection by HIV 1/2. If clinically indicated, repeat CMIA or test by nucleic acid amplification. 06/29/2023 9:56 AM EDT 06/30/2023 12:47 AM EDT Gayatri Penn MD LAB BLOOD ORDERABLES [facility] [address], [place] * HEPATITIS C VIRUS (HCV) ANTIBODY (02/16/2023 8:24 AM EDT) Hepatitis C Antibody 0.12 Non-Reacti ve Non-Reacti ve S/CO [facility] Other 02/16/2023 8:24 AM EDT 02/16/2023 10:18 PM EDT Narrative [facility] - 02/17/2023 10:15 AM EDT FASTING:YES Gayatri Penn MD LAB BLOOD ORDERABLES [facility] [address], [place] * ThinPrep Pap(Mechanical Handyman) HPV Scr Rfx HPV 16,18/45 (02/15/2023 3:35 [...] ??NG HPV RESULTS: HPV mRNA E6/E7 ?? [id number] ?? Approved: 02/17/23 Negative ? REF RANGE: Negative CPT Codes: 60246 ICD Codes: Z34.83 Other 02/15/2023 3:35 PM EDT 02/17/2023 1:01 AM EDT Gayatri Penn MD LAB AMB PATH/CYTO OR DERABLES [facility] [address], [place] from Last 3 Months or Most Recently Relevant to Health Maintenance Care Teams Wax Pumper Relationship Specialty Start Date End Date Pcp, No PCP - General General Medicine 04/07/19
--- OUTSIDE RECORDS SUMMARY | 2025-02-13 18:52 | XMS_ITS | Encounter Summary ---
Author Organization [facility] Address [address] [place] [address] Care Team Providers Care Cash Controller Name Role Phone Pcp, No Primary Care Provider Unavailabl e Encounter Details Date Type Department Care Team (Late st Contact Info) Description 04/10/2019 Telephone [facility] [address] [place] [address] Kasia George, [address] [place] [address] Social History Tobacco Use Types Packs/Day Years [...] on filedocumented in this encounter Care Teams Cash Controller Relationship Specialty Start Date End Date Pcp, No PCP - General General Medicine 04/07/19 documented as of this encounter
--- OUTSIDE RECORDS SUMMARY | 2025-02-13 18:52 | XMS_ITS | Encounter Summary ---
Author Organization [facility] Address [address] [place] [address] Care Team Providers Care Battery Filler Name Role Phone Harrison Lowry MD Primary Care Provider Unava ilable Encounter Details Date Type Department Care Team Description 07/19/2017 Records Encounter Delivery Room [address] [place] [address] Provider, Not In System Social History Tobacco [...] on filedocumented in this encounter Care Teams Battery Filler Relationship Specialty Start Date End Date Harrison Lowry MD PCP - General Internal Medicine 10/14/21 documented as of this encounter
--- OUTSIDE RECORDS SUMMARY | 2025-02-13 18:52 | XMS_ITS | Data Portability ---
Author Organization [place] - [facility]'s [facility], [facility] Address [id number] [place] [address] Care Team Providers Care Data Librarian Name Role Phone POOL [place] Primary Care Provider Assessment No assessment recorded. Plan of Treatment Reminders Order Date Submit Date Provider Last Modified By Organization Details Last Modified Time Details Appointments None recorded. Lab test, urine 2023 024 [email or web address] In-Office Order, Internal Use Only DO Not Attach Compendium DO Not Attach Compendium, Do Not Delete/merge, [id number] 4 15:21:15 CT + NG DNA, PCR, unspecified specimen 2022 023 [facility], [address] [place] [address], [id number] 3 22:19:51 bacterial vaginosis + vaginitis panel, vaginal 2022 023 [facility], [address] [place] [address], [id number] 3 12:27:26 streptococc us group B DNA 2022 023 [facility], [address] [place] [address], [id number] 3 12:27:21 Referral None recorded. Procedures None recorded. Surgeries None recorded. Imaging None recorded. Medication Orders Liletta 20.4 mcg/24 hr (up to 8 years) 52 mg intrauterin e device 2023 024 [email or web address] Not available 4 16:45:20 Patient TargetsNo targets recorded. Patient Instructions Encounter Date Encounter Id Patient Instructions Last Modified By Organization Details Last Modified Time 08/19/2023 [id number] Behavioral healt h screening completed and reviewed with patient. Negative findings. [email or web address] Not available 08/19/2023 18:08:51 10/15/2023 [id number] anxiety disorder : care instructions Not available 10/15/2023 12:15:27 learning about anxiety disorders Not available 10/15/2023 12:15:27 Behavioral healt h screening completed and reviewed with patient. Negative findings. Has known Anxiety. Not available 10/15/2023 12:19:34 11/10/2023 [id number] intrauterine device (IUD) insertion: care instructions [email or web address] Not available 11/10/2023 15:21:15 Reason for Referral None Reported. Results Created Date Observation Date Name Description Value Unit Range Abnormal Flag Note LastModifiedBy Organization Detail LastModifiedTime 07/22/2007/23/2023 URINA LYSIS , COMPL ETE color YELLOW yellow normal Not Available [facility] [address], [address], 07/23/2023 05:47:06 07/22/20 23 07/23/2023 URINA LYSIS , COMPL ETE appearance CLOUDY clear abnormal Not Available [facility] [address], [address], 07/23/2023 05:47:06 07/22/20 23 07/23/2023 URINA LYSIS , COMPL ETE specific gravity 1.020 1.001- 1.035 normal Not Available [facility] [address], [address], 07/23/2023 05:47:06 07/22/20 23 07/23/2023 URINA LYSIS , COMPL ETE pH 6.5 5.0-8. 0 normal Not Available [facility] [address], [address], 07/23/2023 05:47:06 07/22/20 23 07/23/2023 URINA LYSIS , COMPL ETE glucose NEGATI VE negati ve normal Not Available [facility] [place] [facility] [address], [place], [address], 07/23/2023 05:47:06 07/22/20 23 07/23/2023 URINA LYSIS , COMPL ETE bilirubin NEGATI VE negati ve normal Not Available [facility] [place] [facility] [address], [place], [address], 07/23/2023 05:47:06 07/22/20 23 07/23/2023 URINA LYSIS , COMPL ETE ketones 1+ negati ve abnormal Not Available [facility] [place] [facility] [address], [place], [address], 07/23/2023 05:47:06 07/22/20 23 07/23/2023 URINA LYSIS , COMPL ETE occult blood 3+ negati ve abnormal Not Available [facility] [place] [facility] [address], [place], [address], 07/23/2023 05:47:06 07/22/20 23 07/23/2023 URINA LYSIS , COMPL ETE protein 1+ negati ve abnormal Not Available [facility] [place] [facility] [address], [place], [address], 07/23/2023 05:47:06 07/22/20 23 07/23/2023 URINA LYSIS , COMPL ETE nitrite NEGATI VE negati ve normal Not Available [facility] [place] [facility] [address], [place], [address], 07/23/2023 05:47:06 07/22/20 23 07/23/2023 URINA LYSIS , COMPL ETE leukocyte esterase 2+ negati ve abnormal Not Available [facility] [place] [facility] [address], [place], [address], 07/23/2023 05:47:06 07/22/20 23 07/23/2023 URINA LYSIS , COMPL ETE WBC 20-40 /hpf < or = 5 abnormal Not Available [facility] [place] [facility] [address], [place], [address], 07/23/2023 05:47:06 07/22/20 23 07/23/2023 URINA LYSIS , COMPL ETE RBC 0-2 /hpf < or = 2 normal Not Available [facility] [place] [facility] [address], [place], [address], 07/23/2023 05:47:06 07/22/20 23 07/23/2023 URINA LYSIS , COMPL ETE squamous epithelial cells 10-20 /hpf < or = 5 abnormal Not Available [facility] [place] [facility] [address], [place], [address], 07/23/2023 05:47:06 07/22/20 23 07/23/2023 URINA LYSIS , COMPL ETE bacteria MANY /hpf none seen abnormal Not Available [facility] [place] [facility] [address], [place], [address], 07/23/2023 05:47:06 07/22/20 23 07/23/2023 URINA LYSIS , COMPL ETE hyaline cast 0-1 /lpf none seen abnormal Not Available [facility] [place] [facility] [address], [place], [address], 07/23/2023 05:47:06 07/22/20 23 07/22/2023 URINE CULTU RE urine source URINE, RANDOM Not Available [facility] [address] [place], [address] 07/24/2023 08:31:21 07/22/20 07/22/2023 URINE CULTU RE [...] sonja bacte rial count s. Not Available [facility] [address] [facility], [place], [address] 07/24/2023 08:31:21 07/29/2007/30/2023 URINA LYSIS , COMPL ETE color YELLOW yellow normal Not Available [facility] [address], [address], 07/30/2023 01:52:31 07/29/2007/30/2023 URINA LYSIS , COMPL ETE appearance CLEAR clear normal Not Available [facility] [address], [place], [address], 07/30/2023 01:52:31 07/29/2007/30/2023 URINA LYSIS , COMPL ETE specific gravity 1.016 1.001- 1.035 normal Not Available [facility] [address], [place], [address], 07/30/2023 01:52:31 07/29/2007/30/2023 URINA LYSIS , COMPL ETE pH 7.0 5.0-8. 0 normal Not Available [facility] [address], [address], 07/30/2023 01:52:31 07/29/2007/30/2023 URINA LYSIS , COMPL ETE glucose 2+ negati ve abnormal Not Available [facility] [place] [facility] [address], [place], [address], 07/30/2023 01:52:31 07/29/20 23 07/30/2023 URINA LYSIS , COMPL ETE bilirubin NEGATI VE negati ve normal Not Available [facility] [place] [facility] [address], [place], [address], 07/30/2023 01:52:31 07/29/20 23 07/30/2023 URINA LYSIS , COMPL ETE ketones NEGATI VE negati ve normal Not Available [facility] [place] [facility] [address], [place], [address], 07/30/2023 01:52:31 07/29/20 23 07/30/2023 URINA LYSIS , COMPL ETE occult blood 2+ negati ve abnormal Not Available [facility] [place] [facility] [address], [place], [address], 07/30/2023 01:52:31 07/29/20 23 07/30/2023 URINA LYSIS , COMPL ETE protein NEGATI VE negati ve normal Not Available [facility] [place] [facility] [address], [place], [address], 07/30/2023 01:52:31 07/29/20 23 07/30/2023 URINA LYSIS , COMPL ETE nitrite NEGATI VE negati ve normal Not Available [facility] [place] [facility] [address], [place], [address], 07/30/2023 01:52:31 07/29/2007/30/2023 URINA LYSIS , COMPL ETE leukocyte esterase 1+ negati ve abnormal Not Available [facility] [place] [facility] [address], [place], [address], 07/30/2023 01:52:31 07/29/20 23 07/30/2023 URINA LYSIS , COMPL ETE WBC 0-5 /hpf < or = 5 normal Not Available [facility] [place] [facility] [address], [place], [address], 07/30/2023 01:52:31 07/29/20 23 07/30/2023 URINA LYSIS , COMPL ETE RBC 3-10 /hpf < or = 2 abnormal Not Available [facility] [place] [facility] [address], [place], [address], 07/30/2023 01:52:31 07/29/20 23 07/30/2023 URINA LYSIS , COMPL ETE squamous epithelial cells 0-5 /hpf < or = 5 Not Available [facility] [place] [facility] [address], [place], [address], 07/30/2023 01:52:31 07/29/20 23 07/30/2023 URINA LYSIS , COMPL ETE bacteria NONE SEEN /hpf none seen normal Not Available [facility] [place] [facility] [address], [place], [address], 07/30/2023 01:52:31 07/29/20 23 07/30/2023 URINA LYSIS , COMPL ETE hyaline cast NONE SEEN /lpf none seen normal Not Available [facility] [place] [facility] [address], [place], [address], 07/30/2023 01:52:31 07/29/20 23 07/29/2023 URINE CULTU RE urine source URINE, CLEAN CATCH Not Available [facility] [address] [place], [address] 07/31/2023 11:23:35 07/29/20 23 07/29/2023 URINE CULTU [...] sonja bacte rial count s. Not Available [facility] [address] [place] [address], [address] 07/31/2023 11:23:35 08/19/2008/19/2023 GROUP B STREP DNA PCR group B strep DNA PCR Positi ve negati ve abnormal Not Available [facility] [address] [place] [address], [address] 08/23/2023 12:27:21 08/19/2008/19/2023 GROUP B STREP DNA PCR group B strep source Vagina l/Rect al Not Available [facility] [address] [place] [address], [address] 08/23/2023 12:27:21 08/19/2008/19/2023 ADVAN HÉCTOR BACTE RIAL VAGIN OSIS (BV), TMA adv bacterial vaginosis (bv), tma Negati ve negati ve Not Available [facility] [address] [place] [address], [address] 08/23/2023 12:27:25 08/19/2008/19/2023 ADVAN HÉCTOR MARIO DA VAGIN ITIS (CV)/ TRICH OMONA S VAGIN JUSTIN (TV), TMA ramakrishna species Negati ve negati ve Not Available [facility] [address] [place] [address], [address] 08/23/2023 12:27:26 08/19/2008/19/2023 ADVAN HÉCTOR MARIO DA VAGIN ITIS (CV)/ TRICH OMONA S VAGIN JUSTIN (TV), TMA ramakrishna glabrata Negati ve negati ve Not Available [facility] [address] [place] [address], [address] 08/23/2023 12:27:26 08/19/2008/19/2023 ADVAN HÉCTOR MARIO DA VAGIN ITIS (CV)/ TRICH OMONA S VAGIN JUSTIN (TV), TMA trichomonas vaginalis (TV), tma Negati ve negati ve Not Available [facility] [address] [place], [address] 08/23/2023 12:27:26 08/20/20 23 08/20/2023 [facility] GLUCO SE GESTA ANNETTE L SCREE N, 135 CUTOF F [facility] glucose gestational screen 135 134 mg/dL <136 Not Available [facility] [address] [place], [address] 08/23/2023 12:00:33 10/15/20 23 10/15/2023 CHLAM YDIA/ [...] than 16 years of age. Not Available [facility] [address] [place] [address], [address] 10/18/2023 22:19:51 10/15/20 23 10/15/2023 CHLAM YDIA/ [...] than 16 years of age. Not Available [facility] [address] [place], [address] 10/18/2023 22:19:51 11/10/19 24 11/10/2023 pregn roland test, urine Result negati ve Not Available In-Office Order Internal Use Only DO Not Attach Compendium DO Not Attach Compendium, Do Not Delete/merge, [id number] 11/09/2023 12:58:11 07/22/20 23 07/22/2023 non-s tress test No observ ation record ed. Not Available 2022 15:33:57 07/26/2007/26/2023 non-s tress test No observ ation record ed. [email or web address] Not Available 07/26 12:57:00 07/29/20 non-s tress test No observ ation record ed. Not Available 2022 11:07:02 08/02/2008/02/2023 non-s tress test No observ ation record ed. [email or web address] [address], [address], 08/02/2023 22:44:16 08/09/2008/09/2023 non-s tress test No observ ation record ed. [address], [address], 08/09/2023 23:36:57 08/16/2008/16/2023 US, obste tric, mater nal evalu ation + anato my No observ ation record ed. [email or web address] Not Available 08/16 17:27:01 08/16/2008/16/2023 non-s tress test No observ ation record ed. [email or web address], [address], 08/16/2023 17:28:08 08/23/2008/23/2023 US, obste tric, bioph ysica l profi le + non-s tress test No observ ation record ed. [email or web address], [address], 08/25/2023 14:04:40 08/30/2008/30/2023 non-s tress test No observ ation record ed. [email or web address] [address], [address], 08/30/2023 12:54:52 12/21/19 24 12/21/2023 US, trans vagin al RAD [facility] [address], [place], [address], 12/28/2023 12:19:39 Result Notes None recorded. Problems Name Problem SNOMED Code Status Onset Date Resolution Date Notes Provider Name and Address Organization Details Recorded Time Pregnanc y 27290871 Completed 201610/13/2017 Tiara [facility], [facility] 0 08:56:57 Blood group A Rh(D) negative 094174554 Completed 03/22/20 17: Rh Negative - RhoGAM candidat e. PAU Pastora hercules, [facility] 7 12:01:24 Hyperten sive disorder 47106877 Completed 2016 History of cHTN for the [...] (WNL)/f- up 4 weeks Pastora Yanez diomedes, [facility] 7 12:01:24 Impaired glucose toleranc e 5300883 Completed 201607/08/2017 : Elevated 1Hr Glucose (172) - NEEDS 3HR Test. PIA TREVIZO , [address] [facility], 3rd Floor, [place], [address], [place] - [facility] 7 08:25:44 Gestatio nal diabetes mellitus 01158107 Completed 201607/08/2017 : Elevated 1Hr Glucose (172) [...] ktb Pastora hercules, [place] - [facility] 7 12:01:24 Hyperten sive disorder 02862657 Active Pt w/ h/o idiopath ic HTN, [...] edl 07/16/23 : patient left AMA from [facility] after admitted for persiste nt RANKIN and severe range in office. Plan for twice weekly NSTs- one in office, one at [facility] with fluid check. reviewed with Dr. Lambert. edl 07/19/23 : 24 hr urine 210 08/20/23 : patient discusse d with MFM, given well controll ed CHTN will schedule IOL at 39 weeks. Can change to earlier date if issues with uncontro lled BPs or other concerns . scp Tiara hercules, [place] - [facility] 3 13:05:02 Pregnanc y 95962631 Completed 201803/27/2020 Tiara hercules, [place] - [facility] 0 08:56:57 Past pregnanc y history of gestatio nal diabetes mellitus 211746116 Completed Pt w/ Class A1 GDM in 1st pregnanc y--will check fasting BS & HbA1C w/ IOB labs, as pt never complete d pp F/U testing for residual DM. If WNL, plan screenin g later in pregnanc y per routine. Fasting BS=75, PkK9V=7. 4 CSD Normal glucola this preg Tiara hercules, [place] - [facility] 0 08:56:46 RhD negative 954235195 Completed Rhogam candidat e. Rhogam given at 28 wga. TBF Tiara hercules, [place] - [facility] 0 08:56:46 History of hyperten patricio 788947770 Completed Tiara hercules, [place] - [facility] 0 08:56:46 Chronic hyperten patricio in obstetri c context 4958708 Completed Pt reports h/o idiopath ic HTN [...] Nl Baseline pre-E labs. 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 [facility] Tiara Monaco null, [place] - [facility] 0 08:56:46 Kidney stone 72742384 Completed 1st pregnanc y complica sonja by renal calculi. Pt w/ known 6 mm nonobstr ucting L renal stone at IOB visit, followed w/ Urology in [place]; pt was to have tx w/ lithotri psy, but had + pregnanc y dx'd. CSD [facility]ided[facility] due to renal stone. Found to have bilatera l non-obst ructing stones with renal USN. Thought to have passed stone on left overnigh t, discharg ed home with dilaudid prn as well as flomax. [facility] Tiara Dumont null, [place] - [facility] 3 13:05:02 High risk pregnanc y 01235540 Completed Tiara hercules, [facility] 3 13:05:02 Hyperten sive disorder 10895932 Completed Pt w/ h/o idiopath ic HTN, [...] edl 07/16/23 : patient left AMA from [facility] after admitted for persiste nt RANKIN and severe range in office. Plan for twice weekly NSTs- one in office, one at [facility] with fluid check. reviewed with Dr. Lambert. edl 07/19/23 : 24 hr urine 210 08/20/23 : patient discusse d with MFM, given well controll ed CHTN will schedule IOL at 39 weeks. Can change to earlier date if issues with uncontro lled BPs or other concerns . scp Tiara Dumont null, [place] - [facility] 3 13:05:02 Advanced maternal age 735213497 Completed Pt wishes to have cfDNA testing, [...] nasal bone; NT<95th% . CSD Tiara hercules, [place] - [facility] 3 13:05:02 RhD negative 586713831 Completed 03/04/23: Bld Type: A NEGATIVE - RhoGAM Candidat e. paub 07/09/23: RhoGAM given. ktb Tiara hercules, [place] - [facility] 3 13:05:02 Pain in calf 375687328 Completed 05/14/23 : pt with right calf pain x 1 day. BLE 1+. Right calf does appear larger than left and tender to touch. No erythema . RLE dopplers ordered to be complete d today. No SOB/CP. edl Tiara hercules, [facility] 3 13:05:02 Past pregnanc y history of previous delivery by vacuum extracti on 417568280 Completed 6 lb 8 oz. 38w3d. for NRFHT Tiara hercules, [facility] 3 13:05:02 Past pregnanc y history of gestatio nal diabetes mellitus 317983318 Completed previous ly pregnanc y. 08/12/23 : UA + glucose at 32 and 34 weeks. Will repeat 1 hr GTT. 08/23/23 : repeat 1 hr GTT 134, WNL. edl Tiara hercules, [facility] 3 13:05:02 Group B Streptoc occus carrier [id number] 03 Completed GBS+ Tiara hercules, [facility] 3 13:05:02 Anxiety disorder 909791440 Active 2022 YEYO TREVIZO DO [address] [facility], 3[address] Floor, [place], [address] , [facility] - [facility] 3 12:24:21 Problem Notes None recorded. Procedures Surgical History Date Name Laterality Status Provider Name and Address Organization Details Recorded Time 11/10/19 24 IUD Insert completed YEYO TREVIZO DO [address], [address] [place] [address], [phone], [facility] 11/10/2023 16:50:26 08/19/20 23 Non-Stress Test completed MATTHEW CELIS DO [address] [facility], [address] [place] [address], [address], [facility] 08/19/2023 18:09:20 08/05/20 23 Non-Stress Test completed LALA PATRICK MD [address], [address] [place] [address], [phone], [facility] 08/05/2023 08:54:34 07/29/20 23 Non-Stress Test completed LALA PATRICK MD [address] [facility], [address] [place] [address], [phone], [facility] 07/29/2023 09:16:59 07/22/20 23 Non-Stress Test completed MATTHEW CELIS DO [address] [facility], [address] [place] [address], [address], [facility] 07/22/2023 13:04:28 11/18/19 22 IUD Removal completed SONYA MENDEZ DO [address] [facility], [address] [place] [address], [address], [facility] 11/18/2021 13:55:40 11/18/19 22 [id number]-[id number] completed Mary Castillo [facility] 11/18/2021 13:42:37 04/30/20 20 IUD Insert completed WILLIAM LAGUANS APRN [address], [address] [place] [address], [address], [facility] 04/30/2020 13:25:20 04/15/20 20 K6T-NRKH (0503F) completed WILLIAM LAGUNAS APRN [address], [address] [place] [address], [phone], [facility] - [facility] 04/14/2020 12:49:46 04/15/20 20 [id number]-[id number] completed WILLIAM LAGUNAS APRN [address] [facility], [address] [place] [address], [phone], [facility] 04/14/2020 12:49:54 04/15/20 20 [id number]-[id number] completed WILLIAM LAGUNAS APRN [address] [facility], [address] [place] [address], [phone], [facility] - [facility] 04/14/2020 12:49:50 04/15/20 20 Telemedicine Visit completed IWLLIAM LAGUNAS APRN [address] [facility], [address] [place] [address], [phone], [facility] 04/15/2020 13:07:45 03/13/20 20 Telemedicine Visit completed MOISES TERRELL MD [address] [facility], [address] [place] [address], [phone], [facility] 03/13/2020 09:11:03 03/06/20 20 Telemedicine Visit completed YEYO TREVIZO DO [address] [facility], [address] [place] [address], [phone], [facility] 03/06/2020 10:13:08 02/19/20 20 X4O-LCI completed Mary Castillo [facility] 02/19/2020 09:30:28 02/12/20 20 D7H-WPV completed Mary Castillo [facility] 02/12/2020 09:32:00 11/08/19 18 Q4A-ADQS (0503F) completed Mary Castillo [facility] 11/08/2017 09:47:55 11/08/19 18 [id number]-[id number] completed Mary Castillo [facility] 11/08/2017 09:47:56 11/08/19 18 [id number]-VDDRXXSP (0503F,LATE (57 - 90 days)) completed Mary Castillo [facility] 11/08/2017 09:47:56 09/29/20 17 Non-Stress Test completed WILLIAM LAGUNAS APRN [address], [address] [place] [address], [facility] 09/29/2017 09:50:56 09/21/20 17 Non-Stress Test completed WILLIAM LAGUNAS APRN [address], [address] [place] [address], [facility] 09/21/2017 10:13:31 09/13/20 17 Non-Stress Test completed MOISES TERRELL MD [address], [address] [place] [address], [facility] 09/13/2017 16:06:00 08/30/20 17 Non-Stress Test completed YEYO TREVIZO DO [address], [address] [place] [address], [facility] 08/30/2017 13:47:55 08/23/20 17 Non-Stress Test completed MOISES TERRELL MD [address], [address] [place] [address], [facility] 08/23/2017 08:17:46 08/16/20 17 Non-Stress Test completed MOISES TERRELL MD [address], [address] [place] [address], [facility] 08/16/2017 13:41:10 01/12/20 17 Date of Last Pap Smear completed Mary Castillo [facility] 03/05/2017 10:19:26 Other completed Mary Castillo [facility] 03/05/2017 10:20:27 Imaging Results Imaging Date Name Status LastModified by Organization Details LastModified Time 07/22/2023 non-stress test completed Informati on not available 07/22/2023 15:33:57 07/26/2023 non-stress test completed Informati on not available 07/26/2023 12:57:00 07/29/2023 non-stress test completed Informati on not available 07/29/2023 11:07:02 08/02/2023 non-stress test completed [email or web address] [address], [address], 08/02/2023 22:44:16 08/09/2023 non-stress test completed [email or web address] [address], [address], 08/09/2023 23:36:57 08/16/2023 US, obstetric, maternal evaluation + anatomy completed Information not available 08/16/2023 17:27:01 08/16/2023 non-stress test completed [email or web address] [address], [address], 08/16/2023 17:28:08 08/23/2023 US, obstetric, biophysical profile + non-stress test completed [email or web address] [address], [address], 08/25/2023 14:04:40 08/30/2023 non-stress test completed [email or web address] [address], [address], 08/30/2023 12:54:52 12/21/2023 US, transvaginal completed [facility] [address], [place], [address], 12/28/2023 12:19:39 Procedure Notes None recorded. Medical Equipment None Reported. Allergies Allergen ID Allergen Name Allergen Category Reaction Reaction Severity Criticality Documentation Date Start Date Code Code System Note Provider Name and Address Organization Details Recorded Time [id number] Keflex medicatio n itching Not available Not available 02/19/2020 7 RxNorm [facility] [place] [facility] 0 09:29:21 [id number] Substance with sulfonami de structure and antibacte rial mechanism of action (substanc e) medicatio n hives Not available Not available 03/05/2017 [id number] SNOMED [facility], [facility] 7 07:16:03 Medications Name Sig Start Date Stop Date Status Note LastModified by Organization Details LastModified Time Mirena 21 mcg/24 hr (up to 8 years) 52 mg intrauter ine device Take by intraute rine route. 04/30 completed inserted 04-30-20 20NDC: 82871-79 12-30LOT: [id number] XP: 04-01-20 22 Not Available Not Available [...] rine route. 2023 active placed 11/10/23; lot [id number] ; Exp 12/2025 Not Available Not Available Not Available Kyleena 17.5 mcg/24 hr (up to 5 years) 19.5 mg intrauter ine device Take by intraute rine route. 11/18 completed inserted 04-30-20 20ND: 05785-52 01-30LOT: [id number] XP: 12/02/19 22 Not Available Not Available Not Available Vitals Date Recorded Body weight Systolic blood pressure Diastolic blood pressure Provider Name and Address Organization Details Last Updated DateTime 08/19/2023 18208.2952 7 g 120 mm[Hg] 80 mm[Hg] Not Available [facility] Record 08/19/2023 07:41:06 Date Recorded Body weight Systolic blood pressure Diastolic blood pressure Provider Name and Address Organization Details Last Updated DateTime 08/26/2023 46145.5181 6 g 140 mm[Hg] 90 mm[Hg] Not Available [facility] Record 08/26/2023 07:40:26 Date Recorded Body height Body mass index (BMI) Body weight Systolic blood pressure Diastolic blood pressure Provider Name and Address Organization Details Last Updated DateTime 09/10/2023 161.29 cm 26.3 kg/m2 83088.45 g 130 mm[Hg] 90 mm[Hg] Pastora Brewer [facility] 3 11:53:15 Date Recorded Body height Body mass index (BMI) Body weight Systolic blood pressure Diastolic blood pressure Provider Name and Address Organization Details Last Updated DateTime 10/15/2023 161.29 cm 25.3 kg/m2 36390.89 g 120 mm[Hg] 80 mm[Hg] Pastora Brewer [facility] 3 11:49:46 Date Recorded Body height Body mass index (BMI) Body weight Systolic blood pressure Diastolic blood pressure Provider Name and Address Organization Details Last Updated DateTime 11/10/2023 161.29 cm 26 kg/m2 71996.26 g 138 mm[Hg] 82 mm[Hg] Claribel Guevara [facility] 4 14:28:41 Social History Question Answer Notes LastModified by Organizat ion Details LastModified Time Tobacco Smoking Status [facility] 11:49:59 What Is Your Level [...] been on isolation N Anxiety Disorder Y HSV N Arthritis N Infertility N Interstitial Cystitis N Abnormal pap N Acid Reflux (GERD) N Cancer N [...] -IG IM 09/01/2023 completed Pastora Brewer null, [place] - [facility] 10/15/2023 11:50:16 Tdap 07/22/2023 completed Anabel Suh null, [place] - [facility] 07/22/2023 16:25:15 COVID-19, mRNA, LNP-S, PF, 30 mcg/0.3 mL dose 08/13/2021 completed Not Available [facility] 3 08:50:41 Influenza, split virus, quadrivalent, PF 08/12/2017 completed Not Available [facility] 0 02:19:05 Tdap 08/30/2017 completed Not Available [facility] 11/18/2019 02:19:06 Influenza, split virus, quadrivalent, PF 08/03/2019 completed Not Available [facility] 0 02:19:42 Tdap 01/19/2020 completed Zuleika Berger null, [place] - [facility] 01/19/2020 14:22:05 Past Encounters Encounter ID Performer Location Encounter Start Date Encounter Closed Date Diagnosis/Indication Diagnosis SNOMED-CT Code Diagnosis ICD10 Code Diagnosis Note [id number] YEYO TREVIZO DO [facility] [place] [address] 03/05/2017 09:49:01 03/08/2017 10:37:17 Routine care 737160108 Z34.90 Z34.91 Z34.92 Z34.93 Z34.00 Z34.80 Z34.01 Z34.02 Z34.03 Z34.81 Z34.82 Z34.83 [id number] MATTHEW CELIS DO [facility] [place] [address] 04/02/2017 11:08:49 04/05/2017 10:40:32 Routine care 671580452 Z34.01 Doing well, no complaints . Reviewed all testing to date including negative Zika Virus RNA and Zika IgM. Patient opted NOT to have carrier screening or NT USN. Unable to hear FH with doppler, + FH documented with USN. [id number] WILLIAM Neftali LAGUNAS, REPRODUCTIVE SURGEON [address] [facility] [place] [address] 04/29/2017 13:26:59 04/30/2017 11:19:55 Routine care 222349482 Z34.92 Headaches: Occ Nausea: Occ Vomiting: No movement: n/a Contractio ns: no Pt aware needs to go for AFP lab work due now also given PIH with 24 hour urine. Pt has anatomy scan here--will change to have level 2 at [facility] since pt w/chronic HTN & on methyldopa bid. Pt w/some round ligament pain/discu ssed. F/up 4weeks? No signs and symptoms of Zika virus disease onset of fever, rash, arthralgia , conjunctiv itis), travel history, and risk of sexual exposure from a partner with a travel history - induced hypertension 74676206 O13.9 [id number] MATTHEW CELIS, DO WHG[address] [place] [address] 05/25/2017 09:38:33 05/26/2017 08:19:58 High risk 32062534 O09.92 Doing well, no complaints . +FM. Reviewed normal baseline 24 hour urine, PIH labs as well as negative MSAFP results. s/p normal level II USN at [facility], patient has USN for growth scheduled in 6 weeks. 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 Given and cHTN it would be reasonable to limit her to 12 hour shifts. 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 Denies h/a, n/v. Rhogam given in right [...] whole grains, other changes? RTO 3 wks [id number] SONYA MENDEZ DO G5 [address] [place] [address] 08/12/2017 16:22:22 08/17/2017 08:15:11 Administration of influenza vaccine 08792711 Z23 Essential hypertension 29952345 I10 No s/s of Pre-E. Pressures reviewed and within acceptable range. Continue with methyldopa 250 mg BID. Gestationa l diabetes mellitus 98157975 O24.410 Reviewed FS. Fasting sugars ~ 70 and 2 hour PP 120-140. Reports to Layla Alvarado. No meds at this time. Has follow up USN in 4 weeks for growth. Routine an tenatal care 680173039 Z34.03 Routine visit today. Size consistent with dates. Reassuring FHR. No recent travel, sick contacts, or Zika exposures. PTL and movement precaution s reviewed. RhD negative 305484533 Z 01.83 S/p Rhogam. FS after delivery. [id number] MOISES TERRELL MD G[address] [place] [address] 08/16/2017 12:37:52 08/17/2017 09:39:51 Essential hypertension 07093163 I10 Gestationa l diabetes mellitus 02313535 O24.867 [id number] MOISES TERRELL MD [facility] [address] [place] [address] 08/23/2017 07:35:37 08/24/2017 08:41:00 [id number] YEYO TREVIZO DO [facility]5 [address] [place] [address] 08/30/2017 12:37:58 09/01/2017 12:45:30 Routine care 745847893 Z34.93 Gestationa l diabetes mellitus 09109975 O24.442 [id number] LALA PATRICK MD [facility] [address] [place] [address] 09/02/2017 16:23:11 09/03/2017 12:59:49 Routine care 866067790 Z34.93 +fm, + suha castellon. Denies h/a, n/v, edema, visual disturbanc es, ruq/epigas tric pain. BP elevated, she states that she has been a little stressed. Monitors b/p while at home and at work. Pt notes +GFM & denies c/o. Pt notes occas ctxns, infrequent . Pt denies pre-E sx's. Pt describes good BS control. RTO for NST's q wk. [id number] SONYA MENDEZ , [facility] [address] [place] [address] 09/06/2017 08:33:52 09/07/2017 09:15:47 Routine care 690352447 Z34.03 Routine visit today. Size consistent with dates. Reassuring FHR. No recent travel, sick contacts, or Zika exposures. PTL and movement precaution s reviewed. Essential hypertension 15048437 I10 No s/s of Pre-E. Pressures reviewed and within acceptable range. Continue with methyldopa 250 mg BID. RhD negative 354993249 Z 01.83 S/p Rhogam. FS after delivery. Gestationa l diabetes mellitus 54286438 O24.410 Diet controlled . [id number] MOISES TERRELL MD G[address] [place] [address] 09/13/2017 12:38:32 09/14/2017 13:59:41 Normal 55482460 Z34.93 [id number] WILLIAM Neftali LAGUNAS APRN G[address] [place] [address] 09/21/2017 08:35:28 09/22/2017 09:12:57 Routine care 588964332 Z34.93 Headaches: No Nausea: No Vomiting: No [...] from a partner with a travel history [id number] WILLIAM LAGUNAS APRN [facility] [address] [place] [address] 09/29/2017 08:37:23 09/30/2017 13:12:14 Routine care 385679909 Z34.93 no n/v no h/a no edema [...] from a partner with a travel history [id number] WILLIAM LAGUNAS APRN [facility] [address] [place] [address] 10/13/2017 11:46:44 10/15/2017 13:48:46 Essential hypertension 96601680 I10 Pt w/hx elevated BP--has been on Aldomet 250 BID during BP elevated today Will increase Aldomet to TID Return 10/18 for BP check Reviewed s/s to report [id number] YEYO TREVIZO DO [facility] [address] [place] [address] 10/18/2017 13:04:42 10/19/2017 09:12:21 Increased blood pressure 45814678 R03.0 Here for Post-Partu m BP Check. Feels well. Denies RANKIN, RUQ Pain, Visual Changes, N/V. BP 126/90 on current meds. Will continue and recheck in a few days. [id number] YEYO TREVIZO DO [facility]5 [address] [place] [address] 10/22/2017 12:13:06 10/27/2017 11:33:54 Increased blood pressure 26952826 R03.0 Here for rpt BP Check. BP 124/90. Asymptomat ic: denies RANKIN,VisualC hanges, RUQ Pain, N/V. Taking meds (Methyldop a250mg PO TID) as directed. Will continue present care and recheck at upcoming Post-Partu m Check on 11/08/2017. Precaution s reviewed. [id number] MOISES TERRELL MD [facility] [address] [place] [address] 11/08/2017 09:44:09 11/10/2017 08:29:04 care 052576884 Z39.2 [id number] LALA PATRICK MD G[address] [place] [address] 08/03/2019 10:20:50 08/04/2019 10:22:45 Routine care 719532485 Z34.80 Z34.82 Has some nausea and vomiting, relieved with bland snack, no c/o VB or sxs, has had occasional HAs. Plans carrier screen/NIP S/NT/AFP. Pap wnl 01/15. 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 Pt [...] 4 wks Administra tion of influenza vaccine 18345186 Z23 Gestation period, 9 weeks 825528 Z3A.09 Depression screening 171 364117 Z13.31 Completed, results negative [id number] SONYA MENDEZ , DO [facility] [address] [place] [address] 08/31/2019 08:51:29 09/01/2019 12:55:59 Routine care 576100047 Z34.81 Routine OB visit. Size = date. [...] OB visit. TBF Gestation period, 13 weeks 94296697 Z3A.13 [id number] WILLIAM LAGUNAS, REPRODUCTIVE SURGEON G[address] [place] [address] 09/26/2019 13:28:22 10/06/2019 15:27:42 Routine care 143283735 Z34.93 Patient denies nausea, vomiting, headache, doing [...] a travel history Gestation period, 16 weeks 42837768 Z3A.16 Depression screening 171 478793 Z13.32 neg [id number] YEYO TREVIZO, DO [address] [place] [address] 10/19/2019 09:57:34 10/23/2019 10:18:48 Routine care 406288954 Z34.82 Gestation period, 20 weeks 78754980 Z3A.20 [id number] MOISES TERRELL MD G[address] [place] [address] 11/15/2019 08:31:15 11/20/2019 10:35:46 Routine care 316008597 Z34.82 Gestation period, 23 weeks 58013054 Z3A.23 [id number] SONYA Marita ABEBEMENDEZ DO G5 [address] [place] [address] 12/13/2019 09:15:03 12/15/2019 14:45:28 Gestation period, 28 weeks 28810198 Z3A.28 Routine an tenatal care 438853595 Z34.81 Routine OB visit. Size = date. [...] OB visit. TBF Gestation period, 27 weeks 91205561 Z3A.27 Administra tion of RhD immune globulin 2468400 Z29.13 [id number] LALA PATRICK MD [facility] [address] [place] [address] 01/01/2020 11:07:44 01/04/2020 11:09:55 Routine care 186512930 Z34.83 Nausea: No Vomiting: No Headaches: Yes almost everyday FM+ Pt notes + GFM & denies ctxns or other c/o. Pt has no urinary c/o, states R flank pain is improving. Pt is taking Keflex. Reviewed results to date. Reviewed signs/sx's of worsening pyelo, PTL, when to call for eval. RTO 2 wks Gestation period, 30 weeks 57537650 Z3A.30 [id number] WILLIAM LAGUNAS, REPRODUCTIVE SURGEON [address] [place] [address] 01/19/2020 13:42:28 01/24/2020 09:00:41 Routine care 037141908 Z34.83 Nausea: No Vomiting: No Headaches: Occasional [...] a travel history Gestation period, 33 weeks 37806267 Z3A.33 Active or passive immunization 654150183 Z23 [id number] SONYA MENDEZ DO G[address] [place] [address] 01/29/2020 11:38:49 02/02/2020 07:36:21 Routine care 935164292 Z34.83 Routine OB visit. Size = date. [...] OB visit. TBF Gestation period, 34 weeks 94593700 Z3A.34 [id number] MOISES TERRELL MD G[address] [place] [address] 02/12/2020 09:25:27 02/13/2020 12:00:23 Routine care 114062667 Z34.82 Gestation period, 36 weeks 49892532 Z3A.36 Depression screening 171 425620 Z13.32 Behavioral health screening completed and reviewed with patient. Negative findings. [id number] MATTHEW CELIS DO G[address] [place] [address] 02/19/2020 09:25:28 02/20/2020 13:01:47 Routine care 288119040 Z34.01 Doing well, no complaints . Good [...] at 39+ weeks, paperwork completed today in [place] office. Patient will continue to monitor BP at home and call if any severe range elevations or if any symptoms of preeclamps ia. Will begin weekly NSTs until delivery. Patient planning to stop work at this time. Advised to call if any concerns prior to next visit. [id number] YEYO TREVIZO DO TEL_02_ GP_TELEHE ALTH [address] [place] [address] 03/06/2020 08:41:53 03/07/2020 11:00:40 Increased blood pressure 69959660 R03.0 Patient has been informed about the treatment methods and limitation s of treating a person through telehealth . Patient gives verbal consent to telemedici ne visit via the [facility]. Patient is s/p with Vacuum Assist [...] Time spent with patient (Video Call via Mobile Ads): 4 minutes 31 seconds Total visit time: 10 minutes [id number] MOISES TERRELL MD TEL__ GP_TELEHE ALTH [address] [place] [address] 03/13/2020 08:51:13 03/18/2020 10:34:16 Hypertensive disorder 36204612 I10 [id number] WILLIAM LAGUNAS APRN TEL_02_WH GP_TELEHE ALTH [address] [place] [address] 04/15/2020 08:41:03 04/22/2020 09:20:58 care 034969292 Z39.2 Reviewed limitation s of treatment with [...] Annual due 3 months Depression screening 171 006807 Z13.32 EPDS 4 [id number] WILLIAM LAGUNAS APRN G5 [address] [place] [address] 04/30/2020 12:57:10 04/30/2020 15:06:34 Insertion of intrauterine contraceptive device 27097771 Z30.430 Pt would like Kyleena for contracept ionRev risk/benef its; consent signedPreg test negCulture s done todayKylee na placed without difficulty (see procedure note)Rev s/s to report: fever/rafael re pain/expul patricio F/up 6 weeks for IUD check [id number] SONYA MENDEZ DO WHG5 [address] [place] [address] 11/18/2021 13:35:07 11/24/2021 14:07:06 Removal of intrauterine device 05660648 Z30.432 Kyleena IUD removed without any difficulty or complicati on. Patient tolerated the procedure well. IUD was intact and shown to patient. Pain / cramping precaution s reviewed. María g another - not interested in alternativ e contracept ion at this time. [id number] MOISES TERRELL MD G[address] [place] [address] 02/09/2023 13:18:41 02/09/2023 14:13:37 Amenorrhea 64192765 N91.2 [id number] LALA PATRICK MD WHG5 [address] [place] [address] 02/15/2023 14:49:48 02/16/2023 09:00:24 Routine care 005387163 Z34.83 Pre-eclampsia 032909090 O14.94 High risk 4720 0007 O09.91 nausea/vom [...] re-check of BP. Gestation period, 9 weeks 934747 Z3A.09 Depression screening 171 743893 Z13.31 Completed, results negative [id number] YEYO TREVIZO DO G5 [address] [place] [address] 03/04/2023 09:34:02 03/04/2023 11:02:28 Routine care 057440680 Z34.82 Gestation period, 11 weeks 17828065 Z3A.11 Repeat NIPT ordered at today's visit and given to patient to have drawn (03/04/2023) . Chronic hy pertension in obstetric context 8011523 O16.9 Patient has a Hx of CHTN [...] any issues. High risk 4720 0007 O09.91 [id number] SAMMI NOBLE MD G[address] [place] [address] 03/15/2023 15:29:34 03/15/2023 16:19:28 Routine care 415778777 Z34.91 Gestation period, 13 weeks 50459155 Z3A.13 Hypertensive disorder 38 214072 I10 [id number] MOISES TERRELL MD [facility] [place] [address] 04/02/2023 09:33:38 04/02/2023 10:15:14 Past history of gestational hypertension 510955920 Z87.59 [id number] SONYA MENDEZ DO G[address] [facility] [place] [address] 04/12/2023 15:34:03 04/12/2023 16:01:59 Routine care 964545270 Z34.83 Routine OB visit. Size = date. [...] 4 weeks. TBF Gestation period, 17 weeks 16323314 Z3A.17 High risk 4720 0007 O09.92 [id number] [facility] [address] [place] [address] 05/14/2023 14:07:16 05/14/2023 14:52:05 Routine care 658011239 Z34.91 Gestation period, 22 weeks 76673868 Z3A.22 Pain of right calf 41841 70551 316153 M79.661 [id number] LALA PATRICK MD G[address] [place] [address] 06/11/2023 14:38:28 06/11/2023 16:43:09 Routine care 827891748 Z34.83 Nausea/Vom iting: No Headaches: No Contractio n/Cramping : No FM: + Edema: legs & calf pain Pt seen at [facility] overnight 06/09-08/23 for tx of renal calculus. Pt states sx's improved markedly once some sediment was noted to pass. Pt is using Flomax, has contacted her urologist to update them of her status. Reviewed upcoming 3rd tri labs. RTO 4 wks or prn Gestation period, 26 weeks 31641455 Z3A.26 Depression screening 171 100098 Z13.32 Completed, results negative [id number] YEYO TREVIZO DO G5 [address] [place] [address] 07/09/2023 15:14:47 07/09/2023 16:26:34 Routine care 941700377 Z34.82 Gestation period, 30 weeks 91391458 Z3A.30 RhD negative 870280565 Z 01.83 RhoGAM given today High risk 4720 0007 O09.93 [id number] G[address] [place] [address] 07/22/2023 12:36:39 07/22/2023 15:44:39 Routine care 851380831 Z34.01 Doing well, no complaints . + FM. Was seen at [facility] last week on 07/15 - 07/16/23 for evaluation of RANKIN and elevated BP. Patient left AMA from [facility] after admitted. No concerns today, no RANKIN, visual disturbanc es. BP today 122/82, reports that at home no higher than 140/90. Completed 24 hour urine collection 07/16/23 with normal results (210mg). USN completed last week (07/19/23) at [facility]: EFW 69%, normal BRANDEE, vertex. Next USN scheduled in 4 weeks for CHTN. Reactive NST today, will need to continue 2x weekly, next to be scheduled at [facility] on Wednesday. Urine dip today + blood and ketones. No UTI symptoms. Will send UAC&S. Would like both TDAP and flu vaccine, given at visit today. Gestation period, 32 weeks 2312816 Z3A.32 Administra tion of diphtheria, pertussis, and tetanus vaccine 029315967 Z23 Administra tion of influenza vaccine 07750444 Z23 [id number] LALA PATRICK MD G5 [address] [place] [address] 07/29/2023 07:55:36 07/30/2023 11:10:19 Routine care 168151246 Z34.83 Nausea/Vom iting: No Headaches: Occ Contractio [...] hbA1C. RTO weekly Gestation period, 32 weeks 2391146 Z3A.32 [id number] LALA PATRICK MD WHG5 [address] [place] [address] 08/05/2023 08:04:39 08/05/2023 10:30:26 Routine care 198746515 Z34.83 Nausea/Vom iting: yes/No Headaches: occ Contractio [...] both WN--will attempt to get results in [place]. RTO weekly Gestation period, 33 weeks 68626775 Z3A.33 [id number] SAMMI NOBLE MD G5 [address] [place] [address] 08/12/2023 07:28:21 08/12/2023 14:22:49 Gestation period, 34 weeks 05122703 Z3A.34 Routine an tenatal care 056822160 Z34.91 Past pregn roland history of gestational diabetes mellitus 996933766 Z86.32 [id number] MATTHEW Shahnaz MASTERSON, DO [facility] [address] [place] [address] 08/19/2023 07:34:35 08/20/2023 14:49:16 Gestation period, 35 weeks 01325034 Z3A.35 Vaginal discharge 277320 006 N89.8 Routine an tenatal care 888761023 Z34.01 Doing well, no complaints . + [...] visit today. No plan for delivery (no [facility] recommenda tions to date), will contact [facility] to discuss. Negative PHQ-2 today. Depression screening 171 007857 Z13.32 Negative PHQ-2 today. [id number] SAMMI NOBLE MD G5 [address] [place] [address] 08/26/2023 07:31:49 08/26/2023 13:32:36 Routine care 414985474 Z34.91 Gestation period, 36 weeks 31678365 Z3A.36 [id number] SONYA MENDEZ , DO [facility]5 [address] [place] [address] 09/10/2023 11:49:49 09/10/2023 12:45:35 Increased blood pressure 16870111 R03.0 33 yo F in office for [...] the patient? s medical record: 5 minutes [id number] YEYO TREVIZO DO WHG5 [address] [place] [address] 10/15/2023 11:44:59 10/15/2023 12:46:08 care 312572768 Z39.2 Check: Doing well after delivery. Reviewed , delivery and course to date. Post-Partu m Depression screen reviewed: no s/s of PPD (SEE FORM). Breastfeed ing reviewed. BC options reviewed. All questions were answered to the patient's satisfacti on. RTO in 2-3 months for Routine Annual Exam. Maternal p ostpartum depression screening 1098126776 83597 Z13.32 EPDS 8 of 30: borderline . Patient has known Anxiety. 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 Hypertensive disorder 38 721066 I10 Patient has known Chronic HTN. was complicate d by Severe Pre-Eclamp emily. Started on Labetalol 200mg BID at visit on 09/28/2023 . BP 120/80 today. Will follow with PCP. Anxiety disorder 2129069 06 F41.9 Patient has known Anxiety. 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 Contraception care 90154 5005 Z30.40 Patient interested in getting an [...] URINE TEST at the time of placement. [id number] YEYO TREVIZO, WHG5 [address] [place] [address] 11/10/2023 14:15:34 11/10/2023 16:56:05 Insertion of intrauterine contraceptive device 90760453 Z30.430 Liletta placed after risk/benef its and [...] Name 08/19/2023 1 [place] [id number] Leticia Castro [id number] 69 Amolne Motson 08/26/2023 1 [place] [id number] Leticia Shannonson [id number] 69 Amolne Motson 09/10/2023 1 [place] [id number] Kalianne T Motson [id number] 69 Kalianne Motson 10/15/2023 1 [place] [id number] Kalianne T Motson [id number] 69 Kalianne Motson 11/10/2023 1 [place] [id number] Kalianne T Motson [id number] 69 Jrianne Motson Notes Date Note Type Note Provider Name and Address Organization Details Recorded Time 09/10/2023 text/html [facility] Post-OpRepor sonja bypatient.Associate d Symptoms:incision healing well; no fatigue; normal appetite; normal bowel function; no constipation; no nausea; no emesis; pain improving; no pain; no fever; no bleeding; no lower extremity edema/pain; no dysuria/urinary symptoms SONYA MENDEZ DO [address] [place] [address] 09/10/2023 12:40:51 10/15/2023 text/html [facility] VisitReported bypatient.Onset/Дмитрий ing:date of delivery:; 08/31/2023 Delivery Type: Context:complicatio ns of : pre-eclampsia; complications: none; feeding choice: breast milk; good support from partner/family Associated Symptoms:no abnormal bleeding; no pelvic pain; no constipation; no fecal incontinence; no dysuria; no urinary incontinence; no fever; no problems; no mastitis YEYO TREVIZO DO [address], [address] [place] [address] 10/15/2023 12:24:53 11/10/2023 text/html Pt here for Latisha tta IUD insertion. /CT 10/15/23: neg. YEYO TREVIZO DO [address] [place] [address], [facility] 11/10/2023 16:52:31 OBGyn Episode Ob Episode Information Episode Created Date Number of Fetuses Patient Bloodtype Patient rh Status Prepregnancy Weight lbs Domestic Partner Domestic Partner Phone Father Name Manager Concrete Status 03/05/20 17 1 A Negative CLOSED Fetus Data First Name Last Name Admitted to NICU Weight (g) Sex Living Outcome Pediatric Complications Fetus ID Race Codes Race Delivery Type chuckie 3033.39 63 F [id number] Vaginal Delivery Problems Problem Notes Caffeine occ/No cats03/22/17 Zika testing neg CHUSN 08/04: 51%ile, BRANDEE 13, Posterior ckygfsdd23/31: OB USN @ 34.3wks: VTX, Posterior Placenta - Grade I, EFW 2322gms (5lbs 2oz)(35%tile), BRANDEE: 18.4cm. Rpt USN in 4 weeks. Continue Methyldopa 250mg PO BID. NSTs q/week. Follow FS with Layla Alvarado. Problem Name Start Date End Date Resolution Snomed Code Not e Blood group A Rh(D) negative [id number] 03/22/2017: Rh Negative - RhoGAM candidate. KTB Gestational diabetes mellitus 07/19/2017 [id number] 07/08/2017: [place] sonja 1Hr Glucose (172) - NEEDS 3HR [...] Getting weekly NSTs. ktb Hypertensive disorder 04/02/2017 [id number] 3 History of cHTN for the last [...] Type Weight in lbs Pre/Post Dialysis Refused 137.243883486101 BP Diastolic BP Location Tested BP Systolic BP Type 76 116 Fetus Heart Rate Present A 130 Present Fetus Movement Comments Headaches: NoNausea: OccVomi ting: NoFetal movement: N/AContractions (cramping or bleeding): NoPt aware that she needs to go to [facility] for initial bld work...she also has agreed to do CF/NPTI/Afp which will be done at [facility]. Pt has done zika testing 03/02/2017 waiting results pt was in [place] she is aware needs to use condoms for intercourse.Pt has agreed to do the 1st trimester testing at [facility]. Flowsheet Date 04/02/2017 Rodgers Score Blood Edema Fundus Height Fundus Units Glucose Ketones Leukocytes Nitrite Labor Signs Protein Cervic Dilation Cervic Effacement Cervic Station none 12 wks none negative none neg Type Weight in lbs Pre/Post Dialysis Refused 139.526549875879 BP Diastolic BP Location Tested BP Systolic [...] Type Weight in lbs Pre/Post Dialysis Refused 140.965013064606 BP Diastolic BP Location Tested BP Systolic BP Type 70 110 Fetus Heart Rate Present A 144 Present Fetus Movement A No Comments Headaches: OccNausea: OccVom iting: NoFetal movement: n/aContractions: noPt aware needs to go for AFP lab work due now also given PIH with 24 hour urine. Pt has anatomy scan here--will change to have level 2 at [facility] since pt w/chronic HTN & on methyldopa bid. Pt w/some round ligament pain/discussed. F/up 4weeks Flowsheet Date 05/25/2017 Rodgers Score Blood Edema Fundus Height Fundus Units Glucose Ketones Leukocytes Nitrite Labor Signs Protein Cervic Dilation Cervic Effacement Cervic Station none 20 wks none negative none neg Type Weight in lbs Pre/Post Dialysis Refused 147.076056911815 BP Diastolic BP Location Tested BP Systolic BP Type 68 126 Fetus Heart Rate Present A 147 Present Fetus Movement A Yes Comments Headaches: 1x weekNausea: No Vomiting: NoFetal movement: N/AContractions: NoAnatomy scan doen at [facility] on 05/19/2017 due history hypertension.Doing well, no complaints. +FM. Reviewed normal baseline 24 hour urine, PIH labs as well as negative MSAFP results. s/p normal level II USN at [facility], patient has USN for growth scheduled in 6 weeks. 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 Denies h/a, n/v. Rhogam given in right [...] Type Weight in lbs Pre/Post Dialysis Refused 149.145589129581 BP Diastolic BP Location Tested BP Systolic [...] Type Weight in lbs Pre/Post Dialysis Refused 148.386626193043 BP Diastolic BP Location Tested BP Systolic [...] Type Weight in lbs Pre/Post Dialysis Refused 150.253551249960 BP Diastolic BP Location Tested BP Systolic [...] Type Weight in lbs Pre/Post Dialysis Refused 152.532572986345 BP Diastolic BP Location Tested BP Systolic BP Type 76 110 Fetus Heart Rate Present A 140 Present Fetus Movement A Yes Comments no n/vno h/ano edemano vb/fl uidspt c/o suha castellon pt given tdap todayNST reactive Flowsheet Date 09/02/2017 Rodgers Score Blood Edema Fundus Height Fundus Units Glucose Ketones Leukocytes Nitrite Labor Signs Protein Cervic Dilation Cervic Effacement Cervic Station none 34 cm none negative none trace Type Weight in lbs Pre/Post Dialysis Refused 151.817462324014 BP Diastolic BP Location Tested BP Systolic BP Type 90 120 84 118 Fetus Heart Rate Present A 135 Present Fetus Movement A Yes Comments +fm, + suha castellon. Denies h/a, n/v, edema, visual disturbances, [...] Type Weight in lbs Pre/Post Dialysis Refused 152.730974057124 BP Diastolic BP Location Tested BP Systolic BP Type 78 126 Fetus Heart Rate Present Fetus Movement A Yes Comments NST for GDMA 1 and Chronic H TN. +fm, occ suha castellon ctxs and + trace edema in lower extremities. Denies h/a, n/v, ruq/epigastric pain, or visual disturbances. Continues with methyldopa 250 mg BID. Sugars have been well controlled. Still reporting to [facility]la Alvarado. Reactive NST in the [place] office today. No s/s of pre-E. Pressures [...] Type Weight in lbs Pre/Post Dialysis Refused 153.307057694225 BP Diastolic BP Location Tested BP Systolic BP Type 84 112 Fetus Heart Rate Present A 135 Present Fetus Movement A Yes Comments Headaches: NoNausea: Yesterd ay/None todayVomiting: NoFetal movement: YesContractions: Occ [place] HicksBeta strep done today.no ctxs, cramping, bleeding or ROMGood FMSOL and FACs reviewedsun, bug, Zika, sex and travel precautions reviewedNo recent Viral illness, rash or arthralgiasLabs and U/S reviewed: EFW 35%: rescan 4 weeks Flowsheet Date 09/21/2017 Rodgers Score Blood Edema Fundus Height Fundus Units Glucose Ketones Leukocytes Nitrite Labor Signs Protein Cervic Dilation Cervic Effacement Cervic Station none none negative [place] Castellon neg 0cm 70% -2 Type Weight in lbs Pre/Post Dialysis Refused 155.73829981312 BP Diastolic BP Location Tested BP Systolic BP Type 98 138 84 120 Fetus Heart Rate Present A 134 Present Fetus Movement A Yes Comments Headaches: NoNausea: NoVomit ing: NoFetal movement: YesContractions: YesPt feels well-having suha castellon ctx. Reviewed GBS positive. Initial BP [...] Cervic Effacement Cervic Station none none negative [place] Castellon neg 1cm 80% -2 Type Weight in lbs Pre/Post Dialysis Refused 154.702769553467 BP Diastolic BP Location Tested BP Systolic BP Type 72 128 Fetus Heart Rate Present A 135 Present Fetus Movement A Yes Comments no n/vno h/ano edemano vb/fl uids increased dischargept has pos fmcontractions off/onreports bs to lalya nelsontrace of leuk in urine, pt denies any uti symptomsPt feels well. US 09/28 reveals EFW 6-12 (30%ile)/normal BRANDEE. NST reactive today. Cervix 1+/80. Reviewed labor precautions. F/up 1 week for NST/appt Flowsheet Date 10/13/2017 Rodgers Score Blood Edema Fundus Height Fundus Units Glucose Ketones Leukocytes Nitrite Labor Signs Protein Cervic Dilation Cervic Effacement Cervic Station Type Weight in lbs Pre/Post Dialysis Refused 140.494981417461 BP Diastolic BP Location Tested BP Systolic BP Type 98 138 Fetus Heart Rate Present Fetus Movement Comments Menstrual History Last Menstrual Date Menses Monthly On Bcp Conception Prior Menses Frequency Hcg Plus Date Menarche Onset Age 0301/02/2017 Genetic Screening And Infection History Question Response Note Patient's Age Will Be 35 Yea rs Or Older At Estimated Date of Delivery false Thalassemia (Arabic, Palauan, Mediterranean, Or Background): MCV < 80 false Neural Tube Defect (Meningom yelocele, Spina Bifida, Or Anencephaly) false Congenital Heart Defect false Down Syndrome false Donald-Sachs (eg, Temple, Cajun, Colombian-Okaloosa) f alse Troy Disease false Sickle Cell Disease Or Trait () false Hemophilia Or Other Blood Disorders false Muscular Dystrophy false Cystic Fibrosis false [place]'s Chorea false Mental Retardation/Autism false If Yes, [...] History true Chicken pox Familial Dysautonomia (Ashkenazi Temple) false Spinal Muscular Atrophy false Parkinson Disease [...] Domestic Partner Domestic Partner Phone Father Name Manager Concrete Status 07/25/20 19 1 A Negative 150 Paresh Motson Leslie CLOSED Fetus Data First Name Last Name Admitted to NICU Weight (g) Sex Living Outcome Pediatric Complications Fetus ID Race Codes Race Delivery Type 2939.86 [id number] F true Full Term [id number] Vaginal Delivery Vacuum Problems Problem Notes chicken pox age 1, 120mg caf feine/day, no cats in homepast hx 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 CSD10/19/19: Anatomy USN: VTX, Anterior Placenta, CL 4.42cm. EFW 50%tile. Normal anatomy in images seen, however, NOT ALL CARDIAC VIEWS COULD BE SEEN (SUBOPTIMAL) - will need repeat ANATOMY USN at [facility]. Reviewed at apt today. ktb Additional [...] Snomed Code Not e History of hypertension [id number] RhD negative [id number] Rhogam candidate. Rhogam given at 28 wga. TBF Chronic hypertension in obstetric context [id number] Pt repo rts h/o idiopathic HTN prior [...] pt agreeable to do. Baseline 24-hr urine t-gcrl=681, WNL. Nl Baseline pre-E labs. CSD Past history of gestational diabetes mellitus 976789294 Pt w/ Class A1 GDM in 1st --will check fasting BS & HbA1C w/ IOB labs, as pt never completed pp F/U testing for residual DM. 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 Reviewed at apt today. PLEASE GIVE 28wk Lab Slip AT NEXT OB APT. Flowsheet Date 11/15/2019 Rodgers Score Blood Edema Fundus Height Fundus Units Glucose Ketones Leukocytes Nitrite Labor Signs Protein Cervic Dilation Cervic Effacement Cervic Station trace 24 cm trace negative Other (see comments ) neg Type Weight in lbs Pre/Post Dialysis Refused Weight 155.31823248441 BP Diastolic BP Location Tested BP Systolic [...] in lbs Pre/Post Dialysis Refused With clothes 157.402261925266 BP Diastolic BP Location Tested BP Systolic [...] Weight in lbs Pre/Post Dialysis Refused Weight 160.182308458648 BP Diastolic BP Location Tested BP Systolic [...] Weight in lbs Pre/Post Dialysis Refused Weight 159.479991837813 BP Diastolic BP Location Tested BP Systolic [...] Weight in lbs Pre/Post Dialysis Refused Weight 160.127483250842 BP Diastolic BP Location Tested BP Systolic [...] Weight in lbs Pre/Post Dialysis Refused Weight 162.955483758807 BP Diastolic BP Location Tested BP Systolic BP Type 86 130 Fetus Heart Rate Present A 144 Present Fetus Movement A Yes Comments Headaches: Yes Daily tylenol effectiveNausea: noVomiting: NoFetal movement: YesContractions: [place] HicksBeta strep done in office today.no ctxs, [...] home, PreEcl prec given Flowsheet Date 02/19/2020 Rodegrs Score Blood Edema Fundus Height Fundus Units Glucose Ketones Leukocytes Nitrite Labor Signs Protein Cervic Dilation Cervic Effacement Cervic Station none 37 cm none 1cm 50% -3 Type Weight in lbs Pre/Post Dialysis Refused Weight 166.181450769310 BP Diastolic BP Location Tested BP Systolic BP Type 82 134 Fetus Heart Rate Present A 142 Present Fetus Movement A Yes Comments Headaches: Daily tylenol eff ectiveNausea: NoVomiting: NoFetal movement: YesContractions: [place] HicksDoing well, no complaints. Good FM. Reviewed [...] at 39+ weeks, paperwork completed today in [place] office. Patient will continue to monitor BP [...] Estim ated Date of Delivery false Thalassemia (Arabic, Palauan, Mediterranean, Or Background): MCV < 80 false Neural Tube Defect (Meningomyelocele, Spina Bifi da, Or Anencephaly) false Congenital Heart Defect false Down Syndrome false Donald-Sachs (eg, Temple, Cajun, Colombian-[place]) f alse [place] Disease false Sickle Cell Disease Or Trait () false Hemophilia Or Other Blood Disorders false Muscular Dystrophy false Cystic Fibrosis false [place]'s Chorea false Mental Retardation/Autism false If Yes, [...] Other Infection History false Familial Dysautonomia (Ashkenazi Temple) false Spinal Muscular Atrophy false Parkinson Disease [...] ed By 08/31/2019 Selecting a care provider [id number] 08/31/[address] anning/tubal sterilization [id number] 08/31/2019 Depression screening (when indicated) [email or web address] 08/31/2019 Abnormal lab values [email or web address] ald14 08/31/2019 Signs and symptoms of labor [id number] 08/31/2019 Intimate partner violence tf [id number] 08/31/2019 Tobacco/smoking cess ation counseling (ask, advise, assess, assist, and arrange) [id number] 08/31/2019 Provided information about childbirth education classes [email or web address] Third Trimester Discussed Date Discussion Item Discussion Note Discuss ed By 01/29/2020 Intimate partner violence tf [email or web address] 12/14/2019 Anesthesia plans [email or web address] 12/14/2019 education (n ewborn screening, jaundice, SIDS/safe sleeping position, car seat) [email or web address] 12/14/2019 Postterm counseling tfitzger ald14 12/14/2019 movement monitoring tf [email or web address] 01/29/2020 Labor signs 12/14/2019 Family medical leave or disability forms [id number] 12/14/2019 Signs and symptoms of preeclampsia [id number] 01/29/2020 Discussed and offered TDAP t [id number] Delivery Information Delivery Date Delivery Type Labor [...] Domestic Partner Domestic Partner Phone Father Name Manager Concrete Status 02/10/20 23 1 A Negative 155 Paresh Castro CLOSED Fetus Data First Name Last Name Admitted to NICU Weight (g) Sex Living Outcome Pediatric Complications Fetus ID Race Codes Race Delivery Type Juan Pemberton n 2919.99 85 M true Full Term [id number] Vaginal Delivery Problems Problem Notes pt w/ hx of GDM with 1st pre gnancy (10/2017) & knot in cord with 2nd (01/2020)07/15/23: Pt admitted to [facility] (MFM consulted) for serial BP monitoring [...] Resolution Snomed Code Not e High risk [id number] Advanced maternal age [id number] Pt wishes to rank[place] ve cfDNA testing, NT & Level II USN's--will arrange. CSD03/23, 12 + wk NT USN. REport describes nl findings: viable IUP w/ S=D; nl-appearing anterior placenta w/ nl PCI; nl AFV; nl-appearing R ovary; L ovary not visualized, no L adenxal masses; nl limited early anatomy, including visualization of nasal bone; NT<95th%. CSD Past history of gestational diabetes mellitus [id number] previously .08/12/23: UA + glucose at 32 and 34 weeks. Will repeat 1 hr GTT.08/23/23: repeat 1 hr GTT 134, WNL. edl Kidney stone 22120097 1st pre gnancy complicated by renal calculi. Pt w/ known 6 mm nonobstructing L renal stone at IOB visit, followed w/ Urology in [place]; pt was to have tx w/ lithotripsy, but had + dx'd. CSD06/11/23: patient admitted overnight in L&D for pain control (left sided) due to renal stone. Found to have bilateral non-obstructing stones with renal USN. Thought to have passed stone on left overnight, discharged home with dilaudid prn as well as flomax. scp Group B Streptococcus carrier [id number] GBS+ Hypertensive disorder 50342492 Pt w/ h/o idiop athic HTN, tx'd [...] urine 130. edl07/16/23: patient left AMA from [facility] after admitted for persistent RANKIN and severe range in office. Plan for twice weekly NSTs- one in office, one at [facility] with fluid check. reviewed with Dr. Lambert. edl07/19/23: 24 hr urine : patient discussed with MFM, given well controlled CHTN will schedule IOL at 39 weeks. Can change to earlier date if issues with uncontrolled BPs or other concerns. scp Past history of previous delivery by vacuum extraction [id number] 6 lb 8 oz. 38w3 d. for NRFHT Pain in calf [id number] 3: pt with right calf pain x 1 day. BLE 1+. Right calf does appear larger than left and tender to touch. No erythema. RLE dopplers ordered to be completed today. No SOB/CP. edl RhD negative [id number] 03/04/23: Bld Type: A NEGATIVE - RhoGAM [...] Latest Days Gestation 0 09/17/20 23 0 Pre-stephanie Flowsheet Flowsheet Date 02/15/2023 Rodgers Score Blood Edema Fundus Height Fundus Units Glucose Ketones Leukocytes Nitrite Labor Signs Protein Cervic Dilation Cervic Effacement Cervic Station neg none none neg Type Weight in lbs Pre/Post Dialysis Refused Weight 161.055230655806 BP Diastolic BP Location Tested BP Systolic [...] Weight in lbs Pre/Post Dialysis Refused Weight 155.69794764659 BP Diastolic BP Location Tested BP Systolic [...] Weight in lbs Pre/Post Dialysis Refused Weight 158.473923748275 BP Diastolic BP Location Tested BP Systolic [...] Weight in lbs Pre/Post Dialysis Refused Weight 161.182457359952 BP Diastolic BP Location Tested BP Systolic [...] Weight in lbs Pre/Post Dialysis Refused Weight 167.891273297713 BP Diastolic BP Location Tested BP Systolic BP Type 80 126 Fetus Heart Rate Present A 160 Fetus Movement A Increased Comments Nausea/Vomiting: NoHeadaches : NoContraction/Cramping: NoFM: +Edema: legs & calf painPt seen at [facility] overnight 06/09-08/23 for tx of renal [...] Weight in lbs Pre/Post Dialysis Refused Weight 169.700196366089 BP Diastolic BP Location Tested BP Systolic [...] Weight in lbs Pre/Post Dialysis Refused Weight 166.656911718243 BP Diastolic BP Location Tested BP Systolic BP Type 82 122 Fetus Heart Rate Present A 135 Fetus Movement A Yes Comments Nausea/Vomiting: Yes/NoHeada ches: Occ relieved w/ TylenolContraction/Cramping: BHFM: +Edema: legsDoing well, no complaints. + FM. Was seen at [facility] last week on 07/15 - 07/16/23 for evaluation of RANKIN and elevated BP. Patient left AMA from [facility] after admitted. No concerns today, no RANKIN, visual disturbances. BP today 122/82, reports that at home no higher than 140/90. Completed 24 hour urine collection 07/16/23 with normal results (210mg). USN completed last week (07/19/23) at [facility]: EFW 69%, normal BRANDEE, vertex. Next USN scheduled in 4 weeks for CHTN. Reactive NST today, will need to continue 2x weekly, next to be scheduled at [facility] on Wednesday. Urine dip today + blood and ketones. No UTI symptoms. Will send UAC&S. Would like both TDAP and flu vaccine, given at visit today. Flowsheet Date 07/29/2023 Rodgers Score Blood Edema Fundus Height Fundus Units Glucose Ketones Leukocytes Nitrite Labor Signs Protein Cervic Dilation Cervic Effacement Cervic Station 2+ 4+ none neg Type Weight in lbs Pre/Post Dialysis Refused Weight 168.977294902476 BP Diastolic BP Location Tested BP Systolic [...] Weight in lbs Pre/Post Dialysis Refused Weight 168.889193137469 BP Diastolic BP Location Tested BP Systolic [...] in lbs Pre/Post Dialysis Refused With clothes 169.136340929113 BP Diastolic BP Location Tested BP Systolic [...] Weight in lbs Pre/Post Dialysis Refused Weight 171.891143007206 BP Diastolic BP Location Tested BP Systolic [...] Weight in lbs Pre/Post Dialysis Refused Weight 168.917001033124 BP Diastolic BP Location Tested BP Systolic [...] NST in office today with no decelerations. [place] irritable. She has a headache this morning [...] ed By 07/09/2023 Intimate partner violence kb jesus07/09/2023 Anesthesia plans 07/09/2023 education (n ewborn screening, [...]
== END 2025-02-13 16:45 | disposition home or self-care (01) ==
PROVIDERS: PCP Internal Medicine; Visit Provider Nurse Practitioner Family
DX: N20.0 Calculus of kidney (principal); R10.9 Unspecified abdominal pain; Z13.9 Encounter for screening, unspecified
CPT/HCPCS: 99213

== ENCOUNTER → 2025-02-13 15:57 | Outpatient (BNVA) | payer OTHER, SELFPAY | PROVIDERS: PCP Internal Medicine; Visit Provider Nurse Practitioner Family | DX: N20.0 Calculus of kidney (principal); R10.9 Unspecified abdominal pain | CPT/HCPCS: 81003 ==

== ENCOUNTER 2025-02-28 07:06 | Outpatient (REF) | payer OTHER, SELFPAY ==
[2025-02-28 07:23] LABS: MANUAL DIFF FLAG NO
[2025-02-28 07:48] LABS: Basophils Percent Auto 0.5 % (0-2); Eosinophils Absolute Auto 0.1 X10*3/uL (0.0-0.4); Eosinophils Percent Auto 1.8 % (0-4); Hematocrit 43.6 % (37.0-47.0); Hemoglobin 14.9 g/dl (12.0-16.0); Imm Gran Abs Auto 0.02 X10*3/uL (0.00-0.03); Imm Gran Pct Auto 0.3 % (0.0-0.4); Lymphocytes Absolute Auto 2.5 X10*3/uL (1.2-4.9); Lymphocytes Percent Auto 38.9 % (20-40); Mean Corpuscular HGB Conc 34.2 g/dl (31.0-35.0); Mean Corpuscular Hemoglobin 29.1 pg (27.0-33.0); Mean Corpuscular Volume 85.2 fL (80.0-98.0); Mean Platelet Volume 9.7 fL (9.4-12.3); Monocytes Absolute Auto 0.4 X10*3/uL (0.1-1.2); Monocytes Percent Auto 6.1 % (2-11); Neutrophils Absolute Auto 3.4 x10*3/uL (2.0-8.3); Neutrophils Percent Auto 52.4 % (45-73); Platelet Count 301 X10*3/uL (160-400); Red Blood Count 5.12 X10*6/uL (4.20-5.50); Red Cell Distribution Width 11.5 % (11.0-16.0); White Blood Count 6.5 X10*3/uL (4.8-10.8)
[2025-02-28 07:54] LABS: Estimated Average Glucose 91 mg/dL; Hemoglobin A1C 114.5733 umol/L; Hemoglobin A1c % 4.8 % (<6.0); Total Hemoglobin (HGBA1C) 3915.5137 umol/L
[2025-02-28 08:27] LABS: Alanine Aminotransferase 28 U/L (0-31); Albumin Level 4.5 g/dL (3.5-5.0); Alkaline Phosphatase 66 U/L (39-117); Anion Gap 13 (12-20); Aspartate Amino Transferase 23 U/L (5-31); Bilirubin Total 1.3 mg/dL (0.0-1.0); Blood Urea Nitrogen 13 mg/dL (9-16); Calcium 9.4 mg/dL (8.4-10.2); Carbon Dioxide 24 mmol/L (22-29); Chloride 106 mmol/L (96-108); Cholesterol 211 mg/dL (<200); Estimated Glomerular Filt Rate > 60; Glucose Random 93 mg/dL (60-115); HDL Cholesterol 38 mg/dL (>40); LDL Cholesterol Calculated 156 mg/dL (<100); Potassium 4.3 mmol/L (3.3-5.1); Sodium 139 mmol/L (135-145); Total Protein 7.4 g/dL (6.5-8.0); Triglycerides 88 mg/dL (<150)
== END 2025-02-28 07:07 | disposition home or self-care (01) ==
LOC: HO.LAB 07:06
PROVIDERS: Absent Provider Internal Medicine; PCP Internal Medicine; Visit Provider Nurse Practitioner Family
DX: Z00.00 Encounter for general adult medical examination without abnormal findings (principal); E78.5 Hyperlipidemia, unspecified; Z13.1 Encounter for screening for diabetes mellitus
CPT/HCPCS: 36415; 80053; 80061; 83036; 84443; 85025

== ENCOUNTER 2025-05-23 15:54 | Outpatient (AMB) | payer OTHER, SELFPAY ==
--- NOTE | 2025-05-23 15:59 | MHC.OFFVIS ---
Intake Visit Reasons: 3m/ litholink(set) Intake Note: Patient is present for 3M/LITHOLINK Urology Medication:VIT-B6 Antibiotic Allergy:CEPHALEXIN Blood Thinner:NONE Letholink done :05/08/25 Quality Control Tech Raw Materials Required: No Accompanied by: Self / Same As Patient Allergies cephalexin (From Keflex) Allergy (Verified 05/23/25 21:13) Hives Medication List - Last Reconciled 05/23/25 by HEMANT Neff ibuprofen 600 mg PO TID PRN Held on 02/08/24. Instructions: Resume on 02/29/24. Use extra-strength Tylenol as needed, avoid NSAIDs pantoprazole 40 mg PO DAILY pyridoxine (vitamin B6) 100 mg PO DAILY 90 days HPI Comments Details: Leticia is a very pleasant 35-year-old female patient of Dr. Lowry. She has a past medical history of hyperlipidemia and hypertension. She presents to the office today for follow-up of her nephrolithiasis. In discussion with the patient today she reports to be doing and feeling well. She reports having significantly increased her water intake since her last office visit here. She also does report noting more frequent episodes of right-sided flank pain however still feels she is managing this well independently. She reports having followed up with her PCP for annual visit at which time she was noted to have microscopic hematuria. Recent 24 hour urine collection results reviewed with the patient today. We discussed increase in total volume of 2.3 L which has increased since previous Litholink. We discussed urine calcium remains mildly elevated as well as urine sodium. We did discussed reduction of dietary sodium to 871719 mg/dL to reduce urine calcium excretion. We did discussed dietary changes prior to adding thiazide diuretic. Previous imaging 02/23 notes bilateral kidneys are normal in thickness and echotexture. Right kidney with multiple nonobstructing calculi measuring 4 mm, 5 mm, and 4 mm. Left kidney with 5 mm nonobstructing calculus. No hydronephrosis noted bilaterally. She does report compliance with vitamin B6 as prescribed. She otherwise denies any bothersome urinary issues. She does have a previous history of ESWL with Dr. Lopez 04/24. Patient with previous stone analysis that noted Carbonate Apatite (Dahllite) 90%Calcium Oxalate Dihydrate (Weddellite) 10%. In office urinalysis results reviewed with the patient today. She denies urinary urgency, urinary frequency, incontinence, nocturia, hematuria, dysuria, foul smelling urine, changes to urinary stream, fever, and or chills. She otherwise offers no other issues or concerns at this time. [facility] Medical History History of kidney stones Elevated cholesterol HTN (hypertension) Surgical History Hx of eye surgery Social History (Reviewed 02/13/25 @ 16:09 by River Saha, [facility]) Patient Tobacco Use Status: Never used Tobacco Review of Systems Const All systems reviewed & are unremarkable except as noted in HPI and below Physical Exam Const General: cooperative, healthy appearing, comfortable, no acute distress, well developed, alert and awake Orientation/consciousness: patient oriented x3 Limitations: no limitations HEENT Head: Yes normal to inspection, Yes normocephalic and Yes atraumatic Ears: hearing grossly normal bilaterally Eyes General: appearance normal, both eyes and all related structures Neck Neck: Yes normal visual inspection and Yes trachea midline Chest Chest palpation & inspection: normal inspection of the chest Resp Effort & Inspection: normal respiratory effort and able to speak in complete sentences Cardio Rate: regular rate GI Inspection: Yes normal to inspection General: Yes no CVA tenderness Back/Spine/Pelvis Back: no CVA tenderness Skin General skin exam: no rashes or lesions noted Neuro General: patient oriented x3 Extrem General: Yes normal to inspection Psych Appearance: grossly normal and well kempt Mental Status: mental status grossly normal Speech and movement: Normal speech and movement present and Clear speech present Affect: normal affect Attitude: cooperative Thought process: Normal thought process present Thought content: Normal thought content present Insight: Fair insight present (Psych) Judgement: Fair judgement present (Psych) Results AMB Urinalysis, Automated UA Leukoctes 0 Pamela/uL Last Edit by Peggy Dash MA on 05/23/25 16:09 UA Nitrite Negative Last Edit by Peggy Dash MA on 05/23/25 16:09 UA Urobilinogen 3.5 mg/dL Last Edit by Peggy Dash MA on 05/23/25 16:09 UA Protein 0 mg/dL Last Edit by Peggy Dash MA on 05/23/25 16:09 UA pH 6.0 Last Edit by Peggy Dash TRESSA on 05/23/25 16:09 UA Blood 80 Harshal/uL Last Edit by Peggy Dash MA on 05/23/25 16:09 UA Specific Minong 1.020 Last Edit by Peggy Dash MA on 05/23/25 16:09 UA Ketone Negative Last Edit by Peggy Dash MA on 05/23/25 16:09 UA Bilirubin 0 mg/dL Last Edit by Peggy Dash TRESSA on 05/23/25 16:09 UA Glucose 0 mg/dL Last Edit by Peggy Dash TRESSA on 05/23/25 16:09 Results Reviewed Results Reviewed: Laboratory Last Values Urine pH (Auto) 6.0 05/23/25 15:59 Specific Minong (Auto) 1.020 05/23/25 15:59 Urine Protein (Auto) 0 mg/dL 05/23/25 15:59 Glucose (UA)(Auto) 0 mg/dL 05/23/25 15:59 Urine Ketones (Auto) Negative 05/23/25 15:59 Urine Blood (Auto) 80 Harshal/uL 05/23/25 15:59 Urine Nitrite (Auto) Negative 05/23/25 15:59 Urine Bilirubin (Auto) 0 mg/dL 05/23/25 15:59 Urine Urobilinogen (Auto) 3.5 mg/dL 05/23/25 15:59 Leukocyte Esterase (Auto) 0 Pamela/uL 05/23/25 15:59 Assessment & Plan Assessment & Plan (1) Nephrolithiasis: Code(s): N20.0 - Calculus of kidney Category: Medical (2) Flank pain: Code(s): R10.9 - Unspecified abdominal pain Category: Medical (3) Microscopic hematuria: Code(s): R31.29 - Other microscopic hematuria Category: Medical Plan In office urinalysis results reviewed with the patient today; as noted above. We did discussed potential causes of microscopic hematuria; will continue with surveillance monitoring at this time. Recent 24 hour urine collection results reviewed with the patient today; as noted above. We discussed importance of decreasing sodium intake. We discussed sufficient volume intake and encouraged to continue. Continue vitamin B6 as discussed and prescribed. Continue adding 1 oz of lemon juice to water daily. Will obtain KUB for further assessment evaluation. She reports be happy with current voiding parameters. Follow-up in 3 months with imaging to be completed prior; or sooner with any issues, concerns, and or questions. Orders: Orders AMB Urinalysis Automated Today Z13.9 - Encounter for screening, unspecified XR KUB 2 Months N20.0 - Calculus of kidney Patient Instructions: The patient had an opportunity to ask questions regarding the treatment plan. All questions were answered. Physical exam, labs, and imaging were discussed and reviewed in detail. As well as risks, benefits, and discussion of treatment choices. No major barriers to understanding were identified. The patient expressed understanding and agreement with the above treatment plan. The patient was made aware they should contact our office by phone for worsening of their current condition, the appearance of new symptoms, or with any questions or concerns. Compliance is encouraged with any medications and follow up testing that is ordered. It is a privilege to be allowed the opportunity to participate in? your urological care.? Again, if you have any questions or concerns If you have any questions or concerns please do not hesitate to contact me. The office is [phone]. This note is constructed using voice recognition software. While every effort has been made to ensure accuracy director drug errors may have been included. Yours sincerely, HEMANT Neff Coding Level of Care Code Est Pt Level 3 (94549) Diagnoses Nephrolithiasis N20.0 Flank pain R10.9 Microscopic hematuria R31.29
== END 2025-05-23 16:21 | disposition home or self-care (01) ==
LOC: HO.HUSH 15:54
PROVIDERS: PCP Internal Medicine; Visit Provider Nurse Practitioner Family
DX: N20.0 Calculus of kidney (principal); R10.9 Unspecified abdominal pain; R31.29 Other microscopic hematuria; Z13.9 Encounter for screening, unspecified
CPT/HCPCS: 99213

== ENCOUNTER → 2025-05-23 15:54 | Outpatient (BNVA) | payer OTHER, SELFPAY | PROVIDERS: PCP Internal Medicine; Visit Provider Nurse Practitioner Family | DX: R31.29 Other microscopic hematuria (principal); N20.0 Calculus of kidney; R10.9 Unspecified abdominal pain | CPT/HCPCS: 81003 ==

== ENCOUNTER → 2025-08-02 10:24 | Outpatient (BNVA) | payer OTHER, SELFPAY | PROVIDERS: PCP Internal Medicine; Visit Provider Emergency Medicine | DX: Z13.89 Encounter for screening for other disorder (principal) | CPT/HCPCS: 73080 ==

== ENCOUNTER 2025-08-07 06:58 | Outpatient (REF) | payer OTHER, SELFPAY ==
--- NOTE | ~2025-08-07 | XR_ITS ---
CLINICAL HISTORY: N20.0 - Calculus of kidney 1 view abdomen Comparison: None provided Findings: No pneumoperitoneum or pneumatosis. Mild fecal retention within the right colon. No abnormal calcifications. No acute fractures. IUD incidentally noted. IMPRESSION: The bowel gas pattern is within normal limits. No definite urinary calculus by radiograph. This document has been electronically signed by: Neal Remy MD on 08/08/2025 10:14:35
--- OUTSIDE RECORDS SUMMARY | 2025-08-07 07:02 | XMS_ITS | Clinical Summary ---
Author Organization [facility] Address [address] [place] [address] Care Team Providers Care Crystal Inspector Name Role Phone Harrison Lowry MD Primary Care Provider [phone] Immunizations Immunization Administration Dates Next Due Pfizer SARS-CoV-2 COVID-19, [...] 02/02/2007 Cervical Cancer Screening: Pap Smear 02/02/2009 HPV Vaccines (1 - 3-dose SCDM series) 02/02/2015 Cholesterol Screening (Lipid Panel) 10/04/2022 HIV Screening 10/04/2022 Hepatitis C Screening 10/04/2022 Social Influencers of Health Screening 10/04/2022 Hypertension/CHF/CAD Annual BMP Blood Test 08/31/2024 08/31/2023, 08/30/2023, 07/15/2023, Additional history exists Depression Screening 11/01/2024 COVID-19 Vaccine (2 - 2024- season) 2025 08/13/2021 Influenza Vaccine (#1) 2025 RSV Immunization Adult Patients (1 - 1-dose 75+ series) 02/02/2063 HIB Vaccines Aged Out No longer eligi [...] 5 Years) and At-Risk Patients (6 to 49 Years) Aged Out No longer eligible based on patient's age to complete this topic RSV Immunization Patients Under 20 months Aged Out No longer eligible based on patient's age to complete this topic Varicella Vaccines Aged Out No longer eligible based on patient's age to complete this topic Care Teams Crystal Inspector Relationship Specialty Start Date End Date Harrison Lowry MD [address] [place] [address] [place] [id number] PCP - General Internal Medicine 10/14/21
--- OUTSIDE RECORDS SUMMARY | 2025-08-07 07:02 | XMS_ITS | Encounter Summary ---
Author Organization [facility] Address [address] [place] [address] Care Team Providers Care Jewelry Drilling Machine Operator Name Role Phone Harrison Lowry MD Primary Care Provider Unava ilable Encounter Details Date Type Department Care Team Description 07/19/2017 Records Encounter Delivery Room [address] [place] [address] Provider, Not In System Social History Tobacco [...] on filedocumented in this encounter Care Teams Jewelry Drilling Machine Operator Relationship Specialty Start Date End Date Harrison Lowry MD PCP - General Internal Medicine 10/14/21 documented as of this encounter
--- OUTSIDE RECORDS SUMMARY | 2025-08-07 07:02 | XMS_ITS | Encounter Summary ---
Author Organization [facility] Address [address] [place] [address] Care Team Providers Care Jalousies Installer Name Role Phone Pcp, No Primary Care Provider Unavailabl e Encounter Details Date Type Department Care Team (Late st Contact Info) Description 04/10/2019 Telephone [facility] [place] [address] [place] [address] Kasia George, [address] [place] [address] Social History Tobacco Use Types Packs/Day Years Used Date Smoking Tobacco: Never Smokeless Tobacco: Never Alcohol Use Standard Drinks/Week Comments Yes 0 (1 standard drink = 0.6 oz pur e alcohol) AUDIT-C Answer Date Recorded Frequency of Alcohol Consumption 2-4 times a wed04/07/2019 Average Number of Drinks Not on file 019 Frequency of Binge Drinking Not on file 05/2019 Comments No Sex and Gender Information Value Date Recorded Sex Assigned at Not on file Legal Sex Female 1:27 PM EDT Gender Identity Not on file Sexual Orientation Not on file documented as of this encounter Miscellaneous Notes * Telephone Encounter - RT Mc - 04/10/2019 4:00 PM EDT Cc Left message dn documented in this encounter Plan of Treatment Not on file documented as of this encounter Visit Diagnoses Not on filedocumented in this encounter Care Teams Jalousies Installer Relationship Specialty Start Date End Date Pcp, No PCP - General General Medicine 04/07/19 documented as of this encounter
--- OUTSIDE RECORDS SUMMARY | 2025-08-07 07:02 | XMS_ITS | Encounter Summary ---
Author Organization [facility] Address [address] [place] [address] Care Team Providers Care Vat Washer Name Role Phone Harrison Lowry MD Primary Care Provider Unava ilable Encounter Details Date Type Department Care Team Description 12/02/2019 Records Encounter Delivery Room [address] [place] [id number] Provider, Not In System Social History Tobacco [...] on filedocumented in this encounter Care Teams Vat Washer Relationship Specialty Start Date End Date Harrison Lowry MD PCP - General Internal Medicine 10/14/21 documented as of this encounter
--- OUTSIDE RECORDS SUMMARY | 2025-08-07 07:02 | XMS_ITS ---
Author Name [facility] Organization Unknown Results Test Name/Text Value Interpretation Date Range Source WBC NO. BLD AUTO 11.0 K/uL Above high normal 09/01/2023 4 - 10.5 [facility] PMV BLD AUTO 8.5 fL Normal 09/01/2023 7.4 - 11.4 [facility] HGB BLD MCNC 11.8 g/dL Below low normal 09/01/2023 12.5 - 16 [facility] PLATELET NO. BLD AUTO 218.0 K/uL Normal 09/01/2023 150 - 450 [facility] MCH RBC QN AUTO 30.5 pg Normal 09/01/2023 25 - 33 [facility] MCV RBC AUTO 90.6 fL Normal 09/01/2023 78 - 100 [facility] RDW RBC AUTO RTO 13.9 % Normal 09/01/2023 12.1 - 16.2 [facility] RBC NO. BLD AUTO 3.86 M/uL Below low normal 09/01/2023 4.2 - 5.4 [facility] HCT VFR BLD AUTO 35.0 % Below low normal 09/01/2023 37 - 47 [facility] MCHC RBC AUTO MCNC 33.6 g/dL Normal 09/01/2023 32 - 36 [facility] CELL SCN BLD QL MARKOS NEGATIVE, NO SIGNIFICANT FMH DETECTED Normal 08/31/2023 [facility] BLOOD BANK CMNT PATIENT-IMP Testing performed at [facility], [address] [place] [address] [id number], Jaja Hernandez MD Director Network Development, [facility] [id number] Normal 08/31/2023 [facility] CALCIUM SERPL MCNC 6.2 mg/dL Below low normal 08/31/2023 8.4 - 10.2 [facility] AST SERPL CCNC 13.0 U/L Normal 08/31/2023 5 - 40 [facility] ALBUMIN SERPL BCG MCNC 2.9 g/dL Below low normal 08/31/2023 3.5 - 5 [facility] BILIRUB SERPL MCNC 0.8 mg/dL Normal 08/31/2023 0.3 - 1 [facility] BUN SERPL MCNC 6.0 mg/dL Below low normal 08/31/2023 7 - 17 [facility] Glomerular filtration rate/1.73 sq M. predicted 120.0 Normal 08/31/2023 60 - [facility] ANION GAP SERPL SCNC 9.0 mmol/L Normal 08/31/2023 5 - 14 [facility] ALP SERPL-CCNC 77.0 U/L Normal 08/31/2023 34 - 104 [facility] GLUCOSE P FAST SERPL MCNC 117.0 mg/dL Above high normal 08/31/2023 70 - 99 [facility] ALT SERPL CCNC 11.0 U/L Normal 08/31/2023 7 - 52 [facility] HCO3 SER SCNC 21.0 mmol/L Below low normal 08/31/2023 24 - 3 2 [facility] CREAT SERPL MCNC 0.6 mg/dL Normal 08/31/2023 0.5 - 1 [facility] SODIUM SERPL SCNC 131.0 mmol/L Below low normal 08/31/2023 1 35 - 145 [facility] PROT SERPL MCNC 5.4 g/dL Below low normal 08/31/2023 6.4 - 8.5 [facility] POTASSIUM SERPL SCNC 3.8 mmol/L Normal 08/31/2023 3.5 - 5.1 [facility] CHLORIDE SERPL SCNC 101.0 mmol/L Normal 08/31/2023 98 - 107 [facility] MCH RBC QN AUTO 30.6 pg Normal 08/31/2023 25 - 33 [facility] PMV BLD AUTO 8.7 fL Normal 08/31/2023 7.4 - 11.4 [facility] RBC NO. BLD AUTO 4.1 M/uL Below low normal 08/31/2023 4.2 - 5.4 [facility] MCHC RBC AUTO MCNC 34.5 g/dL Normal 08/31/2023 32 - 36 [facility] MCV RBC AUTO 88.5 fL Normal 08/31/2023 78 - 100 [facility] WBC NO. BLD AUTO 13.4 K/uL Above high normal 08/31/2023 4 - 10.5 [facility] HGB BLD MCNC 12.5 g/dL Normal 08/31/2023 12.5 - 16 [facility] PLATELET NO. BLD AUTO 242.0 K/uL Normal 08/31/2023 150 - 450 [facility] RDW RBC AUTO RTO 13.9 % Normal 08/31/2023 12.1 - 16.2 [facility] HCT VFR BLD AUTO 36.3 % Below low normal 08/31/2023 37 - 47 [facility] PLATELET NO. BLD AUTO 232.0 K/uL Normal 08/30/2023 150 - 450 [facility] MCV RBC AUTO 88.3 fL Normal 08/30/2023 78 - 100 [facility] MCH RBC QN AUTO 31.0 pg Normal 08/30/2023 25 - 33 [facility] MCHC RBC AUTO MCNC 35.1 g/dL Normal 08/30/2023 32 - 36 [facility] PMV BLD AUTO 9.0 fL Normal 08/30/2023 7.4 - 11.4 [facility] HCT VFR BLD AUTO 38.5 % Normal 08/30/2023 37 - 47 [facility] HGB BLD MCNC 13.5 g/dL Normal 08/30/2023 12.5 - 16 [facility] WBC NO. BLD AUTO 10.8 K/uL Above high normal 08/30/2023 4 - 10.5 [facility] RBC NO. BLD AUTO 4.36 M/uL Normal 08/30/2023 4.2 - 5.4 [facility] RDW RBC AUTO RTO 13.6 % Normal 08/30/2023 12.1 - 16.2 [facility] DU AG RBC QL NEGATIVE Normal 08/30/2023 [facility] BLD GP AB SCN SERPL QL NEGATIVE Normal 08/30/2023 [facility] BLOOD BANK CMNT PATIENT-IMP Testing performed at [facility], [address] [place] [address] [id number], Jaja Hernandez MD Director Network Development, [facility] [id number] Normal 08/30/2023 [facility] ABO+RH GP BLD A NEGATIVE Normal 08/30/2023 [facility] URATE SERPL MCNC 4.7 mg/dL Normal 08/30/2023 2.5 - 7 [facility] AST SERPL CCNC 17.0 U/L Normal 08/30/2023 5 - 40 [facility] LDH SERPL L TO P CCNC 145.0 U/L Normal 08/30/2023 125 - 220 [facility] ALT SERPL CCNC 12.0 U/L Normal 08/30/2023 7 - 52 [facility] ALP SERPL-CCNC 96.0 U/L Normal 08/30/2023 34 - 104 [facility] Prot/Creat Ur 0.17 Normal 08/30/2023 [facility] CREAT UR MCNC 37.3 mg/dL Normal 08/30/2023 [facility] PROT UR MCNC 6.4 mg/dL Normal 08/30/2023 - 14 [facility] POTASSIUM SERPL SCNC 3.8 mmol/L Normal 08/30/2023 3.5 - 5.1 [facility] HCO3 SER SCNC 22.0 mmol/L Below low normal 08/30/2023 24 - 3 2 [facility] Glomerular filtration rate/1.73 sq M. predicted 120.0 Normal 08/30/2023 60 - [facility] GLUCOSE SERPL MCNC 75.0 mg/dL Normal 08/30/2023 70 - 199 [facility] CHLORIDE SERPL SCNC 103.0 mmol/L Normal 08/30/2023 98 - 107 [facility] CALCIUM SERPL MCNC 9.3 mg/dL Normal 08/30/2023 8.4 - 10.2 [facility] CREAT SERPL MCNC 0.6 mg/dL Normal 08/30/2023 0.5 - 1 [facility] SODIUM SERPL SCNC 137.0 mmol/L Normal 08/30/2023 135 - 14 5 [facility] BUN SERPL MCNC 8.0 mg/dL Normal 08/30/2023 7 - 17 [facility] ANION GAP SERPL SCNC 12.0 mmol/L Normal 08/30/2023 5 - 14 [facility] History of Medication Use Medication Directions Dispensed Refills Start Date End Date Status Liletta 20.4 mcg/24 hrs (8 yrs) 52 mg intrauterine device Take 1 device by intrauterine route. 4 active labetalol 200 mg tablet TAKE 1 TABLET BY MOUTH TWICE A DAY 3 active RhoGAM Ultra-Filtered PLUS 1,500 unit (300 mcg) intramuscular syringe Inject 300 micrograms by intramuscular route. 3 active methyldopa 250 mg tablet TAKE 1 TABLET BY MOUTH TWICE A DAY 3 03/19/20 23 completed Kyleena 17.5 mcg/24 hrs (5yrs) 19.5mg intrauterine device Take by intrauterine route. 0 11/18/19 22 completed Mirena 21 mcg/24 hours (8 yrs) 52 mg intrauterine device Take by intrauterine route. 0 04/30/20 20 completed Rhophylac 1,500 unit (300 mcg)/2 mL injection syringe Take 2 mL by injection route. 0 04/30/20 20 completed azithromycin (ZITHROMAX) 250 MG tablet Take 2 tabs PO on day one and one tabs on days 2-5 #6 9 active azithromycin 250 mg tablet TAKE 2 TABLETS (500 MG) BY ORAL ROUTE ONCE DAILY FOR 1 DAY THEN 1 TABLET (250 MG) BY ORAL ROUTE ONCE DAILY FOR 4 DAYS 09/09/20 23 completed labetalol 100 mg tablet TAKE 1 TABLET BY MOUTH TWICE A DAY 09/09/20 23 completed tamsulosin 0.4 mg capsule 09/09/20 23 completed methylprednisolone 4 mg tablets in a dose pack TAKE 6 TABLETS ON DAY 1 DIRECTED ON PACKAGE AND DECREASE BY 1 TAB EACH DAY FOR A TOTAL OF 6 DAYS 04/12/20 23 completed nitrofurantoin monohydrate/macrocrysta ls 100 mg capsule TAKE 1 CAPSULE BY MOUTH EVERY 12 HOURS FOR 7 DAYS WITH FOOD 04/12/20 23 completed fluticasone propionate 50 mcg/actuation nasal spray,suspension USE ONE SPRAY IN EACH NOSTRIL TWO TIMES A DAY 04/01/20 23 completed aspirin 81 mg chewable tablet Chew 1 tablet every day by oral route. 04/30/20 20 completed butalbital-acetaminophe n-caffeine 50 mg-300 mg-40 mg capsule 04/30/20 20 completed nifedipine ER 60 mg tablet,extended release TAKE 1 TABLET BY MOUTH EVERY DAY 04/30/20 20 completed cephalexin 250 mg capsule 02/12/20 20 completed oxycodone-acetaminophen 5 mg-325 mg tablet Take 1 tablet every 3-4 hours by oral route as needed. 02/12/20 20 completed Liletta 20.4 mcg/24 hrs (8 yrs) 52 mg intrauterine device active aspirin 81 mg tablet,delayed release TAKE 1 TABLET BY MOUTH EVERY DAY active docusate sodium 100 mg capsule TAKE 1 CAPSULE BY MOUTH TWICE A DAY NEEDED active ibuprofen 600 mg tablet TAKE 1 TABLET BY MOUTH EVERY 6 HOURS NEEDED active aspirin 81 mg tablet,delayed release TAKE 1 TABLET BY MOUTH EVERY DAY TAKE 1 TABLET BY MOUTH EVERY DAY completed aspirin EC 81 MG tablet Take 1 tablet (8 1 mg total) by mouth daily. active Roberto Low Dose Aspirin 81 mg tablet,delayed release Take 1 tablet every day by oral route. Take 1 tablet every day by oral route. completed fluticasone propionate 50 mcg/actuation nasal spray,suspension USE ONE SPRAY IN EACH NOSTRIL TWO TIMES A DAY USE ONE SPRAY IN EACH NOSTRIL TWO TIMES A DAY completed ibuprofen 600 mg tablet TAKE 1 TABLET BY MOUTH THREE TIMES A DAY NEEDED FOR PAIN OR FEVER TAKE 1 TABLET BY MOUTH THREE TIMES A DAY NEEDED FOR PAIN OR FEVER completed labetalol (NORMODYNE) 100 MG tablet Take 1 tablet (100 mg total) by mouth 2 (two) times a day. active labetalol 100 mg tablet Take 1 tablet twice a day by oral route. Take 1 tablet twice a day by oral route. completed methyldopa 250 mg tablet TAKE 1 TABLET BY MOUTH BID TAKE 1 TABLET BY MOUTH BID completed nitrofurantoin monohydrate/macrocrysta ls 100 mg capsule TAKE 1 CAPSULE BY MOUTH EVERY 12 HOURS FOR 7 DAYS WITH FOOD TAKE 1 CAPSULE BY MOUTH EVERY 12 HOURS FOR 7 DAYS WITH FOOD completed Vit-Fe Fumarate-FA ( PLUS) 27-1 MG TABS tablet Take 1 tablet by mouth every morning after breakfast. active Vitamin Vitamin completed Allergies Allergen Reaction Severity Comment Documented Date Source Statu s CEPHALEXIN RASH 02/25/2020 [facility] active SULFA ANTIBIOTICS HIVES Pt reports her dad has the allergy and she has never taken sulfa drugs 10/03/2017 [facility] SULFONAMIDE STRUCTURE AND ANTIBACTERIAL MECHANISM OF ACTION (SUBSTANCE) HIVES [facility] active SULFA (SULFONAMIDE ANTIBIOTICS) HIVES [facility] Problems Problem Status Onset Date Problem Type Date of Resolution Source Headache active 2023-07-15 ProblemAct [facility] Gestational diabetes active ProblemAct [facility] Chronic hypertension affecting active 2020-02-25 ProblemAct [facility] N Encounter for other screening follow-up active EncounterDiagnosisAct [facility] Pre-existing essential hypertension complicating , second trimester active EncounterDiagnosisAct [facility] Nephrolithiasis active 2023-06-[address] [facility] Hyperlipidemia active 2017-08-04 ProblemAct CTT [facility] Back pain active 2020-01-09 ProblemAct [facility] Chronic hypertension complicating or reason for care during , third trimester active ProblemAct [facility] Supervision of elderly multigravida, second trimester active EncounterDiagnosisAct [facility] 35 weeks gestation of active EncounterDiagnosisAct [facility] Anxiety disorder active 2023-10-15 ProblemAct [facility] Immunizations Vaccine Date Source Lot Number Status Rho(D) -IG IM 09/01/2023 [facility] [id number] completed Tdap 07/22/2023 [facility] [id number] completed COVID-19, mRNA, LNP-S, PF, 3 0 mcg/0.3 mL dose 08/13/2021 [facility] [id number] completed RHO (D) Immune Globulin 02/26/2020 [facility] [id number] c ompleted Tdap 01/19/2020 [facility] [id number] completed influenza, injectable, quadr ivalent, preservative free 08/03/2019 [facility] [id number] completed RHO (D) Immune Globulin 10/04/2017 [facility] [id number] ompleted Tdap 08/30/2017 [facility] [id number] completed influenza, injectable, quadr ivalent, preservative free 08/12/2017 [facility] [id number] completed Encounters Encounter Type Encounter Reason Primary Diagnosis Location Date Ambulatory Encounter for insertion of intrauterine contraceptive device Encounter for insertion of intrauterine contraceptive device [facility] 12/21/2023 Ambulatory Encounter for routin e follow-up [facility], [facility] 11/10/2023 Ambulatory Elevated blood-pressure reading, w/o diagnosis of htn [facility], [facility] 10/15/2023 Ambulatory Severe pre-eclampsia , third trimester [facility], [facility] 09/10/2023 Inpatient Severe pre-eclampsia , third trimester Severe pre-eclampsia, third trimester [facility] [place]/30/2023 Ambulatory Unspecified maternal hypertension, unspecified trimester Unspecified maternal hypertension, unspecified trimester [facility] 08/30/2023 Ambulatory Encntr for suprvsn o f normal first preg, first trimester [facility], [facility] 08/26/2023 Ambulatory Unspecified maternal hypertension, unspecified trimester Unspecified maternal hypertension, unspecified trimester [facility] 08/23/2023 Ambulatory Personal history of gestational diabetes [facility], [facility] 08/19/2023 Ambulatory Unspecified maternal hypertension, unspecified trimester Unspecified maternal hypertension, unspecified trimester [facility] 08/16/2023 Ambulatory Unspecified pre-existing hypertension complicating , unspecified trimester Unspecified pre-existing hypertension complicating , unspecified trimester [facility] 08/16/2023 Ambulatory Encounter for suprvs n of normal , third trimester [facility], [facility] 08/12/2023 Ambulatory Unspecified maternal hypertension, unspecified trimester Unspecified maternal hypertension, unspecified trimester [facility] 08/09/2023 Ambulatory Non-stress Test Non-stress Test [facility] 08/05/2023 Ambulatory Encounter for suprvs n of normal , third trimester [facility] 08/05/2023 Ambulatory Unspecified maternal hypertension, unspecified trimester Unspecified maternal hypertension, unspecified trimester [facility] 08/02/2023 Ambulatory Encntr for suprvsn o f normal first preg, first trimester [facility] 07/29/2023 Ambulatory Unspecified maternal hypertension, unspecified trimester Unspecified maternal hypertension, unspecified trimester [facility] 07/26/2023 Ambulatory Elevated blood-pressure reading, w/o diagnosis of htn [facility] 07/22/2023 Ambulatory Unspecified pre-existing hypertension complicating , unspecified trimester Unspecified pre-existing hypertension complicating , unspecified trimester [facility] 07/19/2023 Inpatient Encounter for supervision of normal , unspecified, unspecified trimester Encounter for supervision of normal , unspecified, unspecified trimester [facility] 07/15/2023 Ambulatory Encounter for other administrative examinations [facility] 07/09/2023 Ambulatory Unspecified pre-existing hypertension complicating , unspecified trimester Unspecified pre-existing hypertension complicating , unspecified trimester [facility] 06/21/2023 Ambulatory Left upper quadrant pain [facility] 06/11/2023 Inpatient Calculus of kidney Calculus [facility] kidney [facility] 06/10/2023 Ambulatory Unspecified pre-existing hypertension complicating , unspecified trimester [facility] 05/24/2023 Ambulatory [facility] 05/14/2023 Ambulatory Supervision of elderly multigravida, second trimester [facility] 04/26/2023 Ambulatory [facility] 04/12/2023 Ambulatory [facility] 04/02/2023 Ambulatory [facility] 03/15/2023 Ambulatory [facility] 03/04/2023 Ambulatory [facility] 02/15/2023 Ambulatory [facility] 02/09/2023 Ambulatory [facility] 02/09/2023 Ambulatory [facility] 11/18/2021 Care Team Organization Name Specialty Phone Email Start Date End Da te [facility] 09/02/2023 [facility] 07/24/2023 024 [facility] 3 05/15/2025 [facility] 04/26/2023 04/26/2023 [facility] 11/24/2021 06/12/2025 [facility] 11/18/2021 11/18/2021
--- OUTSIDE RECORDS SUMMARY | 2025-08-07 07:02 | XMS_ITS | Clinical Summary ---
Author Organization [facility] Address [address] [place] [address] Care Team Providers Care Geography Faculty Member Name Role Phone Pcp, No Primary Care Provider Unavailabl e Allergies Active Allergy Reactions Criticality Noted Date Comments Sulfa Antibiotics Hives Medium 04/07/2019 Medications azithromycin (ZITHROMAX) 250 MG tabletIndication s:Otitis media with effusion, left Take 2 tabs [...] 96 04/07/2019 1:48 PM EDT Temperature 37 C (98.6 F) 04/07/2019 1:48 PM EDT Respiratory Rate - [...] - 19+ 3-dose series) 02/02/2007 Influenza Vaccine 06/01/2025 COVID-19 Vaccine (1 - 2023-2 5 season) 2025 Pap Smear (Ages 21-65) 02/15/2026 02/15/2023 Hepatitis C Virus Screening Completed 02/16/2023 HIV Screening Completed 06/29/2023, 02/16/2023 HPV Vaccines (No Doses Required) Completed Pneumococcal Vaccine: Pediatric (0-5 Years) and At-Risk Patients (6 to 49 Years) Aged Out No longer eligible b ased on patient's age to complete this topic Procedures Procedure Name Priority Date/Time Associated Diagnosis Comments HIV 1/2 AG/AB CMIA REFLEX TO CONFIRMATION Routine 06/29/2023 9:56 AM EDT HEPATITIS C VIRUS (HCV) ANTIBODY Routine 02/16/2023 8:24 AM EDT THINPREP PAP(MANAGER PROGRESSIVE CARE) HPV SCR RFX HPV 16,18/45 Routine 02/15/2023 3:35 PM EDT from Last 3 Months or Most Recently Relevant to Health Maintenance Results * HIV 1/2 Ag/Ab CMIA Reflex to Confirmation (06/29/2023 9:56 AM EDT) HIV Ag/Ab, 4th Gen Non-Reacti ve Non-Reacti ve [facility] Comment: Results show no evidence of infection by HIV 1/2. If clinically indicated, repeat CMIA or test by nucleic acid amplification. 06/29/2023 9:56 AM EDT 06/30/2023 12:47 AM EDT us Gayatri Penn MD LAB BLOOD ORDERABLES Final Res ult [facility] [address], [place] * HEPATITIS C VIRUS (HCV) ANTIBODY (02/16/2023 8:24 AM EDT) Hepatitis C Antibody 0.12 Non-Reacti ve Non-Reacti ve S/CO [facility] Other 02/16/2023 8:24 AM EDT 02/16/2023 10:18 PM EDT Narrative [facility] - 02/17/2023 10:15 AM EDT FASTING:YES us Gayatri Penn MD LAB BLOOD ORDERABLES Final Res ult [facility] [address], [place] * ThinPrep Pap([employer] Drill Operator) HPV Scr Rfx HPV 16,18/45 (02/15/2023 3:35 PM EDT) Report Report [facility] Comment: Final Gynecological Cytology Report ThinPrep Pap Test, HPV Screen, Reflex HPV Genotype SPECIMEN ADEQUACY: SATISFACTORY FOR EVALUATION; ENDOCERVICAL/TRANSFORMATION ZONE COMPONENT PRESENT. INTERPRETATION: NEGATIVE FOR INTRAEPITHELIAL LESION OR MALIGNANCY. Electronically Signed: Dago Moore CT(ASCP) CLINICAL INFORMATION: LMP: NG Biopsy Date: NG Specimen Source: Cervix, Endocervix Previous Pap Date: NG HPV RESULTS: HPV mRNA E6/E7 [id number] Approved: 02/17/23 Negative REF RANGE: Negative CPT Codes: 50330 ICD Codes: Z34.83 Other 02/15/2023 3:35 PM EDT 02/17/2023 1:01 AM EDT us Gayatri Penn MD LAB AMB PATH/CYTO ORDERABLES F inal Result [facility] [address], [place] from Last 3 Months or Most Recently Relevant to Health Maintenance Insurance [facility] PPO Care Teams Geography Faculty Member Relationship Specialty Start Date End Date Pcp, No PCP - General General Medicine 04/07/19
--- OUTSIDE RECORDS SUMMARY | 2025-08-07 07:02 | XMS_ITS | Clinical Summary ---
Author Organization [facility] Address [address] [place] [address] Care Team Providers Care Barber Apprentice Name Role Phone Harrison Lowry MD Primary [...] 70 09/02/2023 8:01 AM EDT Temperature 36.4 C (97.5 F) 09/02/2023 8:01 AM EDT Respiratory Rate 18 09/02/2023 8:01 AM EDT [...] Screening (Pap Smear) 02/02/2009 COVID-19 Vaccine (2 - 2025-2 6 season) 2025 08/13/2021 Influenza Vaccine (#1) 2025 9, 08/12/2017 DTap / Tdap / Td (4 - Td or Tdap) 07/22/2033 07/22/2023, 01/19/2020, 08/30/2017 Pneumococcal Vaccine Aged Out No long er eligible based on patient's age to complete this topic RSV Ped < 20 months Aged Out No longe r eligible based on patient's age to complete this topic Advance Directives For more information, please contact: [phone] Documents on File Type Date Recorded Patient Patient Registration Rep Expl anation Advance Directive and Living Will [...] way: discussion with patient . Care Teams Barber Apprentice Relationship Specialty Start Date End Date Harrison Lowry MD PCP - General Internal Medicine 10/14/21
== END 2025-08-07 06:59 | disposition home or self-care (01) ==
LOC: HO.XRAY 06:58
PROVIDERS: PCP Internal Medicine; Visit Provider Nurse Practitioner Family
DX: N20.0 Calculus of kidney (principal)
CPT/HCPCS: 74018

== ENCOUNTER → 2025-08-07 07:03 | Outpatient (BNV) | payer OTHER, SELFPAY | PROVIDERS: PCP Internal Medicine; Visit Provider Radiology Vascular & Interventional Radiology | DX: N20.0 Calculus of kidney (principal) | CPT/HCPCS: 74018 ==

== ENCOUNTER 2025-08-20 15:09 | Outpatient (AMB) | payer OTHER, SELFPAY ==
--- NOTE | 2025-08-20 15:26 | MHC.OFFVIS ---
Intake Visit Reasons: 3m/KUB Intake Note: Patient is present for 3M/KUB Urology Medication:VIT-B6 Blood Thinner:NONE US done: 08/08/25 [employer] French Teacher Required: No Accompanied by: Self / Same As Patient Allergies cephalexin (From Keflex) Allergy (Verified 08/20/25 16:47) Hives Medication List - Last Reconciled 08/20/25 by HEMANT Neff ibuprofen 600 mg PO TID PRN Held on 02/08/24. Instructions: Resume on 02/29/24. Use extra-strength Tylenol as needed, avoid NSAIDs pantoprazole 40 mg PO DAILY pyridoxine (vitamin B6) 100 mg PO DAILY 90 days HPI Comments Details: Leticia is a very pleasant 35-year-old female patient of Dr. Lowry. She has a past medical history of hyperlipidemia and hypertension. She presents to the office today for follow-up of her nephrolithiasis. In discussion with the patient today she reports to be doing and feeling well. She does report noting intermittent episodes of right-sided flank pain. She reports episodes are infrequent. She reports taking OTC Motrin and has not found this helpful. Recent KUB results reviewed with the patient today 08/25 no definite urinary calculus noted by radiograph per radiology report. She does report compliance with vitamin B6 as prescribed. She reports she is attempting to drink plenty of water daily. Previous workup has included a 24 hour urine collection 05/25 which noted increase in urine volume of 2.3 compared to previous [facility]. We discussed urine calcium remains mildly elevated as well as urine sodium. We did discussed reduction of dietary sodium to reduce urine calcium excretion. We did discussed dietary changes prior to adding thiazide diuretic. She otherwise denies any bothersome urinary issues. She does have a previous history of ESWL with Dr. Lopez 04/24. Patient with previous stone analysis that noted Carbonate Apatite (Dahllite) 90%Calcium Oxalate Dihydrate (Weddellite) 10%. In office urinalysis results reviewed with the patient today. She denies urinary urgency, urinary frequency, incontinence, nocturia, hematuria, dysuria, foul smelling urine, changes to urinary stream, fever, and or chills. She otherwise offers no other issues or concerns at this time. [facility] Medical History History of kidney stones Elevated cholesterol HTN (hypertension) Surgical History Hx of eye surgery Social History Patient Tobacco Use Status: Never used Tobacco Review of Systems Const All systems reviewed & are unremarkable except as noted in HPI and below Physical Exam Const General: cooperative, healthy appearing, comfortable, no acute distress, well developed, alert and awake Orientation/consciousness: patient oriented x3 Limitations: no limitations HEENT Head: Yes normal to inspection, Yes normocephalic and Yes atraumatic Ears: hearing grossly normal bilaterally Eyes General: appearance normal, both eyes and all related structures Neck Neck: Yes normal visual inspection and Yes trachea midline Chest Chest palpation & inspection: normal inspection of the chest Resp Effort & Inspection: normal respiratory effort and able to speak in complete sentences Cardio Rate: regular rate GI Inspection: Yes normal to inspection General: Yes no CVA tenderness Back/Spine/Pelvis Back: no CVA tenderness Skin General skin exam: no rashes or lesions noted Neuro General: patient oriented x3 Extrem General: Yes normal to inspection Psych Appearance: grossly normal and well kempt Mental Status: mental status grossly normal Speech and movement: Normal speech and movement present and Clear speech present Affect: normal affect Attitude: cooperative Thought process: Normal thought process present Thought content: Normal thought content present Insight: Fair insight present (Psych) Judgement: Fair judgement present (Psych) Results AMB Urinalysis, Automated UA Leukoctes 0 Pamela/uL Last Edit by SHERMAN Gilbert on 08/20/25 16:24 UA Nitrite Last Edit by SHERMAN Gilbert on 08/20/25 16:24 UA Urobilinogen 0.2 mg/dL Last Edit by SHERMAN Gilbert on 08/20/25 16:24 UA Protein 15 mg/dL Last Edit by SHERMAN Gilbert on 08/20/25 16:24 UA pH 5.5 Last Edit by SHERMAN Gilbert on 08/20/25 16:24 UA Blood 80 Harshal/uL Last Edit by SHERMAN Gilbert on 08/20/25 16:24 UA Specific [place] 1.025 Last Edit by SHERMAN Gilbert on 08/20/25 16:24 UA Ketone Last Edit by SHERMAN Gilbert on 08/20/25 16:24 UA Bilirubin 0 mg/dL Last Edit by SHERMAN Gilbert on 08/20/25 16:24 UA Glucose 0 mg/dL Last Edit by SHERMAN Gilbert on 08/20/25 16:24 Results Reviewed Results Reviewed: Laboratory Last Values Urine pH (Auto) 5.5 08/20/25 16:23 Specific [place] (Auto) 1.025 08/20/25 16:23 Urine Protein (Auto) 15 mg/dL 08/20/25 16:23 Glucose (UA)(Auto) 0 mg/dL 08/20/25 16:23 Urine Blood (Auto) 80 Harshal/uL 08/20/25 16:23 Urine Bilirubin (Auto) 0 mg/dL 08/20/25 16:23 Urine Urobilinogen (Auto) 0.2 mg/dL 08/20/25 16:23 Leukocyte Esterase (Auto) 0 Pamela/uL 08/20/25 16:23 Date of Service: 08/07/25 Procedure(s): XR KUB Findings: No pneumoperitoneum or pneumatosis. Mild fecal retention within the right colon. No abnormal calcifications. No acute fractures. IUD incidentally noted. IMPRESSION: The bowel gas pattern is within normal limits. No definite urinary calculus by radiograph. Assessment & Plan Assessment & Plan (1) Flank pain: Code(s): R10.9 - Unspecified abdominal pain Category: Medical (2) Nephrolithiasis: Code(s): N20.0 - Calculus of kidney Category: Medical (3) Microscopic hematuria: Code(s): R31.29 - Other microscopic hematuria Category: Medical Plan In office urinalysis results reviewed with the patient today; as noted above. Most recent KUB results reviewed with the patient today; as noted above. Continue vitamin B6 as discussed and prescribed; refill provided. All questions were answered. Will obtain renal ultrasound as discussed. We discussed the importance of adequate hydration relation to nephrolithiasis as well as overall health and well-being. We did discussed worsening symptoms. She currently denies any bothersome urinary issues Follow-up in 1-3 months with imaging to be completed prior; or sooner with any issues, concerns, and or questions. Orders: Orders AMB Urinalysis Automated Today Z13.9 - Encounter for screening, unspecified US renal BI Today N20.0 - Calculus of kidney Medications: Refilled pyridoxine (vitamin B6) 100 mg PO DAILY 90 tabs 1RF 90 days Patient Instructions: The patient had an opportunity to ask questions regarding the treatment plan. All questions were answered. Physical exam, labs, and imaging were discussed and reviewed in detail. As well as risks, benefits, and discussion of treatment choices. No major barriers to understanding were identified. The patient expressed understanding and agreement with the above treatment plan. The patient was made aware they should contact our office by phone for worsening of their current condition, the appearance of new symptoms, or with any questions or concerns. Compliance is encouraged with any medications and follow up testing that is ordered. It is a privilege to be allowed the opportunity to participate in? your urological care.? Again, if you have any questions or concerns If you have any questions or concerns please do not hesitate to contact me. The office is [phone]. This note is constructed using voice recognition software. While every effort has been made to ensure accuracy cable tv installer errors may have been included. Yours sincerely, HEMANT Neff Coding Level of Care Code Est Pt Level 3 (01862) Diagnoses Flank pain R10.9 Nephrolithiasis N20.0 Microscopic hematuria R31.29
--- OUTSIDE RECORDS SUMMARY | 2025-08-20 19:22 | XMS_ITS | Clinical Summary ---
Author Organization [facility] Address [address] [place] [address] Care Team Providers Care Proposal Lead Writer Name Role Phone Harrison Lowry MD Primary [...] Advance Directives For more information, please contact: [phone] Documents on File Type Date Recorded Patient Communications Technologist Expl anation Advance Directive and Living Will [...] way: discussion with patient . Care Teams Proposal Lead Writer Relationship Specialty Start Date End Date Harrison Lowry MD PCP - General Internal Medicine 10/14/21
--- OUTSIDE RECORDS SUMMARY | 2025-08-20 19:22 | XMS_ITS | Clinical Summary ---
Author Organization [facility] Address [address] [place] [address] Care Team Providers Care Matlab Developer Name Role Phone Pcp, No Primary Care [...] ANTIBODY Routine 02/16/2023 8:24 AM EDT THINPREP PAP(AUDIO VISUAL EQUIPMENT RENTAL CLERK) HPV SCR RFX HPV 16,18/45 Routine 02/15/2023 3:35 PM EDT from Last 3 Months or Most Recently Relevant to Health Maintenance Results * HIV 1/2 Ag/Ab CMIA Reflex to Confirmation (06/29/2023 9:56 AM EDT) HIV Ag/Ab, 4th Gen Non-Reacti ve Non-Reacti ve [facility] Comment: Results show no evidence of infection by HIV 1/2. If clinically indicated, repeat CMIA or test by nucleic acid amplification. 06/29/2023 9:56 AM EDT 06/30/2023 12:47 AM EDT us Gayatri Penn MD LAB BLOOD ORDERABLES Final Res ult [facility] [address], [place] * HEPATITIS C VIRUS (HCV) ANTIBODY (02/16/2023 8:24 AM EDT) Hepatitis C Antibody 0.12 Non-Reacti ve Non-Reacti ve S/CO [facility] Other 02/16/2023 8:24 AM EDT 02/16/2023 10:18 PM EDT Narrative [facility] [facility] - 02/17/2023 10:15 AM EDT FASTING:YES us Gayatri Penn MD LAB BLOOD ORDERABLES Final Res ult [facility] [address], [place] * ThinPrep Pap(Flake Miller Wheat And Oats) HPV Scr Rfx HPV 16,18/45 (02/15/2023 3:35 PM EDT) Report Report [facility] Comment: Final Gynecological Cytology Report ThinPrep Pap Test, HPV Screen, Reflex HPV Genotype SPECIMEN ADEQUACY: SATISFACTORY FOR EVALUATION; ENDOCERVICAL/TRANSFORMATION ZONE COMPONENT PRESENT. INTERPRETATION: NEGATIVE FOR INTRAEPITHELIAL LESION OR MALIGNANCY. Electronically Signed: Dago Moore CT(ASCP) CLINICAL INFORMATION: LMP: NG Biopsy Date: NG Specimen Source: Cervix, Endocervix Previous Pap Date: NG HPV RESULTS: HPV mRNA E6/E7 [id number] Approved: 02/17/23 Negative REF RANGE: Negative CPT Codes: 47828 ICD Codes: Z34.83 Other 02/15/2023 3:35 PM EDT 02/17/2023 1:01 AM EDT us Gayatri Penn MD LAB AMB PATH/CYTO ORDERABLES F inal Result [facility] [address], [place] from Last 3 Months or Most Recently Relevant to Health Maintenance Insurance [facility] PPO Care Teams Matlab Developer Relationship Specialty Start Date End Date Pcp, No PCP - General General Medicine 04/07/19
--- OUTSIDE RECORDS SUMMARY | 2025-08-20 19:22 | XMS_ITS | Encounter Summary ---
Author Organization [facility] Address [address] [place] [address] Care Team Providers Care Kilnman Name Role Phone Pcp, No Primary Care Provider Unavailabl e Encounter Details Date Type Department Care Team (Late st Contact Info) Description 04/10/2019 Telephone [facility] [place] [address] [place] [phone] Kasia Tristan, [address] [place] [address] Social History Tobacco Use Types Packs/Day Years [...] on filedocumented in this encounter Care Teams Kilnman Relationship Specialty Start Date End Date Pcp, No PCP - General General Medicine 04/07/19 documented as of this encounter
--- OUTSIDE RECORDS SUMMARY | 2025-08-20 19:22 | XMS_ITS | Encounter Summary ---
Author Organization [facility] Address [address] [place] [address] Care Team Providers Care Dry Primer Powder Blender Name Role Phone Harrison Lowry MD Primary Care Provider Unava ilable Encounter Details Date Type Department Care Team Description 12/02/2019 Records Encounter Delivery Room [address] [place] [id number] Provider, Not In System Social History Tobacco [...] on filedocumented in this encounter Care Teams Dry Primer Powder Blender Relationship Specialty Start Date End Date Harrison Lowry MD PCP - General Internal Medicine 10/14/21 documented as of this encounter
--- OUTSIDE RECORDS SUMMARY | 2025-08-20 19:22 | XMS_ITS | Encounter Summary ---
Author Organization [facility] Address [address] [place] [address] Care Team Providers Care Computer Applications Engineer Name Role Phone Harrison Lowry MD Primary Care Provider Unava ilable Encounter Details Date Type Department Care Team Description 07/19/2017 Records Encounter Delivery Room [address] [place] [address] Provider, Not In System Social History Tobacco [...] on filedocumented in this encounter Care Teams Computer Applications Engineer Relationship Specialty Start Date End Date Harrison Lowry MD PCP - General Internal Medicine 10/14/21 documented as of this encounter
== END 2025-08-20 15:58 | disposition home or self-care (01) ==
LOC: HO.HUSH 15:09
PROVIDERS: PCP Internal Medicine; Visit Provider Nurse Practitioner Family
DX: R10.9 Unspecified abdominal pain (principal); N20.0 Calculus of kidney; R31.29 Other microscopic hematuria; Z13.9 Encounter for screening, unspecified
CPT/HCPCS: 99213

== ENCOUNTER → 2025-08-20 15:09 | Outpatient (BNVA) | payer OTHER, SELFPAY | PROVIDERS: PCP Internal Medicine; Visit Provider Nurse Practitioner Family | DX: N20.0 Calculus of kidney (principal); R10.9 Unspecified abdominal pain; R31.29 Other microscopic hematuria; Z13.9 Encounter for screening, unspecified | CPT/HCPCS: 81003 ==

== ENCOUNTER 2025-10-05 08:28 | Outpatient (REF) | payer OTHER, SELFPAY ==
--- NOTE | ~2025-10-05 | US_ITS ---
CLINICAL HISTORY: N20.0 - Calculus of kidney US renal with Color Doppler Comparison: CR/SR - XR KUB - 08/07/25 07:13 EDT US/OR/SR - US KIDNEY BILATERAL - 02/02/25 08:38 EDT US/OR - US RENAL BI - 11/02/24 08:36 EST Findings: Right kidney normal size and echotexture, 11.5 cm length. No hydronephrosis or mass. Normal color flow. Nonobstructing caliceal stone midpole measuring 4 x 4 x 4 mm previously measuring 3 x 2 x 2 mm and lower pole measuring 3 x 3 x 4 mm which is new. Left kidney normal size and echotexture, 11.0 cm length. No hydronephrosis or mass. Normal color flow. Nonobstructing caliceal stone lower pole measuring 3 x 3 x 3 mm previously measuring 6 x 3 x 4 mm. Impression: 1. Bilateral nephrolithiasis. No evidence of obstructive uropathy. This document has been electronically signed by: Aman Sandhu MD on 10/05/2025 09:22:10
== END 2025-10-05 08:29 | disposition home or self-care (01) ==
LOC: HO.US 08:28
PROVIDERS: PCP Internal Medicine; Visit Provider Nurse Practitioner Family
DX: N20.0 Calculus of kidney (principal)
CPT/HCPCS: 76775

== ENCOUNTER → 2025-10-05 08:29 | Outpatient (BNV) | payer OTHER, SELFPAY | PROVIDERS: PCP Internal Medicine; Visit Provider Radiology Diagnostic Radiology | DX: N20.0 Calculus of kidney (principal) | CPT/HCPCS: 76775 ==

== ENCOUNTER 2025-10-23 14:44 | Outpatient (AMB) | payer OTHER, SELFPAY ==
--- NOTE | 2025-10-23 14:46 | A.OFFVIS_ITS ---
Intake Visit Reasons: 2m/US/UA(SET) Intake Note: Patient is present for 2M/US/UA IMAGIN10/05/25 Urology Medication: VITAMIN B6 Antibiotic Allergy:CEPHALEXIN Blood Thinner:NONE Road Gang Supervisor Required: No Allergies cephalexin (From Keflex) Allergy (Verified 10/23/25 21:38) Hives Medication List - Last Reconciled 10/23/25 by HEIDI Neff-MIKA ibuprofen 600 mg PO TID PRN Held on 02/08/24. Instructions: Resume on 02/29/24. Use extra-strength Tylenol as needed, avoid NSAIDs pantoprazole 40 mg PO DAILY pyridoxine (vitamin B6) 100 mg PO DAILY 90 days HPI Comments Details: Leticia is a very pleasant 35-year-old female patient of Dr. Lowry. She has a past medical history of hyperlipidemia and hypertension. She presents to the office today for follow-up of her nephrolithiasis. In discussion with the patient today she reports to be doing and feeling well. She does report noting intermittent episodes of right-sided flank pain. She reports episodes are infrequent and self managing. Most recent renal imaging results reviewed with the patient today. 10/25 bilateral kidneys are normal in size and echotexture. Bilateral nephrolithiasis with no evidence of obstructive uropathy. 4 mm and 4 mm nonobstructing right renal calculi. Left kidney with 3 mm nonobstructing calculi. When asked she does report she is attempting to drink plenty of water daily. She also reports compliance with vitamin B6 as well as adding 1 oz of lemon juice to water daily. She currently denies any bothersome urinary issues. In office urinalysis results reviewed with the patient today. We did discussed at length nephrolithiasis as well as further treatment options and risks and benefits of these treatment options. She does have a previous history of ESWL with Dr. Lopez 04/24. Patient with previous stone analysis that noted Carbonate Apatite (Dahllite) 90%Calcium Oxalate Dihydrate (Weddellite) 10%. She denies urinary urgency, urinary frequency, incontinence, nocturia, hematuria, dysuria, foul smelling urine, changes to urinary stream, fever, and or chills. She otherwise offers no other issues or concerns at this time. [facility] Medical History History of kidney stones Elevated cholesterol HTN (hypertension) Surgical History Hx of eye surgery Social History Patient Tobacco Use Status: Never used Tobacco Review of Systems Const All systems reviewed & are unremarkable except as noted in HPI and below Physical Exam Const General: cooperative, healthy appearing, comfortable, no acute distress, well developed, alert and awake Orientation/consciousness: patient oriented x3 Limitations: no limitations HEENT Head: Yes normal to inspection, Yes normocephalic and Yes atraumatic Ears: hearing grossly normal bilaterally Eyes General: appearance normal, both eyes and all related structures Neck Neck: Yes normal visual inspection and Yes trachea midline Chest Chest palpation & inspection: normal inspection of the chest Resp Effort & Inspection: normal respiratory effort and able to speak in complete sentences Cardio Rate: regular rate GI Inspection: Yes normal to inspection General: Yes no CVA tenderness Back/Spine/Pelvis Back: no CVA tenderness Skin General skin exam: no rashes or lesions noted Neuro General: patient oriented x3 Extrem General: Yes normal to inspection Psych Appearance: grossly normal and well kempt Mental Status: mental status grossly normal Speech and movement: Normal speech and movement present and Clear speech present Affect: normal affect Attitude: cooperative Thought process: Normal thought process present Thought content: Normal thought content present Insight: Fair insight present (Psych) Judgement: Fair judgement present (Psych) Results AMB Urinalysis, Automated UA Leukoctes 0 Pamela/uL Last Edit by SHERMAN Welsh on 10/23/25 15:50 UA Nitrite Negative Last Edit by SHERMAN Welsh on 10/23/25 15:50 UA Urobilinogen 0.2 mg/dL Last Edit by SHERMAN Welsh on 10/23/25 15:5 0 UA Protein 15 mg/dL Last Edit by SHERMAN Welsh on 10/23/25 15:50 UA pH 6.0 Last Edit by SHERMAN Welsh on 10/23/25 15:50 UA Blood 10 Harshal/uL Last Edit by SHERMAN Welsh on 10/23/25 15:50 UA Specific [place] 1.020 Last Edit by SHERMAN Welsh on 10/23/25 15: 50 UA Ketone Negative Last Edit by SHERMAN Welsh on 10/23/25 15:50 UA Bilirubin 0 mg/dL Last Edit by SHERMAN Welsh on 10/23/25 15:50 UA Glucose 0 mg/dL Last Edit by SHERMAN Welsh on 10/23/25 15:50 Results Reviewed Results Reviewed: Laboratory Last Values Urine pH (Auto) 6.0 10/23/25 14:51 Specific [place] (Auto) 1.020 10/23/25 14:51 Urine Protein (Auto) 15 mg/dL 10/23/25 14:51 Glucose (UA)(Auto) 0 mg/dL 10/23/25 14:51 Urine Ketones (Auto) Negative 10/23/25 14:51 Urine Blood (Auto) 10 Harshal/uL 10/23/25 14:51 Urine Nitrite (Auto) Negative 10/23/25 14:51 Urine Bilirubin (Auto) 0 mg/dL 10/23/25 14:51 Urine Urobilinogen (Auto) 0.2 mg/dL 10/23/25 14:51 Leukocyte Esterase (Auto) 0 Pamela/uL 10/23/25 14:51 Date of Service: 10/05/25 Procedure(s): US renal BI Findings: Right kidney normal size and echotexture, 11.5 cm length. No hydronephrosis or mass. Normal color flow. Nonobstructing caliceal stone midpole measuring 4 x 4 x 4 mm previously measuring 3 x 2 x 2 mm and lower pole measuring 3 x 3 x 4 mm which is new. Left kidney normal size and echotexture, 11.0 cm length. No hydronephrosis or mass. Normal color flow. Nonobstructing caliceal stone lower pole measuring 3 x 3 x 3 mm previously measuring 6 x 3 x 4 mm. Impression: 1. Bilateral nephrolithiasis. No evidence of obstructive uropathy. Assessment & Plan Assessment & Plan (1) Flank pain: Code(s): R10.9 - Unspecified abdominal pain Category: Medical (2) Nephrolithiasis: Code(s): N20.0 - Calculus of kidney Category: Medical (3) Microscopic hematuria: Code(s): R31.29 - Other microscopic hematuria Category: Medical Plan In office urinalysis results reviewed with the patient today; as noted above. Most renal imaging results reviewed with the patient today; as noted above. Continue vitamin B6 as discussed and prescribed; refill provided. All questions were answered. We discussed the importance of adequate hydration relation to nephrolithiasis as well as overall health and well-being. She currently denies any bothersome urinary issues. Will obtain in 6 months. Will continue with surveillance monitoring at this time All questions were answered Follow-up in 6 months with imaging to be completed prior; or sooner with any issues, concerns, and or questions. Orders: Orders AMB Urinalysis Automated Today Z13.9 - Encounter for screening, unspecified US renal BI 6 Months N20.0 - Calculus of kidney Urine Cytology Today R31.29 - Other microscopic hematuria Patient Instructions: The patient had an opportunity to ask questions regarding the treatment plan. All questions were answered. Physical exam, labs, and imaging were discussed and reviewed in detail. As well as risks, benefits, and discussion of treatment choices. No major barriers to understanding were identified. The patient expressed understanding and agreement with the above treatment plan. The patient was made aware they should contact our office by phone for worsening of their current condition, the appearance of new symptoms, or with any questions or concerns. Compliance is encouraged with any medications and follow up testing that is ordered. It is a privilege to be allowed the opportunity to participate in? your urological care.? Again, if you have any questions or concerns If you have any questions or concerns please do not hesitate to contact me. The office is [phone]. This note is constructed using voice recognition software. While every effort has been made to ensure accuracy industrial technology education teacher errors may have been included. Yours sincerely, HEMANT Neff Coding Level of Care Code Est Pt Level 3 (36619) Add On Problem Visit Only Diagnoses Flank pain R10.9 Nephrolithiasis N20.0 Microscopic hematuria R31.29
--- OUTSIDE RECORDS SUMMARY | 2025-10-23 16:02 | XMS_ITS | Encounter Summary ---
Author Organization [facility] Prior to 03/31/25 Address [address] [place] [address] Care Team Providers Care Screen Printing Press Operator Name Role Phone Harrison Lowry MD Primary Care Provider Unava ilable Encounter Details Date Type Department Care Team Description 12/02/2019 Records Encounter Delivery Room [address] [place] [address] Provider, Not In System Social History Tobacco [...] on filedocumented in this encounter Care Teams Screen Printing Press Operator Relationship Specialty Start Date End Date Harrison Lowry MD PCP - General Internal Medicine 10/14/21 documented as of this encounter
--- OUTSIDE RECORDS SUMMARY | 2025-10-23 16:02 | XMS_ITS | Clinical Summary ---
Author Organization [facility] Address [address] [place] [address] Care Team Providers Care Medical Billing Instructor Name Role Phone Harrison Lowry MD Primary Care Provider [phone] Immunizations Immunization Administration Dates Next Due [employer] [...] on file Sexual Orientation Not on file Plan of Treatment Health Maintenance Due Date [...] age to complete this topic Care Teams Medical Billing Instructor Relationship Specialty Start Date End Date Harrison Lowry MD [address] [place] [address] [place] [id number] PCP - General Internal Medicine 10/14/21
--- OUTSIDE RECORDS SUMMARY | 2025-10-23 16:03 | XMS_ITS | Data Portability ---
Author Organization [place] - [facility]'s [facility], [facility] Address [address] [place] [address] Care Team Providers Care Paper Tube Grader Name Role Phone [place] Primary Care Provider [phone] Assessment No assessment recorded. Plan of Treatment Reminders Order Date Submit Date Provider Last Modified By Organization Details Last Modified Time Details Appointments None recorded. Lab test, urine 2023 024 [email or web address] In-Office Order, Internal Use Only DO Not Attach Compendium DO Not Attach Compendium, Do Not Delete/merge, [id number] 4 15:21:15 CT + NG DNA, PCR, unspecified specimen 2022 023 [facility], [address] [place] [address], [id number] 3 22:19:51 bacterial vaginosis + vaginitis panel, vaginal 2022 023 [facility], [address] [place] [address], [id number] 3 12:27:26 streptococc us group B DNA 2022 023 [facility], [address] [place] [address], [id number] 3 12:27:21 Referral None recorded. Procedures None recorded. Surgeries None recorded. Imaging None recorded. Medication Orders Liletta 20.4 mcg/24 hr (up to 8 years) 52 mg intrauterin e device 2023 024 [email or web address] Not available 4 16:45:20 Patient TargetsNo targets recorded. Patient Instructions Encounter Date Encounter Id Patient Instructions Last Modified By Organization Details Last Modified Time 08/19/2023 [id number] Behavioral healt h screening completed and reviewed with patient. Negative findings. [email or web address] Not available 08/19/2023 18:08:51 10/15/2023 [id number] anxiety disorder : care instructions Not available 10/15/2023 12:15:27 learning about anxiety disorders Not available 10/15/2023 12:15:27 Behavioral healt h screening completed and reviewed with patient. Negative findings. Has known Anxiety. Not available 10/15/2023 12:19:34 11/10/2023 [id number] intrauterine device (IUD) insertion: care instructions [email or web address] Not available 11/10/2023 15:21:15 Reason for Referral None Reported. Results Created Date Observation Date Name Description Value Unit Range Abnormal Flag Note LastModifiedBy Organization Detail LastModifiedTime 07/22/2007/23/2023 URINA LYSIS , COMPL ETE color YELLOW yellow normal Not Available [facility] [address], [address], 07/23/2023 05:47:06 07/22/2007/23/2023 URINA LYSIS , COMPL ETE appearance CLOUDY clear abnormal Not Available [facility] [address], [address], 07/23/2023 05:47:06 07/22/20 23 07/23/2023 URINA LYSIS , COMPL ETE specific gravity 1.020 1.001- 1.035 normal Not Available [facility] [address], [address], 07/23/2023 05:47:06 07/22/20 23 07/23/2023 URINA LYSIS , COMPL ETE pH 6.5 5.0-8. 0 normal Not Available [facility] [address], [address], 07/23/2023 05:47:06 07/22/20 23 07/23/2023 URINA LYSIS , COMPL ETE glucose NEGATI VE negati ve normal Not Available [facility] [address], [place], [address], 07/23/2023 05:47:06 07/22/20 23 07/23/2023 URINA LYSIS , COMPL ETE bilirubin NEGATI VE negati ve normal Not Available [facility] [address], [place], [address], 07/23/2023 05:47:06 07/22/20 23 07/23/2023 URINA LYSIS , COMPL ETE ketones 1+ negati ve abnormal Not Available [facility] [address], [place], [address], 07/23/2023 05:47:06 07/22/20 23 07/23/2023 URINA LYSIS , COMPL ETE occult blood 3+ negati ve abnormal Not Available [facility] [address], [place], [address], 07/23/2023 05:47:06 07/22/20 23 07/23/2023 URINA LYSIS , COMPL ETE protein 1+ negati ve abnormal Not Available [facility] [address], [place], [address], 07/23/2023 05:47:06 07/22/20 23 07/23/2023 URINA LYSIS , COMPL ETE nitrite NEGATI VE negati ve normal Not Available [facility] [address], [place], [address], 07/23/2023 05:47:06 07/22/20 23 07/23/2023 URINA LYSIS , COMPL ETE leukocyte esterase 2+ negati ve abnormal Not Available [facility] [address], [place], [address], 07/23/2023 05:47:06 07/22/20 23 07/23/2023 URINA LYSIS , COMPL ETE WBC 20-40 /hpf < or = 5 abnormal Not Available [facility] [address], [place], [address], 07/23/2023 05:47:06 07/22/20 23 07/23/2023 URINA LYSIS , COMPL ETE RBC 0-2 /hpf < or = 2 normal Not Available [facility] [address], [place], [address], 07/23/2023 05:47:06 07/22/20 23 07/23/2023 URINA LYSIS , COMPL ETE squamous epithelial cells 10-20 /hpf < or = 5 abnormal Not Available [facility] [address], [place], [address], 07/23/2023 05:47:06 07/22/20 23 07/23/2023 URINA LYSIS , COMPL ETE bacteria MANY /hpf none seen abnormal Not Available [facility] [address], [place], [address], 07/23/2023 05:47:06 07/22/20 23 07/23/2023 URINA LYSIS , COMPL ETE hyaline cast 0-1 /lpf none seen abnormal Not Available [facility] [address], [place], [address], 07/23/2023 05:47:06 07/22/20 23 07/22/2023 URINE CULTU RE urine source URINE, RANDOM Not Available [facility] [address] [place], [address] 07/24/2023 08:31:21 07/22/20 23 07/22/2023 URINE CULTU RE micro culture result [...] sonja bacte rial count s. Not Available [facility] [address] [place], [address] 07/24/2023 08:31:21 07/29/2007/30/2023 URINA LYSIS , COMPL ETE color YELLOW yellow normal Not Available [facility] [address], [address], 07/30/2023 01:52:31 07/29/2007/30/2023 URINA LYSIS , COMPL ETE appearance CLEAR clear normal Not Available [facility] [address], [place], [address], 07/30/2023 01:52:31 07/29/2007/30/2023 URINA LYSIS , COMPL ETE specific gravity 1.016 1.001- 1.035 normal Not Available [facility] [address], [place], [address], 07/30/2023 01:52:31 07/29/2007/30/2023 URINA LYSIS , COMPL ETE pH 7.0 5.0-8. 0 normal Not Available [facility] [address], [place], [address], 07/30/2023 01:52:31 07/29/2007/30/2023 URINA LYSIS , COMPL ETE glucose 2+ negati ve abnormal Not Available [facility] [address] [place], [address], 07/30/2023 01:52:31 07/29/2007/30/2023 URINA LYSIS , COMPL ETE bilirubin NEGATI VE negati ve normal Not Available [facility] [address], [place], [address], 07/30/2023 01:52:31 07/29/20 23 07/30/2023 URINA LYSIS , COMPL ETE ketones NEGATI VE negati ve normal Not Available [facility] [address], [place], [address], 07/30/2023 01:52:31 07/29/2007/30/2023 URINA LYSIS , COMPL ETE occult blood 2+ negati ve abnormal Not Available [facility] [address], [place], [address], 07/30/2023 01:52:31 07/29/20 23 07/30/2023 URINA LYSIS , COMPL ETE protein NEGATI VE negati ve normal Not Available [facility] [address], [place], [address], 07/30/2023 01:52:31 07/29/20 23 07/30/2023 URINA LYSIS , COMPL ETE nitrite NEGATI VE negati ve normal Not Available [facility] [address], [place], [address], 07/30/2023 01:52:31 07/29/2007/30/2023 URINA LYSIS , COMPL ETE leukocyte esterase 1+ negati ve abnormal Not Available [facility] [address], [place], [address], 07/30/2023 01:52:31 07/29/20 23 07/30/2023 URINA LYSIS , COMPL ETE WBC 0-5 /hpf < or = 5 normal Not Available [facility] [address], [place], [address], 07/30/2023 01:52:31 07/29/20 23 07/30/2023 URINA LYSIS , COMPL ETE RBC 3-10 /hpf < or = 2 abnormal Not Available [facility] [address], [place], [address], 07/30/2023 01:52:31 07/29/20 23 07/30/2023 URINA LYSIS , COMPL ETE squamous epithelial cells 0-5 /hpf < or = 5 Not Available [facility] [address], [place], [address], 07/30/2023 01:52:31 07/29/20 23 07/30/2023 URINA LYSIS , COMPL ETE bacteria NONE SEEN /hpf none seen normal Not Available [facility] [address], [place], [address], 07/30/2023 01:52:31 07/29/20 23 07/30/2023 URINA LYSIS , COMPL ETE hyaline cast NONE SEEN /lpf none seen normal Not Available [facility] [address], [place], [address], 07/30/2023 01:52:31 07/29/20 23 07/29/2023 URINE CULTU RE urine source URINE, CLEAN CATCH Not Available [facility] [address] [facility], [place], [address] 07/31/2023 11:23:35 07/29/2007/29/2023 URINE CULTU RE micro culture result Steril [...] sonja bacte rial count s. Not Available [facility] [address] [place], [address] 07/31/2023 11:23:35 08/19/2008/19/2023 GROUP B STREP DNA PCR group B strep DNA PCR Positi ve negati ve abnormal Not Available [facility] [address] [place], [address] 08/23/2023 12:27:21 08/19/2008/19/2023 GROUP B STREP DNA PCR group B strep source Vagina l/Rect al Not Available [facility] [address] [place], [address] 08/23/2023 12:27:21 08/19/2008/19/2023 ADVAN HÉCTOR BACTE RIAL VAGIN OSIS (BV), TMA adv bacterial vaginosis (bv), tma Negati ve negati ve Not Available [facility] [address] [place], [address] 08/23/2023 12:27:25 08/19/2008/19/2023 ADVAN HÉCTOR MARIO DA VAGIN ITIS (CV)/ TRICH OMONA S VAGIN JUSTIN (TV), TMA ramakrishna species Negati ve negati ve Not Available [facility] [address] [place], [address] 08/23/2023 12:27:26 08/19/2008/19/2023 ADVAN HÉCTOR MARIO DA VAGIN ITIS (CV)/ TRICH OMONA S VAGIN JUSTIN (TV), TMA ramakrishna glabrata Negati ve negati ve Not Available [facility] [address] [place], [address] 08/23/2023 12:27:26 08/19/2008/19/2023 ADVAN HÉCTOR MARIO DA VAGIN ITIS (CV)/ TRICH OMONA S VAGIN JUSTIN (TV), TMA trichomonas vaginalis (TV), tma Negati ve negati ve Not Available [facility] [address] [place], [address] 08/23/2023 12:27:26 08/20/20 23 08/20/2023 [facility] GLUCO SE GESTA ANNETTE L SCREE N, 135 CUTOF F [facility] glucose gestational screen 135 134 mg/dL <136 Not Available [facility] [address] [place], [address] 08/23/2023 12:00:33 10/15/20 23 10/15/2023 CHLAM YDIA/ [...] than 16 years of age. Not Available [facility] [address] [place], [address] 10/18/2023 22:19:51 10/15/20 23 10/15/2023 CHLAM YDIA/ [...] than 16 years of age. Not Available [facility] [address] [place], [address] 10/18/2023 22:19:51 11/10/19 24 11/10/2023 pregn roland test, urine Result negati ve Not Available In-Office Order Internal Use Only DO Not Attach Compendium DO Not Attach Compendium, Do Not Delete/merge, [id number] 11/09/2023 12:58:11 07/22/2007/22/2023 non-s tress test No observ ation record ed. Not Available 2022 15:33:57 07/26/20 23 07/26/2023 non-s tress test No observ ation record ed. [email or web address] Not Available 07/26 12:57:00 07/29/20 non-s tress test No observ ation record ed. Not Available 2022 11:07:02 08/02/2008/02/2023 non-s tress test No observ ation record ed. [facility] [address], [address], 08/02/2023 22:44:16 08/09/2008/09/2023 non-s tress test No observ ation record ed. [address], [address], 08/09/2023 23:36:57 08/16/2008/16/2023 US, obste tric, mater nal evalu ation + anato my No observ ation record ed. [email or web address] Not Available 08/16 17:27:01 08/16/2008/16/2023 non-s tress test No observ ation record ed. [address], [address], 08/16/2023 17:28:08 08/23/2008/23/2023 US, obste tric, bioph ysica l profi le + non-s tress test No observ ation record ed. [address], [address], 08/25/2023 14:04:40 08/30/2008/30/2023 non-s tress test No observ ation record ed. [address], [address], 08/30/2023 12:54:52 12/21/19 24 12/21/2023 US, trans vagin al RAD [facility] [address], [place], [address], 12/28/2023 12:19:39 Result Notes None recorded. Problems Name Problem SNOMED Code Status Onset Date Resolution Date Notes Provider Name and Address Organization Details Recorded Time Blood group A Rh(D) negative 967718409 Completed 03/22/20 17: Rh Negative - RhoGAM candidat e. KTB Pastora Yanez diomedes, [place] - [facility] 12:01:24 Hyperten sive disorder [id number] Active Pt w/ h/o idiopath ic HTN, tx'd w/ meds from through pregnanc y. Pt's pregnanc y complica sonja by GHTN/pre -E, no tx w/ MgSO4 but tx'd w/ antihype rtensive s pp. Pt was off meds thereaft er & through pregnanc y; pt had sig elevatio n of BP requirin g tx w/ Aldomet & Nifedipi ne pp after pregnanc y. Pt w/ mildly elevated BP [...] edl 07/16/23 : patient left AMA from [facility] after admitted for persiste nt RANKIN and severe range in office. Plan for twice weekly NSTs- one in office, one at [facility] with fluid check. reviewed with Dr. Lambert. edl 07/19/23 : 24 hr urine 210 08/20/23 : patient discusse d with MFM, given well controll ed CHTN will schedule IOL at 39 weeks. Can change to earlier date if issues with uncontro lled BPs or other concerns . scp Tiara hercules, [facility] 3 13:05:02 Past pregnanc y history of gestatio nal diabetes mellitus [id number] Completed Pt w/ Class A1 GDM in 1st pregnanc y--will check fasting BS & HbA1C w/ IOB labs, as pt never complete d pp F/U testing for residual DM. If WNL, plan screenin g later in pregnanc y per routine. Fasting BS=75, SuF0W=2. 4 CSD Normal glucola this preg Tiara Jacinda hercules, [place] - [facility] 0 08:56:46 RhD negative 338823671 Completed Rhogam candidat e. Rhogam given at 28 wga. TBF Tiara hercules, [facility] 0 08:56:46 History of hyperten patricio 676211289 Completed Tiara hercules, [facility] 0 08:56:46 Chronic hyperten patricio in obstetri c context 0061112 Completed Pt reports h/o idiopath ic HTN [...] t-prot=1 20, WNL. Nl Baseline pre-E labs. [facility] Tiara Monaco [facility], [facility] 0 08:56:46 Kidney stone 82522189 Completed 1st pregnanc y complica sonja by renal calculi. Pt w/ known 6 mm nonobstr ucting L renal stone at IOB visit, followed w/ Urology in [place]; pt was to have tx w/ lithotri psy, but had + pregnanc y dx'd. [facility]ided) due to renal stone. Found to have bilatera l non-obst ructing stones with renal USN. Thought to have passed stone on left overni t, discharg ed home with dilaudid prn as well as flomax. [facility] Tiara Dumont diomedes, [facility] 3 13:05:02 High risk pregnanc y 55881374 Completed Tiara Dumont diomedes, [facility] 3 13:05:02 Hyperten sive disorder 31053186 Completed Pt w/ h/o idiopath ic HTN, [...] edl 07/16/23 : patient left AMA from [facility] after admitted for persiste nt RANKIN and severe range in office. Plan for twice weekly NSTs- one in office, one at [facility] with fluid check. reviewed with Dr. Lambert. edl 07/19/23 : 24 hr urine 210 08/20/23 : patient discusse d with MFM, given well controll ed CHTN will schedule IOL at 39 weeks. Can change to earlier date if issues with uncontro lled BPs or other concerns . anika Dumont null, [place] - [facility] 3 13:05:02 Advanced maternal age 711351221 Completed Pt wishes to have cfDNA testing, [...] nasal bone; NT<95th% . CSD Tiara hercules, [facility] 3 13:05:02 RhD negative 166458069 Completed 03/04/23: Bld Type: A NEGATIVE - RhoGAM Candidat e. ktb 07/09/23: RhoGAM given. ktb Tiara Dumont null, [facility] 3 13:05:02 Pain in calf 247131358 Completed 05/14/23 : pt with right calf pain x 1 day. BLE 1+. Right calf does appear larger than left and tender to touch. No erythema . RLE dopplers ordered to be complete d today. No SOB/CP. edl Tiara Dumont null, [facility] 3 13:05:02 Past pregnanc y history of previous delivery by vacuum extracti on [id number] Completed 6 lb 8 oz. 38w3d. for NRFHT Tiara Dumont null, [facility] 3 13:05:02 Past pregnanc y history of gestatio nal diabetes mellitus 455410771 Completed previous ly pregnanc y. 08/12/23 : UA + glucose at 32 and 34 weeks. Will repeat 1 hr GTT. 08/23/23 : repeat 1 hr GTT 134, WNL. edl Tiara Dumont null, [facility] 3 13:05:02 Group B Streptoc occus carrier [id number] 03 Completed GBS+ Tiara Dumont null, [facility] 3 13:05:02 Pregnanc y 70439012 Completed 201610/13/2017 Tiara Jacinda null, [facility] 05/27/202 0 08:56:57 Hyperten sive disorder 97000384 Completed 2016 History of cHTN for the last 2-3 years, original ly on lisinopr il but switched to methyldo pa 250mg BID. BP currentl y well controll ed. plan for baseline PIH labs, 24 hour urine with next labs (16 weeks), level II USN, serial growth USNs. [facility] 05/06/17 24 hr urine for protein 117 CH 05/23/17 Level 2 US: post placenta , no previa/E FW 12 oz, S=D/CL 4.4cm/AF I WNL/vani everton WNL/resc an 6 weeks for growth 07/06/17 MFM US for growth: post placenta , grade 1/EFW 1-15 (48% ile)/BRANDEE 4.5 (WNL)/f- up 4 weeks Pastora hercules, [place] - [facility] 7 12:01:24 Impaired glucose toleranc e 0528704 Completed 201607/08/2017 : Elevated 1Hr Glucose (172) - NEEDS 3HR Test. [facility] YEYO TREVIZO , DO [address] [facility], [place], [address] , [facility] [place] - [facility] 7 08:25:44 Gestatio nal diabetes mellitus 85667330 Completed 201607/08/2017 : Elevated 1Hr Glucose (172) - NEEDS 3HR Test. [facility] 7: 3 out of 4 levels were elevated on her 3Hr Test. NEEDS OEF. [facility] 7: OB USN @ 30.4wks: VTX, Posterio r Placenta - Grade II, EFW 51%tile, BRANDEE: 13.8 (wnl). REPEAT USN in 4 weeks. [facility] 08/17/20 17: OEF: GDMA1 kt 08/31/20 17: OB USN @ 34.3wks: VTX, [...] PO BID. Getting weekly NSTs. 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 SCP Tiara Monaco diomedes, [place] - [facility] 0 08:56:46 Anxiety disorder 374057469 Active 2022 YEYO TREVIZO DO [address] [facility] [place], [address], [facility] [place] - [facility] 3 12:24:21 Problem Notes None recorded. Procedures Surgical History Date Name Laterality Status Provider Name and Address Organization Details Recorded Time 11/10/19 24 IUD Insert completed YEYO TREVIZO DO [address] [facility], [place], [address], [facility] 11/10/2023 16:50:26 08/19/20 23 Non-Stress Test completed MATTHEW NELSON DO [address], [address] [place] [address], [place], [address], [facility] 08/19/2023 18:09:20 08/05/20 23 Non-Stress Test completed LALA PATRICK MD [address], [address] [place] [address], [place], [address], [facility] 08/05/2023 08:54:34 07/29/20 23 Non-Stress Test completed LALA PATRICK MD [address], [address] [place] [address], [address], [facility] 07/29/2023 09:16:59 07/22/20 23 Non-Stress Test completed MATTHEW NELSON DO [address], [address] [place] [address], [place], [address], [facility] 07/22/2023 13:04:28 11/18/19 22 IUD Removal completed SONYA MENDEZ DO [address], [address] [place] [address], [address], [facility] 11/18/2021 13:55:40 11/18/19 22 [id number] completed Mary Castillo [facility] 11/18/2021 13:42:37 04/30/20 20 IUD Insert completed WILLIAM LAGUNAS APRN [address], [address] [place] [address], [address], [facility] 04/30/2020 13:25:20 04/15/20 20 V1T-CWKC (0503F) completed WILLIAM LAGUNAS APRN [address], [address] [place] [address], [address], [facility] 04/14/2020 12:49:46 04/15/20 20 [id number] completed WILLIAM LAGUNAS, [employer] [address] [facility], [place], [address], [facility] [place] - [facility] 04/14/2020 12:49:54 04/15/20 20 [id number]-[id number] completed WILLIAM LAGUNAS, [employer] [address] [facility], [place], [address], [facility] [place] - [facility] 04/14/2020 12:49:50 04/15/20 20 Telemedicine Visit completed WILLIAM LAGUNAS APRN [address] [facility], [place], [address], [facility] 04/15/2020 13:07:45 03/13/20 20 Telemedicine Visit completed MOISES TERRELL MD [address] [facility], [place], [address], [facility] 03/13/2020 09:11:03 03/06/20 20 Telemedicine Visit completed YEYO TREVIZO DO [address] [facility], [place], [address], [facility] 03/06/2020 10:13:08 02/19/20 20 Q0Q-PTO completed Mary Castillo [facility] 02/19/2020 09:30:28 02/12/20 20 G7W-TBZ completed Mary Castillo [facility] 02/12/2020 09:32:00 11/08/19 18 U9D-NJNN (0503F) completed Mary Castillo [facility] 11/08/2017 09:47:55 11/08/19 18 [id number] completed Mary Castillo [facility] 11/08/2017 09:47:56 11/08/19 18 [id number]-GTJPUMDJ (0503F,LATE (57 - 90 days)) completed Mary Castillo [facility] 11/08/2017 09:47:56 09/29/20 17 Non-Stress Test completed WILLIAM LAGUNAS APRN [address] [facility], [address] [place] [address], [address], [facility] 09/29/2017 09:50:56 09/21/20 17 Non-Stress Test completed WILLIAM LAGUNAS APRN [address] [facility], [address] [place] [address], [address], [facility] 09/21/2017 10:13:31 09/13/20 17 Non-Stress Test completed MOISES TERRELL MD [address], [address] [place] [address], [address], [facility] 09/13/2017 16:06:00 08/30/20 17 Non-Stress Test completed YEYO TREVIZO DO [address] [facility], [address] [place] [address], [address], [facility] 08/30/2017 13:47:55 08/23/20 17 Non-Stress Test completed MOISES TERRELL MD [address] [facility], [address] [place] [address], [address], [facility] 08/23/2017 08:17:46 08/16/20 17 Non-Stress Test completed MOISES TERRELL MD [address] [facility], [address] [place] [address], [address], [facility] 08/16/2017 13:41:10 01/12/20 17 Date of Last Pap Smear completed Mary Castillo [facility] 03/05/2017 10:19:26 Other completed Mary Castillo [facility] 03/05/2017 10:20:27 Imaging Results None recorded. Procedure Notes None recorded. Medical Equipment None Reported. Allergies Allergen ID Allergen Name Allergen Category Reaction Reaction Severity Criticality Documentation Date Start Date Code Code System Note Provider Name and Address Organization Details Recorded Time [id number] Keflex medicatio n itching Not available Not available 02/19/2020 7 RxNorm Mary Castlilo null, [place] - [facility] 0 09:29:21 [id number] Substance with sulfonami de structure and antibacte rial mechanism of action (substanc e) medicatio n hives Not available Not available 03/05/2017 [id number] SNOMED Mary Castillo null, [facility] 7 07:16:03 Medications Name Sig Start Date Stop Date Status Note LastModified by Organization Details LastModified Time Mirena 21 mcg/24 hr (up to 8 years) 52 mg intrauter ine device Take by intraute rine route. 04/30 completed inserted 04-30-20 20NDC: 34782-63 12-30LOT: [id number] XP: 04-01-20 22 Not Available Not Available [...] rine route. 2023 active placed 11/10/23; lot [id number] ; Exp 12/2025 Not Available Not Available Not Available Kyleena 17.5 mcg/24 hr (up to 5 years) 19.5 mg intrauter ine device Take by intraute rine route. 11/18 completed inserted 04-30-20 20[facility]: [id number] 01-30LOT: [id number] XP: 12/02/19 22 Not Available Not Available Not Available Vitals Date Recorded Body height Body mass index (BMI) Body weight Systolic And Diastolic Provider Name and Address Organization Details Last Updated DateTime 11/10/2023 161.29 cm 26 kg/m2 97927.26 g 138/82 mm[Hg] Claribel Guevara [facility] 11/10/2023 14:28:41 Date Recorded Body weight Systolic And Diastolic Provider Name and Address Organization Details Last Updated DateTime 08/19/2023 82465.80104 g 120/80 mm[Hg] Not Available [facility] Record 08/19/2023 07:41:06 Date Recorded Body weight Systolic And Diastolic Provider Name and Address Organization Details Last Updated DateTime 08/26/2023 82674.41181 g 140/90 mm[Hg] Not Available [facility] Record 08/26/2023 07:40:26 Date Recorded Body height Body mass index (BMI) Body weight Systolic And Diastolic Provider Name and Address Organization Details Last Updated DateTime 09/10/2023 161.29 cm 26.3 kg/m2 02639.45 g 130/90 mm[Hg] Pastora Brewer [facility] 09/10/2023 11:53:15 Date Recorded Body height Body mass index (BMI) Body weight Systolic And Diastolic Provider Name and Address Organization Details Last Updated DateTime 10/15/2023 161.29 cm 25.3 kg/m2 00227.89 g 120/80 mm[Hg] Pastora Brewer [facility] 10/15/2023 11:49:46 Social History Question Answer Notes LastModified by Organizat ion Details LastModified Time Tobacco Smoking Status [facility]23 11:49:59 Do You Reside In Or Have You Traveled To An Area Where Ebola Virus Transmission Is Active? No Information not available 09/10/2023 Education 4 Year College Information not available 09/10/2023 Do You Have Any [...] Sexually Active? Yes Information not available 09/10/2023 How Much Tobacco [...] ion Details LastModified Time What is your level of alcohol consumption? None Information not available 09/10/2023 Do you or have you ever used smokeless tobacco? Never used smokeless tobacco Information not available 09/10/2023 Are you currently employed? Yes Information not available 09/10/2023 Do you or have you ever used e-cigarettes or vape? Never used electronic cigarettes Information not available 09/10/2023 What is your exercise level? Occasional Information not available 09/10/2023 Mental Status None recorded. Family History Relationship Description Onset Age of this Age Resolved Age Notes LastModified by Organization Details LastModified Time Paternal Grandfather Malignant neoplasm of lung cbinette Not available 2016 07:16:18 Mother Family history of Mother alive and well cbinette Not available 2016 07:16:18 Father Malignant melanoma cbinette Not available 2016 07:16:18 Father Hyperlipidem ia cbinette Not available 2016 07:16:18 Father Gout cbinette Not available 0 03/05/2017 07:16:18 Father Malignant neoplasm of prostate 48 cbinette Not available 2016 [...] N Blood clots N Breast Cancer N Colon cancer N Benign breast disease [...] -IG IM 09/01/2023 completed Pastora Brewer null, [place] - [facility] 10/15/2023 11:50:16 Tdap 07/22/2023 completed Anabel Suh null, [place] - [facility] 07/22/2023 16:25:15 COVID-19, mRNA, LNP-S, PF, 30 mcg/0.3 mL dose 08/13/2021 completed Not Available [facility] 3 08:50:41 Influenza, split virus, quadrivalent, PF 08/12/2017 completed Not Available [facility] 0 02:19:05 Tdap 08/30/2017 completed Not Available [facility] 11/18/2019 02:19:06 Influenza, split virus, quadrivalent, PF 08/03/2019 completed Not Available [facility] 0 02:19:42 Tdap 01/19/2020 completed Zuleika Berger null, [facility] 01/19/2020 14:22:05 Past Encounters Encounter ID Performer Location Encounter Start Date Encounter Closed Date Diagnosis/Indication Diagnosis SNOMED-CT Code Diagnosis ICD10 Code Diagnosis IMO Codes Diagnosis Note [id number] YEYO TREVIZO DO [facility] [place] [address] 03/05/2017 09:49:01 03/08/2017 10:37:17 Routine care 066542714 Z34.90 Z34.91 Z34.92 Z34.93 Z34.00 Z34.80 Z34.01 Z34.02 Z34.03 Z34.81 Z34.82 Z34.83 [id number] MATTHEW NELSON DO [facility] [address] [place] [address] 04/02/2017 11:08:49 04/05/2017 10:40:32 Routine care 130027965 Z34.01 Doing well, no complaints . Reviewed all testing to date including negative Zika Virus RNA and Zika IgM. Patient opted NOT to have carrier screening or NT USN. Unable to hear FH with doppler, + FH documented with USN. [id number] WILLIAM LAGUNAS APRN G[address] [facility] [place] [address] 04/29/2017 13:26:59 04/30/2017 11:19:55 Routine care 809990900 Z34.92 Headaches: Occ Nausea: Occ Vomiting: No movement: n/a Contractio ns: no Pt aware needs to go for AFP lab work due now also given PIH with 24 hour urine. Pt has anatomy scan here--will change to have level 2 at [facility] since pt w/chronic HTN & on methyldopa bid. Pt w/some round ligament pain/discu ssed. F/up 4weeks No signs and symptoms of Zika virus disease onset of fever, rash, arthralgia , conjunctiv itis), travel history, and risk of sexual exposure from a partner with a travel history - induced hypertension 16092144 O13.9 [id number] MATTHEW NELSON DO [facility] [address] [place] [address] 05/25/2017 09:38:33 05/26/2017 08:19:58 High risk 62520795 O09.92 Doing well, no complaints . +FM. Reviewed normal baseline 24 hour urine, PIH labs as well as negative MSAFP results. s/p normal level II USN at [facility], patient has USN for growth scheduled in 6 weeks. 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 Given and cHTN it would be reasonable to limit her to 12 hour shifts. 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). Denies h/a, n/v. Rhogam given in [...] whole grains, other changes? RTO 3 wks [id number] SONYA MENDEZ DO G5 [address] [place] [address] 08/12/2017 16:22:22 08/17/2017 08:15:11 Administration of influenza vaccine 85895405 Z23 Essential hypertension 83893282 I10 No s/s of Pre-E. Pressures reviewed and within acceptable range. Continue with methyldopa 250 mg BID. 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 Fasting sugars ~ 70 and 2 hour PP 120-140. Reports to Layla Alvarado. No meds at this time. Has follow up USN in 4 weeks for growth. Routine an tenatal care 099543869 Z34.03 Routine visit today. Size consistent with dates. Reassuring FHR. No recent travel, sick contacts, or Zika exposures. PTL and movement precaution s reviewed. RhD negative 128248575 Z 01.83 S/p Rhogam. FS after delivery. [id number] MOISES TERRELL MD G5 [address] [place] [address] 08/16/2017 12:37:52 08/17/2017 09:39:51 Essential hypertension 43312247 I10 Gestationa l diabetes mellitus 52686158 O24.381 [id number] MOISES TERRELL MD G5 [address] [place] [address] 08/23/2017 07:35:37 08/24/2017 08:41:00 [id number]O T[address]VIZO [address] [facility]5 [address] [place] [address] 08/30/2017 12:37:58 09/01/2017 12:45:30 Routine care 708707618 Z34.93 Gestationa l diabetes mellitus 95264799 O24.219 [id number] [facility] [address] [place] [address] 09/02/2017 16:23:11 09/03/2017 12:59:49 Routine care 523767922 Z34.93 +fm, + quincy castellon. Denies h/a, n/v, edema, visual disturbanc es, ruq/epigas tric pain. BP elevated, she states that she has been a little stressed. Monitors b/p while at home and at work. Pt notes +GFM & denies c/o. Pt notes occas ctxns, infrequent . Pt denies pre-E sx's. Pt describes good BS control. RTO for NST's q wk. [id number] SONYA Kirkland MENDEZ , [facility] [address] [place] [address] 09/06/2017 08:33:52 09/07/2017 09:15:47 Routine care 591510022 Z34.03 Routine visit today. Size consistent with dates. Reassuring FHR. No recent travel, sick contacts, or Zika exposures. PTL and movement precaution s reviewed. Essential hypertension 72258139 I10 No s/s of Pre-E. Pressures reviewed and within acceptable range. Continue with methyldopa 250 mg BID. RhD negative 720572579 Z 01.83 S/p Rhogam. FS after delivery. Gestationa l diabetes mellitus 83252706 O24.410 Diet controlled . [id number] MOISES TERRLEL MD [facility]5 [address] [place] [address] 09/13/2017 12:38:32 09/14/2017 13:59:41 Normal 73358136 Z34.93 [id number] WILLIAM LAGUNAS APRN [facility]5 [address] [place] [address] 09/21/2017 08:35:28 09/22/2017 09:12:57 Routine care 439162050 Z34.93 Headaches: No Nausea: No Vomiting: No [...] from a partner with a travel history [id number] WILLIAM LAGUNAS APRN G5 [address] [place] [address] 09/29/2017 08:37:23 09/30/2017 13:12:14 Routine care 306267572 Z34.93 no n/v no h/a no edema [...] from a partner with a travel history [id number] WILLIAM LAGUNAS APRN G[address] [facility] [place] [address] 10/13/2017 11:46:44 10/15/2017 13:48:46 Essential hypertension 89588552 I10 Pt w/hx elevated BP--has been on Aldomet 250 BID during BP elevated today Will increase Aldomet to TID Return 10/18 for BP check Reviewed s/s to report [id number] YEYO TREVIZO DO [facility]5 [address] [place] [address] 10/18/2017 13:04:42 10/19/2017 09:12:21 Blood pressure above reference range 43433925 R03.0 Here for Post-Partu m BP Check. Feels well. Denies RANKIN, RUQ Pain, Visual Changes, N/V. BP 126/90 on current meds. Will continue and recheck in a few days. [id number] YEYO TREVIZO [facility]5 [address] [place] [address] 10/22/2017 12:13:06 10/27/2017 11:33:54 Blood pressure above reference range 35703638 R03.0 Here for rpt BP Check. BP 124/90. Asymptomat ic: denies RANKIN,VisualC hanges, RUQ Pain, N/V. Taking meds (Methyldop a250mg PO TID) as directed. Will continue present care and recheck at upcoming Post-Partu m Check on 11/08/2017. Precaution s reviewed. [id number] MOISES TERRELL MD [facility]5 [address] [place] [address] 11/08/2017 09:44:09 11/10/2017 08:29:04 care 958972781 Z39.2 [id number] LALA PATRICK MD G5 [address] [place] [address] 08/03/2019 10:20:50 08/04/2019 10:22:45 Routine care 179361136 Z34.80 Z34.82 Has some nausea and vomiting, relieved with bland snack, no c/o VB or sxs, has had occasional HAs. Plans carrier screen/NIP S/NT/AFP. Pap wnl 01/15. 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 Pt [...] 4 wks Administra tion of influenza vaccine 93527300 Z23 Gestation period, 9 weeks 945420 Z3A.09 Depression screening 171 111319 Z13.31 Completed, results negative [id number] SONYA Marita MENDEZ , DO [facility]5 [address] [place] [address] 08/31/2019 08:51:29 09/01/2019 12:55:59 Routine care 223839315 Z34.81 Routine OB visit. Size = date. [...] OB visit. TBF Gestation period, 13 weeks 81911282 Z3A.13 [id number] WILLIAM LAGUNAS, [employer] G5 [address] [place] [address] 09/26/2019 13:28:22 10/06/2019 15:27:42 Routine care 365683412 Z34.93 Patient denies nausea, vomiting, headache, doing [...] a travel history Gestation period, 16 weeks 35008438 Z3A.16 Depression screening 171 900719 Z13.32 neg [id number] YEYO TREVIZO, DO [facility]5 [address] [place] [address] 10/19/2019 09:57:34 10/23/2019 10:18:48 Routine care 329266842 Z34.82 Gestation period, 20 weeks 15087336 Z3A.20 [id number] MOISES TERRELL MD WHG5 [address] [place] [address] 11/15/2019 08:31:15 11/20/2019 10:35:46 Routine care 091802347 Z34.82 Gestation period, 23 weeks 46481467 Z3A.23 [id number] SONYA MENDEZ DO G5 [address] [place] [address] 12/13/2019 09:15:03 12/15/2019 14:45:28 Gestation period, 28 weeks 54916397 Z3A.28 Routine an tenatal care 671069804 Z34.81 Routine OB visit. Size = date. [...] OB visit. TBF Gestation period, 27 weeks 99152240 Z3A.27 Administra tion of RhD immune globulin 1531485 Z29.13 [id number] LALA PATRICK MD G5 [address] [place] [address] 01/01/2020 11:07:44 01/04/2020 11:09:55 Routine care 187682859 Z34.83 Nausea: No Vomiting: No Headaches: Yes almost everyday FM+ Pt notes + GFM & denies ctxns or other c/o. Pt has no urinary c/o, states R flank pain is improving. Pt is taking Keflex. Reviewed results to date. Reviewed signs/sx's of worsening pyelo, PTL, when to call for eval. RTO 2 wks Gestation period, 30 weeks 81498168 Z3A.30 [id number] WILLIAM LAGUNAS APRN G5 [address] [place] [address] 01/19/2020 13:42:28 01/24/2020 09:00:41 Routine care 266185350 Z34.83 Nausea: No Vomiting: No Headaches: Occasional [...] a travel history Gestation period, 33 weeks 54274504 Z3A.33 Active or passive immunization 456052641 Z23 [id number] SONYA MENDEZ DO G2 [address] [place] [address] 01/29/2020 11:38:49 02/02/2020 07:36:21 Routine care 766198704 Z34.83 Routine OB visit. Size = date. [...] OB visit. TBF Gestation period, 34 weeks 78883948 Z3A.34 [id number] MOISES TERRELL MD G5 [address] [place] [address] 02/12/2020 09:25:27 02/13/2020 12:00:23 Routine care 428994573 Z34.82 Gestation period, 36 weeks 99734660 Z3A.36 Depression screening 171 546122 Z13.32 Behavioral health screening completed and reviewed with patient. Negative findings. [id number] MATTHEW NELSON DO G5 [address] [place] [address] 02/19/2020 09:25:28 02/20/2020 13:01:47 Routine care 678268864 Z34.01 Doing well, no complaints . Good [...] at 39+ weeks, paperwork completed today in [place] office. Patient will continue to monitor BP at home and call if any severe range elevations or if any symptoms of preeclamps ia. Will begin weekly NSTs until delivery. Patient planning to stop work at this time. Advised to call if any concerns prior to next visit. [id number] YEYO TREVIZO DO TEL_02_ GP_TELEHE ALTH [address] [facility] [place] [address] 03/06/2020 08:41:53 03/07/2020 11:00:40 Blood pressure above reference range 65893171 R03.0 Patient has been informed about the treatment methods and limitation s of treating a person through telehealth . Patient gives verbal consent to telemedici ne visit via the [employer] System. Patient is s/p with Vacuum Assist [...] Time spent with patient (Video Call via [employer]): 4 minutes 31 seconds Total visit time: 10 minutes [id number] MOISES TERRELL MD TEL_02_ GP_TELEHE ALTH [address] [facility] [place] [address] 03/13/2020 08:51:13 03/18/2020 10:34:16 Hypertensive disorder 05240657 I10 [id number] WILLIAM LAGUNAS, [employer] TEL_02_WH GP_TELEHE ALTH [address] [place] [address] 04/15/2020 08:41:03 04/22/2020 09:20:58 care 642724905 Z39.2 Reviewed limitation s of treatment with [...] Annual due 3 months Depression screening 171 401548 Z13.32 EPDS 4 [id number] WILLIAM LAGUNAS APRN G5 [address] [place] [address] 04/30/2020 12:57:10 04/30/2020 15:06:34 Insertion of intrauterine contraceptive device 01859258 Z30.430 Pt would like Kyleena for contracept ionRev risk/benef its; consent signedPreg test negCulture s done todayKylee na placed without difficulty (see procedure note)Rev s/s to report: fever/rafael re pain/expul patricio F/up 6 weeks for IUD check [id number] SONYA MENDEZ DO G5 [address] [place] [address] 11/18/2021 13:35:07 11/24/2021 14:07:06 Removal of intrauterine device 93721930 Z30.432 Kyleena IUD removed without any difficulty or complicati on. Patient tolerated the procedure well. IUD was intact and shown to patient. Pain / cramping precaution s reviewed. María castro another - not interested in alternativ e contracept ion at this time. [id number] MOISES TERRELL MD G5 [address] [place] [address] 02/09/2023 13:18:41 02/09/2023 14:13:37 Amenorrhea 17615023 N91.2 [id number] LALA PATRICK MD WHG5 [address] [place] [address] 02/15/2023 14:49:48 02/16/2023 09:00:24 Routine care 519787347 Z34.83 Pre-eclampsia 900277730 O14.94 High risk 4720 0007 O09.91 nausea/vom [...] re-check of BP. Gestation period, 9 weeks 727404 Z3A.09 Depression screening 171 986323 Z13.31 Completed, results negative [id number] YEYO TREVIZO DO G5 [address] [place] [address] 03/04/2023 09:34:02 03/04/2023 11:02:28 Routine care 437147204 Z34.82 Gestation period, 11 weeks 01572661 Z3A.11 Repeat NIPT ordered at today's visit and given to patient to have drawn (03/04/2023) . Chronic hy pertension in obstetric context 7722124 O16.9 Patient has a Hx of CHTN [...] any issues. High risk 4720 0007 O09.91 [id number] SAMMI NOBLE MD G5 [address] [place] [address] 03/15/2023 15:29:34 03/15/2023 16:19:28 Routine care 618019375 Z34.91 Gestation period, 13 weeks 69468157 Z3A.13 Hypertensive disorder 38 537922 I10 [id number] MOISES TERRELL MD G5 [address] [facility] [place] [address] 04/02/2023 09:33:38 04/02/2023 10:15:14 Past history of gestational hypertension 800441956 Z87.59 [id number] SONYA MENDEZ DO [facility] [address] [place] [address] 04/12/2023 15:34:03 04/12/2023 16:01:59 Routine care 218801072 Z34.83 Routine OB visit. Size = date. [...] 4 weeks. TBF Gestation period, 17 weeks 63970189 Z3A.17 High risk 4720 0007 O09.92 [id number] SAMMI NOBLE MD G5 [address] [place] [address] 05/14/2023 14:07:16 05/14/2023 14:52:05 Routine care 273963097 Z34.91 Gestation period, 22 weeks 66839724 Z3A.22 Pain of right calf 77181 59834 504415 M79.661 [id number] LALA PATRICK MD G5 [address] [place] [address] 06/11/2023 14:38:28 06/11/2023 16:43:09 Routine care 960061562 Z34.83 Nausea/Vom iting: No Headaches: No Contractio n/Cramping : No FM: + Edema: legs & calf pain Pt seen at [facility] overnight 06/09-08/23 for tx of renal calculus. Pt states sx's improved markedly once some sediment was noted to pass. Pt is using Flomax, has contacted her urologist to update them of her status. Reviewed upcoming 3rd tri labs. RTO 4 wks or prn Gestation period, 26 weeks 28958090 Z3A.26 Depression screening 171 814562 Z13.32 Completed, results negative [id number] YEYO TREVIZO, [facility] [address] [place] [address] 07/09/2023 15:14:47 07/09/2023 16:26:34 Routine care 282454889 Z34.82 Gestation period, 30 weeks 29732438 Z3A.30 RhD negative 731304131 Z 01.83 RhoGAM given today High risk 4720 0007 O09.93 [id number] [facility]W [facility], [facility] [address] [place] [address] 07/22/2023 12:36:39 07/22/2023 15:44:39 Routine care 236173065 Z34.01 Doing well, no complaints . + FM. Was seen at [facility] last week on 07/15 - 07/16/23 for evaluation of RANKIN and elevated BP. Patient left AMA from [facility] after admitted. No concerns today, no RANKIN, visual disturbanc es. BP today 122/82, reports that at home no higher than 140/90. Completed 24 hour urine collection 07/16/23 with normal results (210mg). USN completed last week (07/19/23) at [facility]: EFW 69%, normal BRANDEE, vertex. Next USN scheduled in 4 weeks for CHTN. Reactive NST today, will need to continue 2x weekly, next to be scheduled at [facility] on Wednesday. Urine dip today + blood and ketones. No UTI symptoms. Will send UAC&S. Would like both TDAP and flu vaccine, given at visit today. Gestation period, 32 weeks 9333929 Z3A.32 Administra tion of diphtheria, pertussis, and tetanus vaccine 283248581 Z23 Administra tion of influenza vaccine 06729639 Z23 [id number] LALA PATRICK MD [facility]5 [address] [place] [address] 07/29/2023 07:55:36 07/30/2023 11:10:19 Routine care 206876854 Z34.83 Nausea/Vom iting: No Headaches: Occ Contractio [...] hbA1C. RTO weekly Gestation period, 32 weeks 0952129 Z3A.32 [id number] LALA PATRICK MD G[address] [place] [address] 08/05/2023 08:04:39 08/05/2023 10:30:26 Routine care 107452508 Z34.83 Nausea/Vom iting: yes/No Headaches: occ Contractio [...] both WNL--will attempt to get results in Jessica. RTO weekly Gestation period, 33 weeks 26651809 Z3A.33 [id number] [address]MI NO[address] [facility] [address] [place] [address] 08/12/2023 07:28:21 08/12/2023 14:22:49 Gestation period, 34 weeks 92391307 Z3A.34 Routine an tenatal care 639257261 Z34.91 Past pregn roland history of gestational diabetes mellitus 378955370 Z86.32 [id number] MATTHEW Christie NELSON, DO [facility]5 [address] [place] [address] 08/19/2023 07:34:35 08/20/2023 14:49:16 Gestation period, 35 weeks 92197564 Z3A.35 Vaginal discharge 184552 006 N89.8 Routine an tenatal care 966337648 Z34.01 Doing well, no complaints . + [...] visit today. No plan for delivery (no [facility] recommenda tions to date), will contact [facility] to discuss. Negative PHQ-2 today. Depression screening 171 799948 Z13.32 Negative PHQ-2 today. [id number] SAMMI NOBLE MD [facility]5 [address] [place] [address] 08/26/2023 07:31:49 08/26/2023 13:32:36 Routine care 382578742 Z34.91 Gestation period, 36 weeks 08269679 Z3A.36 [id number] SONYA MENDEZ , [facility] [address] [place] [address] 09/10/2023 11:49:49 09/10/2023 12:45:35 Blood pressure above reference range 52602887 R03.0 33 yo F in office for [...] a separately obtained history: 5 minutesRev iewing patient s lab/radio logy/test results: 5 minutesExa mining the patient: 5 minutesDis cussing Treatment options with patient/fa remi/careg iver: 10 minutesCou nseling and education of the patient/fa remi/careg iver: 5 minutesUpd ating/docu menting clinical informatio n in the patient s medical record: 5 minutes [id number] YEYO TREVIZO DO WHG5 [address] [place] [address] 10/15/2023 11:44:59 10/15/2023 12:46:08 care 787854096 Z39.2 Check: Doing well after delivery. Reviewed , delivery and course to date. Post-Partu m Depression screen reviewed: no s/s of PPD (SEE FORM). Breastfeed ing reviewed. BC options reviewed. All questions were answered to the patient's satisfacti on. RTO in 2-3 months for Routine Annual Exam. Maternal p ostpartum depression screening [id number] 72512 Z13.32 EPDS 8 of 30: borderline . Patient has known Anxiety. 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 Hypertensive disorder 38 [id number] I10 Patient has known Chronic HTN. was complicate d by Severe Pre-Eclamp emily. Started on Labetalol 200mg BID at visit on 09/28/2023 . BP 120/80 today. Will follow with PCP. Anxiety disorder [id number] 06 F41.9 Patient has known Anxiety. 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 Contraception care [id number] Z30.40 Patient interested in getting an IUD: [...] URINE TEST at the time of placement. [id number] YEYO TREVIZO, DO WHG5 [address] [place] [address] 11/10/2023 14:15:34 11/10/2023 16:56:05 Insertion of intrauterine contraceptive device [id number] Z30.430 Liletta placed after risk/benef its and [...] Recorded Advance Directives Directive None Recorded Payers Insurance Date Sequence Insurance Name Policy Number Policy Garcia Covered Member ID Garcia Member ID Guarantor Name 09/09/2023 1 UMR [id number] Leticia Castro [id number] Leticia Castro 07/25/2019 1 PASTORA [id number] Paresh Castro [id number] Leticia Castro 03/31/2024 1 [place] [id number] Leticia Castro [id number] Leticia Castro Notes Date Note Type Note Provider Name and Address Organization Details Recorded Time 3 text/html [facility] Post-OpReported by PatientHPIFor associated symptoms, patient reportsincision healing well,no fatigue,normal appetite,normal bowel function,no constipation,no nausea,no emesis,pain improving,no pain,no fever,no bleeding,no lower extremity edema/pain, andno dysuria/urinary symptoms.ROS as noted in the HPI SONYA MENDEZ, [address] [facility], [address] [place] [address], [phone], [facility] 09/10/2023 12:40:51 3 text/html [facility] VisitReported by PatientHPIFor onset/timing, patient reportsdate of delivery:(08/31/2023). For delivery type, patient reportsnsvd. For context, patient reportscomplications of : pre-eclampsia, complications: none,feeding choice: breast milk, andgood support from partner/family. For associated symptoms, patient reportsno abnormal bleeding,no pelvic pain,no constipation,no fecal incontinence,no dysuria,no urinary incontinence,no fever,no problems, andno mastitis.ROS as noted in the HPI YEYO TREVIZO DO [address] [facility], [address] [place] [address], [phone], [facility] 10/15/2023 12:24:53 4 text/html Pt here for Liletta IUD insertion. /NC 10/15/23: neg. 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 Rpt USN in 4 weeks. Continue Methyldopa 250mg PO BID. NSTs q/week. Follow FS with Layla Alvarado. Problem Name Start Date End Date Resolution Snomed Code Not e Blood group A Rh(D) negative 514783285 03/22/2017: Rh Negative - RhoGAM candidate. KTB Gestational diabetes mellitus 07/19/2017 [id number] 07/08/2017: [place] sonja 1Hr Glucose (172) - NEEDS 3HR [...] Getting weekly NSTs. ktb Hypertensive disorder 04/02/2017 [id number] 3 History of cHTN for the last [...] WNL/rescan 6 weeks for growth CH 07/06/17 MF US for growth: post placenta, grade 1/EFW [...] Type Weight in lbs Pre/Post Dialysis Refused 137.795747316277 BP Diastolic BP Location Tested BP Systolic BP Type 76 116 Fetus Heart Rate Present A 130 Present Fetus Movement Comments Headaches: NoNausea: OccVomi ting: NoFetal movement: N/AContractions (cramping or bleeding): NoPt aware that she needs to go to [facility] for initial bld work...she also has agreed to do CF/NPTI/Afp which will be done at [facility]. Pt has done zika testing 03/02/2017 waiting results pt was in [place] she is aware needs to use condoms for intercourse.Pt has agreed to do the 1st trimester testing at [facility]. Flowsheet Date 04/02/2017 Rodgers Score Blood Edema Fundus Height Fundus Units Glucose Ketones Leukocytes Nitrite Labor Signs Protein Cervic Dilation Cervic Effacement Cervic Station none 12 wks none negative none neg Type Weight in lbs Pre/Post Dialysis Refused 139.067821431565 BP Diastolic BP Location Tested BP Systolic [...] Type Weight in lbs Pre/Post Dialysis Refused 140.012231601081 BP Diastolic BP Location Tested BP Systolic BP Type 70 110 Fetus Heart Rate Present A 144 Present Fetus Movement A No Comments Headaches: OccNausea: OccVom iting: NoFetal movement: n/aContractions: noPt aware needs to go for AFP lab work due now also given PIH with 24 hour urine. Pt has anatomy scan here--will change to have level 2 at [facility] since pt w/chronic HTN & on methyldopa bid. Pt w/some round ligament pain/discussed. F/up 4weeks Flowsheet Date 05/25/2017 Rodgers Score Blood Edema Fundus Height Fundus Units Glucose Ketones Leukocytes Nitrite Labor Signs Protein Cervic Dilation Cervic Effacement Cervic Station none 20 wks none negative none neg Type Weight in lbs Pre/Post Dialysis Refused 147.745184438778 BP Diastolic BP Location Tested BP Systolic BP Type 68 126 Fetus Heart Rate Present A 147 Present Fetus Movement A Yes Comments Headaches: 1x weekNausea: No Vomiting: NoFetal movement: N/AContractions: NoAnatomy scan doen at [facility] on 05/19/2017 due history hypertension.Doing well, no complaints. +FM. Reviewed normal baseline 24 hour urine, PIH labs as well as negative MSAFP results. s/p normal level II USN at [facility], patient has USN for growth scheduled in 6 weeks. 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). Denies h/a, n/v. Rhogam given in [...] Type Weight in lbs Pre/Post Dialysis Refused 149.555093373814 BP Diastolic BP Location Tested BP Systolic [...] Type Weight in lbs Pre/Post Dialysis Refused 148.532524682555 BP Diastolic BP Location Tested BP Systolic [...] Type Weight in lbs Pre/Post Dialysis Refused 150.787945531186 BP Diastolic BP Location Tested BP Systolic [...] Type Weight in lbs Pre/Post Dialysis Refused 152.734675977458 BP Diastolic BP Location Tested BP Systolic [...] Type Weight in lbs Pre/Post Dialysis Refused 151.251204382452 BP Diastolic BP Location Tested BP Systolic [...] Type Weight in lbs Pre/Post Dialysis Refused 152.838220884326 BP Diastolic BP Location Tested BP Systolic [...] to Layla Alvarado. Reactive NST in the [place] office today. No s/s of pre-E. Pressures [...] Type Weight in lbs Pre/Post Dialysis Refused 153.978192293205 BP Diastolic BP Location Tested BP Systolic BP Type 84 112 Fetus Heart Rate Present A 135 Present Fetus Movement A Yes Comments Headaches: NoNausea: Yesterd ay/None todayVomiting: NoFetal movement: YesContractions: Occ Carlisle HicksBeta strep done today.no ctxs, cramping, bleeding or ROMGood FMSOL and FACs reviewedsun, bug, Zika, sex and travel precautions reviewedNo recent Viral illness, rash or arthralgiasLabs and U/S reviewed: EFW 35%: rescan 4 weeks Flowsheet Date 09/21/2017 Rodgers Score Blood Edema Fundus Height Fundus Units Glucose Ketones Leukocytes Nitrite Labor Signs Protein Cervic Dilation Cervic Effacement Cervic Station none none negative Carlisle Castellon neg 0cm 70% -2 Type Weight in lbs Pre/Post Dialysis Refused 155.55439127718 BP Diastolic BP Location Tested BP Systolic [...] Type Weight in lbs Pre/Post Dialysis Refused 154.253729356858 BP Diastolic BP Location Tested BP Systolic [...] 1 week for NST/appt Flowsheet Date 10/13/2017 Ordgers Score Blood Edema Fundus Height Fundus Units Glucose Ketones Leukocytes Nitrite Labor Signs Protein Cervic Dilation Cervic Effacement Cervic Station Type Weight in lbs Pre/Post Dialysis Refused 140.060404230787 BP Diastolic BP Location Tested BP Systolic BP Type 98 138 Fetus Heart Rate Present Fetus Movement Comments Menstrual History Last Menstrual Date Menses Monthly On Bcp Conception Prior Menses Frequency Hcg Plus Date Menarche Onset Age 0301/02/2017 Genetic Screening And Infection History Question Response Note Patient's Age Will Be 35 Yea rs Or Older At Estimated Date of Delivery false Thalassemia (Lao, Frisian, Mediterranean, Or Background): MCV < 80 false Neural Tube Defect (Meningom yelocele, Spina Bifida, Or Anencephaly) false Congenital Heart Defect false Down Syndrome false Donald-Sachs (eg, Restoration, Cajun, Faroese-Guatemalan) f alse Troy Disease false Sickle Cell [...] History true Chicken pox Familial Dysautonomia (Ashkenazi Restoration) false Spinal Muscular Atrophy false Parkinson Disease false History of HIV false History of Hepatitis false Prior GBS-infected child false Plans and Education First Trimester Discussed Date Discussion Item Discussion Note Discuss ed By 03/05/2017 Anticipated course of care kborkowski03/05/2017 Alcohol kborkowski03/05/2017 Intimate partner violence karlee lee03/05/2017 Environmental/work hazards k joseline03/05/2017 Screening for aneuploidy kbo rkowski1 03/05/2017 Nutrition counseling ; special diet; dietary precautions (mercury, listeriosis) kborkowski03/05/2017 Childbirth classes/hospital facilities kborkowski03/05/2017 HIV and other routine tests 03/05/2017 Risk factors identif ied by history kborkowski03/05/2017 Weight gain counseling kbork owski1 03/05/2017 Exercise kborkowski03/05/2017 Teratogens 03/05/2017 Use of any medicatio ns (including supplements, vitamins, herbs, or OTC drugs) kborkowski03/05/2017 kborkowski03/05/2017 Sexual activity kborkowski03/05/2017 Tobacco/smoking cess ation counseling (ask, advise, assess, assist, and arrange) kborkowski03/05/2017 Illicit/recreational drugs sanya trevizo03/05/2017 Dental care kborkowski03/05/2017 Travel 03/05/2017 Seat belt use 03/05/2017 Indications for ultrasonography kborkowski03/05/2017 Avoidance of saunas or hot tubs kborkowski03/05/2017 Toxoplasmosis precautions (cats/raw meat) Second Trimester Discussed Date Discussion Item Discussion Note Discuss ed By 06/23/2017 Selecting a care provider kborkowski06/23/2017 Abnormal lab values kbchristine ki1 06/23/2017 Signs and symptoms of labor kborkowski06/23/2017 Intimate partner violence karlee lee06/23/2017 Provided information about childbirth education classes Third Trimester Discussed Date Discussion Item Discussion Note Discuss ed By 08/30/2017 Intimate partner violence karlee nunez 08/30/2017 Anesthesia plans kborkowski08/30/2017 movement monitoring kb orkowski1 08/30/2017 08/30/2017 Labor signs 08/30/2017 Family medical leave or disability forms 08/30/2017 Tobacco/smoking cess ation counseling (ask, advise, assess, assist, and arrange) 08/30/2017 Signs and symptoms of preeclampsia 08/30/2017 Discussed and offered TDAP sanya [email or web address] Delivery Information Delivery Date Delivery Type Labor Anesthesia Weeks Gestation Incision Type Labor Labor Length Hrs Delivered By Post Complications Tubal Sterilization Discharge Date Comments 7 Regional-Ep idural 39.2 joseline Discharge Information Feeding Method Contraceptive Method Maternal HG B and HCT Levels Breast Ob Episode Information Episode Created Date Number of Fetuses Patient Bloodtype Patient rh Status Prepregnancy Weight lbs Domestic Partner Domestic Partner Phone Father Name Creasing Machine Operator Status 07/25/20 19 1 A Negative 150 Paresh Motson Leslie CLOSED Fetus Data First Name Last Name Admitted to NICU Weight (g) Sex Living Outcome Pediatric Complications Fetus ID Race Codes Race Delivery Type 2939.86 74743 F true Full Term [id number] Vaginal Delivery Vacuum Problems Problem Notes chicken pox age 1, 120mg caf feine/day, no cats in homepast hx 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 CSD10/19/19: Anatomy USN: VTX, Anterior Placenta, CL 4.42cm. EFW 50%tile. Normal anatomy in images seen, however, NOT ALL CARDIAC VIEWS COULD BE SEEN (SUBOPTIMAL) - will need repeat ANATOMY USN at [facility]. Reviewed at apt today. ktb Additional views [...] Snomed Code Not e History of hypertension 558730951 RhD negative [id number] Rhogam candidate. Rhogam given at 28 wga. TBF Chronic hypertension in obstetric context [id number] Pt repo rts h/o idiopathic HTN prior [...] pt agreeable to do. Baseline 24-hr urine t-fpid=894, WNL. Nl Baseline pre-E labs. CSD Past history of gestational diabetes mellitus 675338666 Pt w/ Class A1 GDM in 1st --will check fasting BS & HbA1C w/ IOB labs, as pt never completed pp F/U testing for residual DM. 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 Reviewed at apt today. PLEASE GIVE 28wk Lab Slip AT NEXT OB APT. Flowsheet Date 11/15/2019 Rodgers Score Blood Edema Fundus Height Fundus Units Glucose Ketones Leukocytes Nitrite Labor Signs Protein Cervic Dilation Cervic Effacement Cervic Station trace 24 cm trace negative Other (see comments ) neg Type Weight in lbs Pre/Post Dialysis Refused Weight 155.24042844125 BP Diastolic BP Location Tested BP Systolic [...] in lbs Pre/Post Dialysis Refused With clothes 157.210744694480 BP Diastolic BP Location Tested BP Systolic [...] Weight in lbs Pre/Post Dialysis Refused Weight 160.442608236196 BP Diastolic BP Location Tested BP Systolic [...] Weight in lbs Pre/Post Dialysis Refused Weight 159.047055488177 BP Diastolic BP Location Tested BP Systolic [...] Weight in lbs Pre/Post Dialysis Refused Weight 160.575492148173 BP Diastolic BP Location Tested BP Systolic [...] Weight in lbs Pre/Post Dialysis Refused Weight 162.187956147342 BP Diastolic BP Location Tested BP Systolic BP Type 86 130 Fetus Heart Rate Present A 144 Present Fetus Movement A Yes Comments Headaches: Yes Daily tylenol effectiveNausea: noVomiting: NoFetal movement: YesContractions: Carlisle HicksBeta strep done in office today.no ctxs, [...] Weight in lbs Pre/Post Dialysis Refused Weight 166.652275467815 BP Diastolic BP Location Tested BP Systolic BP Type 82 134 Fetus Heart Rate Present A 142 Present Fetus Movement A Yes Comments Headaches: Daily tylenol eff ectiveNausea: NoVomiting: NoFetal movement: YesContractions: Carlisle HicksDoing well, no complaints. Good FM. Reviewed [...] at 39+ weeks, paperwork completed today in [place] office. Patient will continue to monitor BP [...] Estim ated Date of Delivery false Thalassemia (Lao, Frisian, Mediterranean, Or Background): MCV < 80 false Neural Tube Defect (Meningomyelocele, Spina Bifi da, Or Anencephaly) false Congenital Heart Defect false Down Syndrome false Donald-Sachs (eg, Restoration, Cajun, Faroese-Guatemalan) f alse Troy Disease false Sickle Cell [...] Other Infection History false Familial Dysautonomia (Ashkenazi Restoration) false Spinal Muscular Atrophy false Parkinson Disease [...] ed By 08/31/2019 Selecting a care provider [email or web address] 08/31/[address]ning/tubal sterilization [email or web address] 08/31/2019 Depression screening (when indicated) [email or web address] 08/31/2019 Abnormal lab values tfitzger ald14 08/31/2019 Signs and symptoms of labor [email or web address] 08/31/2019 Intimate partner violence tf [email or web address] 08/31/2019 Tobacco/smoking cess ation counseling (ask, advise, assess, assist, and arrange) [email or web address] 08/31/2019 Provided information about childbirth education classes [email or web address] Third Trimester Discussed Date Discussion Item Discussion Note Discuss ed By 01/29/2020 Intimate partner violence tf [email or web address] 12/14/2019 Anesthesia plans tfitzgerald 14 12/14/2019 education (n ewborn screening, jaundice, SIDS/safe sleeping position, car seat) [email or web address] 12/14/2019 Postterm counseling tfitzger ald14 12/14/2019 movement monitoring tf [email or web address] 01/29/2020 Labor signs [email or web address] 12/14/2019 Family medical leave or disability forms [email or web address] 12/14/2019 Signs and symptoms of preeclampsia [email or web address] 01/29/2020 Discussed and offered TDAP t [email or web address] Delivery Information Delivery Date Delivery Type Labor [...] Domestic Partner Domestic Partner Phone Father Name Creasing Machine Operator Status 02/10/20 23 1 A Negative 155 Paresh Castro CLOSED Fetus Data First Name Last Name Admitted to NICU Weight (g) Sex Living Outcome Pediatric Complications Fetus ID Race Codes Race Delivery Type Juan Pemberton n 2919.99 85 M true Full Term [id number] Vaginal Delivery Problems Problem Notes pt w/ hx of GDM with 1st pre gnancy (10/2017) & knot in cord with 2nd (01/2020)07/15/23: Pt admitted to [facility] (MFM consulted) for serial BP [...] Resolution Snomed Code Not e High risk [id number] Advanced maternal age 930976756 Pt wishes to rankin ve cfDNA testing, NT & Level II USN's--will arrange. CSD03/23, 12 + wk NT USN. REport describes nl findings: viable IUP w/ S=D; nl-appearing anterior placenta w/ nl PCI; nl AFV; nl-appearing R ovary; L ovary not visualized, no L adenxal masses; nl limited early anatomy, including visualization of nasal bone; NT<95th%. CSD Past history of gestational diabetes mellitus 795333203 previously .08/12/23: UA + glucose at 32 and 34 weeks. Will repeat 1 hr GTT.08/23/23: repeat 1 hr GTT 134, WNL. edl Kidney stone 58466563 1st pre gnancy complicated by renal calculi. Pt w/ known 6 mm nonobstructing L renal stone at IOB visit, followed w/ Urology in [place]; pt was to have tx w/ lithotripsy, but had + dx'd. CSD06/11/23: patient admitted overnight in L&D for pain control (left sided) due to renal stone. Found to have bilateral non-obstructing stones with renal USN. Thought to have passed stone on left overnight, discharged home with dilaudid prn as well as flomax. scp Group B Streptococcus carrier [id number] GBS+ Hypertensive disorder 64247510 Pt w/ h/o idiop athic HTN, tx'd [...] titrate as needed. SEE PATIENT CASE 03/19/23. ktb06/: 24 hr urine 130. edl09: patient left AMA from [facility] after admitted for persistent RANKIN and severe range in office. Plan for twice weekly NSTs- one in office, one at [facility] with fluid check. reviewed with Dr. Lambert. edl07/19/23: 24 hr urine : patient discussed with MFM, given well controlled CHTN will schedule IOL at 39 weeks. Can change to earlier date if issues with uncontrolled BPs or other concerns. scp Past history of previous delivery by vacuum extraction [id number] 6 lb 8 oz. 38w3 d. for NRFHT Pain in calf 852251805 3: pt with right calf pain x 1 day. BLE 1+. Right calf does appear larger than left and tender to touch. No erythema. RLE dopplers ordered to be completed today. No SOB/CP. edl RhD negative 298623949 03/04/23: Bld Type: A NEGATIVE - RhoGAM [...] Weight in lbs Pre/Post Dialysis Refused Weight 161.162204012659 BP Diastolic BP Location Tested BP Systolic [...] Weight in lbs Pre/Post Dialysis Refused Weight 155.01461843535 BP Diastolic BP Location Tested BP Systolic [...] Weight in lbs Pre/Post Dialysis Refused Weight 158.410269649172 BP Diastolic BP Location Tested BP Systolic [...] Weight in lbs Pre/Post Dialysis Refused Weight 161.667659726229 BP Diastolic BP Location Tested BP Systolic [...] Weight in lbs Pre/Post Dialysis Refused Weight 167.474797809983 BP Diastolic BP Location Tested BP Systolic BP Type 80 126 Fetus Heart Rate Present A 160 Fetus Movement A Increased Comments Nausea/Vomiting: NoHeadaches : NoContraction/Cramping: NoFM: +Edema: legs & calf painPt seen at [facility] overnight 06/09-08/23 for tx of [...] Weight in lbs Pre/Post Dialysis Refused Weight 169.109609798203 BP Diastolic BP Location Tested BP Systolic [...] Weight in lbs Pre/Post Dialysis Refused Weight 166.196026550618 BP Diastolic BP Location Tested BP Systolic BP Type 82 122 Fetus Heart Rate Present A 135 Fetus Movement A Yes Comments Nausea/Vomiting: Yes/NoHeada ches: Occ relieved w/ TylenolContraction/Cramping: BHFM: +Edema: legsDoing well, no complaints. + FM. Was seen at [facility] last week on 07/15 - 07/16/23 for evaluation of RANKIN and elevated BP. Patient left AMA from [facility] after admitted. No concerns today, no RANKIN, visual disturbances. BP today 122/82, reports that at home no higher than 140/90. Completed 24 hour urine collection 07/16/23 with normal results (210mg). USN completed last week (07/19/23) at [facility]: EFW 69%, normal BRANDEE, vertex. Next USN scheduled in 4 weeks for CHTN. Reactive NST today, will need to continue 2x weekly, next to be scheduled at [facility] on Wednesday. Urine dip today [...] Weight in lbs Pre/Post Dialysis Refused Weight 168.656400874997 BP Diastolic BP Location Tested BP Systolic [...] Weight in lbs Pre/Post Dialysis Refused Weight 168.248217827246 BP Diastolic BP Location Tested BP Systolic [...] both WNL--will attempt to get results in [place].RTO weekly Flowsheet Date 08/12/2023 Rodgers Score Blood Edema Fundus Height Fundus Units Glucose Ketones Leukocytes Nitrite Labor Signs Protein Cervic Dilation Cervic Effacement Cervic Station neg 35 cm 3+ negative none Negative neg Type Weight in lbs Pre/Post Dialysis Refused With clothes 169.096605607058 BP Diastolic BP Location Tested BP Systolic [...] Weight in lbs Pre/Post Dialysis Refused Weight 171.844116199818 BP Diastolic BP Location Tested BP Systolic [...] visit today. No plan for delivery (no [facility] recommendations to date), will contact [facility] to discuss. Negative PHQ-2 today. Flowsheet Date 08/26/2023 Rodgers Score Blood Edema Fundus Height Fundus Units Glucose Ketones Leukocytes Nitrite Labor Signs Protein Cervic Dilation Cervic Effacement Cervic Station neg none none neg 0cm 50% -3 Type Weight in lbs Pre/Post Dialysis Refused Weight 168.206292794630 BP Diastolic BP Location Tested BP Systolic [...] NST in office today with no decelerations. [place] irritable. She has a headache this morning [...] [email or web address] 07/09/2023 Signs and symptoms of labor 07/09/2023 Intimate partner violence karlee nunez 07/09/2023 Provided information about childbirth education classes Third Trimester Discussed Date Discussion Item Discussion Note Discuss ed By 07/09/2023 Intimate partner violence karlee nunez 07/09/2023 Anesthesia plans 07/09/2023 education (n ewborn screening, jaundice, SIDS/safe sleeping position, car seat) 07/09/2023 movement monitoring karlee nunez 07/09/2023 Labor signs kborkowski07/09/2023 Signs and symptoms of preeclampsia Delivery Information Delivery Date Delivery Type Labor Anesthesia Weeks Gestation Incision Type Labor Labor Length Hrs Delivered By Post Complications Tubal Sterilization Discharge Date Comments 3 Induce d Regional-Ep idural 37.4 Matthew Washington DO 09/02/2023 Discharge Information Feeding Method Contraceptive Method Maternal HG B and HCT Levels 11.8 / 35.0
--- OUTSIDE RECORDS SUMMARY | 2025-10-23 16:03 | XMS_ITS | Encounter Summary ---
Author Organization [facility] Prior to 03/31/25 Address [address] [place] [address] Care Team Providers Care Livestock Yard Supervisor Name Role Phone Harrison Lowry MD Primary Care Provider Unava ilable Encounter Details Date Type Department Care Team Description 07/19/2017 Records Encounter Delivery Room [address] [place] [address] Provider, Not In System Social History Tobacco [...] on filedocumented in this encounter Care Teams Livestock Yard Supervisor Relationship Specialty Start Date End Date Harrison Lowry MD PCP - General Internal Medicine 10/14/21 documented as of this encounter
--- OUTSIDE RECORDS SUMMARY | 2025-10-23 16:03 | XMS_ITS | Clinical Summary ---
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 Care Teams Engraver Relationship Specialty Start Date End Date Harrison Lowry MD PCP - General Internal Medicine 10/14/21
== END 2025-10-23 15:31 | disposition home or self-care (01) ==
LOC: HO.HUSH 14:45
PROVIDERS: PCP Internal Medicine; Visit Provider Nurse Practitioner Family
DX: R10.9 Unspecified abdominal pain (principal); N20.0 Calculus of kidney; R31.29 Other microscopic hematuria; Z13.9 Encounter for screening, unspecified
CPT/HCPCS: 99213

== ENCOUNTER 2025-10-23 14:44 | Outpatient (REF) | payer OTHER, SELFPAY ==
--- OUTSIDE RECORDS SUMMARY | 2025-10-23 16:12 | XMS_ITS | Clinical Summary ---
Author Organization [facility] Address [address] [place] [address] Care Team Providers Care Bolt Maker Name Role Phone Pcp, No Primary Care Provider Unavailabl e Allergies Active Allergy Reactions Criticality Noted Date Comments Cephalexin Rash/Dermatitis Low 02/25/2020 Sulfa Antibiotics Hives Medium 04/07/2019 Medications azithromycin (ZITHROMAX) 250 MG tabletIndication s:Otitis media with effusion, left Take 2 tabs PO on day one and one tabs on days 2-5 #6 6 tablet 04/07/2019 Active cyclobenzaprine (FLEXERIL) 10 MG tabletIndication s:Other migraine without status migrainosus, not intractable Take 1 tablet (10 mg total) by mouth 3 times daily (every 8 hours) as needed for muscle spasms. 30 tablet 10/05/2025 Active Hospital, Clinic, or Other Facility Administered Medication Ordered Dose Route Frequency Start Date End Date Status ketorolac (TORADOL) injection 30 mgIndications:Other migraine without status migrainosus, not intractable 30 mg IM Once 10/05/2025 10/05/2025 Ended Active Problems No known active problems Encounters Date Type Department Care Team Description 10/05/2025 3:15 PM EST Office Visit [facility] [address] [place] [id number] Fran Temple MD Anderson, Esme Franco PA-C Other migraine without status migrainosus, not intractable (Primary Dx) from Last 3 Months Family History Medical History Relation Name Comments Prostate cancer Father No Known Problems Mother Relation Name Status Comments Father Alive Mother Alive Social History Tobacco Use Types Packs/Day Years Used Date Smoking Tobacco: Never Smokeless Tobacco: Never Tobacco Cessation:Counseling Given: Not Answered Alcohol Use Standard Drinks/Week Comments Yes 0 [...] Sign Reading Time Taken Comments Blood Pressure 162/95 10/05/2025 3:23 PM EST Pulse 94 10/05/2025 3:23 PM EST Temperature 37 C (98.6 F) 10/05/2025 3:23 PM EST Respiratory Rate 16 10/05/2025 3:23 PM EST Oxygen Saturation 100% 10/05/2025 3:23 PM EST Inhaled Oxygen Concentration - - Weight 70.3 kg (155 lb) 04/07/2019 1:48 PM EDT Height 160 cm (5' 3 ) 10/05/2025 3:23 PM EST Body Mass Index 27.46 04/07/2019 1:48 PM EDT Plan of Treatment Health Maintenance Due Date Last Done Comments DTaP/Tdap/Td Vaccines (1 - Tdap) 02/02/2007 Hepatitis B Vaccines (1 of 3 - 19+ 3-dose series) 02/02/2007 Influenza Vaccine 06/01/2025 08/03/2019, 08/12/2017 COVID-19 Vaccine (2 - 2024-2 6 season) 2025 08/13/2021 Pap Smear (Ages 21-65) 02/15/2026 02/15/2023 Hepatitis [...] ANTIBODY Routine 02/16/2023 8:24 AM EDT THINPREP PAP([employer] INSERTER) HPV SCR RFX HPV 16,18/45 Routine 02/15/2023 3:35 PM EDT from Last 3 Months or Most Recently Relevant to Health Maintenance Results * HIV 1/2 Ag/Ab CMIA Reflex to Confirmation (06/29/2023 9:56 AM EDT) HIV Ag/Ab, 4th Gen Non-Reacti ve Non-Reacti ve [facility] Comment: Results show no evidence of infection by HIV 1/2. If clinically indicated, repeat CMIA or test by nucleic acid amplification. 06/29/2023 9:56 AM EDT 06/30/2023 12:47 AM EDT Gayatri Penn MD LAB BLOOD ORDERABLES Final Res ult Performing Organization Address City/[facility]/ZIP Co de Phone Number [facility] [address], [place] * HEPATITIS C VIRUS (HCV) ANTIBODY (02/16/2023 8:24 AM EDT) Hepatitis C Antibody 0.12 Non-Reacti ve Non-Reacti ve S/CO [facility] Other 02/16/2023 8:24 AM EDT 02/16/2023 10:18 PM EDT Narrative [facility] - 02/17/2023 10:15 AM EDT FASTING:YES Gayatri Penn MD LAB BLOOD ORDERABLES Final Res ult [facility] [address], [place] * ThinPrep Pap(Quality Compliance Consultant) HPV Scr Rfx HPV 16,18/45 (02/15/2023 3:35 PM EDT) Report Report [facility] Comment: Final Gynecological Cytology Report ThinPrep Pap Test, HPV Screen, Reflex HPV Genotype SPECIMEN ADEQUACY: SATISFACTORY FOR EVALUATION; ENDOCERVICAL/TRANSFORMATION ZONE COMPONENT PRESENT. INTERPRETATION: NEGATIVE FOR INTRAEPITHELIAL LESION OR MALIGNANCY. Electronically Signed: Dago Moore CT(ASCP) CLINICAL INFORMATION: LMP: NG Biopsy Date: NG Specimen Source: Cervix, Endocervix Previous Pap Date: NG HPV RESULTS: HPV mRNA E6/E7 [id number] Approved: 02/17/23 Negative REF RANGE: Negative CPT Codes: 31549 ICD Codes: Z34.83 Other 02/15/2023 3:35 PM EDT 02/17/2023 1:01 AM EDT us Gayatri Penn MD LAB AMB PATH/CYTO ORDERABLES F inal Result [facility] [address], [place] from Last 3 Months or Most Recently Relevant to Health Maintenance Insurance [facility] Care Teams Bolt Maker Relationship Specialty Start Date End Date Pcp, No PCP - General General Medicine 04/07/19
== END 2025-10-23 14:45 | disposition home or self-care (01) ==
LOC: HO.LAB 14:44
PROVIDERS: PCP Internal Medicine; Visit Provider Nurse Practitioner Family
DX: N20.0 Calculus of kidney (principal); R10.A0 Flank pain, unspecified side; R31.29 Other microscopic hematuria
CPT/HCPCS: 81003; 88112